=== PATIENT | male | born 1945 | race Caucasian/White ===

== ENCOUNTER 2019-10-04 08:32 | Outpatient (CLI) | payer OTHER, SELFPAY ==
--- NOTE | 2019-10-04 08:44 | CT_ITS ---
WS: [id number] High resolution chest CT. HISTORY: Bronchiectasis. TECHNIQUE: Contiguous 5 mm axial imaging performed on the thorax. Additional 1.25 mm thin slices in s upine and prone positioning. Inspiratory and expiratory maneuvers submitted also. Coronal and sagittal reformats are submitted. All CT scans at [facility] use at least one of these dose optimization techniques: automated exposure control; mA and/or kV adjustment per patient size (includes targeted exams where dose is matched to c linical indication); or iterative reconstruction. CONTRAST: None DLP: 1827.31 mGycm COMPARISON: 09/07/2019, 07/19/2019 Lungs and central airway: Mild pulmonary hyperexpansion. There is extensive groundglass attenuation n oted bilaterally. Groundglass attenuation has been noted on multiple prior CTs also. Patchy and nearl y diffuse groundglass attenuation in a mosaic pattern. Scattered opacifications are present throughou t both lungs. Opacifications in the periphery of the LEFT upper lobe resolved with prone positioning. Conglomerate nodule measuring 2.0 x 3.0 cm in the LEFT lower lobe persists on all imaging. There is extensive bronchiectatic changes in the RIGHT middle lobe and LEFT lower lobe and lingula. To a lesse r extent mild bronchiectasis in the upper lobes bilaterally. Bronchiectatic changes have progressed s lee the prior study. Pleura: Small layering RIGHT pleural effusion as noted on the prior study. Slight decrease in size of the RIGHT effusion. Very small LEFT pleural effusion. Heart and pericardium: Moderate enlargement of the heart chambers. No pericardial effusion. Mild athe rosclerosis of the coronary arteries. Mediastinum and jason: Numerous enlarged lymph nodes are again identified and stable over multiple gerry or examinations. The largest lymph node at the AP window with a maximum transverse diameter of 1.7 cm . No progression of adenopathy. Vessels: Pulmonary artery size is enlarged at 3.5 cm diameter, slightly greater then the aorta. Aorta is normal size. Chest wall and lower neck: Mild gynecomastia. Upper abdomen: The entire adrenal glands are not included. No abnormality is noted. Osseous structures: Moderate increase in thoracic kyphosis. Calcification along the anterior longitud inal ligament. Prior dorsal column stimulator over the mid thoracic region. CT/CT chest wo con [id number] IMPRESSION: 1. Severe chronic interstitial lung disease. Progression of bronchiectasis sin ce 09/07/2019. Most significant bronchiectasis in the RIGHT middle lobe, LEFT l ower lobe and lingula. 2. Near diffuse mosaic groundglass attenuation and conglomerate chronic nodule in the LEFT lower lobe. Consider nonspecific interstitial pneumonitis and othe r chronic organizing pneumonias. 3. Small bilateral pleural effusions, RIGHT greater than LEFT. 4. Moderate cardiomegaly. 5. Pulmonary hypertension. 6. Mild gynecomastia. 7. Mediastinal and hilar lymphadenopathy is stable.
== END 2019-10-04 08:33 | disposition home or self-care (01) ==
LOC: RADWPI 08:40
PROVIDERS: Family Provider Emergency Medicine Emergency Medical Services; PCP Emergency Medicine Emergency Medical Services; Referring Provider Emergency Medicine Emergency Medical Services; Visit Provider Emergency Medicine Emergency Medical Services
DX: J47.9 Bronchiectasis, uncomplicated (principal); J90 Pleural effusion, not elsewhere classified; I51.7 Cardiomegaly; I27.20 Pulmonary hypertension, unspecified; N62 Hypertrophy of breast
CPT/HCPCS: 71250

== ENCOUNTER 2019-10-23 11:05 | Outpatient (CLI) | payer OTHER, SELFPAY | END 2019-10-23 11:06 | disposition home or self-care (01) | LOC: RT 11:09 | PROVIDERS: Family Provider Emergency Medicine Emergency Medical Services; PCP Emergency Medicine Emergency Medical Services; Visit Provider Internal Medicine Critical Care Medicine | DX: J47.9 Bronchiectasis, uncomplicated (principal) | CPT/HCPCS: 94060; 94726; 94729; J7611 ==

== ENCOUNTER 2019-11-12 06:12 | Day surgery (SDC) | payer OTHER, MEDICARE, SELFPAY ==
[2019-11-09 08:45] VITALS: BMI 38.7
[2019-11-12 06:33] VITALS: BMI 38.6
[2019-11-12] MEDS: sodium chloride 0.9% 1,000 ML 30 ML (06:55)
--- NOTE | 2019-11-12 06:55 | P.ANESUD_ITS ---
Pre-Anesthetic Update Pre-Anesthetic Assessment: Date of Surgery/Procedure: 11/12/19 Preop Susan gnosis: Anemia Proposed Procedure: Operation Date: 11/12/19 07:00 Proposed Procedures p EGD/Colon 05418 10520 D64.9(Not Applicable) - Nasim Carcamo MD s Colonoscopy(Not Applicable) - Nasim Carcamo MD Last Intake: Intake Last Liquid Date 11/11/19 Last Liquid Time 20:00 Last Solid Date 11/09/19 Last Solid Time 18:00 Vitals: Pulse Strength 3+ Normal 11/12/19 06:41 Cardiac Studies: No Data to Display
[2019-11-12 06:56] LABS: Glucose Point of Care 90 mg/dL (70-110)
--- NOTE | 2019-11-12 06:57 | ANES.PREANE2 ---
Pre-Anesthetic Assessment Pre-Anesthetic Assessment: Height/Weight: Height 1.78 m Weight 122.039 kg Preop Diagnosis: Anemia Proposed Procedure: Operation Date: 11/12/19 07:00 Proposed Procedures p EGD/Colon 72036 42191 D64.9(Not Applicable) - Nasim Carcamo MD s Colonoscopy(Not Applicable) - Nasim Carcamo MD Was Beta Ame taken within 24 hours: N/A Last intake: Intake Last Liquid Date 11/11/19 Last Liquid Time 20:00 Last Solid Date 11/09/19 Last Solid Time 18:00 Exam: Pre-Anes Outpt Exam: alert, oriented x 3, clear to auscultation bilaterally and regular rate & rhythm Airway: Submandibular: WNL Cervical ROM: WNL MP: 2 Dentition: False History/ROS: No significant history except as noted Pulmonary: Pulmonary: COPD, NUNEZ and SOB Comments: 4Liters O2 24/7. LLL removed 1969 CV/HEM: CV/HEM: Afib, Anemia and HTN : : None reported Hepatic: Hepatic: None reported GI: Comments: 2 colon resections Metabolic: Metabolic: DM, Hyperlipidemia and Morbid obesity Musc/skel: Musc/skel: Lower Back Pain (spinal cord stimulator), Weakness (uses a cane) and None reported Neuropsych: Neuropsych: Depression Comments: PTSD Anesthetic Plan: ASA status: 3 Anesthesia: Anesthesia Evaluation and MAC Risk of > 500 ml blood loss (7ml/kg in children): No PFSH Anesthesia PFSH: Social History Smoking and tobacco status: former smoker Quit status (tobacco): has quit using tobacco Year quit tobacco: 1970 Alcohol intake: current Alcohol intake frequency: holidays/special occasions only Lives independently: Yes Household members: spouse Marital status: Current occupational status: retired History of recent travel: No Current gender identity: Male Data Anesthesia Other Labs: Laboratory Results - last 48 hr 11/12/19 06:53 POC Glucose 90 Cardiac Studies: No Data to Display
--- NOTE | 2019-11-12 06:59 | W.PM.OPSUD ---
Surgery/Procedure H&P Update DATE OF PROCEDURE: November 12, 2019 DATE H&P PERFORMED: 10/23/19 H&P UPDATE INFORMATION: H&P completed within last 30 days and No changes to prior documentation PREOP DIAGNOSIS: Anemia PLANNED PROCEDURE: Operation Date: 11/12/19 07:00 Proposed Procedures p EGD/Colon 29325 17427 D64.9(Not Applicable) - Nasim Carcamo MD s Colonoscopy(Not Applicable) - Nasim Carcamo MD
[2019-11-12 07:04] VITALS: BP 113/62; PULSE 62; RESP 22; TEMP 37.4
[2019-11-12 07:55] VITALS: BP 121/57; PULSE 62; RESP 16; TEMP 36.9; O2SAT 88
[2019-11-12 08:03] VITALS: BP 115/64; PULSE 60; RESP 16; O2SAT 88
[2019-11-12 08:16] VITALS: BP 123/64; PULSE 60; RESP 16; O2SAT 90
--- NOTE | 2019-11-12 10:01 | ANE.PACU2 ---
 Inpatient post-anesthesia follow up: Airway intact: Yes Vital signs: Temperature 98.4 F Pulse Rate 60 Respiratory Rate 16 Blood Pressure 123/64 Pulse Oximetry 90 Oxygen Delivery Me thod Nasal Cannula Oxygen Flow Rate 4 Fraction of Inspir ed Oxygen Hydration adequate: Yes Nausea and vomiting: No Mental status: Baseline
== END 2019-11-12 08:30 | disposition home or self-care (01) ==
PROVIDERS: Family Provider Emergency Medicine Emergency Medical Services; PCP Emergency Medicine Emergency Medical Services; Visit Provider Surgery
PROC: 0DJ08ZZ Inspection of Upper Intestinal Tract, Via Natural or Artificial Opening Endoscopic (ICD-10-PCS; CPT 43235; principal; 2019-11-12 07:00)
PROC: 0DJD8ZZ Inspection of Lower Intestinal Tract, Via Natural or Artificial Opening Endoscopic (ICD-10-PCS; CPT 45378; 2019-11-12 07:00)
DX: D64.9 Anemia, unspecified (principal); Z85.038 Personal history of other malignant neoplasm of large intestine; Z90.49 Acquired absence of other specified parts of digestive tract; D12.2 Benign neoplasm of ascending colon; D12.4 Benign neoplasm of descending colon; K64.8 Other hemorrhoids; I10 Essential (primary) hypertension; I48.91 Unspecified atrial fibrillation; G47.30 Sleep apnea, unspecified; E78.5 Hyperlipidemia, unspecified; M17.11 Unilateral primary osteoarthritis, right knee; E11.9 Type 2 diabetes mellitus without complications; Z79.4 Long term (current) use of insulin; Z82.49 Family history of ischemic heart disease and other diseases of the circulatory system; Z87.891 Personal history of nicotine dependence; D50.9 Iron deficiency anemia, unspecified; J44.9 Chronic obstructive pulmonary disease, unspecified; E66.01 Morbid (severe) obesity due to excess calories; Z68.38 Body mass index [BMI] 38.0-38.9, adult
CPT/HCPCS: 12345; 36416; 43251; 45385; 82962; 88305; J2001; J2704; J7030

== ENCOUNTER 2019-11-19 07:25 | Inpatient (IN) | payer OTHER, MEDICARE, SELFPAY ==
[2019-11-19] VITALS (19 sets, daily range): BP systolic 100–147; BP diastolic 39–80; PULSE 60–86; RESP 16–21; TEMP 36.6–37.1; O2SAT 90–100; BMI 37.0
--- NOTE | 2019-11-19 07:38 | ED_ITS ---
Entered by Isis Jacobs, acting as scribe for Beto Candelario DO HPI - Nausea/Vomiting/Diarrhea General: Chief complaint: Nausea/Vomiting/Diarrhea Stated complaint: Throwing up/passing blood Time Seen by Provider: 11/19/19 07:41 Source: patient and family Mode of arrival: ambulatory Limitations: no limitations History of Present Illness: HPI Narrative: 74 yo male presents with blood in stools. pt states this started yesterday. pt had one episode of vomiting bright red blood.pt has had 4 episodes of bloody diarrhea stools. pt states he had a colonscopy and EGD done [address] Carcamo to see where the blood loss was coming from, pt restarted eliquis after the procedure. pt denies abdomen pain. pt denies any other symptoms at this time. MD elicited complaint: nausea, vomiting (blood) and diarrhea (blood) Onset (ago): day(s) (yesterday) Description of vomiting: bloody Description of diarrhea: blood Associated nausea: Yes Associated abdominal pain: No Location of pain: None Pain consistency: constant Severity: moderate Exacerbating factors: bowel movement Relieving factors: none Context: recent surgery/procedure (colonscopy and scope) Associated symtoms: Reports nausea and other (bloody stools, one episode of blood in vomiting); Denies chest pain, dysuria, fatigue or malaise Treatment prior to arrival: none Review of Systems Const: Denies: fever, chills, body aches, change in appetite, fatigue or malaise ENMT: Denies: throat pain, ear pain, nasal discharge or nasal congestion Card: Denies: chest pain, edema, shortness of breath on exertion or shortness of breath when lying down Resp: Denies: productive cough or non-productive cough GI: Reports: nausea, vomiting blood and blood in stool : Denies: flank pain, painful urination, urinary frequency or urinary urgency Skin/Breast: Denies: rash or itching [facility] ED PFSH: Medical History Accelerated essential hypertension AF (atrial fibrillation) Apnea, sleep Bronchiectasis, uncomplicated Chronic obstructive pulmonary disease, unspecified Cyst of pancreas Hyperlipidemia, unspecified Incisional hernia Osteoarthritis of right knee Post-traumatic stress disorder, unspecified Postlaminectomy syndrome Spinal stenosis, lumbar region without neurogenic claudication Type 2 diabetes mellitus without complications Surgical History H/O colonoscopy 2016 H/O shoulder surgery History of colon resection x2 History of lumbar fusion History of surgical procedure on eye proper using laser History of tonsillectomy and adenoidectomy S/P partial lobectomy of lung Family History Brother Diabetes Hypertension Father Cancer Sister Cancer Other CAD (coronary artery disease) Stroke Denies family history of Anesthesia complication Bleeding disorder Social History Smoking and tobacco status: former smoker Quit status (tobacco): has quit using tobacco Year quit tobacco: 1970 Alcohol intake: current Alcohol intake frequency: holidays/special occasions only Lives independently: Yes Household members: spouse Marital status: Current occupational status: retired History of recent travel: No Current gender identity: Male Physical Exam Const: COMMON NORMALS: average body habitus, oriented x3 and alert GENERAL APPEARANCE: cooperative, comfortable, well kempt and well developed NUTRITIONAL APPEARANCE: obese ORIENTATION/CONSCIOUSNESS: Yes awake, Yes oriented to person and Yes oriented to place HENMT: COMMON NORMALS: normocephalic, head/scalp atraumatic, EAC's normal, TM's normal bilaterally, external nose normal, moist oral mucous membranes and oropharynx normal HEAD & SCALP: normocephalic and atraumatic NOSE: external nose normal EXTERNAL AUDITORY CANAL: EAC's normal TYMPANIC MEMBRANE: TM's normal bilaterally MOUTH: oral and palatal mucosa normal, lip normal and tongue normal THROAT: posterior oropharynx normal and tonsils normal Eye: COMMON NORMALS: PERRL, EOMs intact bilaterally, conjunctivae normal and no scleral icterus CONJUNCTIVA: Yes conjunctivae normal PUPIL: Yes PERRL Neck/C-Spine: COMMON NORMALS: full ROM, no lymphadenopathy, supple, no meningeal signs and thyroid normal THYROID: thyroid normal and asymmetrical Lymph: LYMPHATIC: no lymphadenopathy noted Resp: COMMON NORMALS: normal respiratory effort, no retractions, no use of accessory muscles and clear to auscultation bilaterally AUSCULTATION: clear to auscultation bilaterally Cardio: COMMON NORMALS: regular rate and regular rhythm RATE: regular rate RHYTHM: regular rhythm HEART SOUNDS: no murmurs GI: COMMON NORMALS: normal to inspection, nondistended, normoactive bowel sounds, soft to palpation and no hepatosplenomegaly PALPATION: Yes soft and Yes no hepatosplenomegaly : COMMON NORMALS: Yes no CVA tenderness BLADDER/KIDNEY EXAM: Yes no CVA tenderness Back/Pelvis: COMMON NORMALS: no CVA tenderness LUMBAR SPINE/LOWER BACK: Yes normal to inspection Extremity: COMMON NORMALS: no clubbing, cyanosis or edema, no calf tenderness and no pedal edema Neuro: COMMON NORMALS: oriented x3 SENSORIUM/ORIENTATION: Yes alert, Yes oriented to person and Yes oriented to place MENINGEAL SIGNS: Yes no meningeal signs Psych: APPEARANCE: Yes well kempt Skin: COMMON NORMALS: no rashes or lesions noted and skin turgor normal GENERAL SKIN EXAM: no rashes or lesions noted and turgor normal Course ED course: Grossly positive bloody diarrhea this morning. He said EGD and colonoscopy within the last week which was reviewed there were some polyps removed from the colonoscopy he is previously had colon resection there is a question of the colorectal junction of some abnormalities none were noted at the time of colonoscopy. Will discuss with Dr. Carcamo messages been let us left for him he is currently scrubbed into per surgery he will call back once he is completed. Have discussed Dr. Moran she will accept him on the medical floor we will keep him n.p.o. Vital Signs: Vital signs: Vital Signs Temperature 98.7 F 11/19/19 07:30 Pulse Rate 62 11/19/19 09:00 Respiratory Rate 18 11/19/19 09:00 Blood Pressure 131/60 11/19/19 09:00 Pulse Oximetry 99 11/19/19 09:00 MDM - Nausea/Vomiting/Diarrhea Lab Data: Labs: Lab Results 11/19/19 11/19/19 11/19/19 Range/Units 07:58 07:58 07:58 WBC 16.5 H (4.0-10.0) 10^3/ uL RBC 2.95 L (4.1-5.3) 10^6/u L Hgb 7.3 L (11.7-16.6) g/dL Hct 24.5 L (42.0-52.0) % MCV 83.1 (80-94) fL MCH 24.7 L (28.0-34.0) pg MCHC 29.8 L (30.0-36.0) g/dL RDW 16.5 H (12.1-15.1) % Plt Count 229 (130-400) 10^3/c mm MPV 10.3 (7.4-10.4) fL Neut % (Auto) 76.2 % Lymph % (Auto) 12.8 % [place] % (Auto) 10.1 % Eos % (Auto) 0.0 % Baso % (Auto) 0.2 % Neut # (Auto) 12.6 H (1.8-7.7) 10^3/u L Lymph # (Auto) 2.1 (0.8-4.8) 10^3/u L [place] # (Auto) 1.7 H (0.2-0.9) 10^3/u L Eos # (Auto) 0.0 (0.0-0.8) 10^3/u L Baso # (Auto) 0.0 (0.0-0.1) 10^3/u L Nucleated RBC % (a uto) 0 % Nucleated RBCs # 0.0 /100WBC PT 14.40 H (10.5-13.3) SECO NDS INR 1.09 (0.8-1.2) APTT 26.0 (23.9-36.7) SECO NDS Sodium 134 L (136-145) mmol/L Potassium 4.1 (3.5-5.1) mmol/L Chloride 88 L (98-107) mmol/L Carbon Dioxide 34 H (22-29) mmol/L Anion Gap 16.1 (5-19) BUN 73 H (8-23) mg/dL Creatinine 1.5 H (0.7-1.2) mg/dL Glucose 266 H (65-115) mg/dL Calcium 10.2 (8.5-10.5) mg/dL Total Bilirubin 0.2 (0.15-1.2) mg/dL AST 14 (0-40) U/L ALT 14 (0-41) U/L Alkaline Phosphata se 58 (40-130) IU/L Total Protein 7.3 (6.6-8.7) g/dL Albumin 3.9 (3.5-5.2) g/dL Globulin 3.4 (1.3-4.6) g/dL Lipase 236 H (13-60) U/L Urine Color (Yellow) Urine Appearance (CLEAR) Urine pH (5-7) Ur Specific Gravit y (1.005-1.030) Urine Protein (Negative) Urine Glucose (UA) (Normal) Urine Ketones (Negative) Urine Blood (Negative) Urine Nitrate (Negative) Urine Bilirubin (NEGATIVE) Urine Urobilinogen (Negative) mg/dL Ur Leukocyte [place] ase (Negative) Blood Type Antibody Screen 11/19/19 11/19/19 Range/Units 07:58 08:13 WBC (4.0-10.0) 10^3/ uL RBC (4.1-5.3) 10^6/u L Hgb (11.7-16.6) g/dL Hct (42.0-52.0) % MCV (80-94) fL MCH (28.0-34.0) pg MCHC (30.0-36.0) g/dL RDW (12.1-15.1) % Plt Count (130-400) 10^3/c mm MPV (7.4-10.4) fL Neut % (Auto) % Lymph % (Auto) % [place] % (Auto) % Eos % (Auto) % Baso % (Auto) % Neut # (Auto) (1.8-7.7) 10^3/u L Lymph # (Auto) (0.8-4.8) 10^3/u L [place] # (Auto) (0.2-0.9) 10^3/u L Eos # (Auto) (0.0-0.8) 10^3/u L Baso # (Auto) (0.0-0.1) 10^3/u L Nucleated RBC % (a uto) % Nucleated RBCs # /100WBC PT (10.5-13.3) SECO NDS INR (0.8-1.2) APTT (23.9-36.7) SECO NDS Sodium (136-145) mmol/L Potassium (3.5-5.1) mmol/L Chloride (98-107) mmol/L Carbon Dioxide (22-29) mmol/L Anion Gap (5-19) BUN (8-23) mg/dL Creatinine (0.7-1.2) mg/dL Glucose (65-115) mg/dL Calcium (8.5-10.5) mg/dL Total Bilirubin (0.15-1.2) mg/dL AST (0-40) U/L ALT (0-41) U/L Alkaline Phosphata se (40-130) IU/L Total Protein (6.6-8.7) g/dL Albumin (3.5-5.2) g/dL Globulin (1.3-4.6) g/dL Lipase (13-60) U/L Urine Color Yellow (Yellow) Urine Appearance Clear (CLEAR) Urine pH 5 (5-7) Ur Specific Gravit y 1.010 (1.005-1.030) Urine Protein Neg (Negative) Urine Glucose (UA) Norm (Normal) Urine Ketones Negative (Negative) Urine Blood Neg (Negative) Urine Nitrate Negative (Negative) Urine Bilirubin Neg (NEGATIVE) Urine Urobilinogen Norm (Negative) mg/dL Ur Leukocyte [place] ase Negative (Negative) Blood Type O Positive Antibody Screen Negative Discharge Plan Discharge Patient Disposition: Placed in Observation Clinical Impression: Anemia, Hematemesis Condition: Stable Referrals: Stevan Pal DO [Primary Care Provider] - Coding Level of Care Code ED Document Image Technician for Chg Fwd Exam Comprehensive The documentation recorded by the Reynaldo taveras Bridget Annette, accurately reflects the service I personally performed and the decisions made by Andree ponce Curtis L, DO Nov 19, 2019 07:25
--- NOTE | 2019-11-19 07:47 | CT_ITS ---
WS: [id number] CT ABDOMEN PELVIS TECHNIQUE: Contrast-enhanced CT of the abdomen and pelvis with coronal and sagittal reformatted image s. CLINICAL INFORMATION: GI bleed COMPARISON: None. DLP: 3842.[address] scans at [facility] use at least one of these dose optimization techniques: automat ed exposure control; mA and/or kV adjustment per patient size (includes targeted exams where dose is matched to clinical indication); or iterative reconstruction. FINDINGS: Small right pleural effusion with compressive atelectasis right lung base. Trace left pleural fluid. Fibrotic interstitial changes in the lung bases. Cardiomegaly. Nodular infiltrates within the right m iddle lobe unchanged since chest CT October 04, 2019. Normal liver. Normal gallbladder. Normal spleen. Normal GE junction. Adrenal glands are normal. Hallie l renal parenchymal enhancement. Small bilateral renal cysts. No hydronephrosis. Small low-attenuatio n lesion in the body of the pancreas measuring 11 mm. Fatty atrophy of the pancreatic parenchyma. Nor mal caliber abdominal aorta. Focal eccentric masslike soft tissue thickening distal sigmoid colon at the rectal junction suspiciou s for neoplasm. Soft tissue thickening measures 3.2 CM. Prior postoperative changes sigmoid resection with anastomosis. Ventral abdominal wall widemouth hernia with hernia mouth measuring 7.0 CM. Herniation of transverse colon without obstruction.Moderate short segment of segmental narrowing proximal to the anastomosis. No periaortic lymphadenopathy. No pelvic lymphadenopathy. No inguinal lymphadenopathy. Prior postoper ative changes L4-S1 pedicle screw fixation. Ankylosis lower thoracic spine. Dorsal spinal stimulator. Notified Beto Candelario DO at 11/19/2019 9:[address]/CT abdomen pelvis w con* [id number] IMPRESSION: 1. Focal eccentric masslike soft tissue thickening distal sigmoid colon at the rectal junction suspicious for neoplasm. Soft tissue thickening measures 3.2 C M. Patient reports recent colonoscopy and this could also be sequelae from rece nt colonoscopy or biopsy. 2. Prior postoperative changes sigmoid resection with anastomosis. Moderate sh ort segment of segmental narrowing proximal to the anastomosis. 3. Ventral abdominal wall hernia with a wide mouth opening containing nonobstr ucted transverse colon. 4. Low-attenuation lesion in the body of the pancreas measuring 11 mm. Recomme nd 3-6 month follow-up with CT or MRI. 5. Small moderate right pleural effusion.
[2019-11-19 08:06] LABS: Basophils % 0.2 %; Hematocrit 24.5 % (42.0-52.0); Hemoglobin 7.3 g/dL (11.7-16.6); Lymphocytes # 2.1 10^3/uL (0.8-4.8); Lymphocytes % 12.8 %; Mean Corpuscular HGB Conc 29.8 g/dL (30.0-36.0); Mean Corpuscular Hemoglobin 24.7 pg (28.0-34.0); Mean Corpuscular Volume 83.1 fL (80-94); Mean Platelet Volume 10.3 fL (7.4-10.4); Monocytes # 1.7 10^3/uL (0.2-0.9); Monocytes % 10.1 %; Neutrophils # 12.6 10^3/uL (1.8-7.7); Neutrophils % 76.2 %; Nucleated Red Blood Cells % 0 %; Platelet Count 229 10^3/cmm (130-400); Red Blood Count 2.95 10^6/uL (4.1-5.3); Red Cell Distribution Width 16.5 % (12.1-15.1); White Blood Count 16.5 10^3/uL (4.0-10.0)
--- NOTE | 2019-11-19 08:06 | PC.NURSE ---
Patient ambulated to the restroom with a steady gait, with portable oxygen to provide stool and urine samples.
--- NOTE | 2019-11-19 08:11 | PC.NURSE ---
Patient ambulated back to room with steady gait. Returned to bed without injury.
[2019-11-19 08:14] LABS: Add Urine Microscopic? NO
[2019-11-19 08:15] LABS: INR 1.09 (0.8-1.2)
[2019-11-19 08:20] LABS: Alanine Aminotransferase 14 U/L (0-41); Albumin Level 3.9 g/dL (3.5-5.2); Alkaline Phosphatase 58 IU/L (40-130); Anion Gap 16.1 (5-19); Aspartate Amino Transferase 14 U/L (0-40); Blood Urea Nitrogen 73 mg/dL (8-23); Calcium 10.2 mg/dL (8.5-10.5); Carbon Dioxide 34 mmol/L (22-29); Chloride 88 mmol/L (98-107); Globulin 3.4 g/dL (1.3-4.6); Glucose 266 mg/dL (65-115); Lipase 236 U/L (13-60); Potassium 4.1 mmol/L (3.5-5.1); Sodium 134 mmol/L (136-145); Total Bilirubin 0.2 mg/dL (0.15-1.2); Total Protein 7.3 g/dL (6.6-8.7)
[2019-11-19 08:27] LABS: Bilirubin Urine Neg (NEGATIVE); Blood Urine Neg (Negative); Glucose Urine UA Norm (Normal); Ketones Urine Negative (Negative); Leukocyte Esterase Urine Negative (Negative); Nitrate Urine Negative (Negative); Protein Urine Neg (Negative); Urine Appearance Clear (CLEAR); Urine Color Yellow (Yellow); Urobilinogen Urine Norm (Negative); pH Urine 5 (5-7)
[2019-11-19] MEDS: iodixanol 320 mg/mL 100mL Btl IV (08:32)
[2019-11-19] MEDS: pantoprazole 40 mg SDV IVP ×2 (08:49→20:50)
--- NOTE | 2019-11-19 10:12 | PM.HP ---
Providers/Chief Complaint Admitting Physician: Cecilia Moran DO Primary Care Provider: Stevan Pal DO Chief Complaint: Throwing up/passing blood History of Present Illness Ambrocio Tinoco is a 74 year old male with a past medical history of atrial fibrillation on chronic anticoagulation and history of chronic anemia that presented to the emergency department today for hematemesis and hematochezia. Patient had recent EGD and colonoscopy on 11/12/[address] Carcamo, did well following the procedure, reported that he went home and started taking his home Eliquis as previously prescribed. He stated that he began having upset stomach 1 to 2 days after his procedure, had decreased appetite and generalized abdominal cramping. He reported that he began having some bright red blood per rectum with increased nausea. He stated that due to the bleeding he stopped his Eliquis over the weekend, last dose was on Tuesday evening. Patient reports continued bright red blood per rectum and one episode of throwing up blood today which resulted in him coming to the ER for further evaluation and treatment.. Last bowel movement was this morning at about 550. He denies any fevers, no chills, no sick contacts. Reported that respiratory status is at its baseline with no recent changes. He reports cramping discomfort in the abdomen that comes and goes. Patient was seen and evaluated in the emergency department noted to have concern for GI bleed with recent endoscopy and therefore placed on observation. Dr. Carcamo was consulted by ER physician. Review of Systems Const: Denies: fever or chills Eyes: Reports: change in vision (acute on chronic) ENMT: Denies: nasal congestion Card: Denies: chest pain, palpitations or edema Resp: Reports: productive cough (chronic); Denies: shortness of breath or coughing up blood GI: Reports: abdominal pain, nausea, vomiting, vomiting blood, cramping and blood in stool; Denies: diarrhea, constipation or black tarry stool : Denies: painful urination or blood in urine Musc: Denies: extremity pain or muscle cramps Skin/Breast: Denies: rash or new lesion Neuro: Reports: dizziness; Denies: headache Psych: Denies: anxiety or depression Endo: Denies: excessive urination or hot flashes Estevan/Lymph: Reports: easy bleeding; Denies: easy bruising Medications/Allergies Home Medications Medication Instructions Recorded Confirmed Last Taken Type desonide 1 applic TOPICAL TID 11/19/19 11/19/19 Unknown History glucose 4 g PO Q15M PRN 11/19/19 11/19/19 Unknown History senna 17.2 mg PO BID PRN 11/19/19 11/19/19 Unknown History tiotropium bromide [Spiriva 2 puff INHALATION DAILY 11/19/19 11/19/19 11/17/19 History Respimat] Allergies Allergy/AdvReac Type Severity Reaction Status Date / Time naproxen Allergy Intermediate ALGY-Rash Verified 09/27/19 14:24 amoxicillin AdvReac Intermediate Itching Verified 09/24/19 12:53 morphine AdvReac Intermediate ADR-Vomitin Verified 10/23/19 14:05 g PFSH Acute PFSH: Medical History (Updated 11/19/19 @ 10:19 by Cecilia Moran DO) Accelerated essential hypertension AF (atrial fibrillation) Apnea, sleep Bronchiectasis, uncomplicated Chronic obstructive pulmonary disease, unspecified Cyst of pancreas Hyperlipidemia, unspecified Incisional hernia Osteoarthritis of right knee Post-traumatic stress disorder, unspecified Postlaminectomy syndrome Spinal stenosis, lumbar region without neurogenic claudication Type 2 diabetes mellitus without complications Surgical History (Updated 11/19/19 @ 10:19 by Cecilia Moran DO) H/O colonoscopy 2016 & 11/12/19 H/O shoulder surgery History of colon resection x2 History of lumbar fusion History of surgical procedure on eye proper using laser History of tonsillectomy and adenoidectomy S/P partial lobectomy of lung Family History Brother Diabetes Hypertension Father Cancer Sister Cancer Other CAD (coronary artery disease) Stroke Denies family history of Anesthesia complication Bleeding disorder Social History Smoking and tobacco status: former smoker Quit status (tobacco): has quit using tobacco Year quit tobacco: 1971 Alcohol intake: current Alcohol intake frequency: holidays/special occasions only Lives independently: Yes Household members: spouse Marital status: Current occupational status: retired History of recent travel: No Current gender identity: Male Vitals/I&O/Wt Last Vital Signs Temp 98.7 F 11/19/19 07:30 Pulse 62 11/19/19 09:00 Resp 18 02/24/20 09:00 BP 131/60 11/19/19 09:00 Pulse Ox 99 11/19/19 09:00 Weight last 48 hrs Weight 113.852 kg Physical Exam Const: COMMON NORMALS: oriented x3 and alert GENERAL APPEARANCE: cooperative ORIENTATION/CONSCIOUSNESS: Yes awake, Yes oriented to person, Yes oriented to place and Yes oriented to time HENMT: COMMON NORMALS: normocephalic and head/scalp atraumatic HEAD & SCALP: normocephalic and atraumatic Eye: COMMON NORMALS: PERRL PUPIL: Yes PERRL Neck/C-Spine: COMMON NORMALS: supple GENERAL: Yes normal visual inspection Resp: EFFORT & INSPECTION: Yes able to speak in complete sentences OTHER: Diminished breath sounds bilaterally with prolonged expiratory phase, faint expiratory wheezing bilaterally Cardio: OTHER: Irregularly irregular, no appreciable murmur GI: OTHER: Obese, soft, mild tenderness to palpation in the left lower quadrant, no guarding or rigidity, hypoactive bowel sounds Extremity: COMMON NORMALS: no clubbing, cyanosis or edema and no calf tenderness Neuro: COMMON NORMALS: oriented x3, CN's II-XII intact bilaterally, moves all extremities and no focal motor deficits SENSORIUM/ORIENTATION: Yes alert, Yes oriented to person, Yes oriented to place and Yes oriented to time SPEECH: speech normal Psych: COMMON NORMALS: mental status grossly normal and cooperative Skin: COMMON NORMALS: no rashes or lesions noted GENERAL SKIN EXAM: no rashes or lesions noted Data : 11/19/19 07:58 11/19/19 07:58 A&P Assessment and plan (1) Anemia: Acute on chronic anemia with hemoglobin of 7.3 today Reported hematemesis and hematochezia with recent EGD and colonoscopy on 11/12/2019. Patient stated that he stopped taking his home Eliquis over the weekend. We will continue to hold Eliquis at this time. We will discuss with general surgeon, Dr. Carcamo, appreciate recommendations and assistance in patient's care Continue on IV PPI, Protonix every 12 hours Status: Acute Code(s): D64.9 - Anemia, unspecified (2) Hematemesis: Plan as above, continue with IV PPI in general surgery consultation. Serial H&H with transfusion of packed red blood cells if hemoglobin drops below 7 Status: Acute Code(s): K92.0 - Hematemesis (3) Bronchiectasis: Chronic bronchiectasis and COPD. On 4 L of oxygen by nasal cannula at baseline and on home trilogy at night. Followed with surgical territory manager, Dr. White. Continue home inhalers Status: Acute Qualifiers: Bronchiectasis type: uncomplicated Qualified Code(s): J47.9 - Bronchiectasis, uncomplicated Code(s): J47.9 - Bronchiectasis, uncomplicated (4) Chronic obstructive pulmonary disease, unspecified: Continue with oxygen by nasal cannula, 4 L at baseline. Continue home trilogy Status: Acute Code(s): J44.9 - Chronic obstructive pulmonary disease, unspecified (5) Heart failure with preserved ejection fraction: Patient appears to be dehydrated at this time with elevated BUN and creatinine and soft blood pressures. Will hold home metolazone and Lasix. Continue to monitor strict intake and output as well as daily weights Status: Acute Qualifiers: Heart failure chronicity: chronic Qualified Code(s): I50.32 - Chronic diastolic (congestive) heart failure Code(s): I50.30 - Unspecified diastolic (congestive) heart failure (6) Cyst of pancreas: Will need outpatient follow-up for repeat imaging with possible MRCP Status: Acute Code(s): K86.2 - Cyst of pancreas (7) AF (atrial fibrillation): Rate controlled at this time, anticoagulation on hold. Discussed with patient that atrial fibrillation can place him at increased risk of stroke due, however with concern for bleeding at this time will continue to hold. Patient and family verbalized understanding Status: Acute Code(s): I48.91 - Unspecified atrial fibrillation Additional A&P Information Leukocytosis: Likely stress reaction, no infectious etiology identified at this time Dehydration: Continue with gentle IV fluids and continue to monitor closely, caution due to history of diastolic CHF Diabetes mellitus type 2, insulin-dependent: Placed on sliding scale insulin, will decrease the dose of patient's home Lantus to 20 units at bedtime as do not wish for him to become hypoglycemic due to his n.p.o. status Focal eccentric masslike soft tissue thickening in the distal sigmoid colon could be secondary to recent colonoscopy, will discuss further with Dr. Carcamo. History of colon cancer status post resection Small right pleural effusion: Appears to be at baseline DVT prophylaxis: SCDs, no pharmacologic prophylaxis due to GI bleed Diet: N.p.o. CODE STATUS: Full code Attestations Medical Necessity Statement*: Patient requires hospitalization due to GI bleed, expected stay less than 2 midnights, therefore will place on observation at this time Coding Level of Care Code Acute [employer] Principal for [facility] Fwd Exam Comprehensive Diagnoses Anemia D64.9 Hematemesis K92.0 Bronchiectasis J47.9 Bronchiectasis type: uncomplicated Chronic obstructive pulmonary disease, unspecified J44.9 Heart failure with preserved ejection fraction I50.32 Heart failure chronicity: chronic Cyst of pancreas K86.2 AF (atrial fibrillation) I48.91
[2019-11-19 12:12] LABS: Glucose Point of Care 270 mg/dL (70-110)
[2019-11-19] MEDS: sodium chloride 0.9% 1,000 ML 50 ML IV (12:21)
[2019-11-19 14:03] LABS: Hemoglobin 6.8 g/dL (11.7-16.6)
[2019-11-19] MEDS: gabapentin 100 mg Capsule 200 MG PO ×2 (15:22→21:07)
[2019-11-19 17:07] LABS: Glucose Point of Care 201 mg/dL (70-110)
[2019-11-19] MEDS: sodium chloride 0.9% 100 ML 50 ML (17:49)
[2019-11-19] MEDS: metoprolol tartrate 50 mg Tablet 75 MG PO (18:22)
--- NOTE | 2019-11-19 19:05 | PC.NURSE ---
Introduction of staff and report received, aidet.
[2019-11-19] MEDS: ipratropium-albuterol 3 mL Neb INHALATION (19:44)
[2019-11-19] MEDS: sodium chloride 3.5% neb 4 mL Neb INHALATION (19:44)
[2019-11-19 20:37] LABS: Glucose Point of Care 293 mg/dL (70-110)
[2019-11-19] MEDS: atorvastatin 40 mg Tablet PO (21:07)
[2019-11-19] MEDS: insulin glargine 100 units/1 mL 20 UNIT SUBCUT (21:08)
[2019-11-19 23:10] LABS: Hematocrit 24.1 % (42.0-52.0); Hemoglobin 7.3 g/dL (11.7-16.6)
[2019-11-20] VITALS (11 sets, daily range): BP systolic 86–152; BP diastolic 53–74; PULSE 60–120; RESP 18–28; TEMP 36.7–37.9; O2SAT 89–97
[2019-11-20 05:18] LABS: Basophils % 0.1 %; Eosinophils # 0.1 10^3/uL (0.0-0.8); Eosinophils % 0.4 %; Hematocrit 25.3 % (42.0-52.0); Hemoglobin 7.7 g/dL (11.7-16.6); Lymphocytes # 3.2 10^3/uL (0.8-4.8); Lymphocytes % 22.1 %; Mean Corpuscular HGB Conc 30.4 g/dL (30.0-36.0); Mean Corpuscular Hemoglobin 26.1 pg (28.0-34.0); Mean Corpuscular Volume 85.8 fL (80-94); Mean Platelet Volume 10.6 fL (7.4-10.4); Monocytes # 1.6 10^3/uL (0.2-0.9); Monocytes % 10.9 %; Neutrophils # 9.5 10^3/uL (1.8-7.7); Neutrophils % 65.9 %; Nucleated Red Blood Cells % 0 %; Platelet Count 217 10^3/cmm (130-400); Red Blood Count 2.95 10^6/uL (4.1-5.3); White Blood Count 14.4 10^3/uL (4.0-10.0)
[2019-11-20 05:50] LABS: Alanine Aminotransferase 10 U/L (0-41); Albumin Level 3.3 g/dL (3.5-5.2); Alkaline Phosphatase 51 IU/L (40-130); Aspartate Amino Transferase 15 U/L (0-40); Blood Urea Nitrogen 50 mg/dL (8-23); Calcium 9.9 mg/dL (8.5-10.5); Carbon Dioxide 33 mmol/L (22-29); Chloride 93 mmol/L (98-107); Globulin 3.8 g/dL (1.3-4.6); Glucose 160 mg/dL (65-115); Sodium 138 mmol/L (136-145); Total Bilirubin 0.5 mg/dL (0.15-1.2); Total Protein 7.1 g/dL (6.6-8.7)
[2019-11-20 06:46] LABS: Glucose Point of Care 186 mg/dL (70-110)
[2019-11-20] MEDS: sodium chloride 3.5% neb 4 mL Neb INHALATION ×2 (08:14→20:11)
[2019-11-20] MEDS: ipratropium-albuterol 3 mL Neb INHALATION ×2 (08:14→20:11)
[2019-11-20] MEDS: FUROsemide 10 mg/mL SDV 4mL 40 MG IVP (08:41)
--- NOTE | 2019-11-20 09:19 | PC.CHAP ---
Pastoral Care Encounter/Spiritual Assessment Type of Contact [] Declined pr internship visit [] Patient/Family/Request visit [] Outpatient visit [] Follow-up visit [] Physician referral [] Code/Alert [x] Routine visit [] Staff referral [] Actively dying [] Patient sleeping [] Family support [] [] Out of room [] Palliative care [] [] Receiving care in room [] Pre-surgical visit [] Trauma [] Long length of stay [] ICU visit [] Other: Relational/Emotional Strength x[] Patient feels connected with others/family/visitors/staff [] Distress [] Loneliness/isolation [] Abandonment Spirituality of Patient [x] Person of Tanesha [xx] Attends Orthodoxy of their Tanesha [x] Believes in Prayer [] Reads Bible or Roman Catholic materials [] There are Spiritual issues to be addressed Mechanics Supervisor Interventions [x] Prayer [x] Active listening [x] Non-anxious presence [] Spiritual/emotional support [] Crisis/trauma care [] Spiritual counseling [] Bereavement support [] Provided bereavement packet [] Provided Bible/devotional materials [] Provided toy/stuffed animal, coloring book to patient or family member [] Provided Communion [] Anointing/[place] [] Salvation [] Completed spiritual assessment [] Other: Impact on Illness or Injury [] Angry [] Fearful [] Anxious [] Often cries [] Exhaustion [] Unable to work [] Unable to attend nondenominational [] Unable to walk/stand [] Unable to read [] Unable to drive [] Unable to eat/drink [] Unable to sleep [] Unable to be with family [] Patient intubated [] Other: Summary patient feeling better Time spent with patient 10 min 2 visitors
[2019-11-20] MEDS: ondansetron 2 mg/ML SDV 2 mL 4 MG IVP (09:53)
[2019-11-20 09:54] LABS: Glucose Point of Care 289 mg/dL (70-110)
[2019-11-20] MEDS: metOLazone 5 MG Tablet 2.5 MG PO (10:05)
[2019-11-20] MEDS: FUROsemide 40 mg Tablet 80 MG PO ×2 (10:06→17:17)
[2019-11-20] MEDS: pantoprazole 40 mg SDV IVP ×2 (10:06→20:57)
[2019-11-20] MEDS: spironolactone 25 mg Tablet PO (10:06)
--- NOTE | 2019-11-20 11:09 | XR_ITS ---
WS: [id number] Portable AP upright chest, 11/20/2019 Clinical Data: dyspnea, elevated temp Comparison: Chest, 09/09/2019. Findings: There is a dense opacity in the left lung most consistent with pneumonia. There is a right pleural effusion along with atelectasis and possible pneumonia. Right cardiac border shows a nodular opacity which could also represent pneumonia. The upper lobes are clear. No pneumothorax is present. The pulmonary vascularity is not increased. The heart is not enlarged. There are opacities which may represent epidural stimulator leads overlying the lower thoracic vertebral bodies. XR/XR chest 1V portable [id number] Impression: 1. Probable extensive left lung pneumonia. 2. Nodular densities adjacent to the right cardiac border which could represent pneumonia. 3. Right pleural effusion with atelectasis and minimal pneumonia.
[2019-11-20] MEDS: metoprolol tartrate 50 mg Tablet 75 MG PO (11:34)
[2019-11-20] MEDS: dilTIAZem ER (24HR) 240 mg Capsule PO (11:35)
[2019-11-20] MEDS: acetaminophen 325 mg Tablet 650 MG PO (11:36)
[2019-11-20 11:46] LABS: Add Urine Microscopic? NO
[2019-11-20 12:10] LABS: Urine Appearance Clear (CLEAR); Urine Color Straw (Yellow)
[2019-11-20 12:11] LABS: Bilirubin Urine Neg (NEGATIVE); Blood Urine Neg (Negative); Glucose Urine UA Norm (Normal); Ketones Urine Negative (Negative); Leukocyte Esterase Urine Negative (Negative); Nitrate Urine Negative (Negative); Protein Urine Neg (Negative); Specific Gravity, Urine 1.005 (1.005-1.030); Urobilinogen Urine Norm (Negative); pH Urine 5 (5-7)
[2019-11-20 12:11] LABS: Glucose Point of Care 264 mg/dL (70-110)
[2019-11-20 12:27] LABS: Influenza A by IFA Negative (Negative); Influenza B by IFA Negative (Negative)
[2019-11-20] MEDS: levofloxacin-dextrose 5 % 750 MG/150 ML PREMIX 150 MG IV (13:12)
--- NOTE | 2019-11-20 14:38 | P.PN_ITS ---
Subjective Subjective: Interval history: Patient awake in bed with BiPAP mask in place at time of exam. He reported increasing shortness of breath. Patient reported some nausea as well but denied any further bright red blood per rectum and denied any further hematemesis. Vitals/I&O/Wt Last Vital Signs Temp 100.2 F H 11/20/19 10:57 Pulse 120 H 11/20/19 10:57 Resp 20 H 11/20/19 10:57 BP 122/72 11/20/19 10:57 Pulse Ox 92 11/20/19 10:57 11/19/19 11/20/19 11/20/19 22:59 06:59 14:59 Intake Total 2239.167 / 2239.167 960 / 3199.167 1421.333 / 1421.333 Output Total 1425 / 1425 400 / 400 Balance 2239.167 / 2239.167 -465 / 9540.680 5993.333 / 1021.333 Weight last 48 hrs Weight 116.437 kg Weight 113.852 kg Physical Exam Const: COMMON NORMALS: oriented x3 and alert GENERAL APPEARANCE: coope rative ORIENTATION/CONSCIOUSNESS: Yes awake, Yes oriented to person, Yes oriented to place and Yes oriented to time HENMT: COMMON NORMALS: normocephalic and head/scalp atraumatic HEAD & SCALP: normocephalic and atraumatic Eye: COMMON NORMALS: PERRL PUPIL: Yes PERRL Neck/C-Spine: COMMON NORMALS: supple GENERAL: Yes normal visual inspection Resp: EFFORT & INSPECTION: Yes able to speak in complete sentences OTHER: Trilogy mask in place, prolonged expiratory phase, coarse breath sounds bilaterally Cardio: OTHER: Irregularly irregular GI: OTHER: Obese, soft, nontender, nondistended, normal bowel sounds Extremity: COMMON NORMALS: no clubbing, cyanosis or edema and no calf tenderness Neuro: COMMON NORMALS: oriented x3, CN's II-XII intact bilaterally, moves all extremities and no focal motor deficits SENSORIUM/ORIENTATION: Yes alert, Yes oriented to person, Yes oriented to place and Yes oriented to time SPEECH: speech normal Psych: COMMON NORMALS: mental status grossly normal and cooperative Skin: COMMON NORMALS: no rashes or lesions noted GENERAL SKIN EXAM: no rashes or lesions noted Data : 11/20/19 04:47 11/20/19 04:47 Micro: Microbiology 11/20/19 13:28 Blood Culture - Preliminary Blood SPECIMEN COLLECTED 11/20/19 13:33 Blood Culture - Preliminary Blood SPECIMEN COLLECTED A&P Assessment and plan (1) Anemia: Acute on chronic anemia with concern for GI bleed Reported hematemesis and hematochezia with recent EGD and colonoscopy on 11/12/2019. Eliquis remains on hold Dr. Carcamo consulted, appreciate recommendations and assistance in patient's care Patient status post transfusion 1 unit of packed red blood cells, no further ble eding. Hemoglobin at 7.7 today Status: Acute Code(s): D64.9 - Anemia, unspecified (2) Hematemesis: Continue with IV PPI Follow-up with Dr. Carcamo's recommendations Further plan as above Status: Acute Code(s): K92.0 - Hematemesis (3) Bronchiectasis: Chronic bronchiectasis and COPD. On 4 L of oxygen by nasal cannula at baseline and on home trilogy at night. Followed with plumbing inspector, Dr. White. Continue home inhalers Status: Acute Qualifiers: Bronchiectasis type: uncomplicated Qualified Code(s): J47.9 - Bronchiectasis, uncomplicated Code(s): J47.9 - Bronchiectasis, uncomplicated (4) Chronic obstructive pulmonary disease, unspecified: Continue with oxygen by nasal cannula, 4 L at baseline. Continue home trilogy Status: Acute Code(s): J44.9 - Chronic obstructive pulmonary disease, unspecified (5) Heart failure with preserved ejection fraction: Acutely decompensated heart failure. Patient was fluid depleted yesterday, hypotensive and anemic with concern for GI bleed therefore his home metolazone and Lasix was on hold and he was given IV fluids and also required transfusion due to acute on chronic anemia. This morning he is acutely fluid overloaded will give IV Lasix x1 and then restart his home Lasix this evening with continuation of his home Aldactone and metolazone Strict intake and output as well as daily weights Status: Acute Qualifiers: Heart failure chronicity: chronic Qualified Code(s): I50.32 - Chronic diastolic (congestive) heart failure Code(s): I50.30 - Unspecified diastolic (congestive) heart failure (6) Cyst of pancreas: Will need outpatient follow-up for repeat imaging with possible MRCP Status: Acute Code(s): K86.2 - Cyst of pancreas (7) AF (atrial fibrillation): Rate controlled at this time, anticoagulation on hold. Discussed with patient that atrial fibrillation can place him at increased risk of stroke due, however with concern for bleeding at this time will continue to hold. Patient and family verbalized understanding Status: Acute Code(s): I48.91 - Unspecified atrial fibrillation Additional A&P Information Left sided pneumonia: Started on Levaquin Dehydration: Now with concern for fluid overload as above. Discontinue IV fluids Diabetes mellitus type 2, insulin-dependent: Placed on sliding scale insulin, Lantus decreased to 25 units as do not wish for patient to become hypoglycemic due to them being on clear liquid diet Focal eccentric masslike soft tissue thickening in the distal sigmoid colon could be secondary to recent colonoscopy, will discuss further with Dr. Carcamo. History of colon cancer status post resection Small right pleural effusion: Appears to be at baseline DVT prophylaxis: SCDs, no pharmacologic prophylaxis due to GI bleed Diet: Clear liquid diet CODE STATUS: Full code Attestations Medical Necessity Statement*: Change to inpatient admission due to patient having acute decompensated heart failure with acute on chronic anemia and GI bleed with atrial fibrillation well on chronic anticoagulation. Coding Level of Care Code Acute [employer] for [facility] Fwd Diagnoses Anemia D64.9 Hematemesis K92.0 Bronchiectasis J47.9 Bronchiectasis type: uncomplicated Chronic obstructive pulmonary disease, unspecified J44.9 Heart failure with preserved ejection fraction I50.32 Heart failure chronicity: chronic Cyst of pancreas K86.2 AF (atrial fibrillation) I48.91
[2019-11-20] MEDS: gabapentin 100 mg Capsule 200 MG PO ×2 (14:43→20:27)
--- NOTE | 2019-11-20 16:39 | PM.CONSULT ---
Providers/Reason For Consult Consulting Physican/Specialty*: Hospitalist service Reason for Consult*: GI bleed Attending Physician: Cecilia Moran DO Primary Care Provider: Stevan Pal DO History of Present Illness History of Present Illness Ambrocio Tinoco is a 74 year old male who EGD with polypectomy and colonoscopy with polypectomy last week. Patient subsequently started on Eliquis and he continued to have episodes of hematemesis and hematochezia. He has been off his Eliquis since 11/17/2019. Patient was noted to have a hemoglobin of 7.3 on presentation and his last known hemoglobin was 10 few months prior. Patient denies any significant abdominal pain, fevers or chills. Since admission to the hospital he has not had any further bowel movements and had only one episode of emesis which was slightly bloody. Review of Systems General: Reports: 10 or more systems reviewed and unremarkable except in HPI and below Meds/Allergies Home Medications and Allergies Home Medications Medication Instructions Recorded Confirmed Type apixaban 5 mg tablet 5 mg PO BID 09/24/19 11/19/19 History diltiazem HCl 240 mg 240 mg PO DAILY 09/24/19 11/19/19 History capsule,extended release 24 hr dulaglutide 1.5 mg/0.5 mL See Rx Instructions .ROUTE 09/24/19 11/19/19 History subcutaneous pen injector .COMPLEX ml furosemide 80 mg tablet 80 mg PO BID 09/24/19 11/19/19 History guaifenesin 400 mg tablet 800 mg PO BID PRN tab 09/24/19 11/19/19 History hydralazine 25 mg tablet 25 mg PO TID tab 09/24/19 11/19/19 History hydrocodone 5 mg-acetaminophen 325 1 tab PO Q6H PRN tab 09/24/19 11/19/19 History mg tablet insulin aspart U-100 100 unit/mL See Rx Instructions SUBCUT 09/24/19 11/19/19 History subcutaneous solution .COMPLEX PRN insulin glargine 100 unit/mL 35 unit SUBCUT DAILY ml 09/24/19 11/19/19 History subcutaneous solution ketoconazole 2 % topical cream 1 applic TOPICAL BID PRN 09/24/19 11/19/19 History potassium chloride 20 mEq 10 meq PO BID tab 09/24/19 11/19/19 History tablet,extended release rosuvastatin 10 mg tablet 10 mg PO DAILY tab 09/24/19 11/19/19 History spironolactone 25 mg tablet 25 mg PO DAILY tab 09/24/19 11/19/19 History theophylline 300 mg 300 mg PO BID cap 09/24/19 11/19/19 History capsule,extended release 24 hr budesonide 0.5 mg/2 mL suspension 0.5 mg INHALATION BID PRN 10/29/19 11/19/19 History for nebulization gabapentin 100 mg capsule 200 mg PO TID cap 10/29/19 11/19/19 History methocarbamol 750 mg tablet 750 mg PO QID PRN 10/29/19 11/19/19 History pantoprazole [Protonix] 40 mg PO DAILY 11/09/19 11/19/19 History desonide 1 applic TOPICAL TID 11/19/19 11/19/19 History glucose 4 g PO Q15M PRN 11/19/19 11/19/19 History senna 17.2 mg PO BID PRN 11/19/19 11/19/19 History tiotropium bromide [Spiriva 2 puff INHALATION DAILY 11/19/19 11/19/19 History Respimat] Allergies Allergy/AdvReac Type Severity Reaction Status Date / Time naproxen Allergy Intermediate ALGY-Rash Verified 09/27/19 14:24 amoxicillin AdvReac Intermediate Itching Verified 09/24/19 12:53 morphine AdvReac Intermediate ADR-Vomitin Verified 10/23/19 14:05 g Current Medications Current Medications Generic Name Dose Route Start Last Admin Trade Name Freq PRN Reason Stop Dose Admin Acetaminophen 650 mg 11/19/19 10:59 11/20/19 11:36 Tylenol PO 650 mg Q6H PRN Administration Mild/Mod Pain Or Temp >/= 101 Albuterol Sulfate 2.5 mg 11/19/19 14:09 11/20/19 16:31 Albuterol INHALATION 2.5 mg Q4H.RESPIRATORY PRN Administration SHORTNESS OF BREATH Albuterol/Ipratropium 3 ml 11/19/19 20:00 11/20/19 08:14 Duoneb INHALATION 3 ml BID.RESPIRATORY BEATRICE Administration Atorvastatin Calcium 40 mg 11/19/19 21:00 11/19/19 21:07 Lipitor PO 40 mg BEDTIME BEATRICE Administration Diltiazem HCl 240 mg 11/20/19 09:00 11/20/19 11:35 Cardizem Cd (24hr) PO 240 mg DAILY BEATRICE Administration Furosemide 80 mg 11/20/19 09:30 11/20/19 10:06 Lasix PO 80 mg BID BEATRICE Administration Gabapentin 200 mg 11/19/19 15:00 11/20/19 14:43 Neurontin PO 200 mg TID BEATRICE Administration Levofloxacin/Dextrose 750 mg in 150 mls @ 150 mls/hr 11/20/19 13:00 11/20/19 13:12 Levaquin-D5w IV 150 mls/hr Q24H BEATRICE Administration Protocol Insulin Aspart 0 unit 11/19/19 12:00 11/20/19 11:35 Novolog SUBCUT 10 unit TIDWM BEATRICE Administration Protocol Metolazone 2.5 mg 11/20/19 10:00 11/20/19 10:05 Zaroxolyn PO 2.5 mg DAILY BEATRICE Administration Metoprolol Tartrate 75 mg 11/19/19 18:00 11/20/19 11:34 Lopressor PO 75 mg BID BEATRICE Administration Non-Formulary 2 each 11/20/19 08:00 11/20/19 09:35 Medication Symbicort INHALATION Not Given (160/4.5) BID.RESPIRATORY BEATRICE Ondansetron HCl 4 mg 11/19/19 10:59 11/20/19 09:53 Zofran IVP 4 mg Q6H PRN Administration NAUSEA AND VOMITING Pantoprazole Sodium 40 mg 11/19/19 10:59 11/20/19 10:06 Protonix IVP 40 mg Q12H BEATRICE Administration Potassium Chloride 10 meq 11/20/19 09:30 11/20/19 10:05 Klor-Con 10 PO 10 meq BID BEATRICE Administration Sodium Chloride 4 ml 11/19/19 20:00 11/20/19 08:14 Hyper-French INHALATION 4 ml BID.RESPIRATORY BEATRICE Administration Spironolactone 25 mg 11/20/19 09:15 11/20/19 10:06 Aldactone PO 25 mg DAILY BEATRICE Administration Tiotropium [place] 18 mcg 11/20/19 08:00 11/20/19 08:14 Spiriva INHALATION 18 mcg DAILY.RESPIRATORY BEATRICE Administration PFSH Acute PFSH: Medical History Accelerated essential hypertension AF (atrial fibrillation) Apnea, sleep Bronchiectasis, uncomplicated Chronic obstructive pulmonary disease, unspecified Cyst of pancreas Hyperlipidemia, unspecified Incisional hernia Osteoarthritis of right knee Post-traumatic stress disorder, unspecified Postlaminectomy syndrome Spinal stenosis, lumbar region without neurogenic claudication Type 2 diabetes mellitus without complications Surgical History H/O colonoscopy 2016 & 11/12/19 H/O shoulder surgery History of colon resection x2 History of lumbar fusion History of surgical procedure on eye proper using laser History of tonsillectomy and adenoidectomy S/P partial lobectomy of lung Family History Brother Diabetes Hypertension Father Cancer Sister Cancer Other CAD (coronary artery disease) Stroke Denies family history of Anesthesia complication Bleeding disorder Social History Smoking and tobacco status: former smoker Quit status (tobacco): has quit using tobacco Year quit tobacco: 1971 Alcohol intake: current Alcohol intake frequency: holidays/special occasions only Lives independently: Yes Household members: spouse Marital status: Current occupational status: retired History of recent travel: No Current gender identity: Male Vitals/I&O/Wt Last Vital Signs Temp 98.6 F 11/20/19 15:16 Pulse 61 11/20/19 16:31 Resp 20 H 11/20/19 16:31 BP 86/53 11/20/19 15:16 Pulse Ox 95 11/20/19 16:31 11/20/19 11/20/19 11/20/19 06:59 14:59 22:59 Intake Total 960 / 3199.167 1421.333 / 1421.333 Output Total 1425 / 1425 400 / 400 Balance -465 / 8291.311 1662.333 / 1021.333 Weight last 48 hrs Weight 256 lb 11.2 oz Weight 251 lb Physical Exam Narrative: EXAM NARRATIVE: HEENT: Normocephalic Eye: Sclera /conjunctiva normal Abdomen: Soft to palpation, no guarding or rigidity Neurological: Oriented to place person and time Skin: Intact, no lesions appreciated on gross exam Data Micro: Micro: Microbiology 11/20/19 13:28 Blood Culture - Pr eliminary Blood SPECIMEN [facility] JAILYN 11/20/19 13:33 Blood Culture - Pr eliminary Blood SPECIMEN [facility] JAIL[facility] A&P Assessment and plan (1) Anemia: Patient status post EGD and colonoscopy with polypectomy on Eliquis, currently likely the source of his GI bleed. Currently he is stable, no evidence of active bleeding and his hemoglobin has responded adequately to the unit transfused. I discussed with the patient and his family that if his hemoglobin continues to trend down again then will plan for EGD/colonoscopy under MAC but at this point will put him on a full liquid diet. 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
[2019-11-20 16:42] LABS: Glucose Point of Care 169 mg/dL (70-110)
[2019-11-20 17:43] LABS: Hematocrit 23.7 % (42.0-52.0); Hemoglobin 7.1 g/dL (11.7-16.6)
--- NOTE | 2019-11-20 19:05 | PC.NURSE ---
INTRODUCTION OF STAFF AND REPORT RECEIVED, AIDET.
[2019-11-20 20:11] LABS: Glucose Point of Care 204 mg/dL (70-110)
[2019-11-20] MEDS: atorvastatin 40 mg Tablet PO (20:27)
[2019-11-20] MEDS: insulin glargine 100 units/1 mL 25 UNIT SUBCUT (20:29)
[2019-11-21] VITALS (18 sets, daily range): BP systolic 103–138; BP diastolic 46–70; PULSE 66–100; RESP 18–24; TEMP 36.8–37.2; O2SAT 87–99
[2019-11-21 05:32] LABS: Basophils % 0.1 %; Eosinophils % 0.1 %; Hematocrit 23.6 % (42.0-52.0); Hemoglobin 7.1 g/dL (11.7-16.6); Lymphocytes # 1.9 10^3/uL (0.8-4.8); Lymphocytes % 13.4 %; Mean Corpuscular HGB Conc 30.1 g/dL (30.0-36.0); Mean Corpuscular Hemoglobin 25.4 pg (28.0-34.0); Mean Corpuscular Volume 84.3 fL (80-94); Mean Platelet Volume 10.9 fL (7.4-10.4); Monocytes # 1.8 10^3/uL (0.2-0.9); Neutrophils # 10.1 10^3/uL (1.8-7.7); Neutrophils % 72.8 %; Nucleated Red Blood Cells % 0 %; Platelet Count 216 10^3/cmm (130-400); White Blood Count 13.9 10^3/uL (4.0-10.0)
[2019-11-21 05:46] LABS: Anion Gap 16.7 (5-19); Blood Urea Nitrogen 40 mg/dL (8-23); Calcium 9.3 mg/dL (8.5-10.5); Carbon Dioxide 32 mmol/L (22-29); Chloride 89 mmol/L (98-107); Glucose 204 mg/dL (65-115); Osmolality Calculated 282 mOsm/kg (285-295); Potassium 3.7 mmol/L (3.5-5.1); Sodium 134 mmol/L (136-145)
[2019-11-21 06:41] LABS: Glucose Point of Care 231 mg/dL (70-110)
[2019-11-21] MEDS: ipratropium-albuterol 3 mL Neb INHALATION ×2 (07:15→21:06)
[2019-11-21] MEDS: sodium chloride 3.5% neb 4 mL Neb INHALATION ×2 (07:15→21:06)
[2019-11-21] MEDS: metoprolol tartrate 50 mg Tablet 75 MG PO ×2 (08:33→18:37)
[2019-11-21] MEDS: metOLazone 5 MG Tablet 2.5 MG PO (08:33)
[2019-11-21] MEDS: FUROsemide 40 mg Tablet 80 MG PO ×2 (08:33→18:37)
[2019-11-21] MEDS: gabapentin 100 mg Capsule 200 MG PO ×3 (08:33→21:10)
[2019-11-21] MEDS: spironolactone 25 mg Tablet PO (08:34)
--- NOTE | 2019-11-21 10:22 | P.PN_ITS ---
Subjective Subjective: Interval history: Patient awake with nasal cannula in place at time of exam this morning. He reports that he is now starting to cough up more sputum, thick and light green in color. He stated that his breathing is feeling better today. He denies any nausea. Reported that he has not had any further bowel movements, no further vomiting. Vitals/I&O/Wt Last Vital Signs Temp 98.2 F 11/21/19 07:31 Pulse 80 11/21/19 07:31 Resp 18 11/21/19 07:31 BP 123/67 11/21/19 07:31 Pulse Ox 90 11/21/19 07:31 11/20/19 11/21/19 11/21/19 22:59 06:59 14:59 Intake Total 1200 / 2621.333 960 / 3581.333 960 / 960 Output Total 675 / 1075 615 / 1690 Balance 525 / 1546.333 345 / 1891.333 960 / 960 Weight last 48 hrs Weight 114.986 kg Weight 116.437 kg Physical Exam Const: COMMON NORMALS: oriented x3 and alert GENERAL APPEARANCE: cooperative ORIENTATION/CONSCIOUSNESS: Yes awake, Yes oriented to person, Yes oriented to place and Yes oriented to time HENMT: COMMON NORMALS: normocephalic and head/scalp atraumatic HEAD & SCALP: normocephalic and atraumatic Eye: COMMON NORMALS: PERRL PUPIL: Yes PERRL Neck/C-Spine: COMMON NORMALS: supple GENERAL: Yes normal visual inspection Resp: EFFORT & INSPECTION: Yes able to speak in complete sentences OTHER: Nasal cannula in place, diminished breath sounds bilaterally with expiratory wheezing Cardio: OTHER: Irregularly irregular GI: OTHER: Obese, soft, nontender, nondistended, normal bowel sounds Extremity: COMMON NORMALS: no clubbing, cyanosis or edema and no calf tenderness Neuro: COMMON NORMALS: oriented x3, CN's II-XII intact bilaterally, moves all extremities and no focal motor deficits SENSORIUM/ORIENTATION: Yes alert, Yes oriented to person, Yes oriented to place and Yes oriented to time SPEECH: speech normal Psych: COMMON NORMALS: mental status grossly normal and cooperative Skin: COMMON NORMALS: no rashes or lesions noted GENERAL SKIN EXAM: no rashes or lesions noted Data : 11/21/19 04:45 11/21/19 04:45 Micro: Microbiology 02/25/20 13:28 Blood Culture - Preliminary Blood SPECIMEN COLLECTED 11/20/19 13:33 Blood Culture - Preliminary Blood SPECIMEN COLLECTED A&P Assessment and plan (1) Anemia: Hemoglobin at 7.1 today, no further bleeding. Continue to hold home Eliquis Started on ferrous sulfate Transition from IV Protonix to oral Status: Acute Code(s): D64.9 - Anemia, unspecified (2) Hematemesis: Plan as above Resolved Status: Acute Code(s): K92.0 - Hematemesis (3) Bronchiectasis: Respiratory therapy to assess and treat, oxygen per protocol. Increased oxygen requirement from baseline with concern for left-sided pneumonia. Continue on antibiotics and continue with home vest for chronic bronchiectasis Status: Acute Qualifiers: Bronchiectasis type: uncomplicated Qualified Code(s): J47.9 - Bronchiectasis, uncomplicated Code(s): J47.9 - Bronchiectasis, uncomplicated (4) Chronic obstructive pulmonary disease, unspecified: Continue with oxygen by nasal cannula, 4 L at baseline. Continue home trilogy Status: Acute Code(s): J44.9 - Chronic obstructive pulmonary disease, unspecified (5) Heart failure with preserved ejection fraction: Acutely decompensated heart failure yesterday, appears to be improved today. We will continue on home Lasix, home metolazone and home Aldactone. Strict intake and output as well as daily weights Status: Acute Qualifiers: Heart failure chronicity: chronic Qualified Code(s): I50.32 - Chronic diastolic (congestive) heart failure Code(s): I50.30 - Unspecified diastolic (congestive) heart failure (6) Cyst of pancreas: Will need outpatient follow-up for repeat imaging with possible MRCP Status: Acute Code(s): K86.2 - Cyst of pancreas (7) AF (atrial fibrillation): Rate controlled at this time, anticoagulation on hold. Status: Acute Code(s): I48.91 - Unspecified atrial fibrillation Additional A&P Information Left sided pneumonia: Continue on Levaquin Diabetes mellitus type 2, insulin-dependent: Placed on sliding scale insulin, Lantus decreased to 25 units as do not wish for patient to become hypoglycemic Focal eccentric masslike soft tissue thickening in the distal sigmoid colon co uld be secondary to recent colonoscopy, will discuss further with Dr. Carcamo. 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
[2019-11-21 11:46] LABS: Glucose Point of Care 409 mg/dL (70-110)
--- NOTE | 2019-11-21 12:22 | PC.CHAP ---
Pastoral Care Encounter/Spiritual Assessment Type of Contact [] Declined wire threader visit [] Patient/Family/Request visit [] Outpatient visit [] Follow-up visit [] Physician referral [] Code/Alert [x] Routine visit [] Staff referral [] Actively dying [] Patient sleeping [] Family support [] [] Out of room [] Palliative care [] [] Receiving care in room [] Pre-surgical visit [] Trauma [] Long length of stay [] ICU visit [] Other: Relational/Emotional Strength [x] Patient feels connected with others/family/visitors/staff [] Distress [] Loneliness/isolation [] Abandonment Spirituality of Patient [x] Person of Tanesha [] Attends Religion of their Tanesha [] Believes in Prayer [] Reads Bible or Scientology materials [] There are Spiritual issues to be addressed Product Mgr Interventions [x] Prayer [] Active listening [] Non-anxious presence [] Spiritual/emotional support [] Crisis/trauma care [] Spiritual counseling [] Bereavement support [] Provided bereavement packet [] Provided Bible/devotional materials [] Provided toy/stuffed animal, coloring book to patient or family member [] Provided Communion [] Anointing/[place] [] Salvation [] Completed spiritual assessment [] Other: Impact on Illness or Injury [] Angry [] Fearful [] Anxious [] Often cries [] Exhaustion [] Unable to work [] Unable to attend episcopalian [] Unable to walk/stand [] Unable to read [] Unable to drive [] Unable to eat/drink [] Unable to sleep [] Unable to be with family [] Patient intubated [] Other: Summary patient feeling better today Time spent with patient 10 min i visitor
[2019-11-21] MEDS: ferrous sulfate EC 325 mg Tablet PO ×2 (12:46→18:38)
[2019-11-21] MEDS: levofloxacin-dextrose 5 % 750 MG/150 ML PREMIX 150 MG IV (12:47)
[2019-11-21 14:03] LABS: Magnesium 2.3 mg/dL (1.7-2.3)
--- NOTE | 2019-11-21 14:30 | PM.PN ---
Subjective Subjective: Interval history: Patient denies any abdominal pain, no nausea vomiting, tolerating GI soft diet and has not had any further bloody bowel movements Vitals/I&O/Wt Last Vital Signs Temp 98.9 F 11/21/19 11:03 Pulse 76 11/21/19 14:17 Resp 18 11/21/19 14:03 BP 103/56 11/21/19 11:03 Pulse Ox 98 11/21/19 14:03 11/20/19 11/21/19 11/21/19 22:59 06:59 14:59 Intake Total 1200 / 3731.333 960 / 3731.333 1440 / 1440 Output Total 675 / 1690 615 / 1690 Balance 525 / 2041.333 345 / 2041.333 1440 / 1440 Weight last 48 hrs Weight 253 lb 8 oz Weight 256 lb 11.2 oz Physical Exam Narrative: EXAM NARRATIVE: Abdomen: Soft Data : 11/21/19 04:45 11/21/19 04:45 Micro: Microbiology 11/20/19 13:28 Blood Culture - Preliminary Blood NEGATIVE TO DATE 11/20/19 13:33 Blood Culture - Preliminary Blood NEGATIVE TO DATE A&P Assessment and plan (1) Anemia: Hematochezia hematemesis status post EGD/colonoscopy with polypectomy currently stable. No evidence of active bleeding, hemodynamically stable but hemoglobin has been slowly trending down. Will discuss case with Dr. Moran about possible transfusion since hemoglobin is down to 7.1. At this point will hold off on repeating the panendoscopy. 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
--- NOTE | 2019-11-21 15:34 | PC.RESP ---
Patient refused to come to Pulmonary Rehab.
[2019-11-21 16:45] LABS: Glucose Point of Care 428 mg/dL (70-110)
[2019-11-21] MEDS: pantoprazole DR 40 mg Tablet PO (18:37)
--- NOTE | 2019-11-21 19:10 | PC.NURSE ---
Introduction of staff and report received, aidet.
--- NOTE | 2019-11-21 19:41 | PC.NURSE ---
NOTIFIED DR PLATT OF PT BLOOD GLUCOSE OF 428 AND GIVEN 16UNITS NOVOLOG. SHE ORDERED LANTUS INCREASE FROM 25 UNITS TO 35UNITS TONIGHT AT BEDTIME.
[2019-11-21 20:48] LABS: Glucose Point of Care 437 mg/dL (70-110)
[2019-11-21] MEDS: atorvastatin 40 mg Tablet PO (21:10)
[2019-11-21] MEDS: insulin glargine 100 units/1 mL 35 UNIT SUBCUT (21:10)
[2019-11-21] MEDS: sodium chloride 0.9% 100 ML 150 ML (21:12)
[2019-11-22] VITALS (7 sets, daily range): BP systolic 118–127; BP diastolic 56–66; PULSE 70–89; RESP 17–18; TEMP 36.6–36.8; O2SAT 92–95
[2019-11-22 05:48] LABS: Basophils % 0.2 %; Eosinophils % 0.2 %; Hemoglobin 8.1 g/dL (11.7-16.6); Lymphocytes # 2.4 10^3/uL (0.8-4.8); Lymphocytes % 18.3 %; Mean Corpuscular Hemoglobin 25.8 pg (28.0-34.0); Mean Platelet Volume 10.8 fL (7.4-10.4); Monocytes # 1.7 10^3/uL (0.2-0.9); Monocytes % 13.2 %; Neutrophils # 8.6 10^3/uL (1.8-7.7); Neutrophils % 67.2 %; Nucleated Red Blood Cells % 0 %; Platelet Count 222 10^3/cmm (130-400); Red Blood Count 3.14 10^6/uL (4.1-5.3); Red Cell Distribution Width 16.8 % (12.1-15.1); White Blood Count 12.8 10^3/uL (4.0-10.0)
[2019-11-22 05:58] LABS: Anion Gap 17.8 (5-19); Blood Urea Nitrogen 35 mg/dL (8-23); Calcium 9.2 mg/dL (8.5-10.5); Carbon Dioxide 31 mmol/L (22-29); Chloride 85 mmol/L (98-107); Glucose 326 mg/dL (65-115); Osmolality Calculated 280 mOsm/kg (285-295); Potassium 3.8 mmol/L (3.5-5.1); Sodium 130 mmol/L (136-145)
[2019-11-22 06:45] LABS: Glucose Point of Care 326 mg/dL (70-110)
[2019-11-22] MEDS: ipratropium-albuterol 3 mL Neb INHALATION (07:25)
[2019-11-22] MEDS: sodium chloride 3.5% neb 4 mL Neb INHALATION (07:25)
[2019-11-22] MEDS: metoprolol tartrate 50 mg Tablet 75 MG PO (08:53)
[2019-11-22] MEDS: pantoprazole DR 40 mg Tablet PO (08:53)
[2019-11-22] MEDS: metOLazone 5 MG Tablet 2.5 MG PO (08:53)
[2019-11-22] MEDS: dilTIAZem ER (24HR) 240 mg Capsule PO (08:54)
[2019-11-22] MEDS: gabapentin 100 mg Capsule 200 MG PO (08:54)
[2019-11-22] MEDS: ferrous sulfate EC 325 mg Tablet PO (08:54)
[2019-11-22] MEDS: spironolactone 25 mg Tablet PO (08:54)
[2019-11-22] MEDS: FUROsemide 40 mg Tablet 80 MG PO (08:54)
--- NOTE | 2019-11-22 08:57 | PM.DCS ---
Discharge Providers Date of Admission: 11/20/19 14:48 Date of Discharge: November 22, 2019 Attending Provider at Admission: Cecilia Moran DO Attending Provider at Discharge: Cecilia Moran DO Consults: Dr. Carcamo, general surgery Primary Care Provider: Stevan Pal DO Diagnoses at Discharge Discharge Diagnosis (1) Anemia: Status: Acute Problem details: acute on chronic anemia with GI source. Eliquis remains on hold. S/P 2units pRBCs transfused and no further bleeding Reason for Visit Reason for Visit: Reason For Visit: Throwing up/passing blood Hospital Course Hospital Course: Patient was seen and evaluated in the emergency department noted to have concern for acute on chronic anemia with concern for GI bleed. He was admitted to the hospital and started on IV Protonix. His home anticoagulation, Eliquis, was discontinued. H&H was monitored and patient did require 2 units of packed red blood cells during his admission. Patient had noted recent EGD and colonoscopy with polyp removal. He had started his Eliquis shortly after arriving home from his EGD and colonoscopy. Patient did have an acute kidney injury and dehydration on admission he was given IV fluids and renal function continued to improve. He did develop some fluid overload with transfusion and IV fluids and required diuresis. His respiratory status continued to improve. He was noted to have a left sided pneumonia and chronic right-sided pleural effusion that was unchanged, he was started on Levaquin due to concern for pneumonia. Patient's respiratory status continued to improve and he improved back to his baseline oxygen requirements and home trilogy use. On date of discharge she denied any chest pain, no shortness of breath, no abdominal pain. He reported continued cough with sputum production. Patient denied any hematochezia, no nausea, no melena on date of discharge. Discussed plan for discharge to home and verbalized understanding and agreed with plan. Discussed the risk of holding anticoagulation with known afib but discussed the risk of bleeding and anemia is higher at this time and he agreed Discharge Summary: Discharge to home with Follow up with Dr. Pal in 3-5 days Physical Exam Const: COMMON NORMALS: oriented x3 and alert GENERAL APPEARANCE: cooperative ORIENTATION/CONSCIOUSNESS: Yes awake, Yes oriented to person, Yes oriented to place and Yes oriented to time HENMT: COMMON NORMALS: normocephalic and head/scalp atraumatic HEAD & SCALP: normocephalic and atraumatic Eye: COMMON NORMALS: PERRL PUPIL: Yes PERRL Neck/C-Spine: COMMON NORMALS: supple GENERAL: Yes normal visual inspection Resp: EFFORT & INSPECTION: Yes able to speak in complete sentences OTHER: Nasal cannula in place, diminished breath sounds bilaterally with expiratory wheezing, improved Cardio: OTHER: Irregularly irregular GI: OTHER: Obese, soft, nontender, nondistended, normal bowel sounds Extremity: COMMON NORMALS: no clubbing, cyanosis or edema and no calf tenderness Neuro: COMMON NORMALS: oriented x3, CN's II-XII intact bilaterally, moves all extremities and no focal motor deficits SENSORIUM/ORIENTATION: Yes alert, Yes oriented to person, Yes oriented to place and Yes oriented to time SPEECH: speech normal Psych: COMMON NORMALS: mental status grossly normal and cooperative Skin: COMMON NORMALS: no rashes or lesions noted GENERAL SKIN EXAM: no rashes or lesions noted Discharge Data Data Completed and Pending: Completed Studies During Hospitalization Category Date Time Status CT abdomen pelvis w con* [id number] Stat Cat Scan 11/19/19 07:47 Completed XR chest 1V tiffanie ble [id number] Routine Exams 11/20/19 11:09 Completed Pending at discharge Category Date Time Status Blood Culture Sta t Lab 11/20/19 13:28 Results Labs from last 24 hours 11/22/19 11/22/19 11/22/19 06:39 05:20 05:20 WBC 12.8 H RBC 3.14 L Hgb 8.1 L Hct 27.0 L MCV 86.0 MCH 25.8 L MCHC 30.0 RDW 16.8 H Plt Count 222 MPV 10.8 H Neut % (Auto) 67.2 Lymph % (Auto) 18.3 [place] % (Auto) 13.2 Eos % (Auto) 0.2 Baso % (Auto) 0.2 Neut # (Auto) 8.6 H Lymph # (Auto) 2.4 [place] # (Auto) 1.7 H Eos # (Auto) 0.0 Baso # (Auto) 0.0 Nucleated RBC % (a uto) 0 Nucleated RBCs # 0.0 Sodium 130 L Potassium 3.8 Chloride 85 L Carbon Dioxide 31 H Anion Gap 17.8 BUN 35 H Creatinine 1.5 H Glucose 326 H POC Glucose 326 Calculated Osmolal ity 280 L Calcium 9.2 Magnesium Blood Type Antibody Screen Crossmatch 11/21/19 11/21/19 11/21/19 20:40 16:29 11:05 WBC RBC Hgb Hct MCV MCH MCHC RDW Plt Count MPV Neut % (Auto) Lymph % (Auto) [place] % (Auto) Eos % (Auto) Baso % (Auto) Neut # (Auto) Lymph # (Auto) [place] # (Auto) Eos # (Auto) Baso # (Auto) Nucleated RBC % (a uto) Nucleated RBCs # Sodium Potassium Chloride Carbon Dioxide Anion Gap BUN Creatinine Glucose POC Glucose [phone] Calculated Osmolal ity Calcium Magnesium Blood Type Antibody Screen Crossmatch 11/21/19 11/19/19 04:45 07:58 WBC RBC Hgb Hct MCV MCH MCHC RDW Plt Count MPV Neut % (Auto) Lymph % (Auto) [place] % (Auto) Eos % (Auto) Baso % (Auto) Neut # (Auto) Lymph # (Auto) [place] # (Auto) Eos # (Auto) Baso # (Auto) Nucleated RBC % (a uto) Nucleated RBCs # Sodium Potassium Chloride Carbon Dioxide Anion Gap BUN Creatinine Glucose POC Glucose Calculated Osmolal ity Calcium Magnesium 2.3 Blood Type O Positive Antibody Screen Negative Crossmatch See Detail Vitals: Last Vital Signs Temp 98.0 F 11/22/19 08:00 Pulse 89 11/22/19 08:00 Resp 18 11/22/19 08:00 BP 118/66 11/22/19 08:00 Pulse Ox 95 11/22/19 08:00 Discharge Plan Discharge Patient Disposition: Home, Self-Care Condition: Stable Prescriptions: New ferrous sulfate 325 mg (65 mg iron) Tablet,Delayed Release (Dr/Ec) 325 mg PO BIDWM 30 Days Qty: 60 RF: 0 levofloxacin [Levaquin] 750 mg tablet 750 mg PO DAILY 7 Days Qty: 7 RF: 0 Continued budesonide 0.5 mg/2 mL suspension for nebulization 0.5 mg INHALATION BID PRN (Reason: Shortness Of Breath) RF: 0 methocarbamol 750 mg tablet 750 mg PO QID PRN (Reason: Muscle Spasm) RF: 0 guaifenesin 400 mg tablet 800 mg PO BID PRN (Reason: MUCUS) RF: 0 hydralazine 25 mg tablet 25 mg PO TID RF: 0 diltiazem HCl 240 mg capsule,extended release 24hr 240 mg PO DAILY RF: 0 hydrocodone-acetaminophen 5-325 mg tablet 1 tab PO Q6H PRN (Reason: Pain) RF: 0 spironolactone 25 mg tablet 25 mg PO DAILY RF: 0 Trulicity 1.5 mg/0.5 mL pen injector See Rx Instructions .ROUTE .COMPLEX RF: 0 rosuvastatin 10 mg tablet 10 mg PO DAILY RF: 0 Novolog U-100 Insulin aspart 100 unit/mL solution See Rx Instructions SUBCUT .COMPLEX PRN (Reason: unknown) RF: 0 Lantus U-100 Insulin 100 unit/mL solution 35 unit SUBCUT DAILY RF: 0 ketoconazole 2 % cream 1 applic TOPICAL BID PRN (Reason: PRN) RF: 0 theophylline 300 mg capsule,extended release 24hr 300 mg PO BID RF: 0 potassium chloride 20 mEq tablet extended release 10 meq PO BID RF: 0 furosemide [Lasix] 80 mg tablet 80 mg PO BID RF: 0 gabapentin 100 mg capsule 200 mg PO TID RF: 0 metolazone 2.5 mg tablet 2.5 mg PO DAILY Qty: 30 RF: 3 metoprolol tartrate 50 mg tablet 75 mg PO BID Qty: 90 RF: 5 pantoprazole [Protonix] 40 mg tablet,delayed release (DR/EC) 40 mg PO DAILY RF: 0 desonide 0.05 % Ointment 1 applic TOPICAL TID RF: 0 glucose 4 gram Tablet,Chewable 4 g PO Q15M PRN (Reason: BLOOD SUGAR) RF: 0 senna 8.6 mg Capsule 17.2 mg PO BID PRN (Reason: Constipation) RF: 0 Spiriva Respimat 2.5 mcg/actuation Mist 2 puff INHALATION DAILY RF: 0 Discontinued Eliquis 5 mg tablet 5 mg PO BID RF: 0 Discharge Orders: Discharge Order (Routine); Ordered 11/22/19 Ordered By: Cecilia Moran Referrals: Stevan Pal DO [Primary Care Provider] - 1-3 days Nasim Carcamo MD [Physician] - (as directed) Discharge Diet: Advance as tolerated, Cardiac, Diabetic and GI Soft Discharge Activity: Increase activity as tolerated Activity Restrictions/Additional Instructions: Hold Eliquis at this time and do not start until further discussion with your Primary Care Provider. Started on iron twice daily, this can make stools firm, take OTC docusate as needed Follow up with Dr. Carcamo as directed Follow up with Dr. Pal in 3-5 days Follow up with Dr. White as scheduled Continue home oxygen by [place] and home Trilogy use For any continued bleeding please call your physician or present to the ED Discharge Attestations Time Spent in Discharge Care*: greater than 30 min Quality Metrics Clinical Quality Measures During this hospital stay, did patient experience: None Coding Level of Care Code Acute Product Development Director for Chg Fwd Exam Comprehensive Diagnoses Anemia D64.9
== END 2019-11-22 12:08 | disposition home or self-care (01) | DRG 377 ==
LOC: ER 09:28 → MEDSURG 10:00
PROVIDERS: Admitting Provider Family Medicine; Emergency Provider Family Medicine; Family Provider Emergency Medicine Emergency Medical Services; PCP Emergency Medicine Emergency Medical Services; Visit Provider Family Medicine
DX: K92.0 Hematemesis (principal); J18.9 Pneumonia, unspecified organism; I50.30 Unspecified diastolic (congestive) heart failure; K86.2 Cyst of pancreas; N17.9 Acute kidney failure, unspecified; D63.8 Anemia in other chronic diseases classified elsewhere; I48.91 Unspecified atrial fibrillation; J44.9 Chronic obstructive pulmonary disease, unspecified; E11.9 Type 2 diabetes mellitus without complications; E86.0 Dehydration; E87.70 Fluid overload, unspecified; Z87.891 Personal history of nicotine dependence; Z79.4 Long term (current) use of insulin
CPT/HCPCS: 12345; 36415; 36416; 71045; 74177; 80048; 80053; 81003; 82962; 83690; 83735; 85014; 85018; 85025; 85610; 85730; 86850; 86900; 87040; 87804; 94640; 94660; 94664; 94669; 96372; 96375; 99283; A9270; C9113; G0378; J1815; J1940; J1956; J2405; J7030; J7611; P9016; Q9967

== ENCOUNTER 2019-11-23 10:14 | Emergency (ER) | payer OTHER, MEDICARE, SELFPAY ==
[2019-11-23 10:16] VITALS: BP 132/59; PULSE 90; RESP 16; TEMP 36.7; O2SAT 98
--- NOTE | 2019-11-23 10:36 | ED_ITS ---
Entered by Isis Jacobs, acting as scribe for Beto Candelario DO Nov 23, 2019 10:14 HPI - Extremity Problem General: Chief complaint: Extremity Problem,Nontraumatic Stated complaint: PAIN IN BOTH FEET Time Seen by Provider: 11/23/19 10:33 Source: patient and family Mode of arrival: wheelchair Limitations: physical limitation (due to pain in bilateral feet worse on Right) History of Present Illness: HPI Narrative: 74 yo male presents with bilateral lower extremity pain.pt states this started yesterday. pt was recently admitted and discharged on 11/22/19 for the same symptoms. pt has had a fever. pt states nothing makes this better and walking makes this worse. pt denies any other symptoms at this time. Pain in the right foot is greater than in the left. MD Complaint: extremity pain and joint paint Pain Consistency: constant Location: left, right and lower extremity Quality: aching and sharp Radiation: none Relieving factors: nothing Exacerbating factors: walking Associated symptoms: Reports no associated symptoms; Deny chest pain, fever(s) or rash Review of Systems Const: Denies: fever, chills, body aches, change in appetite, fatigue or malaise ENMT: Denies: throat pain, ear pain, nasal discharge or nasal congestion Card: Denies: chest pain, edema, shortness of breath on exertion or shortness of breath when lying down Resp: Denies: shortness of breath, productive cough or non-productive cough GI: Denies: abdominal pain, nausea, vomiting, vomiting blood, coffee grounds in vomit, diarrhea, constipation, bloating, blood in stool or black tarry stool : Denies: flank pain, painful urination, urinary frequency or urinary urgency Skin/Breast: Denies: rash or itching PFSH ED PFSH: Social History Smoking and tobacco status: former smoker Quit status (tobacco): has quit using tobacco Year quit tobacco: 1971 Alcohol intake: current Alcohol intake frequency: holidays/special occasions only Lives independently: Yes Household members: spouse Marital status: Current occupational status: retired History of recent travel: No Current gender identity: Male Physical Exam Const: COMMON NORMALS: no apparent distress GENERAL APPEARANCE: cooperative and comfortable ORIENTATION/CONSCIOUSNESS: Yes awake, Yes oriented to person, Yes oriented to place and Yes oriented to time HENMT: COMMON NORMALS: normocephalic, head/scalp atraumatic, hearing grossly normal bilaterally, external ears normal, EAC's normal, TM's normal bilaterally, nasal mucous membranes and turbinates normal, moist oral mucous membranes and oropharynx normal HEAD & SCALP: normocephalic and atraumatic NOSE: nasal mucous membranes and turbinates normal EXTERNAL EAR: Yes external ears normal EXTERNAL AUDITORY CANAL: EAC's normal TYMPANIC MEMBRANE: TM's normal bilaterally Eye: COMMON NORMALS: PERRL, EOMs intact bilaterally, conjunctivae normal and no scleral icterus CONJUNCTIVA: Yes conjunctivae normal PUPIL: Yes PERRL Neck/C-Spine: COMMON NORMALS: full ROM, no lymphadenopathy, supple and no JVD Lymph: LYMPHATIC: no lymphadenopathy noted and no lymphedema noted Resp: COMMON NORMALS: normal respiratory effort, no retractions, no use of acc essory muscles and clear to auscultation bilaterally AUSCULTATION: clear to auscultation bilaterally Cardio: COMMON NORMALS: no JVD, regular rate, regular rhythm and no murmurs RATE: regular rate RHYTHM: regular rhythm GI: COMMON NORMALS: soft to palpation and no hepatosplenomegaly AUSCULTATION: Yes normoactive bowel sounds PALPATION: Yes soft, No tender, No guarding and Yes no hepatosplenomegaly Extremity: COMMON NORMALS: normal to inspection, normal capillary refill, no clubbing, cyanosis or edema, no calf tenderness and no pedal edema RIGHT LOWER EXTREMITY: Yes foot & digits (Pain swelling and mild erythema at the medial aspect of the tarsometatarsal) LEFT LOWER EXTREMITY: Yes foot & digits (Pain at the metatarsal tarsal joint medially with no swelling or erythema.) Neuro: SENSORIUM/ORIENTATION: Yes oriented to person, Yes oriented to place and Yes oriented to time Skin: COMMON NORMALS: no rashes or lesions noted GENERAL SKIN EXAM: no rashes or lesions noted Course ED course: Patient has anemia and this is chronic he does not need intervention at this time reviewed previous hospitalization notes follow-up as advised at the time of discharge return if has problems. For treatment recommended steroids. Given a shot of Solu-Medrol now start oral taper tomorrow. Discussed them with his kidney function recently NSAIDs are not a good option and neither are medicine such as colchicine or Uloric due to his renal function. Vital Signs: Vital signs: Vital Signs Temperature 98.0 F 11/23/19 10:16 Pulse Rate 70 11/23/19 12:33 Respiratory Rate 18 11/23/19 12:33 Blood Pressure 116/53 11/23/19 12:33 Pulse Oximetry 98 11/23/19 12:33 MDM - Extremity (Nontraumatic) Lab Data: Labs: Lab Results 11/23/19 11/23/19 Range/Units 11:30 11:30 WBC 14.1 H (4.0-10.0) 10^3/ uL RBC 3.33 L (4.1-5.3) 10^6/u L Hgb 8.6 L (11.7-16.6) g/dL Hct 27.7 L (42.0-52.0) % MCV 83.2 (80-94) fL MCH 25.8 L (28.0-34.0) pg MCHC 31.0 (30.0-36.0) g/dL RDW 16.9 H (12.1-15.1) % Plt Count 250 (130-400) 10^3/c mm MPV 10.1 (7.4-10.4) fL Neut % (Auto) 75.6 % Lymph % (Auto) 12.0 % [place] % (Auto) 11.2 % Eos % (Auto) 0.0 % Baso % (Auto) 0.2 % Neut # (Auto) 10.7 H (1.8-7.7) 10^3/u L Lymph # (Auto) 1.7 (0.8-4.8) 10^3/u L [place] # (Auto) 1.6 H (0.2-0.9) 10^3/u L Eos # (Auto) 0.0 (0.0-0.8) 10^3/u L Baso # (Auto) 0.0 (0.0-0.1) 10^3/u L Nucleated RBC % (a uto) 0 % Nucleated RBCs # 0.0 /100WBC Sodium 134 L (136-145) mmol/L Potassium 3.3 L (3.5-5.1) mmol/L Chloride 86 L (98-107) mmol/L Carbon Dioxide 35 H (22-29) mmol/L Anion Gap 16.3 (5-19) BUN 31 H (8-23) mg/dL Creatinine 1.4 H (0.7-1.2) mg/dL Glucose 261 H (65-115) mg/dL Uric Acid 13.7 H (3.4-7.0) mg/dL Calcium 9.9 (8.5-10.5) mg/dL Total Bilirubin 0.4 (0.15-1.2) mg/dL AST 13 (0-40) U/L ALT 10 (0-41) U/L Alkaline Phosphata se 55 (40-130) IU/L Total Protein 8.0 (6.6-8.7) g/dL Albumin 3.3 L (3.5-5.2) g/dL Globulin 4.7 H (1.3-4.6) g/dL Discharge Plan Discharge Patient Disposition: Home, Self-Care Clinical Impression: Gouty arthritis of both feet, Anemia, Chronic kidney disease Condition: Stable Prescriptions: New Medrol (Pardeep) 4 mg tablets,dose pack See Rx Instructions .ROUTE .COMPLEX Qty: 21 RF: 0 No Action budesonide 0.5 mg/2 mL suspension for nebulization 0.5 mg INHALATION BID PRN (Reason: Shortness Of Breath) RF: 0 methocarbamol 750 mg tablet 750 mg PO QID PRN (Reason: Muscle Spasm) RF: 0 guaifenesin 400 mg tablet 800 mg PO BID PRN (Reason: MUCUS) RF: 0 hydralazine 25 mg tablet 25 mg PO TID RF: 0 diltiazem HCl 240 mg capsule,extended release 24hr 240 mg PO DAILY RF: 0 hydrocodone-acetaminophen 5-325 mg tablet 1 tab PO Q6H PRN (Reason: Pain) RF: 0 spironolactone 25 mg tablet 25 mg PO DAILY RF: 0 Trulicity 1.5 mg/0.5 mL pen injector See Rx Instructions .ROUTE .COMPLEX RF: 0 rosuvastatin 10 mg tablet 10 mg PO DAILY RF: 0 Lantus U-100 Insulin 100 unit/mL solution 35 unit SUBCUT DAILY RF: 0 ketoconazole 2 % cream 1 applic TOPICAL BID PRN (Reason: PRN) RF: 0 theophylline 300 mg capsule,extended release 24hr 300 mg PO BID RF: 0 potassium chloride 20 mEq tablet extended release 10 meq PO BID RF: 0 furosemide [Lasix] 80 mg tablet 80 mg PO BID RF: 0 gabapentin 100 mg capsule 200 mg PO TID RF: 0 metolazone 2.5 mg tablet 2.5 mg PO DAILY Qty: 30 RF: 3 metoprolol tartrate 50 mg tablet 75 mg PO BID Qty: 90 RF: 5 pantoprazole [Protonix] 40 mg tablet,delayed release (DR/EC) 40 mg PO DAILY RF: 0 desonide 0.05 % Ointment 1 applic TOPICAL TID RF: 0 glucose 4 gram Tablet,Chewable 4 g PO Q15M PRN (Reason: BLOOD SUGAR) RF: 0 senna 8.6 mg Capsule 17.2 mg PO BID PRN (Reason: Constipation) RF: 0 Spiriva Respimat 2.5 mcg/actuation Mist 2 puff INHALATION DAILY RF: 0 ferrous sulfate 325 mg (65 mg iron) Tablet,Delayed Release (Dr/Ec) 325 mg PO BIDWM 30 Days Qty: 60 RF: 0 levofloxacin [Levaquin] 750 mg tablet 750 mg PO DAILY 7 Days Qty: 7 RF: 0 Discharge Orders: Discharge Order (Routine); Ordered 11/23/19 Ordered By: Beto Candelario Referrals: Stevan Pal DO [Primary Care Provider] - Discharge Diet: Usual diet Discharge Activity: Resume usual activity Patient Instructions: Corticosteroids (By mouth), Acute Gouty Arthritis (ED) Activity Restrictions/Additional Instructions: Follow-up with your primary care doctor if not improving Interventions: ED Discharge Assessment Last Done: 11/23/19 12:33 Discharge Date/Time: 11/23/19 12:49 Coding Level of Care Code ED Epic Beacon Analyst for Chg Fwd The documentation recorded by the Reynaldo taveras Bridget Annette, accurately reflects the service I personally performed and the decisions made by Andree ponce Curtis L, DO Nov 23, 2019 10:14
--- NOTE | 2019-11-23 10:51 | XRR_ITS ---
PROCEDURE INFORMATION: Exam: XR Left Foot Complete Exam date and time: 11/23/2019 11:20 AM Age: 74 years old Clinical indication: Pain; Foot; Left; Additional info: Pain extreme TECHNIQUE: Imaging protocol: XR Left foot. Views: 3 or more views. COMPARISON: No relevant prior studies available. FINDINGS: Bones/joints: No fracture. Old 5th proximal phalangeal fracture. No dislocation. There is degenerative change in the midfoot. There are calcaneal plantar and Achilles tendon insertion enthesophytes. There is an accessory ossicle, an os naviculare. Soft tissues: No acute soft tissue abnormality. Vasculature: There is medial calcinosis of a metatarsal arteries. XR/XR foot LT min 3V* [id number] IMPRESSION: No acute osseous abnormality.
--- NOTE | 2019-11-23 10:51 | XRR_ITS ---
PROCEDURE INFORMATION: Exam: XR Right Foot Complete Exam date and time: 11/23/2019 11:18 AM Age: 74 years old Clinical indication: Pain; Foot; Right TECHNIQUE: Imaging protocol: XR Right foot. Views: 3 or more views. COMPARISON: No relevant prior studies available. FINDINGS: Bones/joints: No fracture. No dislocation. There is degenerative change in the midfoot. There are calcaneal plantar and Achilles tendon insertion enthesophytes. There is an accessory ossicle, an os naviculare. Soft tissues: No acute soft tissue abnormality. Vasculature: There is medial calcinosis of a metatarsal arteries. XR/XR foot RT min 3V* [id number] IMPRESSION: No acute osseous abnormality.
[2019-11-23 11:53] LABS: Basophils % 0.2 %; Hematocrit 27.7 % (42.0-52.0); Hemoglobin 8.6 g/dL (11.7-16.6); Lymphocytes # 1.7 10^3/uL (0.8-4.8); Mean Corpuscular Hemoglobin 25.8 pg (28.0-34.0); Mean Corpuscular Volume 83.2 fL (80-94); Mean Platelet Volume 10.1 fL (7.4-10.4); Monocytes # 1.6 10^3/uL (0.2-0.9); Monocytes % 11.2 %; Neutrophils # 10.7 10^3/uL (1.8-7.7); Neutrophils % 75.6 %; Nucleated Red Blood Cells % 0 %; Platelet Count 250 10^3/cmm (130-400); Red Blood Count 3.33 10^6/uL (4.1-5.3); Red Cell Distribution Width 16.9 % (12.1-15.1); White Blood Count 14.1 10^3/uL (4.0-10.0)
[2019-11-23 11:54] VITALS: BP 114/58; PULSE 65; RESP 18; O2SAT 98
[2019-11-23 12:07] LABS: Alanine Aminotransferase 10 U/L (0-41); Albumin Level 3.3 g/dL (3.5-5.2); Alkaline Phosphatase 55 IU/L (40-130); Anion Gap 16.3 (5-19); Aspartate Amino Transferase 13 U/L (0-40); Blood Urea Nitrogen 31 mg/dL (8-23); Calcium 9.9 mg/dL (8.5-10.5); Carbon Dioxide 35 mmol/L (22-29); Chloride 86 mmol/L (98-107); Globulin 4.7 g/dL (1.3-4.6); Glucose 261 mg/dL (65-115); Potassium 3.3 mmol/L (3.5-5.1); Sodium 134 mmol/L (136-145); Total Bilirubin 0.4 mg/dL (0.15-1.2); Uric Acid 13.7 mg/dL (3.4-7.0)
[2019-11-23 12:33] VITALS: BP 116/53; PULSE 70; RESP 18; O2SAT 98
== END 2019-11-23 12:49 | disposition home or self-care (01) ==
PROVIDERS: Emergency Provider Family Medicine; Family Provider Emergency Medicine Emergency Medical Services; PCP Emergency Medicine Emergency Medical Services
DX: M10.9 Gout, unspecified (principal); N18.9 Chronic kidney disease, unspecified; D63.1 Anemia in chronic kidney disease; Z87.891 Personal history of nicotine dependence
CPT/HCPCS: 36415; 73630; 80053; 84550; 85025; 96372; 99281; 99283; J2930

== ENCOUNTER 2020-01-29 10:05 | Outpatient (CLI) | payer OTHER, SELFPAY ==
--- NOTE | 2020-01-29 10:09 | XR_ITS ---
WS: [id number] XR chest 2V* [id number] REASON FOR EXAM: Exacerbation of bronchiectasis FINDINGS: The extensive pneumonia on the left side is showing some resolution. There is infiltrates s een replacing some of the left lower lung. There is increased right pleural effusion is compared to previous exam extends to the interspace on t he right. There is stimulator is again noted intraspinal unchanged position. XR/XR chest 2V* [id number] IMPRESSION: Resolving left lower lung pneumonia Right pleural effusion
[2020-01-29 10:26] LABS: Basophils % 0.2 %; Eosinophils % 0.2 %; Hematocrit 34.3 % (42.0-52.0); Hemoglobin 10.5 g/dL (11.7-16.6); Lymphocytes # 1.6 10^3/uL (0.8-4.8); Lymphocytes % 13.3 %; Mean Corpuscular HGB Conc 30.6 g/dL (30.0-36.0); Mean Corpuscular Hemoglobin 26.6 pg (28.0-34.0); Mean Corpuscular Volume 86.8 fL (80-94); Mean Platelet Volume 10.2 fL (7.4-10.4); Monocytes # 1.4 10^3/uL (0.2-0.9); Monocytes % 11.4 %; Neutrophils # 9.2 10^3/uL (1.8-7.7); Neutrophils % 74.4 %; Nucleated Red Blood Cells % 0 %; Platelet Count 218 10^3/cmm (130-400); Red Blood Count 3.95 10^6/uL (4.1-5.3); Red Cell Distribution Width 17.2 % (12.1-15.1); White Blood Count 12.4 10^3/uL (4.0-10.0)
[2020-01-29 10:42] LABS: Alanine Aminotransferase 10 U/L (0-41); Alkaline Phosphatase 53 IU/L (40-130); Anion Gap 19.4 (5-19); Aspartate Amino Transferase 15 U/L (0-40); Blood Urea Nitrogen 31 mg/dL (8-23); Calcium 9.6 mg/dL (8.5-10.5); Carbon Dioxide 32 mmol/L (22-29); Chloride 86 mmol/L (98-107); Globulin 3.8 g/dL (1.3-4.6); Glucose 155 mg/dL (65-115); Osmolality Calculated 278 mOsm/kg (285-295); Potassium 3.4 mmol/L (3.5-5.1); Sodium 134 mmol/L (136-145); Total Bilirubin 0.5 mg/dL (0.15-1.2); Total Protein 7.8 g/dL (6.6-8.7)
== END 2020-01-29 10:06 | disposition home or self-care (01) ==
LOC: RAD 10:09
PROVIDERS: Family Provider Emergency Medicine Emergency Medical Services; PCP Emergency Medicine Emergency Medical Services; Visit Provider Internal Medicine Critical Care Medicine
DX: J47.1 Bronchiectasis with (acute) exacerbation (principal); J90 Pleural effusion, not elsewhere classified
CPT/HCPCS: 36415; 71046; 80053; 85025; 87070; 87205

== ENCOUNTER 2020-05-01 10:45 | Outpatient (CLI) | payer OTHER, SELFPAY ==
[2020-05-01 11:39] LABS: Anion Gap 9.9 (5-19); Blood Urea Nitrogen 23 mg/dL (8-23); Carbon Dioxide 33 mmol/L (22-29); Chloride 98 mmol/L (98-107); Glucose 128 mg/dL (65-115); Osmolality Calculated 282 mOsm/kg (285-295); Potassium 3.9 mmol/L (3.5-5.1); Sodium 137 mmol/L (136-145)
== END 2020-05-01 10:46 | disposition home or self-care (01) ==
LOC: LAB 11:10
PROVIDERS: PCP Emergency Medicine Emergency Medical Services; Visit Provider Internal Medicine Critical Care Medicine
DX: I50.32 Chronic diastolic (congestive) heart failure (principal)
CPT/HCPCS: 36415; 80048

== ENCOUNTER 2020-05-13 08:20 | Outpatient (CLI) | payer OTHER, SELFPAY ==
[2020-05-13 09:11] LABS: Carcinoembryonic Antigen 0.8 ng/mL (0.0-4.7)
== END 2020-05-13 08:21 | disposition home or self-care (01) ==
LOC: LAB 08:22
PROVIDERS: PCP Emergency Medicine Emergency Medical Services; Visit Provider Surgery
DX: C18.9 Malignant neoplasm of colon, unspecified (principal)
CPT/HCPCS: 82378

== ENCOUNTER 2020-06-16 12:20 | Observation (INO) | payer OTHER, MEDICARE, SELFPAY ==
[2020-06-16] VITALS (11 sets, daily range): BP systolic 106–143; BP diastolic 46–74; PULSE 39–68; RESP 18–25; TEMP 36.4–36.7; O2SAT 93–98; BMI 36.9
--- NOTE | 2020-06-16 12:40 | XRR_ITS ---
PROCEDURE INFORMATION: Exam: XR Chest, 1 View Exam date and time: 06/16/2020 12:56 PM Age: 75 years old Clinical indication: Dyspnea; Prior surgery; Surgery type: Lt lung TECHNIQUE: Imaging protocol: XR of the chest Views: 1 view. COMPARISON: CR XR chest 2V* [id number] 01/29/2020 10:29 AM FINDINGS: Tubes, catheters and devices: Neural stimulator. Lungs: Left lower lung opacity unchanged. Pleural space: Right lower lung opacity and right costophrenic angle blunting, minimally increased. Heart/Mediastinum: Heart size normal. Bones/joints: No acute findings. XR/XR chest 1V portable [id number] IMPRESSION: Moderate right pleural effusion associated with right lower lung consolidation, minimally increased. Left lower lung pneumonia and/or scarring.
--- NOTE | 2020-06-16 12:41 | ECG_ITS ---
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 Measurements Intervals [place] Rate: 58 P: [place]: -1 QRS: -77 QRSD: 157 T: 85 QT: 476 QTc: 471 Interpretive Statements ATRIAL FIBRILLATION WITH SLOW VENTRICULAR RESPONSE RIGHT BUNDLE BRANCH BLOCK [120+ ms QRS DURATION, UPRIGHT V1, 40+ ms S IN I/aVL/V4/V5/V6] LEFT ANTERIOR FASCICULAR BLOCK [QRS AXIS <= -45, QR IN I, RS IN II] Compared to ECG 09/07/2019 17:43:51 Right bundle-branch block now present Left anterior fascicular block now present Left-axis deviation no longer present Myocardial infarct finding no longer present Electronically Signed On 06-16-2020 19:03:56 CDT by Alcides Badillo M.D. [email or web address]
--- NOTE | 2020-06-16 12:46 | W.ED.SOB ---
HPI - SOB/Dyspnea General: Chief Complaint: Shortness of Breath/Dyspnea Stated Complaint: sob Time Seen by Provider: 06/16/20 12:33 History of Present Illness: HPI Narrative: This patient is a 75-year-old gentleman who presents today with trouble breathing. He said he is not even able to walk down the [place] without his oxygen level dropping down into the 60s even on his usual 4 or 5 L of oxygen. He said this is been going on for 3 or 4 days but his said it is been coming on for more like a week and a half. He denies fever but said he has been very cold for the last couple of days. He has some chest pain that he just noticed this morning but is not sure when it started. He has a history of bronchiectasis with frequent pneumonia. He also had to have a pleural effusion drained in October by Dr. White. He said he feels similar to when that was happening. He coughed up quite a bit of white phlegm this morning. He denies any exposure to COVID but he has been to the [facility] for an eye exam fairly recently. MD elicited complaint: shortness of breath, cough and chest pain Pertinent past history: COPD, congestive heart failure, pneumonia and other (Pleural effusion) Onset (ago): week(s) (1.5, worse for the past 3 days) Timing: constant and progressively worsening Severity: severe Exacerbating factors: lying flat, exertion, movement and talking Relieving factors: oxygen and rest Associated symptoms: Reports chest pain; Deny abdominal pain, fever(s), nausea or vomiting Review of Systems General: Reports: 10 or more systems reviewed and unremarkable except in HPI and below Const: Reports: fatigue and malaise; Denies: fever(s) or chills Eyes: Denies: change in vision ENMT: Denies: odynophagia Card: Reports: chest pain Resp: Reports: dyspnea and productive cough; Denies: non-productive cough GI: Denies: abdominal pain, nausea or vomiting : Denies: flank pain Musc: Reports: extremity swelling; Denies: neck pain or back pain Skin/Breast: Denies: rash Neuro: Denies: headache(s), numbness in extremities or weakness in extremities [place]/Lymph: Denies: easy bruising or easy bleeding [facility] PFSH: Medical History Accelerated essential hypertension AF (atrial fibrillation) Apnea, sleep Bronchiectasis, uncomplicated Chronic obstructive pulmonary disease, unspecified Colon cancer Cyst of pancreas Hyperlipidemia, unspecified Incisional hernia Osteoarthritis of right knee Post-traumatic stress disorder, unspecified Postlaminectomy syndrome Spinal stenosis, lumbar region without neurogenic claudication Type 2 diabetes mellitus without complications Surgical History H/O colonoscopy 2016 & 11/12/19: Multiple tubular adenoma, follow-up colonoscopy in 3 years H/O esophagogastroduodenoscopy 11/12/2019: Hyperplastic polyp, gastritis H/O shoulder surgery History of colon resection x2 History of lumbar fusion History of surgical procedure on eye proper using laser History of tonsillectomy and adenoidectomy S/P partial lobectomy of lung Family History Brother Diabetes Hypertension Father Cancer Sister Cancer Other CAD (coronary artery disease) Stroke Denies family history of Anesthesia complication Bleeding disorder Social History Smoking and tobacco status: former smoker Quit status (tobacco): has quit using tobacco Year quit tobacco: 1970 - PPD x 13 Years Alcohol intake: current Alcohol intake frequency: holidays/special occasions only Lives independently: Yes Household members: spouse Marital status: service: Yes Current occupational status: retired History of recent travel: No Current gender identity: Male Physical Exam Const: COMMON NORMALS: no acute distress, patient oriented x3, no limitations and alert GENERAL APPEARANCE: cooperative and comfortable HENMT: HEAD & SCALP: normal to inspection FACE & SINUS: normal facial exam Eye: GENERAL EYE: appearance normal, both eyes and all related structures Neck/C-Spine: COMMON NORMALS: supple, no meningeal signs and no JVD Chest: COMMONS NORMALS: normal inspection of the chest Resp: EFFORT & INSPECTION: Yes tachypneic, Yes labored, Yes retractions and Yes uses accessory muscles AUSCULTATION: rhonchi (Throughout) and diminished lung sounds (Lung sounds absent in the right base about care home up) Cardio: COMMON NORMALS: no JVD, regular rate, regular rhythm and No murmurs present (Cardio) RATE: regular rate RHYTHM: regular rhythm GI: COMMON NORMALS: Normal to inspection, nondistended, normoactive bowel sounds present, Soft to palpation and non-tender INSPECTION: Yes normal to inspection AUSCULTATION: Yes normoactive bowel sounds PALPATION: Yes Soft to palpation Back/Pelvis: COMMON NORMALS: thoracic and lumbar spine normal to inspection Extremity: COMMON NORMALS: normal to inspection Neuro: COMMON NORMALS: patient oriented x3, moves all extremities, no focal motor deficits and no sensory deficits noted SENSORIUM/ORIENTATION: Yes alert MENINGEAL SIGNS: Yes no meningeal signs Psych: COMMON NORMALS: mental status grossly normal, cooperative and normal affect Skin: COMMON NORMALS: no rashes or lesions noted and turgor normal GENERAL SKIN EXAM: no rashes or lesions noted and turgor normal Course ED course: Patient was quite short of breath but comfortable as long as he was sitting on the stretcher with his oxygen on. Chest x-ray does show the right pleural effusion again. He also has some signs of heart failure. His COVID test was negative however on admission it was decided to continue COVID precautions and get a PTC. He will be admitted to the hospitalist and I did consult Dr. White as well. Vital Signs: Vital signs: Vital Signs Temperature 97.6 F 06/16/20 18:45 Pulse Rate 65 06/16/20 20:00 Respiratory Rate 21 H 06/16/20 18:45 Blood Pressure 143/69 06/16/20 18:45 Pulse Oximetry 95 06/16/20 18:45 MDM - SOB/Dyspnea Lab Data: Labs: Lab Results 06/16/20 06/16/20 06/16/20 Range/Units 13:00 13:00 13:00 WBC 10.3 H (4.0-10.0) 10^3/ uL RBC 3.41 L (4.1-5.3) 10^6/u L Hgb 10.0 L (11.7-16.6) g/dL Hct 34.0 L (42.0-52.0) % MCV 99.7 H (80-94) fL MCH 29.3 (28.0-34.0) pg MCHC 29.4 L (30.0-36.0) g/dL RDW 16.0 H (12.1-15.1) % Plt Count 174 (130-400) 10^3/c mm MPV 11.3 H (7.4-10.4) fL Neut % (Auto) 67.0 % Lymph % (Auto) 16.1 % [place] % (Auto) 11.9 % Eos % (Auto) 3.2 % Baso % (Auto) 0.4 % Neut # (Auto) 6.90 (1.8-7.7) 10^3/u L Lymph # (Auto) 1.7 (0.8-4.8) 10^3/u L [place] # (Auto) 1.2 H (0.2-0.9) 10^3/u L Eos # (Auto) 0.3 (0.0-0.8) 10^3/u L Baso # (Auto) 0.0 (0.0-0.1) 10^3/u L Nucleated RBC % (a uto) 0 % Nucleated RBCs # 0.0 /100WBC PT 14.50 (12.1-14.9) SECO NDS INR 1.10 (0.8-1.2) Sodium 142 (136-145) mmol/L Potassium 4.6 (3.5-5.1) mmol/L Chloride 100 (98-107) mmol/L Carbon Dioxide 35 H (22-29) mmol/L Anion Gap 11.6 (5-19) BUN 21 (8-23) mg/dL Creatinine 0.9 (0.7-1.2) mg/dL GFR Calculation Not Reportable Glucose 94 (65-115) mg/dL Calculated Osmolal ity 297 H (285-295) mOsm/k g Lactic Acid (0.5-2.2) mmol/L Calcium 9.5 (8.5-10.5) mg/dL Magnesium 2.2 (1.7-2.3) mg/dL Total Bilirubin 0.3 (0.15-1.2) mg/dL AST 19 (0-40) U/L ALT 25 (0-41) U/L Alkaline Phosphata se 74 (40-130) IU/L Troponin T Baselin e (0-15) ng/L Troponin T 120 Min [place] (0-15) ng/L Delta Troponin T (0-10) ABS# NT-Pro-B Natriuret Pep 817 H (0-450) pg/mL Total Protein 7.2 (6.6-8.7) g/dL Albumin 3.7 (3.5-5.2) g/dL Globulin 3.5 (1.3-4.6) g/dL Lipase 14 (13-60) U/L SARS-CoV-2 Ag (Rap id) (Negative) 06/16/20 06/16/20 06/16/20 Range/Units 13:00 13:00 13:05 WBC (4.0-10.0) 10^3/ uL RBC (4.1-5.3) 10^6/u L Hgb (11.7-16.6) g/dL Hct (42.0-52.0) % MCV (80-94) fL MCH (28.0-34.0) pg MCHC (30.0-36.0) g/dL RDW (12.1-15.1) % Plt Count (130-400) 10^3/c mm MPV (7.4-10.4) fL Neut % (Auto) % Lymph % (Auto) % [place] % (Auto) % Eos % (Auto) % Baso % (Auto) % Neut # (Auto) (1.8-7.7) 10^3/u L Lymph # (Auto) (0.8-4.8) 10^3/u L [place] # (Auto) (0.2-0.9) 10^3/u L Eos # (Auto) (0.0-0.8) 10^3/u L Baso # (Auto) (0.0-0.1) 10^3/u L Nucleated RBC % (a uto) % Nucleated RBCs # /100WBC PT (12.1-14.9) SECO NDS INR (0.8-1.2) Sodium (136-145) mmol/L Potassium (3.5-5.1) mmol/L Chloride (98-107) mmol/L Carbon Dioxide (22-29) mmol/L Anion Gap (5-19) BUN (8-23) mg/dL Creatinine (0.7-1.2) mg/dL GFR Calculation Glucose (65-115) mg/dL Calculated Osmolal ity (285-295) mOsm/k g Lactic Acid 0.7 (0.5-2.2) mmol/L Calcium (8.5-10.5) mg/dL Magnesium (1.7-2.3) mg/dL Total Bilirubin (0.15-1.2) mg/dL AST (0-40) U/L ALT (0-41) U/L Alkaline Phosphata se (40-130) IU/L Troponin T Baselin e 25 H (0-15) ng/L Troponin T 120 Min [place] (0-15) ng/L Delta Troponin T (0-10) ABS# NT-Pro-B Natriuret Pep (0-450) pg/mL Total Protein (6.6-8.7) g/dL Albumin (3.5-5.2) g/dL Globulin (1.3-4.6) g/dL Lipase (13-60) U/L SARS-CoV-2 Ag (Rap id) Negative (Negative) 06/16/20 Range/Units 14:55 WBC (4.0-10.0) 10^3/ uL RBC (4.1-5.3) 10^6/u L Hgb (11.7-16.6) g/dL Hct (42.0-52.0) % MCV (80-94) fL MCH (28.0-34.0) pg MCHC (30.0-36.0) g/dL RDW (12.1-15.1) % Plt Count (130-400) 10^3/c mm MPV (7.4-10.4) fL Neut % (Auto) % Lymph % (Auto) % [place] % (Auto) % Eos % (Auto) % Baso % (Auto) % Neut # (Auto) (1.8-7.7) 10^3/u L Lymph # (Auto) (0.8-4.8) 10^3/u L [place] # (Auto) (0.2-0.9) 10^3/u L Eos # (Auto) (0.0-0.8) 10^3/u L Baso # (Auto) (0.0-0.1) 10^3/u L Nucleated RBC % (a uto) % Nucleated RBCs # /100WBC PT (12.1-14.9) SECO NDS INR (0.8-1.2) Sodium (136-145) mmol/L Potassium (3.5-5.1) mmol/L Chloride (98-107) mmol/L Carbon Dioxide (22-29) mmol/L Anion Gap (5-19) BUN (8-23) mg/dL Creatinine (0.7-1.2) mg/dL GFR Calculation Glucose (65-115) mg/dL Calculated Osmolal ity (285-295) mOsm/k g Lactic Acid (0.5-2.2) mmol/L Calcium (8.5-10.5) mg/dL Magnesium (1.7-2.3) mg/dL Total Bilirubin (0.15-1.2) mg/dL AST (0-40) U/L ALT (0-41) U/L Alkaline Phosphata se (40-130) IU/L Troponin T Baselin e (0-15) ng/L Troponin T 120 Min [place] 21.93 H (0-15) ng/L Delta Troponin T -3.07 L (0-10) ABS# NT-Pro-B Natriuret Pep (0-450) pg/mL Total Protein (6.6-8.7) g/dL Albumin (3.5-5.2) g/dL Globulin (1.3-4.6) g/dL Lipase (13-60) U/L SARS-CoV-2 Ag (Rap id) (Negative) Discharge Plan Discharge Admit Provider: Italo Reese Discharge Date/Time: 06/16/20 18:45 Coding Level of Care Code ED Switchboard Inspector for Chg Fwd Exam Comprehensive
[2020-06-16 13:15] LABS: Basophils % 0.4 %; Eosinophils # 0.3 10^3/uL (0.0-0.8); Eosinophils % 3.2 %; Lymphocytes # 1.7 10^3/uL (0.8-4.8); Lymphocytes % 16.1 %; Mean Corpuscular HGB Conc 29.4 g/dL (30.0-36.0); Mean Corpuscular Hemoglobin 29.3 pg (28.0-34.0); Mean Corpuscular Volume 99.7 fL (80-94); Mean Platelet Volume 11.3 fL (7.4-10.4); Monocytes # 1.2 10^3/uL (0.2-0.9); Monocytes % 11.9 %; Nucleated Red Blood Cells % 0 %; Platelet Count 174 10^3/cmm (130-400); Red Blood Count 3.41 10^6/uL (4.1-5.3); White Blood Count 10.3 10^3/uL (4.0-10.0)
[2020-06-16 13:34] LABS: SARS Covid-2 Antigen Negative (Negative)
[2020-06-16 13:36] LABS: Lactic Sepsis W/Reflex 0.7 mmol/L (0.5-2.2)
[2020-06-16 13:45] LABS: Alanine Aminotransferase 25 U/L (0-41); Albumin Level 3.7 g/dL (3.5-5.2); Alkaline Phosphatase 74 IU/L (40-130); Aspartate Amino Transferase 19 U/L (0-40); Blood Urea Nitrogen 21 mg/dL (8-23); Calcium 9.5 mg/dL (8.5-10.5); Carbon Dioxide 35 mmol/L (22-29); Chloride 100 mmol/L (98-107); Globulin 3.5 g/dL (1.3-4.6); Glucose 94 mg/dL (65-115); Lipase 14 U/L (13-60); Magnesium 2.2 mg/dL (1.7-2.3); NT Pro B Type Natriuretic Pept 817 pg/mL (0-450); Osmolality Calculated 297 mOsm/kg (285-295); Sodium 142 mmol/L (136-145); Total Bilirubin 0.3 mg/dL (0.15-1.2); Total Protein 7.2 g/dL (6.6-8.7)
[2020-06-16 13:50] LABS: Anion Gap 11.6 (5-19); Potassium 4.6 mmol/L (3.5-5.1)
[2020-06-16 14:00] LABS: Troponin(5th) Baseline 25 ng/L (0-15)
--- NOTE | 2020-06-16 14:41 | ECG_ITS ---
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 Measurements Intervals [place] Rate: 46 P: MA: -1 QRS: -75 QRSD: 145 T: -4 QT: 482 QTc: 422 Interpretive Statements ATRIAL FIBRILLATION WITH SLOW VENTRICULAR RESPONSE RIGHT BUNDLE BRANCH BLOCK [120+ ms QRS DURATION, UPRIGHT V1, 40+ ms S IN I/aVL/V4/V5/V6] LEFT ANTERIOR FASCICULAR BLOCK [QRS AXIS <= -45, QR IN I, RS IN II] Compared to ECG 06/16/2020 13:03:16 No significant changes Electronically Signed On 06-16-2020 19:34:25 CDT by Alcides Badillo M.D. [email or web address]
[2020-06-16 15:29] LABS: Troponin 5 2HR 21.93 ng/L (0-15)
[2020-06-16 15:33] LABS: Troponin 5 2HR Delta -3.07 ABS# (0-10)
--- NOTE | 2020-06-16 16:52 | P.HP_ITS ---
Providers/Chief Complaint Admitting Physician: Italo Reese Primary Care Provider: Stevan Pal DO Chief Complaint: sob History of Present Illness Ambrocio Tinoco is a 75 year old gentleman with history of COPD, chronic hypoxic and hypercapnic respiratory failure, bronchiectasis, restrictive lung disease secondary to left lower lobe resection, CHF with preserved ejection fraction, A. fib on chronic anticoagulation, history of colon cancer, presented with progressive dyspnea especially on exertion, but also shortness of breath at rest, getting worse over the past week, but very bad in the last 3 days. Reports chills yesterday, easy fatigability. They measure temperature at home and he did not have a fever. He reports occasional minimal chest discomfort on the right side, is not sure whether it has been associated with the bouts of cough that he has been having which have been productive of sputum. He is chronically on 4 L of oxygen for COPD. Today he is also been seeing some spots in front of his eyes. Does occasionally note general bit more dizzy. reports has been having to sleep in more upright position. In ER is noted to have moderate right side pleural effusion, right lower lung consolidation, as well as left lower lung pneumonia and/or scarring. He is previously had thoracentesis performed by pulmonology back in October. There had previously been concern of effusion leading up on the PET scan, however, following thoracentesis mostly lymphocytic effusion without noted malignancy pathology. He has since followed up with his oncologist who is been monitoring him with intermittent PET for any recurrence of colon cancer, so far this has not been the case per his . In ER he is also noted to be bradycardic in the 50s-60s, and while sleeping intermittently heart rates fluctuating down into high 30s. During my visit he is sitting up in bed with heart rate in the 50s of which he is not symptomatic. Review of Systems Const: Reports: chills; Denies: fever(s), body aches or malaise Eyes: Denies: change in vision or eye redness ENMT: Denies: throat pain, oral sores or ear or mastoid pain Card: Reports: chest pain, edema and dyspnea on exertion; Denies: pre-syncope Resp: Reports: dyspnea and productive cough; Denies: change in phlegm color or hemoptysis GI: Denies: abdominal pain, nausea, vomiting, diarrhea, constipation, hematochezia or melena : Denies: flank pain, difficulty urinating, urinary frequency or hematuria Musc: Denies: back pain, joint swelling or joint redness Skin/Breast: Denies: rash, sores or new lesions Neuro: Denies: headache(s), numbness in extremities, weakness in extremities, dizziness, confusion or seizure-like activity Endo: Denies: polyuria or polydipsia Estevan/Lymph: Denies: easy bleeding or purpura All/Imm: Denies: urticaria, throat swelling or tongue swelling Medications/Allergies Home Medications Medication Instructions Recorded Confirmed Last Taken Type diltiazem HCl 240 mg 240 mg PO DAILY 09/24/19 06/16/20 06/16/20 History capsule,extended release 24 hr furosemide 80 mg tablet 80 mg PO BID 09/24/19 06/16/20 06/16/20 History hydralazine 25 mg tablet 25 mg PO TID tab 09/24/19 06/16/20 06/16/20 History hydrocodone 5 mg-acetaminophen 325 1 tab PO Q6H PRN tab 09/24/19 06/16/20 11/22/19 History mg tablet insulin glargine 100 unit/mL 35 unit SUBCUT DAILY ml 09/24/19 06/16/20 06/16/20 History subcutaneous solution potassium chloride 20 mEq 10 meq PO BID tab 09/24/19 06/16/20 06/16/20 History tablet,extended release rosuvastatin 10 mg tablet 10 mg PO DAILY tab 09/24/19 06/16/20 06/15/20 History spironolactone 25 mg tablet 25 mg PO DAILY tab 09/24/19 06/16/20 06/16/20 History metolazone 2.5 mg tablet 2.5 mg PO DAILY #30 tab 10/18/19 06/16/20 06/16/20 Rx metoprolol tartrate 50 mg tablet 75 mg PO BID #90 tab 10/19/19 06/16/20 06/16/20 Rx gabapentin 100 mg capsule 200 mg PO TID cap 10/29/19 06/16/20 06/16/20 History methocarbamol 750 mg tablet 750 mg PO QID PRN 10/29/19 06/16/20 11/17/19 History pantoprazole [Protonix] 40 mg PO DAILY 11/09/19 06/16/20 06/16/20 History Spiriva Respimat 2 puff INHALATION DAILY 11/19/19 06/16/20 06/16/20 History desonide 1 applic TOPICAL TID 11/19/19 06/16/20 06/16/20 History glucose 4 g PO Q15M PRN 11/19/19 06/16/20 Unknown History senna 17.2 mg PO BID PRN 11/19/19 06/16/20 06/16/20 History apixaban 5 mg tablet 5 mg PO BID 01/29/20 06/16/20 06/16/20 History budesonide-formoterol HFA 160 2 puff INHALATION BID 01/29/20 06/16/20 06/16/20 History mcg-4.5 mcg/actuation aerosol inhaler coenzyme Q10 100 mg capsule 100 mg PO DAILY 01/29/20 06/16/20 Unknown History guaifenesin 400 mg tablet 800 mg PO BID tab 01/29/20 06/16/20 06/16/20 History lactobacillus combination no.9 4 4,000 mmu cells PO DAILY 01/29/20 06/16/20 Unknown History billion cell capsule ferrous sulfate 325 mg (65 mg 325 mg PO DAILY tab 04/10/20 06/16/20 06/16/20 History iron) tablet azithromycin 500 mg tablet 500 mg PO .COMPLEX 90 Days #45 tab 05/01/20 06/16/20 06/16/20 Rx albuterol sulfate 2 puff INHALATION QID PRN 06/16/20 06/16/20 06/16/20 History allopurinol 300 mg PO DAILY 06/16/20 06/16/20 06/16/20 History insulin aspart U-100 22 units INJECTION BID 06/16/20 06/16/20 06/16/20 History ipratropium-albuterol 3 ml INHALATION QID 06/16/20 06/16/20 06/16/20 History polyvinyl alcohol [Artificial 2 drp OPHTHALMIC (EYE) Q1H 06/16/20 06/16/20 Unknown History Tears (polyvin alc)] semaglutide [Ozempic] See Rx Instructions .ROUTE .COMPLEX 06/16/20 06/16/20 06/12/20 History Allergies Allergy/AdvReac Type Severity Reaction Status Date / Time naproxen Allergy Intermediate ALGY-Rash Verified 06/16/20 14:32 amoxicillin AdvReac Intermediate Itching Verified 06/16/20 14:32 morphine AdvReac Intermediate ADR-Vomitin Verified 06/16/20 14:32 g PFSH Acute PFSH: Medical History Accelerated essential hypertension AF (atrial fibrillation) Apnea, sleep Bronchiectasis, uncomplicated Chronic obstructive pulmonary disease, unspecified Colon cancer Cyst of pancreas Hyperlipidemia, unspecified Incisional hernia Osteoarthritis of right knee Post-traumatic stress disorder, unspecified Postlaminectomy syndrome Spinal stenosis, lumbar region without neurogenic claudication Type 2 diabetes mellitus without complications Surgical History H/O colonoscopy 2016 & 11/12/19: Multiple tubular adenoma, follow-up colonoscopy in 3 years H/O esophagogastroduodenoscopy 11/12/2019: Hyperplastic polyp, gastritis H/O shoulder surgery History of colon resection x2 History of lumbar fusion History of surgical procedure on eye proper using laser History of tonsillectomy and adenoidectomy S/P partial lobectomy of lung Family History Brother Diabetes Hypertension Father Cancer Sister Cancer Other CAD (coronary artery disease) Stroke Denies family history of Anesthesia complication Bleeding disorder Social History Smoking and tobacco status: former smoker Quit status (tobacco): has quit using tobacco Year quit tobacco: 1970 - PPD x 13 Years Alcohol intake: current Alcohol intake frequency: holidays/special occasions only Lives independently: Yes Household members: spouse Marital status: service: Yes Current occupational status: retired History of recent travel: No Current gender identity: Male Vitals/I&O/Wt Last Vital Signs Temp 97.8 F 06/16/20 12:25 Pulse 57 L 06/16/20 16:35 Resp 25 H 06/16/20 16:35 BP 120/58 06/16/20 16:35 Pulse Ox 96 06/16/20 16:35 Weight last 48 hrs Weight 113.398 kg Physical Exam Const: COMMON NORMALS: no acute distress and patient oriented x3 EXAM LIMITATIONS: altered mental status NUTRITIONAL APPEARANCE: obese ORIENTATION/CONSCIOUSNESS: Yes awake HENMT: COMMON NORMALS: oropharynx normal Neck/C-Spine: COMMON NORMALS: no JVD Resp: COMMON NORMALS: normal respiratory effort and clear to auscultation bilaterally AUSCULTATION: rhonchi, wheezes and diminished lung sounds Cardio: COMMON NORMALS: no JVD, regular rhythm, S1 normal heart sound present, S2 normal heart sound present and No murmurs present (Cardio) RATE: bradycardic HEART SOUNDS: S1 normal heart sound present and S2 normal heart sound present GI: COMMON NORMALS: Normal to inspection, nondistended, normoactive bowel s ounds present, Soft to palpation and non-tender PALPATION: Yes Soft to palpation Extremity: COMMON NORMALS: no joint enlargement GENERAL: Yes edema (3+ bilat LE edema below the knees) Neuro: COMMON NORMALS: patient oriented x3 and moves all extremities Skin: COMMON NORMALS: no rashes or lesions noted GENERAL SKIN EXAM: no rashes or lesions noted Data : 06/16/20 13:00 06/16/20 13:00 A&P Assessment and plan (1) COPD exacerbation: COPD is original with cough, productive of phlegm, although he cannot characterize the color or appearance of the secretions. Possible cactus exacerbation Possible community-acquired pneumonia, although suspect this is less likely. Otherwise no signs of sepsis. Minute leukocytosis to 10.3, afebrile. Rapid coronavirus antigen test is negative. Her, with cough, wheezing, rhonchi, easy fatigability, chills, risk factors for severe disease will test him with coronavirus PCR. Check sputum culture. Rapid flu. Levaquin, prednisone, breathing treatments, flutter valve. Status: Acute (2) CHF exacerbation: History of CHF with preserved ejection fraction. Currently present with dyspnea on exertion, orthopnea. Peripheral edema. BNP. Complete troponin EKG series. He does report some occasional chest discomfort, but not currently. Minimal troponin elevation on presentation and repeat. No rise is noted. Assess by TTE. At this time Lasix but will switch over to IV relation. Continue spironolact one, metolazone. Patient and request that his allopurinol be continued. Discussed with his metal numerical tool programmer. Follow-up TTE. Available for consult if needed Status: Acute (3) Elevated troponin: Minimal elevation of 225. This with patient and his . He has no current chest pain. Does report occasional chest discomfort on the right side. He cannot say whether this is related to movement, and sharp cough but she has been having. He denies any pressure. The eyes and his history and with exertion. There is no significant rise on repeat. Will complete troponin EKG series. Assess by TTE. He has quite a few pulmonary issues going on on the right side to explain this pain. Last stress test June 2019 with medium sized area of old MD versus scarring without ischemia and basal to distal inferior and basal to mid inferolateral wall. No acute ischemia. His chest discomfort episodes are not typical. On nonurgent basis in case there is recurrence of episodes may benefit from repeat invasive risk stratification. We will add low-dose aspirin. He is on Eliquis. Continue statin. Continue beta-wisam. Status: Acute (4) Bradycardia: At this time he is on both Cardizem and metoprolol. 180 mg ER Cardizem an d 75 g twice daily metoprolol discussed with his metal numerical tool programmer. Prefer to cut down to 1 medication at a time, will decrease Cardizem dose to 120 mg. Keep metoprolol for now. Has history of sleep apnea. Check TSH. Status: Acute (5) Acute exacerbation of bronchiectasis: Discussed with his behavioral health director regarding his symptoms. Suspicion at this time is for most likely acute infection, also considered CHF, worsening pleural effusion, ACS appears to be less likely. PE should be unlikely as he is already on anticoagulation. At this time will treat with antibiotic for suspected bacterial infection. Levaquin. Prednisone. Breathing treatments. Flutter valve. Resume chronic azithromycin discharge. Follow up with pulmonology in office. Status: Acute (6) Bronchiectasis: Chronic azithromycin. Status: Acute Qualifiers: Bronchiectasis type: uncomplicated Qualified Code(s): J47.9 - Bronchiectasis, uncomplicated (7) Pleural effusion: Moderate right-sided pleural effusion. Discussed with his behavioral health director. This appears to be a recurrent effusion without signs of malignancy on investigation back in October. At this time per discussion with patient his specialist will continue diuresis. Prescription pressure was for now continue anticoagulation, treat underlying suspected infection, CHF exacerbation. For now no additional plan for thoracentesis given chronic entrapped/on expandable lung on the right. Status: Acute (8) AF (atrial fibrillation): Monitor on telemetry. Continue metoprolol, reduced dose Cardizem. Eliquis. Status: Acute Qualifiers: Atrial fibrillation type: other persistent Qualified Code(s): I48.19 - Other persistent atrial fibrillation (9) Anemia: Appears to be chronic anemia. Hemoglobin appears to be better than in October, stable from January at 10. He is on Eliquis. Monitor hemoglobin. Status: Acute Additional A&P Information History of spinal stenosis, chronic back pain Other chronic medical problems Attestations Medical Necessity Statement*: Place in observation. Coding Level of Care Code Acute Safety Council Director for [facility] Fwd Diagnoses COPD exacerbation J44.1 CHF exacerbation I50.9 Elevated troponin R79.89 Bradycardia R00.1 Acute exacerbation of bronchiectasis J47.1 Bronchiectasis J47.9 Bronchiectasis type: uncomplicated Pleural effusion J90 AF (atrial fibrillation) I48.19 Atrial fibrillation type: other persistent Anemia D64.9
[2020-06-16 19:41] LABS: Troponin 5 6HR 20.75 ng/L (0-15)
[2020-06-16 19:45] LABS: Troponin 5 6HR Delta -4.25 ng/L (0-12)
[2020-06-16 19:50] LABS: Thyroid Stimulating Hormone 3.33 uIU/mL (0.27-4.20)
[2020-06-16] MEDS: gabapentin 100 mg Capsule 200 MG PO (20:40)
[2020-06-16] MEDS: metoprolol tartrate 50 mg Tablet 75 MG PO (20:40)
[2020-06-16] MEDS: predniSONE 20 mg Tablet 40 MG PO (20:41)
[2020-06-16] MEDS: FUROsemide 10 mg/mL SDV 10mL 80 MG IVP (20:42)
[2020-06-16] MEDS: levofloxacin-dextrose 5 % 750 MG/150 ML PREMIX 100 MG IV (20:51)
[2020-06-16 21:10] LABS: Glucose Point of Care 179 mg/dL (70-110)
[2020-06-16 23:06] LABS: Influenza A by IFA Negative (Negative); Influenza B by IFA Negative (Negative)
[2020-06-17] VITALS (14 sets, daily range): BP systolic 110–133; BP diastolic 46–58; PULSE 54–77; RESP 14–29; TEMP 36.6–36.7; O2SAT 93–98
[2020-06-17] MEDS: albuterol 8 gm MDI 2 PUFF INHALATION ×4 (03:30→21:05)
[2020-06-17 04:17] LABS: Basophils % 0.2 %; Hematocrit 32.8 % (42.0-52.0); Hemoglobin 9.9 g/dL (11.7-16.6); Lymphocytes # 1.3 10^3/uL (0.8-4.8); Lymphocytes % 13.2 %; Mean Corpuscular HGB Conc 30.2 g/dL (30.0-36.0); Mean Corpuscular Volume 99.4 fL (80-94); Mean Platelet Volume 10.8 fL (7.4-10.4); Monocytes # 0.3 10^3/uL (0.2-0.9); Monocytes % 2.6 %; Neutrophils % 83.6 %; Nucleated Red Blood Cells % 0 %; Platelet Count 158 10^3/cmm (130-400); Red Cell Distribution Width 15.9 % (12.1-15.1); White Blood Count 9.5 10^3/uL (4.0-10.0)
[2020-06-17 04:55] LABS: Anion Gap 14.9 (5-19); Blood Urea Nitrogen 29 mg/dL (8-23); Carbon Dioxide 34 mmol/L (22-29); Chloride 97 mmol/L (98-107); Glucose 286 mg/dL (65-115); Osmolality Calculated 308 mOsm/kg (285-295); Potassium 4.9 mmol/L (3.5-5.1); Sodium 141 mmol/L (136-145)
[2020-06-17] MEDS: FUROsemide 10 mg/mL SDV 10mL 80 MG IVP ×2 (06:25→20:45)
[2020-06-17 06:40] LABS: Glucose Point of Care 280 mg/dL (70-110)
[2020-06-17] MEDS: aspirin 81 mg EC Tablet PO (08:20)
[2020-06-17] MEDS: metoprolol tartrate 50 mg Tablet 75 MG PO ×2 (08:20→17:47)
[2020-06-17] MEDS: sennosides 8.6 mg Tablet 17.2 MG PO (08:21)
[2020-06-17] MEDS: gabapentin 100 mg Capsule 200 MG PO ×3 (08:21→20:44)
[2020-06-17] MEDS: metOLazone 5 MG Tablet 2.5 MG PO (08:22)
[2020-06-17] MEDS: atorvastatin 40 mg Tablet PO (08:22)
[2020-06-17] MEDS: allopurinol 300 mg Tablet PO (08:23)
[2020-06-17] MEDS: pantoprazole DR 40 mg Tablet PO (08:23)
[2020-06-17] MEDS: spironolactone 25 mg Tablet PO (08:24)
[2020-06-17] MEDS: dilTIAZem ER (24HR) 120 mg Capsule PO (08:27)
[2020-06-17] MEDS: apixaban 5 mg Tablet PO ×2 (11:19→17:47)
[2020-06-17] MEDS: insulin glargine 100 units/1 mL 20 UNIT SUBCUT (11:22)
[2020-06-17 11:26] LABS: Glucose Point of Care 333 mg/dL (70-110)
[2020-06-17 15:26] LABS: Coronavirus Lab Test PTC Negative
--- NOTE | 2020-06-17 15:39 | PC.NURSE ---
covid pcr test has come back negative.pt taken off of isolation.
[2020-06-17 16:46] LABS: Glucose Point of Care 317 mg/dL (70-110)
--- NOTE | 2020-06-17 19:11 | P.PN_ITS ---
Subjective Subjective: Interval history: Today he says he is feeling better. Denies any dizziness, any presyncopal symptoms. No chest pain. Breathing a little bit better. Vitals/I&O/Wt Last Vital Signs Temp 98.0 F 06/17/20 16:00 Pulse 58 L 06/17/20 16:00 Resp 22 H 06/17/20 16:00 BP 110/46 06/17/20 16:00 Pulse Ox 93 06/17/20 16:00 06/17/20 06/17/20 06/17/20 06:59 14:59 22:59 Intake Total 600 / 600 240 / 840 Output Total 1300 / 1720 900 / 900 400 / 1300 Balance -1300 / -1570 -300 / -300 -160 / -460 Weight last 48 hrs Weight 121.2 kg Weight 113.398 kg Physical Exam Const: COMMON NORMALS: no acute distress, patient oriented x3 and alert NUTRITIONAL APPEARANCE: obese ORIENTATION/CONSCIOUSNESS: Yes awake HENMT: COMMON NORMALS: oropharynx normal Neck/C-Spine: COMMON NORMALS: no JVD Resp: COMMON NORMALS: normal respiratory effort and clear to auscultation bilaterally AUSCULTATION: clear to auscultation bilaterally, rhonchi, wheezes and diminished lung sounds Cardio: COMMON NORMALS: no JVD, regular rhythm, S1 normal heart sound present, S2 normal heart sound present and No murmurs present (Cardio) RATE: bradycardic RHYTHM: regular rhythm HEART SOUNDS: S1 normal heart sound present and S2 normal heart sound present GI: COMMON NORMALS: Normal to inspection, nondistended, normoactive bowel sounds present, Soft to palpation and non-tender PALPATION: Yes Soft to palpation Extremity: COMMON NORMALS: no joint enlargement GENERAL: Yes edema (Much improved edema below the knees, wrinkling of skin noted. 1-2+ residual edema) Neuro: COMMON NORMALS: patient oriented x3 and moves all extremities SENSORIUM/ORIENTATION: Yes alert Skin: COMMON NORMALS: no rashes or lesions noted GENERAL SKIN EXAM: no rashes or lesions noted Data : 06/17/20 03:56 06/17/20 03:56 Micro: Microbiology 06/16/20 23:40 Gram Stain - Final Sputum - Expectorated Sputum A&P Assessment and plan (1) COPD exacerbation: This is doing better. There is minute wheeze present on the left. Otherwise he reports feeling better subjectively. COPD is original with cough, productive of phlegm, although he cannot characterize the color or appearance of the secretions. Possible bronchiectasis exacerbation Possible community-acquired pneumonia, although suspect this is less likely. Otherwise no signs of sepsis. Minute leukocytosis resolved, afebrile. COVID-19 PCR negative. Sputum culture. Rapid flu negative Levaquin, prednisone, breathing treatments, flutter valve. Follow-up with pulmonology in office. Status: Acute (2) CHF exacerbation: Swelling is much better with Lasix. For now we will keep additional day on IV dosing as he is improving well. Transition to p.o. dosing on discharge. Continue spironolactone, metolazone. CHF with preserved ejection fraction. Normal EF on echo. Follow-up with cardiology in office. Patient and request that his allopurinol be continued. Status: Acute (3) Elevated troponin: Minimal elevation up to 25, with gradual decline thereafter. Discussed with him, and again touch base with his tmd teacher assistant. Echocardiogram without much significant change from prior. Continue aspirin. We will have him follow-up with cardiology in office. He has quite a few pulmonary issues going on on the right side to explain this pain. Last stress test June 2019 with medium sized area of old [place] versus scarring without ischemia and basal to distal inferior and basal to mid inferolateral wall. No acute ischemia. His chest discomfort episodes are not typical. On nonurgent basis in case there is recurrence of episodes may benefit from repeat invasive risk stratification. Low-dose aspirin. He is on Eliquis. Continue statin. Continue beta-wisam. Status: Acute (4) Bradycardia: Heart rates are better, in the 50s today, better compared to yesterday. He reports feeling better, no dizziness, presyncope. Will check orthostatic blood pressure. Heart rate is still in the 50s today when receiving 75 mg metoprolol. Will monitor further overnight to see whether we need to cut down Cardizem some more. Otherwise follow-up with cardiology in office. Has history of sleep apnea. Normal TSH. Status: Acute (5) Acute exacerbation of bronchiectasis: He is doing a bit better. Continue antibiotic, breathing treatments, flutter valve, prednisone, follow-up with pulmonology in office. Discussed with his account installer regarding his symptoms. Suspicion at this time is for most likely acute infection, also considered CHF, worsening pleural effusion, ACS appears to be less likely. PE should be unlikely as he is already on anticoagulation. At this time will treat with antibiotic for suspected bacterial infection. Levaquin. Prednisone. Breathing treatments. Flutter valve. Resume chronic azithromycin discharge. Follow up with pulmonology in office. Status: Acute (6) Bronchiectasis: Chronic azithromycin. Status: Acute Qualifiers: Bronchiectasis type: uncomplicated Qualified Code(s): J47.9 - Bronchiectasis, uncomplicated (7) Pleural effusion: Moderate right-sided pleural effusion. Discussed with his account installer. This appears to be a recurrent effusion without signs of malignancy on investigation back in October. At this time per discussion with patient his specialist will continue diuresis. Prescription pressure was for now continue anticoagulation, treat underlying suspected infection, CHF exacerbation. For now no additional plan for thoracentesis given chronic entrapped/on expandable lung on the right. Status: Acute (8) AF (atrial fibrillation): Monitor on telemetry. Continue metoprolol, reduced dose Cardizem. Eliquis. Status: Acute Qualifiers: Atrial fibrillation type: other persistent Qualified Code(s): I48.19 - Other persistent atrial fibrillation (9) Anemia: Appears to be chronic anemia. Hemoglobin appears to be better than in October, stable from January at 10. He is on Eliquis. Monitor hemoglobin. Status: Acute Additional A&P Information History of spinal stenosis, chronic back pain Other chronic medical problems Attestations Medical Necessity Statement*: Continue hospitalization for optimization of medical therapy for atrial fibrillation, bradycardia, as well as treatment of bronchiectasis exacerbation, COPD exacerbation, possible pneumonia, with history of coronary artery disease. Coding Level of Care Code Acute Product Support Engineer for [facility] Fwd Diagnoses COPD exacerbation J44.1 CHF exacerbation I50.9 Elevated troponin R79.89 Bradycardia R00.1 Acute exacerbation of bronchiectasis J47.1 Bronchiectasis J47.9 Bronchiectasis type: uncomplicated Pleural effusion J90 AF (atrial fibrillation) I48.19 Atrial fibrillation type: other persistent Anemia D64.9
--- NOTE | 2020-06-17 19:12 | USCV_ITS ---
Ambrocio Tinoco Age: 75 Gender: M : 1945 Exam Date: 06/17/2020 06:40 Ordering Phys: Italo Reese MD Technologist: Jaja Flor Exam Location: [facility] [place] Indication: CHF BP: 113 / 51 HR: 83 Rhythm: Sinus Technical Quality: Adequate MEASUREMENTS (Male / Female) Normal Values 2D ECHO LV Diastolic Diameter PLAX 5.0 cm 4.2 - 5.9 / 3.9 - 5.3 cm LV Systolic Diameter PLAX 4.2 cm LV Chamber Size 4.0 cm IVS Diastolic Thickness 1.6 cm 0.6 - 1.0 / 0.6 - 0.9 cm IVS Systolic Thickness 1.6 cm LVPW Diastolic Thickness 1.7 cm 0.6 - 1.0 / 0.6 - 0.9 cm LVPW Systolic Thickness 1.7 cm RV Chamber Size 3.1 cm LVOT Diameter 2.0 cm LV Ejection Fraction 2D Teich 36.9 % LV Ejection Fraction MOD 2C 61.0 % LV Ejection Fraction 2C AL 61.8 % LA Diameter 6.1 cm LA Width 4.3 cm LA Height 6.0 cm RA Width 3.8 cm RA Height 6.0 cm Aorta at Sinotubular Diameter 2.9 cm M-MODE LV Diastolic Diameter MM 5.2 cm 4.2 - 5.9 / 3.9 - 5.3 cm LV Systolic Diameter MM 3.3 cm LV Ejection Fraction MM Teich 64.3 % IVS Diastolic Thickness MM 1.3 cm 0.6 - 1.0 / 0.6 - 0.9 cm IVS Systolic Thickness MM 1.7 cm LVPW Diastolic Thickness MM 1.6 cm 0.6 - 1.0 / 0.6 - 0.9 cm LVPW Systolic Thickness MM 2.0 cm RV Diastolic Diameter MM 1.6 cm Aortic Annulus Diameter 4.2 cm LA Ao Ratio MM 1.5 MV E Point Septal Separation 0.6 cm DOPPLER AV Peak Velocity 138.0 cm/s LVOT Peak Velocity 88.0 cm/s AV Area Cont Eq vti 2.0 cm squared AV Area Cont Eq pk 2.1 cm squared MV Area PHT 4.1 cm squared MV E' Velocity 9.0 cm/s Mitral E to MV E' Ratio 15.1 Mitral E to LV E' Lateral Ratio 17.4 Mitral E to LV E' Septal Ratio 13.3 TR Peak Velocity 203.4 cm/s TR Peak Gradient 16.5 mmHg TR Mean Velocity 162.8 cm/s TR Mean Gradient 11.6 mmHg TR Velocity Time Integral 66.5 cm TV Peak E Velocity 60.0 cm/s PV Peak Velocity 64.0 cm/s RV Acceleration Time 0.1 s RV Ejection Time 0.3 s RV AcT/ET 0.4 FINDINGS Left Ventricle Normal left ventricular size, systolic function and wall thickness, with no regional wall motion abnormalities. Left ventricular ejection fraction is estimated at 60 %. Abnormal septal motion consistent with conduction abnormality. Rhythm precludes evaluation of diastolic function. Right Ventricle Normal right ventricular size and systolic function. Right ventricle systolic pressure estimated at 19 mmHg. Right Atrium Mildly increased right atrial size. Left Atrium Mildly increased left atrial size. Mitral Valve Mild mitral annular calcification. No mitral valve stenosis. Trace mitral valve regurgitation. Aortic Valve Probably tricuspid aortic valve. No aortic valve stenosis. No aortic valve regurgitation. Tricuspid Valve Structurally normal tricuspid valve. Trace tricuspid valve regurgitation. Pulmonic Valve Pulmonic valve not well visualized. Pericardium No pericardial effusion. Normal-sized inferior vena cava. Aorta Normal-sized aortic root. CONCLUSIONS 1. Normal left ventricular size, systolic function and wall thickness, with no regional wall motion abnormalities. Left ventricular ejection fraction is estimated at 60%. 2. Normal right ventricular size and systolic function. 3. Mild biatrial enlargement. 4. When compared to previous echocardiogram dated 07/20/2019, there may not have been any significant change. Hallie Rojas MD (Electronically Signed) Final Date: 17 June 2020 16:37 S
[2020-06-17 20:18] LABS: Glucose Point of Care 364 mg/dL (70-110)
[2020-06-17] MEDS: levofloxacin-dextrose 5 % 750 MG/150 ML PREMIX 100 MG IV (20:44)
[2020-06-17] MEDS: predniSONE 20 mg Tablet 40 MG PO (20:44)
[2020-06-18] VITALS (7 sets, daily range): BP systolic 114–138; BP diastolic 53–75; PULSE 52–87; RESP 13–22; TEMP 36.4–36.9; O2SAT 88–98
[2020-06-18 04:29] LABS: Basophils % 0.2 %; Eosinophils % 0.1 %; Hematocrit 30.7 % (42.0-52.0); Hemoglobin 9.5 g/dL (11.7-16.6); Lymphocytes # 1.3 10^3/uL (0.8-4.8); Lymphocytes % 12.3 %; Mean Corpuscular HGB Conc 30.9 g/dL (30.0-36.0); Mean Corpuscular Hemoglobin 29.8 pg (28.0-34.0); Mean Corpuscular Volume 96.2 fL (80-94); Mean Platelet Volume 11.3 fL (7.4-10.4); Monocytes # 0.4 10^3/uL (0.2-0.9); Monocytes % 4.1 %; Neutrophils # 8.49 10^3/uL (1.8-7.7); Neutrophils % 82.7 %; Nucleated Red Blood Cells % 0 %; Platelet Count 159 10^3/cmm (130-400); Red Blood Count 3.19 10^6/uL (4.1-5.3); Red Cell Distribution Width 15.4 % (12.1-15.1); White Blood Count 10.3 10^3/uL (4.0-10.0)
[2020-06-18 04:54] LABS: Anion Gap 11.9 (5-19); Blood Urea Nitrogen 40 mg/dL (8-23); Calcium 9.1 mg/dL (8.5-10.5); Carbon Dioxide 36 mmol/L (22-29); Chloride 90 mmol/L (98-107); Creatinine Clr Calc Pharmacy 68.3854; Glucose 295 mg/dL (65-115); Osmolality Calculated 297 mOsm/kg (285-295); Potassium 4.9 mmol/L (3.5-5.1); Sodium 133 mmol/L (136-145)
[2020-06-18 06:15] LABS: Glucose Point of Care 335 mg/dL (70-110)
[2020-06-18] MEDS: FUROsemide 10 mg/mL SDV 10mL 80 MG IVP (06:21)
--- NOTE | 2020-06-18 07:10 | PC.NURSE ---
Patient sitting on side of bed at time of assessment. No needs identified at this time. Nurse to continue to monitor.
[2020-06-18] MEDS: allopurinol 300 mg Tablet PO (08:45)
[2020-06-18] MEDS: gabapentin 100 mg Capsule 200 MG PO (08:45)
[2020-06-18] MEDS: pantoprazole DR 40 mg Tablet PO (08:46)
[2020-06-18] MEDS: spironolactone 25 mg Tablet PO (08:46)
[2020-06-18] MEDS: aspirin 81 mg EC Tablet PO (08:47)
[2020-06-18] MEDS: dilTIAZem ER (24HR) 120 mg Capsule PO (08:47)
[2020-06-18] MEDS: apixaban 5 mg Tablet PO (08:47)
[2020-06-18] MEDS: insulin glargine 100 units/1 mL 30 UNIT SUBCUT (08:48)
[2020-06-18] MEDS: atorvastatin 40 mg Tablet PO (08:51)
[2020-06-18] MEDS: metOLazone 5 MG Tablet 2.5 MG PO (08:53)
[2020-06-18] MEDS: metoprolol tartrate 50 mg Tablet 75 MG PO (08:55)
[2020-06-18] MEDS: albuterol 8 gm MDI 2 PUFF INHALATION (09:37)
[2020-06-18 11:15] LABS: Glucose Point of Care 477 mg/dL (70-110)
--- NOTE | 2020-06-18 11:29 | P.DS_ITS ---
Discharge Providers Date of Admission: 06/16/20 15:54 Date of Discharge: June 18, 2020 Attending Provider at Admission: Italo Reese Attending Provider at Discharge: Italo Reese Primary Care Provider: Stevan Pal DO Diagnoses at Discharge Discharge Diagnosis (1) COPD exacerbation: Status: Acute (2) CHF exacerbation: Status: Acute (3) Elevated troponin: Status: Acute (4) Bradycardia: Status: Acute (5) Acute exacerbation of bronchiectasis: Status: Acute (6) Bronchiectasis: Status: Acute Qualifiers: Bronchiectasis type: uncomplicated Qualified Code(s): J47.9 - Bronchiectasis, uncomplicated (7) Pleural effusion: Status: Acute (8) AF (atrial fibrillation): Status: Acute Qualifiers: Atrial fibrillation type: other persistent Qualified Code(s): I48.19 - Other persistent atrial fibrillation (9) Anemia: Status: Acute Reason for Visit Reason for Visit: sob Hospital Course Hospital Course: Pleasant 75-year-old gentleman with history of COPD, bronchiectasis on chronic 5 L of oxygen at home, turning it up to 6 or more with exertion, with history of restrictive lung disease secondary to left lower lobe resection, history of preserved ejection fraction CHF, A. fib on chronic anticoagulation, history of colon cancer was observed in the hospital due to progressive dyspnea, episodes of dizziness at home, generalized weakness, received treatment for bronchiectasis and COPD exacerbation, possible pneumonia with Levaquin, prednisone and will complete course at home, was assessed for COVID-19 with negative antigen and PCR testing, negative rapid flu, remained afebrile in the hospital. With noted moderate right-sided pleural effusion on imaging on presentation. 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 Recommended not to pursue thoracentesis at this time, will be reassessed in office. While in the hospital was transitioned over to IV Lasix and has diuresed well, with resolution of symptoms of orthopnea. He was noted to be bradycardic on presentation, occasionally heart rates dipping down into the 30s. He stated he follows with Dr. Rojas in office. Discussed with her, and we had decreased his Cardizem dose initially down to 120 from 180 ER, he had improved, without further symptoms of dizziness, however, heart rate still occasionally noted dropping down into 40s, lowest 39, and so at this time will discontinue Cardizem ER, and switch to 30 mg twice a day short acting formulation. Orthostatic blood pressures were assessed and are normal. Echocardiogram not significantly changed from prior. He is instructed to continue to monitor his heart rates, blood pressures. If heart rates are well controlled, perhaps may be able to remain on metoprolol only and wean off Cardizem entirely. Discussed with him and his also on presentation his troponin was minimally elevated, without upward trend, but with gradual mild decline. He has had no chest pain. No otherwise suggestion of acute MT on EKG. After he recovers from his bronchiectasis/COPD exacerbation, consideration may be given to elective assessment by stress testing. He will discuss this again with cardiology in office. Please reassess his hemoglobin at the next office visit. He is encouraged to follow-up with pulmonology with regards to the pleural effusion, bronchiectasis, COPD. Physical Exam Const: COMMON NORMALS: no acute distress, patient oriented x3 and alert NUTRITIONAL APPEARANCE: obese ORIENTATION/CONSCIOUSNESS: Yes awake OTHER: He is sitting up in bed, awake, alert, in good spirits. Asking to go home. Says he is feeling well, has no complaints. HENMT: COMMON NORMALS: oropharynx normal Neck/C-Spine: COMMON NORMALS: no JVD Resp: COMMON NORMALS: normal respiratory effort and clear to auscultation bilaterally AUSCULTATION: clear to auscultation bilaterally, rhonchi, wheezes and diminished lung sounds Cardio: COMMON NORMALS: no JVD, regular rhythm, S1 normal heart sound present, S2 normal heart sound present and No murmurs present (Cardio) RATE: bradycardic RHYTHM: regular rhythm HEART SOUNDS: S1 normal heart sound present and S2 normal heart sound present GI: COMMON NORMALS: Normal to inspection, nondistended, normoactive bowel sounds present, Soft to palpation and non-tender PALPATION: Yes Soft to palpation Extremity: COMMON NORMALS: no joint enlargement GENERAL: Yes edema (Much improved edema below the knees, wrinkling of skin noted. 1-2+ residual edema) Neuro: COMMON NORMALS: patient oriented x3 and moves all extremities SENSORIUM/ORIENTATION: Yes alert Skin: COMMON NORMALS: no rashes or lesions noted GENERAL SKIN EXAM: no rashes or lesions noted Discharge Data Data Completed and Pending: Completed Studies During Hospitalization Category Date Time Status XR chest 1V tiffanie ble [id number] Urgent Exams 06/16/20 12:40 Completed CV echo complete* [id number] Routine Ultrasound 06/17/20 19:12 Completed Pending at discharge Category Date Time Status Sputum Culture an d Gram Stain Halie ne Lab 06/16/20 23:40 Results Labs from last 24 hours 06/18/20 06/18/20 06/18/20 10:35 06:10 03:58 WBC RBC Hgb Hct MCV MCH MCHC RDW Plt Count MPV Neut % (Auto) Lymph % (Auto) Davie % (Auto) Eos % (Auto) Baso % (Auto) Neut # (Auto) Lymph # (Auto) Davie # (Auto) Eos # (Auto) Baso # (Auto) Nucleated RBC % (a uto) Nucleated RBCs # Sodium 133 L Potassium 4.9 Chloride 90 L Carbon Dioxide 36 H Anion Gap 11.9 BUN 40 H Creatinine 1.2 GFR Calculation Not Reportable Glucose 295 H POC Glucose 477 335 Calculated Osmolal ity 297 H Calcium 9.1 Nasal/Oral COVID-1 PCR 06/18/20 06/17/20 06/17/20 03:58 20:09 16:17 WBC 10.3 H RBC 3.19 L Hgb 9.5 L Hct 30.7 L MCV 96.2 H MCH 29.8 MCHC 30.9 RDW 15.4 H Plt Count 159 MPV 11.3 H Neut % (Auto) 82.7 Lymph % (Auto) 12.3 Davie % (Auto) 4.1 Eos % (Auto) 0.1 Baso % (Auto) 0.2 Neut # (Auto) 8.49 H Lymph # (Auto) 1.3 Davie # (Auto) 0.4 Eos # (Auto) 0.0 Baso # (Auto) 0.0 Nucleated RBC % (a uto) 0 Nucleated RBCs # 0.0 Sodium Potassium Chloride Carbon Dioxide Anion Gap BUN Creatinine GFR Calculation Glucose POC Glucose 364 317 Calculated Osmolal ity Calcium Nasal/Oral COVID-1 PCR 06/16/20 18:34 WBC RBC Hgb Hct MCV MCH MCHC RDW Plt Count MPV Neut % (Auto) Lymph % (Auto) Davie % (Auto) Eos % (Auto) Baso % (Auto) Neut # (Auto) Lymph # (Auto) Davie # (Auto) Eos # (Auto) Baso # (Auto) Nucleated RBC % (a uto) Nucleated RBCs # Sodium Potassium Chloride Carbon Dioxide Anion Gap BUN Creatinine GFR Calculation Glucose POC Glucose Calculated Osmolal ity Calcium Nasal/Oral COVID-1 9 PCR Negative Vitals: Last Vital Signs Temp 97.6 F 06/18/20 11:11 Pulse 75 06/18/20 11:11 Resp 14 06/18/20 11:11 BP 138/64 06/18/20 11:11 Pulse Ox 98 06/18/20 11:11 Discharge Plan Discharge Condition: Stable Prescriptions: New levofloxacin 750 mg tablet 750 mg PO DAILY 5 Days Qty: 5 RF: 0 prednisone 20 mg Tablet 40 mg PO Q24H 3 Days Qty: 6 RF: 0 diltiazem HCl 30 mg Tablet 30 mg PO BID Qty: 60 RF: 0 aspirin 81 mg Tablet,Delayed Release (Dr/Ec) 81 mg PO DAILY Qty: 30 RF: 0 Continued methocarbamol 750 mg tablet 750 mg PO QID PRN (Reason: Muscle Spasm) RF: 0 hydralazine 25 mg tablet 25 mg PO TID RF: 0 hydrocodone-acetaminophen 5-325 mg tablet 1 tab PO Q6H PRN (Reason: Pain) RF: 0 spironolactone 25 mg tablet 25 mg PO DAILY RF: 0 rosuvastatin 10 mg tablet 10 mg PO DAILY RF: 0 Lantus U-100 Insulin 100 unit/mL solution 35 unit SUBCUT DAILY RF: 0 potassium chloride 20 mEq tablet extended release 10 meq PO BID RF: 0 furosemide [Lasix] 80 mg tablet 80 mg PO BID RF: 0 gabapentin 100 mg capsule 200 mg PO TID RF: 0 guaifenesin 400 mg tablet 800 mg PO BID RF: 0 budesonide-formoterol [Symbicort] 160-4.5 mcg/actuation HFA aerosol inhaler 2 puff INHALATION BID RF: 0 Eliquis 5 mg tablet 5 mg PO BID RF: 0 coenzyme Q10 [Co Q-10] 100 mg capsule 100 mg PO DAILY RF: 0 Adult 50 Plus Probiotic 4 billion cell capsule 4,000 mmu cells PO DAILY RF: 0 ferrous sulfate 325 mg (65 mg iron) tablet 325 mg PO DAILY RF: 0 metolazone 2.5 mg tablet 2.5 mg PO DAILY Qty: 30 RF: 3 metoprolol tartrate 50 mg tablet 75 mg PO BID Qty: 90 RF: 5 pantoprazole [Protonix] 40 mg tablet,delayed release (DR/EC) 40 mg PO DAILY RF: 0 ipratropium-albuterol 0.5 mg-3 mg(2.5 mg base)/3 mL Solution For Nebulization 3 ml INHALATION QID RF: 0 Artificial Tears (polyvin alc) 1.4 % Drops 2 drp OPHTHALMIC (EYE) Q1H RF: 0 allopurinol 300 mg Tablet 300 mg PO DAILY RF: 0 albuterol sulfate 90 mcg/actuation Hfa Aerosol Inhaler 2 puff INHALATION QID PRN (Reason: SHORSTNESS OF BREATH) RF: 0 Ozempic 1 mg/dose (2 mg/1.5 mL) Pen Injector See Rx Instructions .ROUTE .COMPLEX RF: 0 insulin aspart U-100 22 units INJECTION BID RF: 0 desonide 0.05 % Ointment 1 applic TOPICAL TID RF: 0 glucose 4 gram Tablet,Chewable 4 g PO Q15M PRN (Reason: BLOOD SUGAR) RF: 0 senna 8.6 mg Capsule 17.2 mg PO BID PRN (Reason: Constipation) RF: 0 Spiriva Respimat 2.5 mcg/actuation Mist 2 puff INHALATION DAILY RF: 0 Held azithromycin 500 mg tablet 500 mg PO .COMPLEX 90 Days Qty: 45 RF: 0 Hold Instructions: Resume on 06/24/20. Discontinued diltiazem HCl 240 mg capsule,extended release 24hr 240 mg PO DAILY RF: 0 Discharge Orders: Discharge Order (Routine); Ordered 06/18/20 Ordered By: Italo Reese Referrals: Stevan Pal DO [Primary Care Provider] - 4-7 days (Bronchiectasis exacerbation, CHF, bradycardia, right pleural effusion, possible pneumonia, anemia) Mavis White MD [Physician] - 1 week (Bronchiectasis, COPD, possible pneumonia, right pleural effusion, CHF, CHALINO) Hallie Rojas MD [Physician] - 1 week (CHF, bradycardia) Discharge Diet: Cardiac and Diabetic Discharge Activity: Increase activity as tolerated and Oxygen as instructed Activity Restrictions/Additional Instructions: Complete antibiotic course and short steroid course. After you are done with Levaquin, resume azithromycin as before. Continue diuretics. Take metolazone 30 minutes before Lasix. Continue oxygen at home at 4-5 L, increase with exertion as previously instructed. Target saturation 88-92%. Please follow-up with lung specialist Dr. White in office for reassessment of fluid under your right lung with moderate-sized effusion to see whether or not it may need to be drained in the future, as well as regarding bronchiectasis and COPD. Continue trilogy. Follow-up with cardiology Dr. Rojas in office to reassess her heart rates, and to refer for elective stress testing for reassessment of coronary artery disease given small amount of troponin elevation here in the hospital. Please monitor your heart rates and blood pressures 2-3 times daily, record values to bring to her appointment. Your Cardizem dose was changed to short acting 30 mg twice a day due to episodes of slow heart rates suspected contributing to your feeling of dizziness prior to admission. At home tonight please take 26 units of insulin Lantus (glargine), subsequently resume your usual insulin schedule. 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
--- NOTE | 2020-06-18 11:45 | PC.NURSE ---
Admissions notified patient was dc'd from system. Admissions to correct error. Dr. Reese notified of event. Physician also notified that patient blood glucose is 477. Physician gave telephone order to administer 16 unites novolog sub q one time now. RBVO. Nurse to continue to monitor.
--- NOTE | 2020-06-18 12:59 | PC.NURSE ---
Discharge instructions given per the physician's orders. Patient verbalized understanding of information and did not have any further questions. Patient dressed self. IV has been removed. Patient will take him home in private vehicle. Portable o2 tank with patient.
--- NOTE | 2020-06-18 16:44 | PC.RESP ---
Pulmonary Rehab information to patient.
== END 2020-06-18 13:08 | disposition home or self-care (01) ==
LOC: ER 16:06 → CSU 17:13
PROVIDERS: Emergency Medicine; Admitting Provider Internal Medicine; PCP Emergency Medicine Emergency Medical Services; Visit Provider Internal Medicine
DX: J47.1 Bronchiectasis with (acute) exacerbation (principal); I11.0 Hypertensive heart disease with heart failure; I50.9 Heart failure, unspecified; E78.5 Hyperlipidemia, unspecified; E11.9 Type 2 diabetes mellitus without complications; J90 Pleural effusion, not elsewhere classified; D64.9 Anemia, unspecified; R79.89 Other specified abnormal findings of blood chemistry; R00.1 Bradycardia, unspecified; I48.19 Other persistent atrial fibrillation; Z79.01 Long term (current) use of anticoagulants; Z79.4 Long term (current) use of insulin; Z20.828 Contact with and (suspected) exposure to other viral communicable diseases; Z87.891 Personal history of nicotine dependence; Z99.81 Dependence on supplemental oxygen; Z88.5 Allergy status to narcotic agent
CPT/HCPCS: 12345; 36415; 36416; 71045; 80048; 80053; 82962; 83605; 83690; 83735; 83880; 84443; 84484; 85025; 85610; 87070; 87205; 87426; 87635; 87804; 93005; 93306; 94640; 94660; 96365; 96366; 96372; 96375; 99281; 99285; G0378; J1815 ×2; J1940; J1956; J3535; J7512

== ENCOUNTER 2020-10-21 09:28 | Outpatient (CLI) | payer OTHER, MEDICARE, SELFPAY ==
--- NOTE | 2020-10-21 09:51 | XR_ITS ---
WS: [id number] Exam: XR chest 2V* [id number] Date/Time of Exam: 10/21/2020 9:51 AM Reason For Exam: Shortness of breath Comparison 06/16/2020. Right basal pleural effusion is noted. There is infiltrate and compressive atelectasis in the right lower lobe. There is also infiltrate in the left lower lobe. Remaining lung zones are clear. Mild ca rdiac enlargement. The mediastinum and bony thorax are unremarkable. Neurostimulator electrodes noted in the lower thoracic spinal canal. Bony changes in the thoracic spine that may indicate ankylosing spondylitis. XR/XR chest 2V* [id number] IMPRESSION: 1. Right basal pleural effusion with infiltrate and atelectasis in the right lo wer lobe. 2. Infiltrate in the left lower lobe that could represent active pneumonia or c hronic change. 3. Mild cardiac enlargement unchanged. 4. Bony changes of the thoracic spine that may indicate ankylosing spondylitis.
== END 2020-10-21 09:29 | disposition home or self-care (01) ==
LOC: RAD 09:46
PROVIDERS: PCP Emergency Medicine Emergency Medical Services; Visit Provider Internal Medicine Critical Care Medicine
DX: J47.9 Bronchiectasis, uncomplicated (principal); R06.02 Shortness of breath; J90 Pleural effusion, not elsewhere classified; J98.11 Atelectasis; R91.8 Other nonspecific abnormal finding of lung field; I51.7 Cardiomegaly
CPT/HCPCS: 71046; 87070; 87077; 87186; 87205

== ENCOUNTER 2020-11-03 12:46 | Outpatient (CLI) | payer OTHER, MEDICARE, SELFPAY ==
--- NOTE | 2020-11-03 08:00 | XRR_ITS ---
PROCEDURE INFORMATION: Exam: XR Abdomen, 1 View Exam date and time: 11/03/2020 1:19 PM Age: 75 years old Clinical indication: Condition or disease; Kidney or ureter condition; Calculus (stone) in kidney; Prior surgery; Surgery type: Colon, pain stimulator; Additional info: Renal stone TECHNIQUE: Imaging protocol: XR of the abdomen. Views: Frontal supine view of the abdomen. 1 View. COMPARISON: CR XR KUB [id number] 07/21/2015 10:51 AM FINDINGS: Gastrointestinal tract: There is prominence of the amount of stool in the colon consistent with constipation. Bowel is otherwise not dilated. Organs: An 8 mm calcification projects on the right kidney which is stable. Bones/joints: The patient has undergone L4-L5 laminectomy and L4 through S1 fusion. XR/XR KUB [id number] IMPRESSION: 1. Stable right nephrolithiasis. 2. Prominent amount of stool consistent with constipation. 3. Status post L4-L5 laminectomy and fusion. 4. No acute abnormalities are seen.
== END 2020-11-03 12:47 | disposition home or self-care (01) ==
LOC: RAD 12:48
PROVIDERS: PCP Emergency Medicine Emergency Medical Services; Visit Provider Urology
DX: N20.0 Calculus of kidney (principal); K59.00 Constipation, unspecified; M96.1 Postlaminectomy syndrome, not elsewhere classified; M43.26 Fusion of spine, lumbar region
CPT/HCPCS: 74018; 81003

== ENCOUNTER 2021-01-08 15:48 | Inpatient (IN) | payer OTHER, MEDICARE, SELFPAY ==
[2021-01-08] VITALS (10 sets, daily range): BP systolic 102–146; BP diastolic 59–73; PULSE 66–98; RESP 16–20; TEMP 36.5–36.8; O2SAT 95–99; BMI 37.3
--- NOTE | 2021-01-08 16:55 | ECG_ITS ---
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1945 Requested By: Beto Kiran Order Number: [id number] Reading MD: BRIANDA SHIELDS Measurements Intervals [place] Rate: 74 P: PA: QRS: -78 QRSD: 195 T: 57 QT: 452 QTc: 504 Interpretive Statements ATRIAL FIBRILLATION WITH ABERRANT CONDUCTION OR VENTRICULAR PREMATURE COMPLEXES RIGHT BUNDLE BRANCH BLOCK [120+ ms QRS DURATION, UPRIGHT V1, 40+ ms S IN I/aVL/V4/V5/V6] LEFT ANTERIOR FASCICULAR BLOCK [QRS AXIS <= -45, QR IN I, RS IN II] POSSIBLE SEPTAL MYOCARDIAL INFARCTION , OF INDETERMINATE AGE [30 ms Q WAVE IN V1/V2] Compared to ECG 06/16/2020 15:01:25 Ventricular premature complex(es) now present Aberrant conduction of supraventricular beat(s) now present Myocardial infarct finding now present Electronically Signed On 01-08-2021 20:41:24 CDT by BRIANDA SHIELDS [id number]
--- NOTE | 2021-01-08 16:55 | CTR_ITS ---
PROCEDURE INFORMATION: Exam: CT Abdomen And Pelvis With Contrast Exam date and time: 01/08/2021 5:38 PM Age: 75 years old Clinical indication: Constipation and nausea; Abdominal pain; Localized; Lower; Prior surgery; Surgery type: Pain pump, l-spine, egd, lobectomy, colon resection; Additional info: Abd pain TECHNIQUE: Imaging protocol: Computed tomography of the abdomen and pelvis with contrast. Total images: 269 Radiation optimization: All CT scans at this facility use at least one of these dose optimization techniques: automated exposure control; mA and/or kV adjustment per patient size (includes targeted exams where dose is matched to clinical indication); or iterative reconstruction. Contrast material: VISI 320; Contrast volume: 95 ml; Contrast route: INTRAVENOUS (IV); COMPARISON: CT Chest/Abdomen/Pelvis w IV* 11/27/2020 9:21 AM RADIATION DOSE METRICS: Total DLP (mGy-cm): 1822.12 FINDINGS: Pleural spaces: Chronic multiloculated moderate volume right pleural effusion. Advanced 3 vessel coronary artery disease. Cardiomegaly. No visible pericardial effusion. Bullous emphysema. Senile fibrosis. Stable 8 mm right middle lobe pulmonary nodule since last evaluation. Liver: No visible hepatic mass or cystic structure. Gallbladder and bile ducts: Normal. No calcified stones. No ductal dilation. Pancreas: Again note of a low-density structure head of the pancreas measuring 19 mm x 11 mm x [address] attenuation values suggest cyst. No visible pancreatic ductal ectasia. Spleen: Normal. No splenomegaly. Adrenal glands: Adrenal glands unremarkable. Kidneys and ureters: No hydronephrosis or perinephric fluid. No change solitary focus of nonobstructing calyceal nephrolithiasis inferior pole right kidney measuring approximately 5 mm. No visible ureterolithiasis. Stable simple cortical cysts bilaterally. No follow-up recommended. Stomach and bowel: Stable rectal anastomotic sutures. Ectatic mid and distal jejunal and proximal ileal bowel loops with concern for moderate grade small bowel obstruction. Maximum small bowel loop ectasia 4.2 cm. Fecalization of the small bowel contents. Stomach, duodenum, proximal jejunal, and distal ileal loops are non ectatic. Gas throughout the colonic tract to the rectum. Potential exists for closed loop small bowel obstruction. Appendix: The appendix is visualized and appears noninflamed. Intraperitoneal space: No visible pneumoperitoneum or intraperitoneal ascites. Vasculature: The abdominal aorta is nonaneurysmal. Mild arteriosclerosis. Lymph nodes: Unremarkable. No enlarged lymph nodes. Urinary bladder: Urinary bladder unremarkable. Reproductive: Mild prostate hypertrophy. Bones/joints: No visible active or acute osseous pathology. Interpedicle screw and sidebar fixation L4, L5, and S1 with marked metal artifact. Degenerative disease of the spine with degenerative disc disease and spondylosis deformans. Mild scoliotic curvature. Epidural TENS unit. Soft tissues: Right periumbilical ventral hernia containing incarcerated short segment of transverse colon without obstruction. Other findings: Marked obesity. CT/CT abdomen pelvis w con* [id number] IMPRESSION: 1. Ectatic mid and distal jejunal and proximal ileal small bowel loops with concern for small bowel obstruction, potential closed-loop obstruction. 2. Right periumbilical ventral hernia containing incarcerated a short segment of transverse colon without obstruction. 3. Again note of a low-density structure head of the pancreas measuring 19 mm x 11 mm x [address] attenuation values suggest cyst. Reimaging every 6 months for 2 years, then every 1 year for 2 years, then every 2 years for 6 years is recommended. Alternatively, endoscopic ultrasound with fine needle aspiration is recommended. (Reference: Atif, 2017). 4. Chronic multiloculated moderate volume right pleural effusion. 5. Stable 8 mm right middle lobe pulmonary nodule since last evaluation. For patients at low risk (minimal or absent history of smoking and of other known risk factors), recommend CT Chest at 6-12 months, then consider CT Chest at 18-24 months. For patients at high risk (history of smoking or of other known risk factors), recommend CT Chest at 6-12 months, then CT Chest at 18-24 months. (Reference: Amena). 6. Other nonurgent, nonemergent, chronic, postoperative, and age related findings as detailed in text above. REFERENCES: 1. Zairahoesau H, et al. Guidelines for Management of Incidental Pulmonary Nodules Detected on CT Images: From the Fleischner Society 2017. Radiology. 2017;284(1):228-243. 2. Atif ELLIS et al. Management of Incidental Pancreatic Cysts: A White Paper of the ACR Incidental Findings Committee. J Am Kell Radiol. 2017;14(7):911-923. Radiation Dose CTDIVOL = (mGy): DLP = 1822.12 (mGy-cm)
[2021-01-08 17:13] LABS: Basophils % 0.3 %; Eosinophils # 0.2 10^3/uL (0.0-0.8); Eosinophils % 1.1 %; Hematocrit 39.9 % (42.0-52.0); Hemoglobin 12.6 g/dL (11.7-16.6); Lymphocytes # 2.3 10^3/uL (0.8-4.8); Lymphocytes % 14.7 %; Mean Corpuscular HGB Conc 31.6 g/dL (30.0-36.0); Mean Corpuscular Hemoglobin 30.1 pg (28.0-34.0); Mean Corpuscular Volume 95.5 fL (80-94); Monocytes # 1.3 10^3/uL (0.2-0.9); Monocytes % 8.5 %; Neutrophils # 11.83 10^3/uL (1.8-7.7); Nucleated Red Blood Cells % 0 %; Platelet Count 193 10^3/cmm (130-400); Red Blood Count 4.18 10^6/uL (4.1-5.3); Red Cell Distribution Width 15.3 % (12.1-15.1); White Blood Count 15.8 10^3/uL (4.0-10.0)
[2021-01-08] MEDS: sodium chloride 0.9% 500 ML 999 ML IV (17:20)
[2021-01-08] MEDS: ondansetron 2 mg/ML SDV 2 mL 4 MG IVP (17:21)
[2021-01-08 17:32] LABS: Add Urine Microscopic? NO; Charge for UA Resulting for Rev
[2021-01-08 17:34] LABS: Bilirubin Urine Neg (Negative); Blood Urine Neg (Negative); Glucose Urine UA Norm (Normal); Ketones Urine Negative (Negative); Leukocyte Esterase Urine Negative (Negative); Nitrate Urine Negative (Negative); Protein Urine Neg (Negative); Specific Gravity, Urine 1.005 (1.005-1.030); Urine Appearance Clear (CLEAR); Urine Color Yellow (Yellow); Urobilinogen Urine Norm (Negative); pH Urine 6.5 (5-7)
--- NOTE | 2021-01-08 17:34 | PC.PHAR ---
pt and pts verified pts medications-pt brought in med list-waiting for [facility] to fax med list-notes are made in pharmacy comments section on some of the rx
[2021-01-08 17:37] LABS: Alanine Aminotransferase 21 U/L (0-41); Alkaline Phosphatase 64 IU/L (40-130); Anion Gap 11.7 (5-19); Aspartate Amino Transferase 21 U/L (0-40); Blood Urea Nitrogen 41 mg/dL (8-23); Calcium 9.6 mg/dL (8.5-10.5); Carbon Dioxide 39 mmol/L (22-29); Chloride 91 mmol/L (98-107); Globulin 3.1 g/dL (1.3-4.6); Glucose 103 mg/dL (65-115); Lipase 37 U/L (13-60); Magnesium 2.1 mg/dL (1.7-2.3); Osmolality Calculated 296 mOsm/kg (285-295); Potassium 3.7 mmol/L (3.5-5.1); Sodium 138 mmol/L (136-145); Total Bilirubin 0.3 mg/dL (0.15-1.2); Total Protein 7.1 g/dL (6.6-8.7)
--- NOTE | 2021-01-08 17:45 | W.ED.ABDPA2 ---
Documented by User: Beto Candelario DO 01/09/21 10:16 HPI - Abdominal Pain General: Chief Complaint: Abdominal Pain Stated Complaint: abd pain Time Seen by Provider: 01/08/21 16:38 History of Present Illness: HPI narrative: 75-year-old male presents emergency room with complaints of lower abdominal pain into the infraumbilical region extending into the right lower quadrant for the last couple of days he states he usually has problems with chronic constipation has not had a bowel movement for the last 4 to 36 hours he regularly takes stool softeners took some laxatives yesterday and had no results. He is chronically on 4 L by nasal cannula which is unchanged. Is a history of multiple colonic surgeries in the past for colon cancer and has an abdominal wall hernia. MD elicited complaint: abdominal pain Pertinent past history: other (History of colon CA with multiple previous abdominal surgical procedures) Onset (ago): day(s) Pain Consistency: intermittent Location: Diffuse Severity: mild Quality: cramping Radiation: none Exacerbating factors: nothing Relieving factors: nothing Associated Symptoms: Reports constipation, GI cramping, nausea and poor appetite; Denies anorexia, belching, bloating, change in bowel habits, change in stool character, chills, coffee ground emesis, diarrhea, dyspepsia, dysuria, excessive flatus, fever(s), heartburn, hematochezia, hematuria, hematemesis, fecal incontinence, loose stools, melena, syncope and vomiting Review of Systems Const: Denies: fever(s) or chills ENMT: Denies: throat pain, ear or mastoid pain, nasal discharge or nasal congestion Card: Denies: syncope Resp: Denies: dyspnea, productive cough or non-productive cough GI: Reports: nausea, constipation and GI cramping; Denies: vomiting, hematemesis, coffee ground emesis, heartburn, diarrhea, bloating, belching, excessive flatus, fecal incontinence, change in bowel habits, change in stool character, hematochezia or melena : Denies: dysuria or hematuria Skin/Breast: Denies: rash or pruritus [facility] ED PFSH: Medical History Accelerated essential hypertension AF (atrial fibrillation) Apnea, sleep Bronchiectasis, uncomplicated Chronic obstructive pulmonary disease, unspecified Colon cancer Cyst of pancreas Hyperlipidemia, unspecified Incisional hernia Osteoarthritis of right knee Post-traumatic stress disorder, unspecified Postlaminectomy syndrome Right renal stone Spinal stenosis, lumbar region without neurogenic claudication Type 2 diabetes mellitus without complications Surgical History H/O colonoscopy 2016 & 11/12/19: Multiple tubular adenoma, follow-up colonoscopy in 3 years H/O esophagogastroduodenoscopy 11/12/2019: Hyperplastic polyp, gastritis H/O shoulder surgery History of colon resection x2 History of lumbar fusion History of surgical procedure on eye proper using laser History of tonsillectomy and adenoidectomy S/P partial lobectomy of lung Family History Brother Diabetes Hypertension Father Cancer Sister Cancer Other CAD (coronary artery disease) Stroke Denies family history of Anesthesia complication Bleeding disorder Social History Smoking and tobacco status: former smoker Quit status (tobacco): has quit using tobacco Year quit tobacco: 1970 PPD x 13 Years Alcohol intake: current Alcohol intake frequency: holidays/special occasions only Lives independently: Yes Household members: spouse Marital status: service: Yes Current occupational status: retired History of recent travel: No Current gender identity: Male Physical Exam Const: COMMON NORMALS: no acute distress GENERAL APPEARANCE: cooperative and comfortable ORIENTATION/CONSCIOUSNESS: Yes awake, Yes oriented to person, Yes oriented to place and Yes oriented to time HENMT: COMMON NORMALS: normocephalic, atraumatic, hearing grossly normal bilaterally, external ears normal, EAC's normal, TM's normal bilaterally, Normal nasal mucous membranes and turbinates present, moist oral mucous membranes and oropharynx normal HEAD & SCALP: normocephalic and atraumatic NOSE: Normal nasal mucous membranes and turbinates present EXTERNAL EAR: Yes external ears normal EXTERNAL AUDITORY CANAL: EAC's normal TYMPANIC MEMBRANE: TM's normal bilaterally Eye: COMMON NORMALS: Equal, round and reactive pupils present, EOMs intact bilaterally, conjunctivae normal and no scleral icterus CONJUNCTIVA: Yes conjunctivae normal PUPIL: Yes Equal, round and reactive pupils present Neck/C-Spine: COMMON NORMALS: no JVD Resp: COMMON NORMALS: normal respiratory effort, No retractions, No use of accessory muscles and clear to auscultation bilaterally AUSCULTATION: clear to auscultation bilaterally Cardio: COMMON NORMALS: no JVD, regular rate, regular rhythm and No murmurs present (Cardio) RATE: regular rate RHYTHM: regular rhythm GI: AUSCULTATION: Yes Hypoactive bowel sounds present PALPATION: Yes Tenderness to palpation present (GI) (.Mild diffuse) and No Guarding due to palpation present (GI) Extremity: COMMON NORMALS: normal to inspection, capillary refill normal, no clubbing, cyanosis or edema, no calf tenderness and no pedal edema Neuro: SENSORIUM/ORIENTATION: Yes oriented to person, Yes oriented to place and Yes oriented to time Skin: COMMON NORMALS: no rashes or lesions noted GENERAL SKIN EXAM: no rashes or lesions noted Course Vital Signs: Vital signs: Vital Signs Temperature 97.6 F 01/09/21 07:38 Pulse Rate 96 01/09/21 07:38 Respiratory Rate 16 01/09/21 07:38 Blood Pressure 121/70 01/09/21 07:38 Pulse Oximetry 97 01/09/21 07:38 MDM - Abdominal Pain Lab Data: Labs: Lab Results 01/08/21 01/08/21 01/08/21 Range/Units 17:05 17:05 17:05 WBC 15.8 H (4.0-10.0) 10^3/ uL RBC 4.18 (4.1-5.3) 10^6/u L Hgb 12.6 (11.7-16.6) g/dL Hct 39.9 L (42.0-52.0) % MCV 95.5 H (80-94) fL MCH 30.1 (28.0-34.0) pg MCHC 31.6 (30.0-36.0) g/dL RDW 15.3 H (12.1-15.1) % Plt Count 193 (130-400) 10^3/c mm MPV 11.0 H (7.4-10.4) fL Neut % (Auto) 75.0 % Lymph % (Auto) 14.7 % [place] % (Auto) 8.5 % Eos % (Auto) 1.1 % Baso % (Auto) 0.3 % Neut # (Auto) 11.83 H (1.8-7.7) 10^3/u L Lymph # (Auto) 2.3 (0.8-4.8) 10^3/u L [place] # (Auto) 1.3 H (0.2-0.9) 10^3/u L Eos # (Auto) 0.2 (0.0-0.8) 10^3/u L Baso # (Auto) 0.0 (0.0-0.1) 10^3/u L Nucleated RBC % (a uto) 0 % Nucleated RBCs # 0.0 /100WBC Sodium 138 (136-145) mmol/L Potassium 3.7 (3.5-5.1) mmol/L Chloride 91 L (98-107) mmol/L Carbon Dioxide 39 H (22-29) mmol/L Anion Gap 11.7 (5-19) BUN 41 H (8-23) mg/dL Creatinine 1.2 (0.7-1.2) mg/dL GFR Calculation Not Reportable Glucose 103 (65-115) mg/dL Calculated Osmolal ity 296 H (285-295) mOsm/k g Lactate 1.0 (0.5-2.2) mmol/L Calcium 9.6 (8.5-10.5) mg/dL Magnesium 2.1 (1.7-2.3) mg/dL Total Bilirubin 0.3 (0.15-1.2) mg/dL AST 21 (0-40) U/L ALT 21 (0-41) U/L Alkaline Phosphata se 64 (40-130) IU/L Total Protein 7.1 (6.6-8.7) g/dL Albumin 4.0 (3.5-5.2) g/dL Globulin 3.1 (1.3-4.6) g/dL Lipase 37 (13-60) U/L Urine Color (Yellow) Urine Appearance (CLEAR) Urine pH (5-7) Ur Specific Gravit y (1.005-1.030) Urine Protein (Negative) Urine Glucose (UA) (Normal) Urine Ketones (Negative) Urine Blood (Negative) Urine Nitrate (Negative) Urine Bilirubin (Negative) Urine Urobilinogen (Negative) mg/dL Ur Leukocyte [place] ase (Negative) 01/08/21 Range/Units 17:22 WBC (4.0-10.0) 10^3/ uL RBC (4.1-5.3) 10^6/u L Hgb (11.7-16.6) g/dL Hct (42.0-52.0) % MCV (80-94) fL MCH (28.0-34.0) pg MCHC (30.0-36.0) g/dL RDW (12.1-15.1) % Plt Count (130-400) 10^3/c mm MPV (7.4-10.4) fL Neut % (Auto) % Lymph % (Auto) % [place] % (Auto) % Eos % (Auto) % Baso % (Auto) % Neut # (Auto) (1.8-7.7) 10^3/u L Lymph # (Auto) (0.8-4.8) 10^3/u L [place] # (Auto) (0.2-0.9) 10^3/u L Eos # (Auto) (0.0-0.8) 10^3/u L Baso # (Auto) (0.0-0.1) 10^3/u L Nucleated RBC % (a uto) % Nucleated RBCs # /100WBC Sodium (136-145) mmol/L Potassium (3.5-5.1) mmol/L Chloride (98-107) mmol/L Carbon Dioxide (22-29) mmol/L Anion Gap (5-19) BUN (8-23) mg/dL Creatinine (0.7-1.2) mg/dL GFR Calculation Glucose (65-115) mg/dL Calculated Osmolal ity (285-295) mOsm/k g Lactate (0.5-2.2) mmol/L Calcium (8.5-10.5) mg/dL Magnesium (1.7-2.3) mg/dL Total Bilirubin (0.15-1.2) mg/dL AST (0-40) U/L ALT (0-41) U/L Alkaline Phosphata se (40-130) IU/L Total Protein (6.6-8.7) g/dL Albumin (3.5-5.2) g/dL Globulin (1.3-4.6) g/dL Lipase (13-60) U/L Urine Color Yellow (Yellow) Urine Appearance Clear (CLEAR) Urine pH 6.5 (5-7) Ur Specific Gravit y 1.005 (1.005-1.030) Urine Protein Neg (Negative) Urine Glucose (UA) Norm (Normal) Urine Ketones Negative (Negative) Urine Blood Neg (Negative) Urine Nitrate Negative (Negative) Urine Bilirubin Neg (Negative) Urine Urobilinogen Norm (Negative) mg/dL Ur Leukocyte [place] ase Negative (Negative) Discharge Plan Discharge Patient Disposition: Admitted As Inpatient Admit Provider: Quan Johnson Clinical Impression: Small bowel obstruction, Abdominal pain, Hernia Condition: Stable Coding Level of Care Code ED 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 Documented by User: Latesha Wellington MD 01/08/21 19:44 HPI - Abdominal Pain General: Chief Complaint: Abdominal Pain Stated Complaint: abd pain Time Seen by Provider: 01/08/21 16:38 PFSH ED PFSH: Medical History Accelerated essential hypertension AF (atrial fibrillation) Apnea, sleep Bronchiectasis, uncomplicated Chronic obstructive pulmonary disease, unspecified Colon cancer Cyst of pancreas Hyperlipidemia, unspecified Incisional hernia Osteoarthritis of right knee Post-traumatic stress disorder, unspecified Postlaminectomy syndrome Right renal stone Spinal stenosis, lumbar region without neurogenic claudication Type 2 diabetes mellitus without complications Surgical History H/O colonoscopy 2017 & 11/12/19: Multiple tubular adenoma, follow-up colonoscopy in 3 years H/O esophagogastroduodenoscopy 11/12/2019: Hyperplastic polyp, gastritis H/O shoulder surgery History of colon resection x2 History of lumbar fusion History of surgical procedure on eye proper using laser History of tonsillectomy and adenoidectomy S/P partial lobectomy of lung Family History Brother Diabetes Hypertension Father Cancer Sister Cancer Other CAD (coronary artery disease) Stroke Denies family history of Anesthesia complication Bleeding disorder Social History Smoking and tobacco status: former smoker Quit status (tobacco): has quit using tobacco Year quit tobacco: 1970 - PPD x 13 Years Alcohol intake: current Alcohol intake frequency: holidays/special occasions only Lives independently: Yes Household members: spouse Marital status: service: Yes Current occupational status: retired History of recent travel: No Current gender identity: Male Course Vital Signs: Vital signs: Vital Signs Temperature 97.6 F 01/09/21 07:38 Pulse Rate 96 01/09/21 07:38 Respiratory Rate 16 01/09/21 07:38 Blood Pressure 121/70 01/09/21 07:38 Pulse Oximetry 97 01/09/21 07:38 MDM - Abdominal Pain MDM Narrative: Medical decision making narrative: Took patient over from Dr. Cervantes. I spoke to surgeon Dr. Shah over CT findings with him including a possible closed-loop small bowel obstruction. I did check a lactate which was normal. I did a repeat abdominal exam at 630 and patient has no tenderness at this time abdomen is not rigid. He does have a chronic hernia. Will admit patient make him n.p.o. He has been stable here. Lab Data: Labs: Lab Results 01/08/21 01/08/21 01/08/21 Range/Units 17:05 17:05 17:05 WBC 15.8 H (4.0-10.0) 10^3/ uL RBC 4.18 (4.1-5.3) 10^6/u L Hgb 12.6 (11.7-16.6) g/dL Hct 39.9 L (42.0-52.0) % MCV 95.5 H (80-94) fL MCH 30.1 (28.0-34.0) pg MCHC 31.6 (30.0-36.0) g/dL RDW 15.3 H (12.1-15.1) % Plt Count 193 (130-400) 10^3/c mm MPV 11.0 H (7.4-10.4) fL Neut % (Auto) 75.0 % Lymph % (Auto) 14.7 % [place] % (Auto) 8.5 % Eos % (Auto) 1.1 % Baso % (Auto) 0.3 % Neut # (Auto) 11.83 H (1.8-7.7) 10^3/u L Lymph # (Auto) 2.3 (0.8-4.8) 10^3/u L [place] # (Auto) 1.3 H (0.2-0.9) 10^3/u L Eos # (Auto) 0.2 (0.0-0.8) 10^3/u L Baso # (Auto) 0.0 (0.0-0.1) 10^3/u L Nucleated RBC % (a uto) 0 % Nucleated RBCs # 0.0 /100WBC Sodium 138 (136-145) mmol/L Potassium 3.7 (3.5-5.1) mmol/L Chloride 91 L (98-107) mmol/L Carbon Dioxide 39 H (22-29) mmol/L Anion Gap 11.7 (5-19) BUN 41 H (8-23) mg/dL Creatinine 1.2 (0.7-1.2) mg/dL GFR Calculation Not Reportable Glucose 103 (65-115) mg/dL Calculated Osmolal ity 296 H (285-295) mOsm/k g Lactate 1.0 (0.5-2.2) mmol/L Calcium 9.6 (8.5-10.5) mg/dL Magnesium 2.1 (1.7-2.3) mg/dL Total Bilirubin 0.3 (0.15-1.2) mg/dL AST 21 (0-40) U/L ALT 21 (0-41) U/L Alkaline Phosphata se 64 (40-130) IU/L Total Protein 7.1 (6.6-8.7) g/dL Albumin 4.0 (3.5-5.2) g/dL Globulin 3.1 (1.3-4.6) g/dL Lipase 37 (13-60) U/L Urine Color (Yellow) Urine Appearance (CLEAR) Urine pH (5-7) Ur Specific Gravit y (1.005-1.030) Urine Protein (Negative) Urine Glucose (UA) (Normal) Urine Ketones (Negative) Urine Blood (Negative) Urine Nitrate (Negative) Urine Bilirubin (Negative) Urine Urobilinogen (Negative) mg/dL Ur Leukocyte [place] ase (Negative) 01/08/21 Range/Units 17:22 WBC (4.0-10.0) 10^3/ uL RBC (4.1-5.3) 10^6/u L Hgb (11.7-16.6) g/dL Hct (42.0-52.0) % MCV (80-94) fL MCH (28.0-34.0) pg MCHC (30.0-36.0) g/dL RDW (12.1-15.1) % Plt Count (130-400) 10^3/c mm MPV (7.4-10.4) fL Neut % (Auto) % Lymph % (Auto) % [place] % (Auto) % Eos % (Auto) % Baso % (Auto) % Neut # (Auto) (1.8-7.7) 10^3/u L Lymph # (Auto) (0.8-4.8) 10^3/u L [place] # (Auto) (0.2-0.9) 10^3/u L Eos # (Auto) (0.0-0.8) 10^3/u L Baso # (Auto) (0.0-0.1) 10^3/u L Nucleated RBC % (a uto) % Nucleated RBCs # /100WBC Sodium (136-145) mmol/L Potassium (3.5-5.1) mmol/L Chloride (98-107) mmol/L Carbon Dioxide (22-29) mmol/L Anion Gap (5-19) BUN (8-23) mg/dL Creatinine (0.7-1.2) mg/dL GFR Calculation Glucose (65-115) mg/dL Calculated Osmolal ity (285-295) mOsm/k g Lactate (0.5-2.2) mmol/L Calcium (8.5-10.5) mg/dL Magnesium (1.7-2.3) mg/dL Total Bilirubin (0.15-1.2) mg/dL AST (0-40) U/L ALT (0-41) U/L Alkaline Phosphata se (40-130) IU/L Total Protein (6.6-8.7) g/dL Albumin (3.5-5.2) g/dL Globulin (1.3-4.6) g/dL Lipase (13-60) U/L Urine Color Yellow (Yellow) Urine Appearance Clear (CLEAR) Urine pH 6.5 (5-7) Ur Specific Gravit y 1.005 (1.005-1.030) Urine Protein Neg (Negative) Urine Glucose (UA) Norm (Normal) Urine Ketones Negative (Negative) Urine Blood Neg (Negative) Urine Nitrate Negative (Negative) Urine Bilirubin Neg (Negative) Urine Urobilinogen Norm (Negative) mg/dL Ur Leukocyte [place] ase Negative (Negative) Imaging Data ^: CT Abd/Pel: Attestation: I personally reviewed and interpreted this imaging study as follows: Radiologist's impression: [employer] [address] [address] Scan Report Signed with Addenda Patient: Ambrocio Tinoco Unit #: [id number] : 1945 Age/Sex: 75 / M ADM Date: 01/08/21 Loc: ER Room/Bed: Attending Dr: Ordering Provider/Ordering MD: Beto Candelario DO Date of Service: 01/08/21 Procedure(s): CT abdomen pelvis w con* [id number] Accession Number(s): [id number] Report Number: [id number]/CT abdomen pelvis w con* [id number] THIS REPORT CONTAINS FINDINGS THAT MAY BE CRITICAL TO PATIENT CARE. The findings were verbally communicated via telephone conference with Dr Avila at 6:18 PM CDT on 01/08/2021. The findings were acknowledged and understood. Radiation Dose CTDIVOL = (mGy): DLP = 1822.12 (mGy-cm) Addendum Dictated By: Faraz Garces Addendum Signed By: Faraz Garces Signed Date/Time: 01/08/21 182 4 Addendum Cosigned By: PROCEDURE INFORMATION: Exam: CT Abdomen And Pelvis With Contrast Exam date and time: 01/08/2021 5:38 PM Age: 75 years old Clinical indication: Constipation and nausea; Abdominal pain; Localized; Lower; Prior surgery; Surgery type: Pain pump, l-spine, egd, lobectomy, colon resection; Additional info: Abd pain TECHNIQUE: Imaging protocol: Computed tomography of the abdomen and pelvis with contrast. Total images: 269 Radiation optimization: All CT scans at this facility use at least one of these dose optimization techniques: automated exposure control; mA and/or kV adjustment per patient size (includes targeted exams where dose is matched to clinical indication); or iterative reconstruction. Contrast material: VISI 320; Contrast volume: 95 ml; Contrast route: INTRAVENOUS (IV); COMPARISON: CT Chest/Abdomen/Pelvis w IV* 11/27/2020 9:21 AM RADIATION DOSE METRICS: Total DLP (mGy-cm): 1822.12 FINDINGS: Pleural spaces: Chronic multiloculated moderate volume right pleural effusion. Advanced 3 vessel coronary artery disease. Cardiomegaly. No visible pericardial effusion. Bullous emphysema. Senile fibrosis. Stable 8 mm right middle lobe pulmonary nodule since last evaluation. Liver: No visible hepatic mass or cystic structure. Gallbladder and bile ducts: Normal. No calcified stones. No ductal dilation. Pancreas: Again note of a low-density structure head of the pancreas measuring 19 mm x 11 mm x [address] attenuation values suggest cyst. No visible pancreatic ductal ectasia. Spleen: Normal. No splenomegaly. Adrenal glands: Adrenal glands unremarkable. Kidneys and ureters: No hydronephrosis or perinephric fluid. No change solitary focus of nonobstructing calyceal nephrolithiasis inferior pole right kidney measuring approximately 5 mm. No visible ureterolithiasis. Stable simple cortical cysts bilaterally. No follow-up recommended. Stomach and bowel: Stable rectal anastomotic sutures. Ectatic mid and distal jejunal and proximal ileal bowel loops with concern for moderate grade small bowel obstruction. Maximum small bowel loop ectasia 4.2 cm. Fecalization of the small bowel contents. Stomach, duodenum, proximal jejunal, and distal ileal loops are non ectatic. Gas throughout the colonic tract to the rectum. Potential exists for closed loop small bowel obstruction. Appendix: The appendix is visualized and appears noninflamed. Intraperitoneal space: No visible pneumoperitoneum or intraperitoneal ascites. Vasculature: The abdominal aorta is nonaneurysmal. Mild arteriosclerosis. Lymph nodes: Unremarkable. No enlarged lymph nodes. Urinary bladder: Urinary bladder unremarkable. Reproductive: Mild prostate hypertrophy. Bones/joints: No visible active or acute osseous pathology. Interpedicle screw and sidebar fixation L4, L5, and S1 with marked metal artifact. Degenerative disease of the spine with degenerative disc disease and spondylosis deformans. Mild scoliotic curvature. Epidural TENS unit. Soft tissues: Right periumbilical ventral hernia containing incarcerated short segment of transverse colon without obstruction. Other findings: Marked obesity. CT/CT abdomen pelvis w con* [id number] IMPRESSION: 1. Ectatic mid and distal jejunal and proximal ileal small bowel loops with concern for small bowel obstruction, potential closed-loop obstruction. 2. Right periumbilical ventral hernia containing incarcerated a short segment of transverse colon without obstruction. 3. Again note of a low-density structure head of the pancreas measuring 19 mm x 11 mm x [address] attenuation values suggest cyst. Reimaging every 6 months for 2 years, then every 1 year for 2 years, then every 2 years for 6 years is recommended. Alternatively, endoscopic ultrasound with fine needle aspiration is recommended. (Reference: Atif, 2017). 4. Chronic multiloculated moderate volume right pleural effusion. 5. Stable 8 mm right middle lobe pulmonary nodule since last evaluation. For patients at low risk (minimal or absent history of smoking and of other known risk factors), recommend CT Chest at 6-12 months, then consider CT Chest at 18-24 months. For patients at high risk (history of smoking or of other known risk factors), recommend CT Chest at 6-12 months, then CT Chest at 18-24 months. (Reference: Amena). 6. Other nonurgent, nonemergent, chronic, postoperative, and age related findings as detailed in text above. 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
[2021-01-08] MEDS: iodixanol 320 mg/mL 100mL Btl IV (17:50)
--- NOTE | 2021-01-08 19:21 | P.HP_ITS ---
Providers/Chief Complaint Primary Care Provider: Stevan Pal DO Chief Complaint: abd pain History of Present Illness Ambrocio Tinoco is a 75 year old male with multiple comorbidities , atrial fibrillation, chronic anticoagulation, GI bleed, chronic anemia, bronchiectasis restrictive lung disease, chronic hypoxic hypercapnic respiratory failure, colon cancer, right-sided pleural effusion consistent with lymphocyte predominant e xudative 91% lymphocyte count consistent with atelectasis status post colonoscopy which did not reveal any endobronchial lesions presented today with chief complaint abdominal discomfort. Patient was in usual state of health until yesterday, after his meal he started experiencing abdominal discomfort which she describing as colicky pain, below his umbilicus in a belt-like pattern, it was mild intensity, he did not pay much attention and went to bed, however overnight his pain got worse he woke up twice because of worsening of pain, next day his pain was not getting better and any kind of movement was aggravating his pain he did not denies any vomiting however endorsing nausea, no recent fever use of antibiotics, last bowel movement was yesterday no recent diarrhea, blood in stool. Previous colonoscopy revealed tubular adenoma. As per the patient his cancer is in remission however incr eased activity via PET scan of right pleural effusion however no malignancy found after bronchoscopy. Diagnostics in the ER revealed stable pulmonary nodule, small bowel obstruction, incarcerated hernia without strangulation, closed loop of bowel however he is not acidotic, lactic acid normal with normal hemodynamics This case has been discussed with Dr. Hill by Dr. Wellington considering stable h emodynamics, normal lactic acid plan is to observe overnight and reevaluate in the morning if he would require intervention Patient has history of fluid overload, pleural effusion, he uses 4 L of oxygen [id number] and trilogy at night, his last Eliquis dose was 9 AM yesterday 01/07 Review of Systems Const: Reports: change in appetite; Denies: fever(s) or chills Eyes: Denies: change in vision ENMT: Denies: throat pain Card: Reports: irregular heart rhythm, dyspnea on exertion and orthopnea; Denies: chest pain Resp: Reports: dyspnea GI: Reports: abdominal pain, nausea, early satiety and GI cramping; Denies: vomiting, diarrhea, constipation or bloating : Denies: flank pain Musc: Denies: neck pain Skin/Breast: Denies: rash Neuro: Denies: headache(s) Psych: Denies: anxiety Endo: Denies: polyuria Estevan/Lymph: Denies: easy bruising All/Imm: Denies: urticaria Medications/Allergies Home Medications Medication Instructions Recorded Confirmed Last Taken Type furosemide 80 mg tablet 80 mg PO BID 09/24/19 01/08/21 01/08/21 09:00 History hydralazine 25 mg tablet 25 mg PO BID tab 09/24/19 01/08/21 01/08/21 09:00 History hydrocodone 5 mg-acetaminophen 325 1 tab PO PRN tab 09/24/19 01/08/21 11/22/19 History mg tablet insulin glargine 100 unit/mL 46 unit SUBCUT BEDTIME ml 09/24/19 01/08/21 06/16/20 History subcutaneous solution potassium chloride 20 mEq 10 meq PO BID tab 09/24/19 01/08/21 01/08/21 09:00 History tablet,extended release rosuvastatin 10 mg tablet 10 mg PO QPM tab 09/24/19 01/08/21 01/07/21 History spironolactone 25 mg tablet 25 mg PO DAILY tab 09/24/19 01/08/21 06/16/20 Hi story metolazone 2.5 mg tablet 2.5 mg PO DAILY #30 tab 10/18/19 01/08/21 01/08/21 09:00 Rx metoprolol tartrate 50 mg tablet 75 mg PO BID #90 tab 10/19/19 01/08/21 01/08/21 09:00 Rx methocarbamol 750 mg tablet 750 mg PO QID PRN 10/29/19 01/08/21 11/17/19 History pantoprazole [Protonix] 40 mg PO QAM 11/09/19 01/08/21 01/08/21 09:00 History Spiriva Respimat 2 puff INHALATION BID 11/19/19 01/08/21 06/16/20 History glucose 4 g PO Q15M PRN 11/19/19 01/08/21 Unknown History apixaban 5 mg tablet 5 mg PO BID 01/29/20 01/08/21 01/08/21 09:00 History budesonide-formoterol HFA 160 1 puff INHALATION BID 01/29/20 01/08/21 06/16/20 History mcg-4.5 mcg/actuation aerosol inhaler guaifenesin 400 mg tablet 800 mg PO BID tab 01/29/20 01/08/21 01/08/21 09:00 History ferrous sulfate 325 mg (65 mg 325 mg PO QPM tab 04/10/20 01/08/21 01/07/21 History iron) tablet Ozempic 1 mg SUBCUT Q7D 06/16/20 01/08/21 01/01/21 History albuterol sulfate 2 puff INHALATION QID PRN 06/16/20 01/08/21 06/16/20 History allopurinol 300 mg PO QAM 06/16/20 01/08/21 01/08/21 History ipratropium-albuterol 3 ml INHALATION QID PRN 06/16/20 01/08/21 06/16/20 History diltiazem HCl 30 mg PO BID #60 tab 06/18/20 01/08/21 01/08/21 09:00 Rx triamcinolone acetonide 0.025 % 1 applic TOPICAL DAILY 11/03/20 01/08/21 Unknown History topical cream tobramycin 300 mg/4 mL solution 300 mg INHALATION BID 28 Days #224 12/01/20 01/08/21 01/03/21 Rx for nebulization ml apremilast [Otezla] 30 mg PO BID 01/08/21 01/08/21 01/08/21 09:00 History cholecalciferol (vitamin D3) 50 mcg PO DAILY 01/08/21 01/08/21 Unknown History [Vitamin D3] clobetasol 1 applic TOPICAL DAILY 01/08/21 01/08/21 Unknown History insulin aspart U-100 [Novolog See Rx Instructions .ROUTE .COMPLEX 01/08/21 01/08/21 01/08/21 09:00 History U-100 Insulin aspart] 26 units ketoconazole 1 applic TOPICAL . DIRECTED 01/08/21 01/08/21 Unknown History sennosides [Chocolate Laxative] 15 - 30 mg PO PRN 01/08/21 01/08/21 01/08/21 History sennosides-docusate sodium 2 tab PO BID PRN 01/08/21 01/08/21 01/08/21 History [Senna-S] Allergies Allergy/AdvReac Type Severity Reaction Status Date / Time naproxen Allergy Intermediate ALGY-Rash Verified 01/08/21 17:33 amoxicillin AdvReac Intermediate Itching Verified 01/08/21 17:33 morphine AdvReac Intermediate ADR-Vomitin Verified 01/08/21 17:33 g PFSH Acute PFSH: Medical History Accelerated essential hypertension AF (atrial fibrillation) Apnea, sleep Bronchiectasis, uncomplicated Chronic obstructive pulmonary disease, unspecified Colon cancer Cyst of pancreas Hyperlipidemia, unspecified Incisional hernia Osteoarthritis of right knee Post-traumatic stress disorder, unspecified Postlaminectomy syndrome Right renal stone Spinal stenosis, lumbar region without neurogenic claudication Type 2 diabetes mellitus without complications Surgical History H/O colonoscopy 2016 & 11/12/19: Multiple tubular adenoma, follow-up colonoscopy in 3 years H/O esophagogastroduodenoscopy 11/12/2019: Hyperplastic polyp, gastritis H/O shoulder surgery History of colon resection x2 History of lumbar fusion History of surgical procedure on eye proper using laser History of tonsillectomy and adenoidectomy S/P partial lobectomy of lung Family History Brother Diabetes Hypertension Father Cancer Sister Cancer Other CAD (coronary artery disease) Stroke Denies family history of Anesthesia complication Bleeding disorder Social History Smoking and tobacco status: former smoker Quit status (tobacco): has quit using tobacco Year quit tobacco: 1970 - PPD x 13 Years Alcohol intake: current Alcohol intake frequency: holidays/special occasions only Lives independently: Yes Household members: spouse Marital status: service: Yes Current occupational status: retired History of recent travel: No Current gender identity: Male Vitals/I&O/Wt Last Vital Signs Temp 97.7 F 01/08/21 16:04 Pulse 82 01/08/21 18:00 Resp 18 01/08/21 18:00 BP 102/70 01/08/21 18:00 Pulse Ox 98 01/08/21 18:00 01/08/21 01/08/21 01/08/21 06:59 14:59 22:59 Intake Total 500 / 500 Balance 500 / 500 Weight last 48 hrs Weight 117.934 kg Physical Exam Narrative: EXAM NARRATIVE: Pleasant and cooperative male, morbid o besity Currently saturating well on 4 L nasal cannula no active chest pain or abdominal pain patient is feeling better after getting opioids He was laying supine when I entered the room, at the bedside Variable S1-S2 with mild signs of fluid overload Chest congestion, bilateral breath sounds with rhonchi and crackles mid zone to bases No acute respiratory distress Central obesity, spinal stimulator on right lower quadrant area, nontender, left lower quadrant continuous glucose monitor, ventral hernia, nontender, irreversible, soft no signs of peritonitis guarding or rigidity bowel sounds hyperactive in all quadrants Lower extremity mild trace edema EOMI, PERRLA no neurological deficits Awake alert oriented x3 GCS 15 No skin findings of cellulitis ischemia or gangrene Data : 01/08/21 17:05 01/08/21 17:05 A&P Assessment and plan (1) Small bowel obstruction: Status: Acute (2) Abdominal pain: Status: Acute (3) Hernia: Status: Acute (4) Bronchiectasis, uncomplicated: Status: Acute (5) AF (atrial fibrillation): Status: Acute Qualifiers: Atrial fibrillation type: other persistent Qualified Code(s): I48.19 - Other persistent atrial fibrillation (6) Cyst of pancreas: Status: Acute (7) Respiratory failure with hypoxia and hypercapnia: Status: Acute Qualifiers: Chronicity: chronic Qualified Code(s): J96.11 - Chronic respiratory failure with hypoxia; J96.12 - Chronic respiratory failure with hypercapnia Additional A&P Information Small bowel obstruction Incarcerated hernia without strangulation, closed-loop bowel imaging finding on CT abdomen pelvis however he is not acidotic hemodynamically stable no severe leukocytosis, case discussed with general surgery, I will start him on Zosyn We will keep him n.p.o. Currently abdominal pain has subsided after getting opioids no active signs of peritonitis No active emesis No severe dilation of stomach, if he starts vomiting will place NG tube overnight Considering history of preserved ejection fraction heart failure I will start his fluids in the morning, he does take hefty doses of diuretics at home and does sound congested on lung auscultation as well RCRI: Class IV risk, 15% 30-day risk of [place] cardiac arrest, continue metoprolol to avoid tachyarrhythmia, most of his medications are on hold including anticoagulating agent Pancreatic cyst 19 x 11 x 18 mm, no active signs of pancreatitis Will need outpatient GI referral for follow-up Chronic right-sided pleural effusion Exudative, status post bronchoscopy no malignancy found Stable volume He also has stable 8 mm right middle lobe pulmonary nodule, follows with Dr. White Chronic hypoxic hypercarbic respiratory failure uses 4 L of oxygen in the morning and trilogy at night No acute exacerbation Preserved ejection fraction heart failure Mild signs of fluid overload Currently diuretics on hold will start fluids in the morning if he is going for intervention Atrial fibrillation without RVR Last Eliquis dose 9 AM 01/07 I will use IV metoprolol if his heart rate goes above 110 at rest Goals of care discussed with the patient he has advanced directives, DNR/DNI but okay with undergoing general anesthesia and intubation perioperatively N.p.o. DVT prophylaxis SCDs in anticipation of intervention, kindly reevaluate after general surgery evaluation Attestations Medical Necessity Statement*: Anticipating stay in the hospital cross more than 2 midnights for SBO high risk of mortality and morbidity considering multiple comorbidities Time Spent in Patient Care: (>than 50% of time spent in counselling and/or direct pt care on unit) . 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
[2021-01-08 21:11] LABS: Glucose Point of Care 130 mg/dL (70-110)
[2021-01-08] MEDS: piperacillin-tazobactam 3.375 GM in sodium chloride 0.9% (plus) 50 ML IV (22:06)
[2021-01-09] VITALS (9 sets, daily range): BP systolic 111–133; BP diastolic 65–78; PULSE 67–96; RESP 16–23; TEMP 36.4–37.1; O2SAT 96–98
[2021-01-09 03:36] LABS: Glucose Point of Care 148 mg/dL (70-110)
[2021-01-09] MEDS: piperacillin-tazobactam 3.375 GM in sodium chloride 0.9% (plus) 50 ML IV ×3 (05:34→21:39)
[2021-01-09 06:18] LABS: Basophils % 0.3 %; Eosinophils # 0.1 10^3/uL (0.0-0.8); Hematocrit 38.3 % (42.0-52.0); Lymphocytes # 2.5 10^3/uL (0.8-4.8); Lymphocytes % 18.4 %; Mean Corpuscular HGB Conc 31.3 g/dL (30.0-36.0); Mean Corpuscular Volume 95.8 fL (80-94); Mean Platelet Volume 11.4 fL (7.4-10.4); Monocytes # 1.3 10^3/uL (0.2-0.9); Monocytes % 9.5 %; Neutrophils # 9.41 10^3/uL (1.8-7.7); Neutrophils % 70.4 %; Nucleated Red Blood Cells % 0 %; Platelet Count 170 10^3/cmm (130-400); Red Cell Distribution Width 15.2 % (12.1-15.1); White Blood Count 13.4 10^3/uL (4.0-10.0)
--- NOTE | 2021-01-09 06:28 | PM.CONSULT ---
Providers/Reason For Consult Consulting Physican/Specialty*: Antonio Hill MD Reason for Consult*: Bowel obstruction Requesting Physcian: Dr. Wellington Attending Physician: Quan Johnson MD Primary Care Provider: Stevan Pal DO History of Present Illness History of Present Illness Chief Complaint: I feel better now History of present illness: Ambrocio Tinoco is a 75 year old male with multiple medical comorbidities: atrial fibrillation, chronic anticoagulation, GI bleed, chronic anemia, bronchiectasis restrictive lung disease, chronic hypoxic hypercapnic respiratory failure, chronic home O2 requirement, colon cancer, right-sided pleural effusion presents to the emergency department with lower abdominal pain mostly colicky in nature, not being referred. Patient reports that he passed gas yesterday and last bowel movement was the day before yesterday, no other institutional symptom. She had previous colonic surgery for colon cancer. Further work-up in the emergency department found on the CT scan chronic incarcerated ventral incisional hernia with concern of potential closed-loop of small bowel patient continued to have appropriate hemodynamics and stable vital signs with normal lactic acid. General surgery was consulted for further evaluation Review of Systems General: Reports: 10 or more systems reviewed and unremarkable except in HPI and below Meds/Allergies Home Medications and Allergies Home Medications Medication Instructions Recorded Confirmed Last Taken Type furosemide 80 mg tablet 80 mg PO BID 09/24/19 01/08/21 01/08/21 09:00 History hydralazine 25 mg tablet 25 mg PO BID tab 09/24/19 01/08/21 01/08/21 09:00 History hydrocodone 5 mg-acetaminophen 325 1 tab PO PRN tab 09/24/19 01/08/21 11/22/19 History mg tablet insulin glargine 100 unit/mL 46 unit SUBCUT BEDTIME ml 09/24/19 01/08/21 06/16/20 History subcutaneous solution potassium chloride 20 mEq 10 meq PO BID tab 09/24/19 01/08/21 01/08/21 09:00 History tablet,extended release rosuvastatin 10 mg tablet 10 mg PO QPM tab 09/24/19 01/08/21 01/07/21 History spironolactone 25 mg tablet 25 mg PO DAILY tab 09/24/19 01/08/21 06/16/20 History metolazone 2.5 mg tablet 2.5 mg PO DAILY #30 tab 10/18/19 01/08/21 01/08/21 09:00 Rx metoprolol tartrate 50 mg tablet 75 mg PO BID #90 tab 10/19/19 01/08/21 01/08/21 09:00 Rx methocarbamol 750 mg tablet 750 mg PO QID PRN 10/29/19 01/08/21 11/17/19 History pantoprazole [Protonix] 40 mg PO QAM 11/09/19 01/08/21 01/08/21 09:00 History Spiriva Respimat 2 puff INHALATION BID 11/19/19 01/08/21 06/16/20 History glucose 4 g PO Q15M PRN 11/19/19 01/08/21 Unknown History apixaban 5 mg tablet 5 mg PO BID 01/29/20 01/08/21 01/08/21 09:00 History budesonide-formoterol HFA 160 1 puff INHALATION BID 01/29/20 01/08/21 06/16/20 History mcg-4.5 mcg/actuation aerosol inhaler guaifenesin 400 mg tablet 800 mg PO BID tab 01/29/20 01/08/21 01/08/21 09:00 History ferrous sulfate 325 mg (65 mg 325 mg PO QPM tab 04/10/20 01/08/21 01/07/21 History iron) tablet Ozempic 1 mg SUBCUT Q7D 06/16/20 01/08/21 01/01/21 History albuterol sulfate 2 puff INHALATION QID PRN 06/16/20 01/08/21 06/16/20 History allopurinol 300 mg PO QAM 06/16/20 01/08/21 01/08/21 History ipratropium-albuterol 3 ml INHALATION QID PRN 06/16/20 01/08/21 06/16/20 History diltiazem HCl 30 mg PO BID #60 tab 06/18/20 01/08/21 01/08/21 09:00 Rx triamcinolone acetonide 0.025 % 1 applic TOPICAL DAILY 11/03/20 01/08/21 Unknown History topical cream tobramycin 300 mg/4 mL solution 300 mg INHALATION BID 28 Days #224 12/01/20 01/08/21 01/03/21 Rx for nebulization ml apremilast [Otezla] 30 mg PO BID 01/08/21 01/08/21 01/08/21 09:00 History cholecalciferol (vitamin D3) 50 mcg PO DAILY 01/08/21 01/08/21 Unknown History [Vitamin D3] clobetasol 1 applic TOPICAL DAILY 01/08/21 01/08/21 Unknown History insulin aspart U-100 [Novolog See Rx Instructions .ROUTE .COMPLEX 01/08/21 01/08/21 01/08/21 09:00 History U-100 Insulin aspart] 26 units ketoconazole 1 applic TOPICAL . DIRECTED 01/08/21 01/08/21 Unknown History sennosides [Chocolate Laxative] 15 - 30 mg PO PRN 01/08/21 01/08/21 01/08/21 History sennosides-docusate sodium 2 tab PO BID PRN 01/08/21 01/08/21 01/08/21 History [Senna-S] Allergies Allergy/AdvReac Type Severity Reaction Status Date / Time naproxen Allergy Intermediate ALGY-Rash Verified 01/09/21 06:44 amoxicillin AdvReac Intermediate Itching Verified 01/09/21 06:44 morphine AdvReac Intermediate ADR-Vomitin Verified 01/09/21 06:44 g Current Medications Current Medications Generic Name Dose Route Start Last Admin Trade Name Freq PRN Reason Stop Dose Admin Piperacillin Sod/Tazobactam 50 mls @ 12.5 mls/hr 01/08/21 20:43 01/09/21 05:34 Sod 3.375 gm/ Sodium Chloride IV 12.5 mls/hr Q8H BEATRICE Administration Protocol Insulin Aspart 0 unit 01/08/21 21:00 01/08/21 21:04 Insulin Aspart 100 Unit/1 Ml SUBCUT Not Given WM&BEDTIME BEATRICE Protocol PFSH Acute PFSH: Medical History Accelerated essential hypertension AF (atrial fibrillation) Apnea, sleep Bronchiectasis, uncomplicated Chronic obstructive pulmonary disease, unspecified Colon cancer Cyst of pancreas Hyperlipidemia, unspecified Incisional hernia Osteoarthritis of right knee Post-traumatic stress disorder, unspecified Postlaminectomy syndrome Right renal stone Spinal stenosis, lumbar region without neurogenic claudication Type 2 diabetes mellitus without complications Surgical History H/O colonoscopy 2017 & 11/12/19: Multiple tubular adenoma, follow-up colonoscopy in 3 years H/O esophagogastroduodenoscopy 11/12/2019: Hyperplastic polyp, gastritis H/O shoulder surgery History of colon resection x2 History of lumbar fusion History of surgical procedure on eye proper using laser History of tonsillectomy and adenoidectomy S/P partial lobectomy of lung Family History Brother Diabetes Hypertension Father Cancer Sister Cancer Other CAD (coronary artery disease) Stroke Denies family history of Anesthesia complication Bleeding disorder Social History Smoking and tobacco status: former smoker Quit status (tobacco): has quit using tobacco Year quit tobacco: 1970 - PPD x 13 Years Alcohol intake: current Alcohol intake frequency: holidays/special occasions only Lives independently: Yes Household members: spouse Marital status: service: Yes Current occupational status: retired History of recent travel: No Current gender identity: Male Vitals/I&O/Wt Last Vital Signs Temp 98.1 F 01/09/21 03:26 Pulse 83 01/09/21 03:54 Resp 23 H 01/09/21 03:26 BP 133/78 01/09/21 03:26 Pulse Ox 96 01/09/21 03:54 01/08/21 01/08/21 01/09/21 14:59 22:59 06:59 Intake Total 500 / 500 50 / 550 Output Total 650 / 650 350 / 1000 Balance -150 / -150 -300 / -450 Weight last 48 hrs Weight 260 lb Physical Exam Narrative: EXAM NARRATIVE: Patient is conscious alert oriented X3 BMI 37.3 Head and neck examination PERRLA no masses no cervical lymphadenopathy no jaundice Cardiac examination audible S1-S2 no murmurs no gallops no arrhythmias Chest is clear bilateral,abscence of Rhonchi or wheezes,no surgical emphysema Abdomen nontender nondistended soft no organomegaly guarding or rigidity/no signs of peritonitis Reducible ventral incisional hernia Obese A&P Assessment and plan (1) Small bowel obstruction: After thorough history physical examination reviewing the chart and images of the CT scan of the abdomen and pelvis.I do not see a distinct closed-loop obstruction yet the patient does have chronic incarcerated ventral incisional hernia without evidence of ischemia or pneumatosis or free air. Certainly fecalization of the small bowel is appreciated on the CT scan which reflects chronic constipation. On morning rounds patient feels a whole lot better denies any nausea or vomiting. From surgical standpoint of view we will start the patient on clear liquid diet and add mag citrate to help him have a bowel movement Once patient responds to that and tolerates p.o. intake can be discharged today As a side note I did discuss with the patient about potential surgical intervention for elective hernia repair yet it would be an open approach and will require medical optimization if he were to consider and definitely weight management and clearance per cardiopulmonary service before any potential surgery.Patient does not seem to be interested in elective hernia repair at the moment but he may consider it in the future. Thank you for consulting general surgery to participate taking care Status: Acute Consult Attestations Medical Necessity Statement: Requiring hospitalization or observation and awaiting more bowel functions Time Spent in Patient Care: (>than 50% of time spent in counselling and/or direct pt care on unit). 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
[2021-01-09 06:34] LABS: Anion Gap 11.4 (5-19); Blood Urea Nitrogen 40 mg/dL (8-23); Calcium 9.3 mg/dL (8.5-10.5); Carbon Dioxide 38 mmol/L (22-29); Chloride 94 mmol/L (98-107); Glucose 151 mg/dL (65-115); Osmolality Calculated 303 mOsm/kg (285-295); Potassium 3.4 mmol/L (3.5-5.1); Sodium 140 mmol/L (136-145)
[2021-01-09 06:39] LABS: Lactate (Lactic Acid level) 1.4 mmol/L (0.5-2.2)
[2021-01-09] MEDS: magnesium citrate Btl 296 mL 150 ML PO (08:49)
[2021-01-09] MEDS: dextrose 5%-sod chloride 0.9% 1,000 ML 30 ML IV (08:50)
[2021-01-09] MEDS: psyllium powder Pkt 1 PACKET PO ×2 (08:50→17:27)
[2021-01-09 09:04] LABS: Glucose Point of Care 275 mg/dL (70-110)
--- NOTE | 2021-01-09 11:09 | PC.RESP ---
Pulmonary Rehab information sent to patient
[2021-01-09 12:08] LABS: Glucose Point of Care 196 mg/dL (70-110)
--- NOTE | 2021-01-09 12:31 | PC.CHAP ---
Pastoral Care Encounter/Spiritual Assessment Type of Contact [] Declined senior control systems engineer visit [] Patient/Family/Request visit [] Outpatient visit [] Follow-up visit [] Physician referral [] Code/Alert [xx] Routine visit [] Staff referral [] Actively dying [] Patient sleeping [] Family support [] [] Out of room [] Palliative care [] [] Receiving care in room [] Pre-surgical visit [] Trauma [] Long length of stay [] ICU visit [xx] Other: [place] Relational/Emotional Strength [xx] Patient feels connected with others/family/visitors/staff [] Distress [] Loneliness/isolation [] Abandonment Spirituality of Patient [xx] Person of Tanesha [xx] Attends Anabaptism of their Tanesha [xx] Believes in Prayer [xx] Reads Bible or Judaism materials [] There are Spiritual issues to be addressed 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 Interventions [xx] Prayer [xx] Active listening [xx] Non-anxious presence [] Spiritual/emotional support [] Crisis/trauma care [] Spiritual counseling [] Bereavement support [] Provided bereavement packet [xx] Provided Bible/devotional materials [] Provided toy/stuffed animal, coloring book to patient or family member [] Provided Communion [] Anointing/[place] [] Salvation [xx] Completed spiritual assessment [] Other: Impact on Illness or Injury [] Angry [] Fearful [] Anxious [] Often cries [] Exhaustion [] Unable to work [] Unable to attend restorationist [] Unable to walk/stand [] Unable to read [] Unable to drive [] Unable to eat/drink [] Unable to sleep [] Unable to be with family [] Patient intubated [] Other: Summary Patient wanted prayer but also wanted to talk about his family and llife experiences. He and Tiffany just celebratetd 51 years marriage in November. He is proud of his children and grandchildren. [employer] give Time spent with patient 17 minutes.
[2021-01-09 15:11] LABS: Glucose Point of Care 205 mg/dL (70-110)
[2021-01-09] MEDS: magnesium citrate Btl 296 mL PO (15:18)
--- NOTE | 2021-01-09 15:36 | P.PN_ITS ---
Subjective Subjective: Interval history: Overall he is doing better. No abdominal pain currently. No vomiting. Denies eructation. No bowel movement. Vitals/I&O/Wt Last Vital Signs Temp 97.6 F 01/09/21 14:52 Pulse 88 01/09/21 14:52 Resp 16 01/09/21 14:52 BP 111/65 01/09/21 14:52 Pulse Ox 96 01/09/21 14:52 01/09/21 01/09/21 01/09/21 06:59 14:59 22:59 Intake Total 50 / 550 1050 / 1050 Output Total 350 / 1000 Balance -300 / -450 1050 / 1050 Weight last 48 hrs Weight 117.934 kg Physical Exam Const: COMMON NORMALS: no acute distress, patient oriented x3 and alert GENERAL APPEARANCE: cooperative NUTRITIONAL APPEARANCE: overweight ORIENTATION/CONSCIOUSNESS: Yes awake HENMT: COMMON NORMALS: oropharynx normal Neck/C-Spine: COMMON NORMALS: no JVD Resp: COMMON NORMALS: normal respiratory effort AUSCULTATION: rhonchi Cardio: COMMON NORMALS: no JVD, regular rhythm, S1 normal heart sound present, S2 normal heart sound present and No murmurs present (Cardio) RHYTHM: regular rhythm HEART SOUNDS: S1 normal heart sound present and S2 normal heart sound present GI: COMMON NORMALS: Soft to palpation and non-tender AUSCULTATION: Yes normoactive bowel sounds PALPATION: Yes Soft to palpation OTHER: Midline abdominal hernia. Right side flank spinal stimulator generator. Left lower quadrant continuous glucose monitor. Extremity: COMMON NORMALS: no joint enlargement and no pedal edema Neuro: COMMON NORMALS: patient oriented x3 and moves all extremities SENSORIUM/ORIENTATION: Yes alert Skin: COMMON NORMALS: no rashes or lesions noted GENERAL SKIN EXAM: no rashes or lesions noted Data : 01/09/21 05:36 01/09/21 05:36 A&P Assessment and plan (1) Small bowel obstruction: Appears somewhat better. Symptomatically he is doing better. No pain currently. No vomiting. Still no bowel movement. Discussed with surgery and with him. Give additional magnesium citrate. He is asking to trial advancement of diet, so we will advance to full liquid which is okay with surgery. Continue to monitor. We will try to restart his oral medications. Status: Acute (2) Abdominal pain: Status: Acute (3) Hernia: Follow-up with surgery electively. Status: Acute (4) Bronchiectasis, uncomplicated: Continue follow-up with pulmonology. Status: Acute (5) AF (atrial fibrillation): Status: Acute Qualifiers: Atrial fibrillation type: other persistent Qualified Code(s): I48.19 - Other persistent atrial fibrillation (6) Cyst of pancreas: He reports that his oncologist at [facility] is aware of his pancreatic cyst and has been wanting him to have a CAT scan done. He states he will contact their office so they may obtain records from us regarding the most recent imaging of the pancreas. 19 x 11 x 18 mm, no active signs of pancreatitis Status: Acute (7) Respiratory failure with hypoxia and hypercapnia: Chronic hypoxic hypercarbic respiratory failure uses 4 L of oxygen in the morning and trilogy at night Status: Acute Qualifiers: Chronicity: chronic Qualified Code(s): J96.11 - Chronic respiratory failure with hypoxia; J96.12 - Chronic respiratory failure with hypercapnia Additional A&P Information Chronic right-sided pleural effusion: Continue follow-up with pulmonology. He also has stable 8 mm right middle lobe pulmonary nodule, follows with Dr. White Preserved ejection fraction heart failure: Currently not fluid overloaded. For now diuretics on hold as has been n.p.o., limited oral intake. Atrial fibrillation without RVR: Resume Eliquis. Metoprolol. Attestations Medical Necessity Statement*: Continue admission for assessment management of small bowel obstruction. Coding Level of Care Code Acute Bacteriology Professor for [facility] Diagnoses Small bowel obstruction K56.609 Abdominal pain R10.9 Hernia K46.9 Bronchiectasis, uncomplicated J47.9 AF (atrial fibrillation) I48.19 Atrial fibrillation type: other persistent Cyst of pancreas K86.2 Respiratory failure with hypoxia and hypercapnia J96.11; J96.12 Chronicity: chronic
[2021-01-09 16:47] LABS: Glucose Point of Care 169 mg/dL (70-110)
[2021-01-09] MEDS: ferrous sulfate EC 325 mg Tablet PO (17:16)
[2021-01-09] MEDS: metoprolol tartrate 50 mg Tablet 75 MG PO (17:16)
[2021-01-09] MEDS: dilTIAZem 30 mg Tablet PO (17:17)
[2021-01-09] MEDS: atorvastatin 40 mg Tablet PO (17:17)
[2021-01-09] MEDS: apixaban 5 mg Tablet PO (17:17)
[2021-01-09] MEDS: potassium chloride ER 10 mEq Tablet PO (17:27)
[2021-01-09 21:02] LABS: Glucose Point of Care 299 mg/dL (70-110)
[2021-01-09] MEDS: insulin glargine 100 units/1 mL 10 UNIT SUBCUT (21:40)
[2021-01-10] VITALS (8 sets, daily range): BP systolic 110–132; BP diastolic 68–80; PULSE 58–105; RESP 17–22; TEMP 36.6–36.8; O2SAT 93–97
[2021-01-10] MEDS: magnesium citrate Btl 296 mL PO (06:26)
[2021-01-10] MEDS: pantoprazole DR 40 mg Tablet PO (06:26)
[2021-01-10] MEDS: allopurinol 300 mg Tablet PO (06:26)
[2021-01-10] MEDS: piperacillin-tazobactam 3.375 GM in sodium chloride 0.9% (plus) 50 ML IV (06:26)
[2021-01-10 06:37] LABS: Glucose Point of Care 193 mg/dL (70-110)
[2021-01-10 06:56] LABS: Basophils % 0.3 %; Eosinophils # 0.1 10^3/uL (0.0-0.8); Eosinophils % 1.1 %; Hematocrit 36.7 % (42.0-52.0); Hemoglobin 11.4 g/dL (11.7-16.6); Lymphocytes # 1.9 10^3/uL (0.8-4.8); Lymphocytes % 19.4 %; Mean Corpuscular HGB Conc 31.1 g/dL (30.0-36.0); Mean Corpuscular Hemoglobin 30.3 pg (28.0-34.0); Mean Corpuscular Volume 97.6 fL (80-94); Mean Platelet Volume 11.3 fL (7.4-10.4); Monocytes # 1.1 10^3/uL (0.2-0.9); Monocytes % 11.5 %; Neutrophils % 67.2 %; Nucleated Red Blood Cells % 0 %; Platelet Count 150 10^3/cmm (130-400); Red Blood Count 3.76 10^6/uL (4.1-5.3); Red Cell Distribution Width 15.2 % (12.1-15.1); White Blood Count 9.8 10^3/uL (4.0-10.0)
[2021-01-10 07:35] LABS: Anion Gap 9.7 (5-19); Blood Urea Nitrogen 33 mg/dL (8-23); Calcium 8.7 mg/dL (8.5-10.5); Carbon Dioxide 40 mmol/L (22-29); Chloride 95 mmol/L (98-107); Glucose 175 mg/dL (65-115); Osmolality Calculated 304 mOsm/kg (285-295); Potassium 3.7 mmol/L (3.5-5.1); Sodium 141 mmol/L (136-145)
--- NOTE | 2021-01-10 07:59 | PM.PN ---
Subjective Subjective: Interval history: Patient overall feels better passing gas and had a bowel movement today. Otherwise no acute events overnight. Medications: Reviewed: Yes Vitals/I&O/Wt Last Vital Signs Temp 97.8 F 01/10/21 07:21 Pulse 77 01/10/21 07:21 Resp 18 01/10/21 07:21 BP 132/80 01/10/21 07:21 Pulse Ox 93 01/10/21 07:21 01/09/21 01/10/21 01/10/21 22:59 06:59 14:59 Intake Total 600 / 1650 250 / 1900 Output Total 425 / 425 350 / 775 Balance 175 / 1225 -100 / 1125 Weight last 48 hrs Weight 260 lb Physical Exam Narrative: EXAM NARRATIVE: Patient is conscious alert oriented X3 BMI 37.3 Head and neck examination PERRLA no masses no cervical lymphadenopathy no jaundice Abdomen nontender nondistended soft no organomegaly guarding or rigidity/no signs of peritonitis Reducible ventral incisional hernia, stable examination Obese Data : 01/10/21 06:29 01/10/21 06:29 A&P Assessment and plan (1) Small bowel obstruction: Condition resolved and from surgical standpoint reviewed advance to soft GI diet and patient once tolerates diet can be discharged home. Further recommendations Return to primary care provider Avoid constipation High Fiber diet; As Fiber softens the stool and helps prevent constipation. High-fiber foods include: ? Beans and legumes ? Bran, whole wheat bread and whole grain cereals such as oatmeal ? Brown and wild rice ? Fruits such as apples, bananas and pears ? Vegetables such as broccoli, carrots, corn and squash ? Whole wheat pasta The target is to eat 25 to 30 grams of fiber daily. Drink at least 8 cups of fluid daily. Fluid will help soften your stool.Exercise also promotes bowel movement and helps prevent constipation. Weight management Assurance and education All questions have been answered Status: Resolved Attestations Medical Necessity Statement*: Patient requiring hospitalization for monitoring of bowel functions and resuscitation Time Spent in Patient Care: (>than 50% of time spent in counselling and/or direct pt care on unit). Coding Level of Care Code Acute Web User Experience Strategist for [facility] Diagnoses Small bowel obstruction K56.609
[2021-01-10] MEDS: potassium chloride ER 10 mEq Tablet PO (09:33)
[2021-01-10] MEDS: apixaban 5 mg Tablet PO (09:33)
[2021-01-10] MEDS: dilTIAZem 30 mg Tablet PO (09:33)
[2021-01-10] MEDS: metoprolol tartrate 50 mg Tablet 75 MG PO (09:34)
[2021-01-10] MEDS: psyllium powder Pkt 1 PACKET PO (09:35)
[2021-01-10] MEDS: dextrose 5%-sod chloride 0.9% 1,000 ML 30 ML IV (09:45)
[2021-01-10 10:58] LABS: Glucose Point of Care 321 mg/dL (70-110)
--- NOTE | 2021-01-10 16:27 | P.DS_ITS ---
Discharge Providers Date of Admission: 01/08/21 19:01 Date of Discharge: January 10, 2021 Attending Provider at Admission: Quan Johnson MD Attending Provider at Discharge: Italo Reese Primary Care Provider: Stevan Pal DO Diagnoses at Discharge Discharge Diagnosis (1) Small bowel obstruction: Status: Resolved (2) Cyst of pancreas: Status: Acute Reason for Visit Reason for Visit: abd pain Hospital Course Hospital Course Pleasant 75-year-old woman with history of colon cancer status post resection, following with oncology in [facility], follows with GI, bronchiectasis, persistent right lower lobe effusion, for which had undergone work-up for possibility of malignancy due to increased activity on PET scan, but so far with no malignancy found on bronchoscopy, follows with pulmonology regarding this as well as right middle lobe pulmonary nodule, on chronic anticoagulation due to atrial fibrillation, and multiple other coronaries was admitted on 01/08 after presenting with abdominal pain, below his umbilicus in a belt-like pattern, with nausea, no vomiting. CT abdomen pelvis showed multiple findings including ectatic mid and distal jejunal and proximal ileal small bowel loops with concern for small bowel obstruction, potential closed-loop obstruction. Also noted 19 x 11 x 18 mm low-density structure in the head of the pancreas. Chronic multiloculated moderate volume right pleural effusion. Stable 8 mm right middle lobe pulmonary nodule. Surgery was consulted. He was empirically started on antibiotic. However, closed-loop obstruction was not suspected. He was treated conservatively. No acute surgical intervention found to be needed. With noted fecalization of small bowel he is treated with aggressive bowel regimen. Bowel rest initially. His symptoms started to improve, he started passing gas. Had no vomiting. Was started on trial of clear liquids. Continue with bowel regimen. Today had a bowel movement, diet was advanced to GI soft, and he tolerated this well. He is feeling much better, and request to return home. Discharge bowel regimen is intensified with addition of psyllium, he is continued on senna-S and he will be obtaining magnesium citrate as needed in case of progression towards constipation. States he is intending to stay ahead of it. On discussion of the incidental low-density structure in the head of the pancreas reports that his oncologist is aware of this and has actually wanted him to obtain a CT for follow-up. He will be reaching out to them so they may request the records for comparison. He will be following up with them add itionally. Pancreatic stricture will need additional assessment either by endoscopic ultrasound and biopsy as opposed to follow-up CT scans at 6-month intervals. He will resume follow-up with pulmonology regarding pleural effusion and pulmonary nodule as well as bronchiectasis, and continue other chronic follow-up with his primary provider. He is doing well at his baseline 4 L of supplemental oxygen by nasal cannula. Physical Exam Const: COMMON NORMALS: no acute distress and patient oriented x3 GENERAL APPEARANCE: cooperative and comfortable NUTRITIONAL APPEARANCE: overweight OTHER: Awake, alert, sitting at edge of the bed. His is accompanying him. In good spirits. Feeling well. Denies pain or discomfort. HENMT: COMMON NORMALS: oropharynx normal Neck/C-Spine: COMMON NORMALS: no JVD Resp: COMMON NORMALS: normal respiratory effort AUSCULTATION: rhonchi Cardio: COMMON NORMALS: no JVD, regular rhythm, S1 normal heart sound present, S2 normal heart sound present and No murmurs present (Cardio) RHYTHM: regular rhythm HEART SOUNDS: S1 normal heart sound present and S2 normal heart sound present GI: COMMON NORMALS: Soft to palpation and non-tender AUSCULTATION: Yes no rmoactive bowel sounds PALPATION: Yes Soft to palpation OTHER: Midline abdominal hernia. Right side flank spinal stimulator generator. Left lower quadrant continuous glucose monitor. Extremity: COMMON NORMALS: no joint enlargement and no pedal edema Neuro: COMMON NORMALS: patient oriented x3 and moves all extremities Skin: COMMON NORMALS: no rashes or lesions noted GENERAL SKIN EXAM: no rashes or lesions noted Discharge Data Data Completed and Pending: Completed Studies During Hospitalization Category Date Time Status CT abdomen pelvis w con* [id number] Stat Cat Scan 01/08/21 16:55 Completed Labs from last 24 hours 01/10/21 01/10/21 01/10/21 10:52 06:29 06:29 WBC 9.8 RBC 3.76 L Hgb 11.4 L Hct 36.7 L MCV 97.6 H MCH 30.3 MCHC 31.1 RDW 15.2 H Plt Count 150 MPV 11.3 H Neut % (Auto) 67.2 Lymph % (Auto) 19.4 [place] % (Auto) 11.5 Eos % (Auto) 1.1 Baso % (Auto) 0.3 Neut # (Auto) 6.60 Lymph # (Auto) 1.9 [place] # (Auto) 1.1 H Eos # (Auto) 0.1 Baso # (Auto) 0.0 Nucleated RBC % (a uto) 0 Nucleated RBCs # 0.0 Sodium 141 Potassium 3.7 Chloride 95 L Carbon Dioxide 40 H Anion Gap 9.7 BUN 33 H Creatinine 1.2 GFR Calculation Not Reportable Glucose 175 H POC Glucose 321 H Calculated Osmolal ity 304 H Calcium 8.7 01/10/21 01/09/21 01/09/21 06:27 20:45 16:13 WBC RBC Hgb Hct MCV MCH MCHC RDW Plt Count MPV Neut % (Auto) Lymph % (Auto) [place] % (Auto) Eos % (Auto) Baso % (Auto) Neut # (Auto) Lymph # (Auto) [place] # (Auto) Eos # (Auto) Baso # (Auto) Nucleated RBC % (a uto) Nucleated RBCs # Sodium Potassium Chloride Carbon Dioxide Anion Gap BUN Creatinine GFR Calculation Glucose POC Glucose 193 H 299 H 169 H Calculated Osmolal ity Calcium Vitals: Last Vital Signs Temp 97.9 F 01/10/21 14:24 Pulse 68 01/10/21 14:24 Resp 17 01/10/21 14:24 BP 110/68 01/10/21 14:24 Pulse Ox 97 01/10/21 14:24 Discharge Plan Discharge Patient Disposition: Home Condition: Stable Prescriptions: New Metamucil (with sugar) 3.4 gram Powder In Packet 1 packet PO BID Qty: 60 RF: 0 Continued methocarbamol 750 mg tablet 750 mg PO QID PRN (Reason: Muscle Spasm) RF: 0 tobramycin 300 mg/4 mL solution for nebulization 300 mg inhalation BID 28 Days Qty: 224 RF: 4 hydralazine 25 mg tablet 25 mg PO BID RF: 0 hydrocodone-acetaminophen 5-325 mg tablet 1 tab PO PRN RF: 0 spironolactone 25 mg tablet 25 mg PO DAILY RF: 0 rosuvastatin 10 mg tablet 10 mg PO QPM RF: 0 Lantus U-100 Insulin 100 unit/mL solution 46 unit SUBCUT BEDTIME RF: 0 potassium chloride 20 mEq tablet extended release 10 meq PO BID RF: 0 furosemide [Lasix] 80 mg tablet 80 mg PO BID RF: 0 guaifenesin 400 mg tablet 800 mg PO BID RF: 0 budesonide-formoterol [Symbicort] 160-4.5 mcg/actuation HFA aerosol inhaler 1 puff INHALATION BID RF: 0 Eliquis 5 mg tablet 5 mg PO BID RF: 0 ferrous sulfate 325 mg (65 mg iron) tablet 325 mg PO QPM RF: 0 triamcinolone acetonide 0.025 % cream 1 applic topical DAILY RF: 0 metolazone 2.5 mg tablet 2.5 mg PO DAILY Qty: 30 RF: 3 metoprolol tartrate 50 mg tablet 75 mg PO BID Qty: 90 RF: 5 pantoprazole [Protonix] 40 mg tablet,delayed release (DR/EC) 40 mg PO QAM RF: 0 ipratropium-albuterol 0.5 mg-3 mg(2.5 mg base)/3 mL Solution For Nebulization 3 ml INHALATION QID PRN (Reason: Shortness Of Breath) RF: 0 allopurinol 300 mg Tablet 300 mg PO QAM RF: 0 albuterol sulfate 90 mcg/actuation Hfa Aerosol Inhaler 2 puff INHALATION QID PRN (Reason: SHORSTNESS OF BREATH) RF: 0 Ozempic 1 mg/dose (2 mg/1.5 mL) Pen Injector 1 mg SUBCUT Q7D RF: 0 diltiazem HCl 30 mg Tablet 30 mg PO BID Qty: 60 RF: 0 ketoconazole 2 % Shampoo 1 applic TOPICAL . DIRECTED RF: 0 Chocolate Laxative 15 mg Tablet,Chewable 15 - 30 mg PO PRN RF: 0 Senna-S 8.6-50 mg Tablet 2 tab PO BID PRN (Reason: Constipation) RF: 0 clobetasol 0.05 % Cream 1 applic TOPICAL DAILY RF: 0 Novolog U-100 Insulin aspart 100 unit/mL Solution See Rx Instructions .ROUTE .COMPLEX RF: 0 Vitamin D3 50 mcg (2,000 unit) Capsule 50 mcg PO DAILY RF: 0 Otezla 30 mg Tablet 30 mg PO BID RF: 0 glucose 4 gram Tablet,Chewable 4 g PO Q15M PRN (Reason: BLOOD SUGAR) RF: 0 Spiriva Respimat 2.5 mcg/actuation Mist 2 puff INHALATION BID RF: 0 Discharge Orders: Discharge Order (Routine); Ordered 01/10/21 Ordered By: Italo Reese Referrals: Stevan Pal, DO [Primary Care Provider] - 4-7 days (Please contact Dr. Pal's office Tuesday morning to make an appointment within 1 week. ) Discharge Diet: As Directed, Cardiac and Diabetic Discharge Activity: Increase activity as tolerated and Oxygen as instructed Patient Instructions: Laxative, Stool Softeners (By mouth), Bowel Obstruction (GEN), Opioid Safety Activity Restrictions/Additional Instructions: Please discuss with your primary doctor regarding bowel obstruction. Avoid constipation. Continue bowel regimen. Discussed with your primary doctor as well as oncologist regarding the incidentally seen 19 mm x 11 mm x 18 mm low-density structure in the head of the pancreas. This will need additional follow-up either with gastroenterology and ultrasound and possible biopsy, or with follow-up CT scans every 6 months. Again please discuss with your primary doctor and oncologist regarding further evaluation. Continue follow-up with your oncologist regarding colon cancer, continue follow- up with your lung doctor regarding chronic right lung effusion. Resume other chronic follow-up with your primary care provider. Discussed with your primary provider consideration for referral for repair of abdominal hernia. Continue High Fiber diet; As Fiber softens the stool and helps prevent constipation. High-fiber foods include: ? Beans and legumes ? Bran, whole wheat bread and whole grain cereals such as oatmeal ? Brown and wild rice ? Fruits such as apples, bananas and pears ? Vegetables such as broccoli, carrots, corn and squash ? Whole wheat pasta The target is to eat 25 to 30 grams of fiber daily. Drink at least 8 cups of fluid daily. Fluid will help soften your stool.Exercise also promotes bowel movement and helps prevent constipation. Discharge Attestations Time Spent in Discharge Care*: greater than 30 min Quality Metrics Clinical Quality Measures During this hospital stay, did patient experience: None Coding Level of Care Code Acute [facility] note Diagnoses Small bowel obstruction K56.609 Cyst of pancreas K86.2
== END 2021-01-10 14:25 | disposition home or self-care (01) | DRG 389 ==
LOC: ER 19:44 → MEDSURG 20:05
PROVIDERS: Family Medicine; Admitting Provider Internal Medicine; Emergency Provider Emergency Medicine; PCP Emergency Medicine Emergency Medical Services; Visit Provider Internal Medicine
DX: K56.609 Unspecified intestinal obstruction, unspecified as to partial versus complete obstruction (principal); I48.19 Other persistent atrial fibrillation; J96.12 Chronic respiratory failure with hypercapnia; J96.11 Chronic respiratory failure with hypoxia; K43.6 Other and unspecified ventral hernia with obstruction, without gangrene; K86.2 Cyst of pancreas; J90 Pleural effusion, not elsewhere classified; D64.9 Anemia, unspecified; Z85.038 Personal history of other malignant neoplasm of large intestine; R91.8 Other nonspecific abnormal finding of lung field; Z99.81 Dependence on supplemental oxygen; G47.30 Sleep apnea, unspecified; J44.9 Chronic obstructive pulmonary disease, unspecified; E78.5 Hyperlipidemia, unspecified; M17.11 Unilateral primary osteoarthritis, right knee; F43.10 Post-traumatic stress disorder, unspecified; M96.1 Postlaminectomy syndrome, not elsewhere classified; Z87.442 Personal history of urinary calculi; E11.9 Type 2 diabetes mellitus without complications; Z98.1 Arthrodesis status; Z79.4 Long term (current) use of insulin; Z79.51 Long term (current) use of inhaled steroids; Z79.891 Long term (current) use of opiate analgesic; Z79.01 Long term (current) use of anticoagulants; Z90.49 Acquired absence of other specified parts of digestive tract; K59.09 Other constipation; Z87.891 Personal history of nicotine dependence; Z90.2 Acquired absence of lung [part of]
CPT/HCPCS: 36415; 36416; 74177; 80048; 80053; 81003; 82962; 83605; 83690; 83735; 85025; 93005; 94640; 94660; 96372; 96374; 99285; J1815 ×2; J2405; J2543; J7040; Q9967

== ENCOUNTER 2021-01-25 09:58 | Observation (INO) | payer OTHER, MEDICARE, SELFPAY ==
[2021-01-25] VITALS (7 sets, daily range): BP systolic 113–136; BP diastolic 54–89; PULSE 66–97; RESP 16–20; TEMP 36.6–37; O2SAT 16–98; BMI 37.3
--- NOTE | 2021-01-25 10:55 | ED_ITS ---
Documented by User: PANKAJ Guillen 01/25/21 13:20 HPI - Abdominal Pain General: Chief Complaint: Abdominal Pain Stated Complaint: ABD PAIN Time Seen by Provider: 01/25/21 10:55 Source: patient Mode of arrival: ambulatory Limitations: no limitations History of Present Illness: HPI narrative: 76-year-old male patient comes in with right lower quadrant abdominal pain today. Patient was seen on 10 January for similar complaints and was diagnosed with a partial bowel obstruction at that time. Patient was treated with fluids and monitoring until obstruction resolved with bowel movement. Patient has continued with fluids and laxatives at home up until the last 2 days which he has felt like he is backed up again. Patient comes in for worsening right lower quadrant abdominal pain. MD elicited complaint: abdominal pain Pertinent past history: constipation Onset (ago): day(s) Pain Consistency: constant Location: RLQ Severity: severe Quality: aching and fullness Radiation: RLQ Migration to: no migration Exacerbating factors: nothing Relieving factors: nothing Associated Symptoms: Reports bloating and change in bowel habits Review of Systems General: Reports: 10 or more systems reviewed and unremarkable except in HPI and below GI: Reports: bloating and change in bowel habits PFSH ED PFSH: Medical History Accelerated essential hypertension AF (atrial fibrillation) Apnea, sleep Bronchiectasis, uncomplicated Chronic obstructive pulmonary disease, unspecified Colon cancer Cyst of pancreas Hyperlipidemia, unspecified Incisional hernia Osteoarthritis of right knee Post-traumatic stress disorder, unspecified Postlaminectomy syndrome Right renal stone Spinal stenosis, lumbar region without neurogenic claudication Type 2 diabetes mellitus without complications Surgical History H/O colonoscopy 2017 & 11/12/19: Multiple tubular adenoma, follow-up colonoscopy in 3 years H/O esophagogastroduodenoscopy 11/12/2019: Hyperplastic polyp, gastritis H/O shoulder surgery History of colon resection x2 History of lumbar fusion History of surgical procedure on eye proper using laser History of tonsillectomy and adenoidectomy S/P partial lobectomy of lung Family History Brother Diabetes Hypertension Father Cancer Sister Cancer Other CAD (coronary artery disease) Stroke Denies family history of Anesthesia complication Bleeding disorder Social History Smoking and tobacco status: former smoker Quit status (tobacco): has quit using tobacco Year quit tobacco: 1970 - PPD x 13 Years Alcohol intake: current Alcohol intake frequency: holidays/special occasions only Lives independently: Yes Household members: spouse Marital status: service: Yes Current occupational status: retired History of recent travel: No Current gender identity: Male Physical Exam Const: COMMON NORMALS: no acute distress and patient oriented x3 GENERAL APPEARANCE: cooperative HENMT: COMMON NORMALS: normocephalic and Normal external nose present HEAD & SCALP: normal to inspection and normocephalic NOSE: Normal external nose present MOUTH: Normal oral and palatal mucosa present Eye: GENERAL EYE: appearance normal, both eyes and all related structures Neck/C-Spine: COMMON NORMALS: full ROM Lymph: LYMPHATIC: no lymphadenopathy noted Chest: COMMONS NORMALS: normal inspection of the chest Resp: COMMON NORMALS: normal respiratory effort EFFORT & INSPECTION: Yes able to speak in complete sentences Cardio: COMMON NORMALS: regular rate and regular rhythm RATE: regular rate RHYTHM: regular rhythm GI: COMMON NORMALS: Soft to palpation INSPECTION: Yes other (Multiple scars from surgeries, implanted device to the right mid abdomen) PALPATION: Yes Soft to palpation and Yes Tenderness to palpation present (GI) : COMMON NORMALS: Yes no CVA tenderness BLADDER/KIDNEY EXAM: Yes no CVA tenderness Back/Pelvis: COMMON NORMALS: no CVA tenderness and thoracic and lumbar spine normal to inspection Extremity: COMMON NORMALS: normal to inspection Neuro: COMMON NORMALS: patient oriented x3 and moves all extremities Psych: COMMON NORMALS: mental status grossly normal and cooperative Skin: COMMON NORMALS: no rashes or lesions noted GENERAL SKIN EXAM: no rashes or lesions noted Course ED course: [address] Hathaway who agreed to assume care of patient for admission to hospital due to small bowel obstruction with mesenteric inflammation. Vital Signs: Vital signs: Vital Signs Temperature 97.9 F 01/25/21 10:06 Pulse Rate 91 01/25/21 10:06 Respiratory Rate 18 01/25/21 11:18 Blood Pressure 136/89 01/25/21 10:06 Pulse Oximetry 96 01/25/21 10:06 MDM - Abdominal Pain MDM Narrative: Medical decision making narrative: Patient comes in today for complaints of abdominal pain and difficulty having bowel movement. Patient has a soft abdomen with generalized tenderness. Bowel sounds are decreased. Vital signs are normal. Patient appears in mild to moderate pain. Differential diagnosis includes not limited to bowel obstruction, gastroenteritis, constipation. CT scan noted a small bowel obstruction with mesenteric inflammation. Patient has some mild leukocytosis at 13,000, blood glucose was 237, creatinine was 1.2, sodium was 139. Reviewed the exam with Dr. Hathaway who felt the patient probably need to be admitted for further evaluation and treatment of surgery. Lab Data: Labs: Lab Results 01/25/21 01/25/21 01/25/21 Range/Units 10:40 10:40 10:40 WBC 13.9 H (4.0-10.0) 10^3/ uL RBC 4.34 (4.1-5.3) 10^6/u L Hgb 13.1 (11.7-16.6) g/dL Hct 42.3 (42.0-52.0) % MCV 97.5 H (80-94) fL MCH 30.2 (28.0-34.0) pg MCHC 31.0 (30.0-36.0) g/dL RDW 15.7 H (12.1-15.1) % Plt Count 215 (130-400) 10^3/c mm MPV 12.0 H (7.4-10.4) fL Neut % (Auto) 74.6 % Lymph % (Auto) 14.9 % [place] % (Auto) 8.8 % Eos % (Auto) 0.7 % Baso % (Auto) 0.4 % Neut # (Auto) 10.39 H (1.8-7.7) 10^3/u L Lymph # (Auto) 2.1 (0.8-4.8) 10^3/u L [place] # (Auto) 1.2 H (0.2-0.9) 10^3/u L Eos # (Auto) 0.1 (0.0-0.8) 10^3/u L Baso # (Auto) 0.1 (0.0-0.1) 10^3/u L Nucleated RBC % (a uto) 0 % Nucleated RBCs # 0.0 /100WBC Sodium 139 (136-145) mmol/L Potassium 3.9 (3.5-5.1) mmol/L Chloride 93 L (98-107) mmol/L Carbon Dioxide 36 H (22-29) mmol/L Anion Gap 13.9 (5-19) BUN 33 H (8-23) mg/dL Creatinine 1.2 (0.7-1.2) mg/dL GFR Calculation Not Reportable Glucose 237 H (65-115) mg/dL Calculated Osmolal ity 303 H (285-295) mOsm/k g Lactic Acid 1.6 (0.5-2.2) mmol/L Calcium 9.3 (8.5-10.5) mg/dL Total Bilirubin 0.4 (0.15-1.2) mg/dL AST 21 (0-40) U/L ALT 18 (0-41) U/L Alkaline Phosphata se 71 (40-130) IU/L Total Protein 7.4 (6.6-8.7) g/dL Albumin 4.4 (3.5-5.2) g/dL Globulin 3.0 (1.3-4.6) g/dL Lipase 26 (13-60) U/L Discharge Plan Discharge Patient Disposition: Placed in Observation Clinical Impression: Partial small bowel obstruction Sign Out Sign Out Data: Sign Out Comment: Patient needs admission for further evaluation regarding abnormal CT scan with a small bowel obstruction with signs of inflammation in the mesenterary Last updated by Hardeep Velarde FNP at 01/25/21 13:17 Coding Level of Care Code ED Robotics Software Engineer for Chg Fwd Exam Comprehensive Documented by User: Sylvester Waller MD 01/25/21 14:13 HPI - Abdominal Pain General: Chief Complaint: Abdominal Pain Stated Complaint: ABD PAIN Time Seen by Provider: 01/25/21 10:55 PFSH ED PFSH: Medical History Accelerated essential hypertension AF (atrial fibrillation) Apnea, sleep Bronchiectasis, uncomplicated Chronic obstructive pulmonary disease, unspecified Colon cancer Cyst of pancreas Hyperlipidemia, unspecified Incisional hernia Osteoarthritis of right knee Post-traumatic stress disorder, unspecified Postlaminectomy syndrome Right renal stone Spinal stenosis, lumbar region without neurogenic claudication Type 2 diabetes mellitus without complications Surgical History H/O colonoscopy 2016 & 11/12/19: Multiple tubular adenoma, follow-up colonoscopy in 3 years H/O esophagogastroduodenoscopy 11/12/2019: Hyperplastic polyp, gastritis H/O shoulder surgery History of colon resection x2 History of lumbar fusion History of surgical procedure on eye proper using laser History of tonsillectomy and adenoidectomy S/P partial lobectomy of lung Family History Brother Diabetes Hypertension Father Cancer Sister Cancer Other CAD (coronary artery disease) Stroke Denies family history of Anesthesia complication Bleeding disorder Social History Smoking and tobacco status: former smoker Quit status (tobacco): has quit using tobacco Year quit tobacco: 1970 - PPD x 13 Years Alcohol intake: current Alcohol intake frequency: holidays/special occasions only Lives independently: Yes Household members: spouse Marital status: service: Yes Current occupational status: retired History of recent travel: No Current gender identity: Male Course Vital Signs: Vital signs: Vital Signs Temperature 97.9 F 01/25/21 10:06 Pulse Rate 91 01/25/21 10:06 Respiratory Rate 18 01/25/21 11:18 Blood Pressure 136/89 01/25/21 10:06 Pulse Oximetry 96 01/25/21 10:06 MDM - Abdominal Pain MDM Narrative: Medical decision making narrative: Christin: I saw this patient and evaluated him. He has an abdominal hernia with partial small bowel obstruction. He was seen in the ED by Dr. Diaz who recommended keeping him observation. Discussed with Dr. Bowling who accepts Lab Data: Labs: Lab Results 01/25/21 01/25/21 01/25/21 Range/Units 10:40 10:40 10:40 WBC 13.9 H (4.0-10.0) 10^3/ uL RBC 4.34 (4.1-5.3) 10^6/u L Hgb 13.1 (11.7-16.6) g/dL Hct 42.3 (42.0-52.0) % MCV 97.5 H (80-94) fL MCH 30.2 (28.0-34.0) pg MCHC 31.0 (30.0-36.0) g/dL RDW 15.7 H (12.1-15.1) % Plt Count 215 (130-400) 10^3/c mm MPV 12.0 H (7.4-10.4) fL Neut % (Auto) 74.6 % Lymph % (Auto) 14.9 % [place] % (Auto) 8.8 % Eos % (Auto) 0.7 % Baso % (Auto) 0.4 % Neut # (Auto) 10.39 H (1.8-7.7) 10^3/u L Lymph # (Auto) 2.1 (0.8-4.8) 10^3/u L [place] # (Auto) 1.2 H (0.2-0.9) 10^3/u L Eos # (Auto) 0.1 (0.0-0.8) 10^3/u L Baso # (Auto) 0.1 (0.0-0.1) 10^3/u L Nucleated RBC % (a uto) 0 % Nucleated RBCs # 0.0 /100WBC Sodium 139 (136-145) mmol/L Potassium 3.9 (3.5-5.1) mmol/L Chloride 93 L (98-107) mmol/L Carbon Dioxide 36 H (22-29) mmol/L Anion Gap 13.9 (5-19) BUN 33 H (8-23) mg/dL Creatinine 1.2 (0.7-1.2) mg/dL GFR Calculation Not Reportable Glucose 237 H (65-115) mg/dL Calculated Osmolal ity 303 H (285-295) mOsm/k g Lactic Acid 1.6 (0.5-2.2) mmol/L Calcium 9.3 (8.5-10.5) mg/dL Total Bilirubin 0.4 (0.15-1.2) mg/dL AST 21 (0-40) U/L ALT 18 (0-41) U/L Alkaline Phosphata se 71 (40-130) IU/L Total Protein 7.4 (6.6-8.7) g/dL Albumin 4.4 (3.5-5.2) g/dL Globulin 3.0 (1.3-4.6) g/dL Lipase 26 (13-60) U/L Discharge Plan Discharge Patient Disposition: Placed in Observation Clinical Impression: Partial small bowel obstruction Sign Out Sign Out Data: Sign Out Comment: Patient needs admission for further evaluation regarding abnormal CT scan with a small bowel obstruction with signs of inflammation in th e mesenterary Last updated by Hardeep Velarde FNP at 01/25/21 13:17 Coding Level of Care Code ED Robotics Software Engineer for Juvenal Fwd Exam Comprehensive
--- NOTE | 2021-01-25 10:56 | CTR_ITS ---
PROCEDURE INFORMATION: Exam: CT Abdomen And Pelvis With Contrast Exam date and time: 01/25/2021 11:48 AM Age: 76 years old Clinical indication: Abdominal pain; Localized; Lower; Prior surgery; Surgery type: Back, colon resection; Additional info: Rlq pain, bowel resection, TECHNIQUE: Imaging protocol: Computed tomography of the abdomen and pelvis with contrast. Radiation optimization: All CT scans at this facility use at least one of these dose optimization techniques: automated exposure control; mA and/or kV adjustment per patient size (includes targeted exams where dose is matched to clinical indication); or iterative reconstruction. Contrast material: VISI 320; Contrast volume: 95 ml; Contrast route: INTRAVENOUS (IV); COMPARISON: CT abdomen pelvis w con* [id number] 01/08/2021 6:02 PM RADIATION DOSE METRICS: Total DLP (mGy-cm): 1892.9 FINDINGS: Lungs: Unchanged bibasilar consolidation is present, consistent with atelectasis, edema, or pneumonia. Underlying severe emphysematous changes, fibrosis and bronchiectasis are noted. Unchanged pulmonary nodules including the 8 mm nodule right lung image 8. Pleural spaces: There is a small to moderate sized right pleural effusion larger than the prior exam. Heart: The heart is enlarged. There is a small pericardial fluid collection present. Liver: Unremarkable.No mass. Gallbladder and bile ducts: Normal. No calcified stones. No ductal dilation. Pancreas: Unchanged 1.9 x 1.1 cm hypodense nodule in the pancreas image 27. The remaining pancreas is unremarkable. Spleen: Normal. No splenomegaly. Adrenal glands: Normal. No mass. Kidneys and ureters: There is no evidence of hydronephrosis. There are multiple renal hypodensities that cannot be further characterized on the current examination. There is a 3.0 cm lower pole simple cyst in the right kidney. No follow-up is necessary. There is unchanged nonobstructive right nephrolithiasis with a 5 mm lower pole calculus. Stomach and bowel: Postoperative changes of partial colectomy and bowel anastomosis are noted. Fluid-filled dilated loops of small bowel compatible with partial small bowel obstruction with small bowel feces sign continues with unchanged transverse maximal measurement of 4.2 cm. The haziness of the fat adjacent to the loops of small bowel and transition zone has progressed slightly. The loops of small bowel distal to the transition zone are collapsed. Appendix: A normal appendix is identified. Intraperitoneal space: There is a ventral hernia containing nonobstructed segment of colon and adjacent more indurated mesenteric fat. There is no pneumatosis or free air. Vasculature: The aorta is normal. Lymph nodes: Unremarkable.No enlarged lymph nodes. Urinary bladder: There is nonspecific bladder wall thickening. This may be related to incomplete distention. Reproductive: The prostate demonstrates moderate nonspecific enlargement. The seminal vesicles are normal. Bones/joints: There is a satisfactory appearance of the postoperative changes in the lower lumbar spine. No acute bony abnormality. Soft tissues: The transition zone is just deep to the ventral hernia series [address]/CT abdomen pelvis w con* [id number] IMPRESSION: 1. Continued partial small bowel obstruction with abrupt transition zone just deep to the ventral hernia. The segment of colon within the hernia is not thickened or obstructed but the loop of small bowel just deep to this is thick wall, enhancing with small bowel feces sign in induration of the mesenteric fat just right of the colon at the site of obstruction. 2. Unchanged bibasilar consolidation is present, consistent with atelectasis, edema, or pneumonia. Larger right pleural effusion. Unchanged 8 mm nodule right lung.For patients at low risk (minimal or absent history of smoking and of other known risk factors), recommend CT Chest at 6-12 months, then consider CT Chest at 18-24 months. For patients at high risk (history of smoking or of other known risk factors), recommend CT Chest at 6-12 months, then CT Chest at 18-24 months. (Reference: Amena) 3. Unchanged low density structure in the head of the pancreas.Reimaging every 1 year for 5 years, then every 2 years for 4 years is recommended. Alternatively, EUS/FNA is recommended. (Reference: Atif, 2017) COMMENTS: Consistent with the [employer]'s Incidental Findings Committee white paper (J Am Kell Radiol 2018): Any incidental renal lesion less than 1 cm or classified as too small to characterize, or any incidental cystic renal lesion characterized as simple-appearing, is likely benign. No follow-up imaging is recommended for these lesions per consensus recommendations based on imaging criteria. REFERENCES: 1. Amena Blackmon, et al. Guidelines for Management of Incidental Pulmonary Nodules Detected on CT Images: From the Fleischner Society 2017. Radiology. 2017;284(1):228-243. 2. Atif ELLIS, et al. Management of Incidental Pancreatic Cysts: A White Paper of the ACR Incidental Findings Committee. J Am Kell Radiol. 2017;14(7):911-923. Radiation Dose CTDIVOL = (mGy): DLP = 1892.9 (mGy-cm)
[2021-01-25] MEDS: HYDROmorphone 1 mg/mL INJ 1 mL 0.5 MG IVP (11:18)
[2021-01-25] MEDS: sodium chloride 0.9% 500 ML IV (11:18)
[2021-01-25] MEDS: ondansetron 2 mg/ML SDV 2 mL 4 MG IVP (11:18)
[2021-01-25 11:30] LABS: Basophils # 0.1 10^3/uL (0.0-0.1); Basophils % 0.4 %; Eosinophils # 0.1 10^3/uL (0.0-0.8); Eosinophils % 0.7 %; Hematocrit 42.3 % (42.0-52.0); Hemoglobin 13.1 g/dL (11.7-16.6); Lymphocytes # 2.1 10^3/uL (0.8-4.8); Lymphocytes % 14.9 %; Mean Corpuscular Hemoglobin 30.2 pg (28.0-34.0); Mean Corpuscular Volume 97.5 fL (80-94); Monocytes # 1.2 10^3/uL (0.2-0.9); Monocytes % 8.8 %; Neutrophils # 10.39 10^3/uL (1.8-7.7); Neutrophils % 74.6 %; Nucleated Red Blood Cells % 0 %; Platelet Count 215 10^3/cmm (130-400); Red Blood Count 4.34 10^6/uL (4.1-5.3); Red Cell Distribution Width 15.7 % (12.1-15.1); White Blood Count 13.9 10^3/uL (4.0-10.0)
[2021-01-25 11:43] LABS: Alanine Aminotransferase 18 U/L (0-41); Albumin Level 4.4 g/dL (3.5-5.2); Alkaline Phosphatase 71 IU/L (40-130); Anion Gap 13.9 (5-19); Aspartate Amino Transferase 21 U/L (0-40); Blood Urea Nitrogen 33 mg/dL (8-23); Calcium 9.3 mg/dL (8.5-10.5); Carbon Dioxide 36 mmol/L (22-29); Chloride 93 mmol/L (98-107); Glucose 237 mg/dL (65-115); Lipase 26 U/L (13-60); Osmolality Calculated 303 mOsm/kg (285-295); Potassium 3.9 mmol/L (3.5-5.1); Sodium 139 mmol/L (136-145); Total Bilirubin 0.4 mg/dL (0.15-1.2); Total Protein 7.4 g/dL (6.6-8.7)
[2021-01-25] MEDS: iodixanol 320 mg/mL 100mL Btl IV (12:08)
[2021-01-25 13:53] LABS: Lactic Sepsis W/Reflex 1.6 mmol/L (0.5-2.2)
--- NOTE | 2021-01-25 14:18 | PM.CONSULT ---
Providers/Reason For Consult Consulting Physican/Specialty*: General Surgery Galdino Diaz MD Reason for Consult*: Incarcerated incisional hernia with bowel obstruction. Primary Care Provider: Stevan Pal DO History of Present Illness History of Present Illness Ambrocio Tinoco is a 76 year old male who says that he awoke around 3 AM today with pain around his umbilical region and across the lower abdomen. He felt like he may be getting constipated and so he drank some magnesium citrate around 6 AM. This is not normal for him, but he usually does take stool softeners. He says around 8 AM he vomited some bilious material and feels like he vomited all of the magnesium citrate back up. He came to the emergency room and a CAT scan showed a an incarcerated incisional hernia containing transverse colon without obstruction, but with a probable resulting partial small bowel obstruction from the same. The patient has had some pain medication and antiemetics, and currently says he is feeling much better. He had a normal bowel movement yesterday A.M. He says he is not aware of any flatus that he has passed today. The patient was just admitted 2 weeks ago for a similar occurrence. He was treated conservatively at that time. He has a subjectively known history of an incisional hernia for perhaps 4 years. It sounds like he has been aware that it has been poking out almost that entire time and he never really tries to reduce it. Review of Systems General: Reports: 10 or more systems reviewed and unremarkable except in HPI and below Const: Reports: change in weight (Has intentionally lost over 50 pounds over the past year); Denies: fever(s) GI: Reports: abdominal pain (Now resolved, but the patient has had pain medication), nausea and vomiting (Now resolved, but the patient has had antiemetics) Meds/Allergies Home Medications and Allergies Home Medications Medication Instructions Recorded Confirmed Last Taken Type furosemide 80 mg tablet 80 mg PO BID 09/24/19 01/08/21 01/08/21 09:00 History hydralazine 25 mg tablet 25 mg PO BID tab 09/24/19 01/08/21 01/08/21 09:00 History hydrocodone 5 mg-acetaminophen 325 1 tab PO PRN tab 09/24/19 01/08/21 11/22/19 History mg tablet insulin glargine 100 unit/mL 46 unit SUBCUT BEDTIME ml 09/24/19 01/08/21 06/16/20 History subcutaneous solution potassium chloride 20 mEq 10 meq PO BID tab 09/24/19 01/08/21 01/08/21 09:00 History tablet,extended release rosuvastatin 10 mg tablet 10 mg PO QPM tab 09/24/19 01/08/21 01/07/21 History spironolactone 25 mg tablet 25 mg PO DAILY tab 09/24/19 01/08/21 06/16/20 History metolazone 2.5 mg tablet 2.5 mg PO DAILY #30 tab 10/18/19 01/08/21 01/08/21 09:00 Rx metoprolol tartrate 50 mg tablet 75 mg PO BID #90 tab 10/19/19 01/08/21 01/08/21 09:00 Rx methocarbamol 750 mg tablet 750 mg PO QID PRN 10/29/19 01/08/21 11/17/19 History pantoprazole [Protonix] 40 mg PO QAM 11/09/19 01/08/21 01/08/21 09:00 History Spiriva Respimat 2 puff INHALATION BID 11/19/19 01/08/21 06/16/20 History glucose 4 g PO Q15M PRN 11/19/19 01/08/21 Unknown History apixaban 5 mg tablet 5 mg PO BID 01/29/20 01/08/21 01/08/21 09:00 History budesonide-formoterol HFA 160 1 puff INHALATION BID 01/29/20 01/08/21 06/16/20 History mcg-4.5 mcg/actuation aerosol inhaler guaifenesin 400 mg tablet 800 mg PO BID tab 01/29/20 01/08/21 01/08/21 09:00 History ferrous sulfate 325 mg (65 mg 325 mg PO QPM tab 04/10/20 01/08/21 01/07/21 History iron) tablet Ozempic 1 mg SUBCUT Q7D 06/16/20 01/08/21 01/01/21 History albuterol sulfate 2 puff INHALATION QID PRN 06/16/20 01/08/21 06/16/20 History allopurinol 300 mg PO QAM 06/16/20 01/08/2121 History ipratropium-albuterol 3 ml INHALATION QID PRN 06/16/20 01/08/21 06/16/20 History diltiazem HCl 30 mg PO BID #60 tab 06/18/20 01/08/21 01/08/21 09:00 Rx triamcinolone acetonide 0.025 % 1 applic TOPICAL DAILY 11/03/20 01/08/21 Unknown History topical cream tobramycin 300 mg/4 mL solution 300 mg INHALATION BID 28 Days #224 12/01/20 01/08/21 01/03/21 Rx for nebulization ml Chocolate Laxative 15 - 30 mg PO PRN 01/08/21 01/08/21 01/08/21 History Novolog U-100 Insulin aspart See Rx Instructions .ROUTE .COMPLEX 01/08/21 01/08/21 01/08/21 09:00 History 26 units Otezla 30 mg PO BID 01/08/21 01/08/21 01/08/21 09:00 History Senna-S 2 tab PO BID PRN 01/08/21 01/08/21 01/08/21 History Vitamin D3 50 mcg PO DAILY 01/08/21 01/08/21 Unknown History clobetasol 1 applic TOPICAL DAILY 01/08/21 01/08/21 Unknown History ketoconazole 1 applic TOPICAL . DIRECTED 01/08/21 01/08/21 Unknown History psyllium husk (with sugar) 1 packet PO BID #60 ea 01/10/21 Unknown Rx [Metamucil (with sugar)] Allergies Allergy/AdvReac Type Severity Reaction Status Date / Time naproxen Allergy Intermediate ALGY-Rash Verified 01/25/21 10:11 amoxicillin AdvReac Intermediate Itching Verified 01/25/21 10:11 morphine AdvReac Intermediate ADR-Vomitin Verified 01/25/21 10:11 g PFSH Acute PFSH: Medical History (Updated 01/25/21 @ 14:22 by Galdino Diaz MD) Accelerated essential hypertension AF (atrial fibrillation) Apnea, sleep Bronchiectasis, uncomplicated Chronic obstructive pulmonary disease, unspecified Colon cancer Cyst of pancreas Hernia Hyperlipidemia, unspecified Incisional hernia Osteoarthritis of right knee Post-traumatic stress disorder, unspecified Postlaminectomy syndrome Respiratory failure with hypoxia and hypercapnia Right renal stone Small bowel obstruction Spinal stenosis, lumbar region without neurogenic claudication Type 2 diabetes mellitus without complications Surgical History (Updated 01/25/21 @ 14:22 by Galdino Diaz MD) H/O colonoscopy 2016 & 11/12/19: Multiple tubular adenoma, follow-up colonoscopy in 3 years H/O esophagogastroduodenoscopy 11/12/2019: Hyperplastic polyp, gastritis H/O shoulder surgery Bilateral History of back surgery Dorsal column stimulator placement /multiple IPG exchanges History of colon resection for sigmoid colon cancer x2 --2012 in [place], 2014 in [place] ( they did not get it all the first time ) History of lumbar fusion X6 procedures altogether History of surgical procedure on eye proper using laser Bilateral /bilateral cataract extraction History of tonsillectomy and adenoidectomy S/P partial lobectomy of lung Left lower lobe for bronchiectasis Family History (Updated 01/25/21 @ 14:36 by Galdino Diaz MD) Brother Diabetes Hypertension Father Cancer Leukemia Sister Lung cancer Cancer Breast cancer in 2 sisters Other CAD (coronary artery disease) Stroke Denies family history of Anesthesia complication Bleeding disorder Social History Smoking and tobacco status: former smoker Quit status (tobacco): has quit using tobacco Year quit tobacco: 1970 - PPD x 13 Years Alcohol intake: current Alcohol intake frequency: holidays/special occasions only Lives independently: Yes Household members: spouse Marital status: service: Yes Current occupational status: retired History of recent travel: No Current gender identity: Male Vitals/I&O/Wt Last Vital Signs Temp 97.9 F 01/25/21 10:06 Pulse 91 01/25/21 10:06 Resp 18 01/25/21 11:18 BP 136/89 01/25/21 10:06 Pulse Ox 96 01/25/21 10:06 Weight last 48 hrs Weight 260 lb Physical Exam Narrative: EXAM NARRATIVE: The patient was examined in his room in the emergency department. He does not appear to be in any acute distress. His is present. The pupils are equal. No carotid bruits are heard. The patient has a few scattered rhonchi on auscultation anteriorly. Posteriorly he may have some diminished air movement in the right base. The heart is regular. The abdomen is obese but is soft. He has a healed midline incision but an obvious hernia to the right side of midline above the level of the umbilicus. This is very soft and I feel like I can reduce the contents but it appears that some of these are at least partially scarred into the defect as they immediately fill back up with their. The entire area of the hernia is nontender. He has an IPG for his DCS on the right side of the abdomen anterolaterally. The extremities reveal no significant edema. Neurologically the patient appears to be grossly intact. Data Imaging^: CT Abd/Pel: Radiologist's impression: CT abdomen/pelvis 01/25/2021 IMPRESSION: 1. Continued partial small bowel obstruction with abrupt transition zone just deep to the ventral hernia. The segment of colon within the hernia is not thickened or obstructed but the loop of small bowel just deep to this is thick wall, enhancing with small bowel feces sign in induration of the mesenteric fat just right of the colon at the site of obstruction. 2. Unchanged bibasilar consolidation is present, consistent with atelectasis, edema, or pneumonia. Larger right pleural effusion. Unchanged 8 mm nodule right lung.For patients at low risk (minimal or absent history of smoking and of other known risk factors), recommend CT Chest at 6-12 months, then consider CT Chest at 18-24 months. For patients at high risk (history of smoking or of other known risk factors), recommend CT Chest at 6-12 months, then CT Chest at 18-24 months. (Reference: Amena) 3. Unchanged low density structure in the head of the pancreas.Reimaging every 1 year for 5 years, then every 2 years for [address] abdomen/pelvis 01/08/2021 IMPRESSION: 1. Ectatic mid and distal jejunal and proximal ileal small bowel loops with concern for small bowel obstruction, potential closed-loop obstruction. 2. Right periumbilical ventral hernia containing incarcerated a short segment of transverse colon without obstruction. 3. Again note of a low-density structure head of the pancreas measuring 19 mm x 11 mm x [address] attenuation values suggest cyst. Reimaging every 6 months for 2 years, then every 1 year for 2 years, then every 2 years for 6 years is recommended. Alternatively, endoscopic ultrasound with fine needle aspiration is recommended. (Reference: Atif, 2017). 4. Chronic multiloculated moderate volume right pleural effusion. 5. Stable 8 mm right middle lobe pulmonary nodule since last evaluation. For patients at low risk (minimal or absent history of smoking and of other known risk factors), recommend CT Chest at 6-12 months, then consider CT Chest at 18-24 months. For patients at high risk (history of smoking or of other known risk factors), recommend CT Chest at 6-12 months, then CT Chest at 18-24 months. A&P Assessment and plan (1) Partial small bowel obstruction: CT reviewed. I agree with the assessment of at least a partial small bowel obstruction. It looks like he has a loop of transverse colon in his hernia, but there may be a small knuckle of small bowel that is involved at the inferomedial aspect. On exam, these contents seem to be reducible and soft, but at least part of the wall of the colon is probably adhesed in the defect as I cannot get the contents to stay reduced. Status: Acute (2) Incarcerated incisional hernia: This has been present for approximately 4 years. We talked about what it would take to have it repaired. The patient is going to be following up with his physicians in [place] at the [place] within the next month. He would like to discuss this further with them. Status: Acute Consult Attestations Medical Necessity Statement: See admitting service's notation. Coding Level of Care Code Acute Philanthropy Officer for [facility] Fwd Diagnoses Partial small bowel obstruction K56.600 Incarcerated incisional hernia K43.0
[2021-01-25 15:53] LABS: Add Urine Microscopic? NO; Charge for UA Resulting for Rev
[2021-01-25 16:05] LABS: Bilirubin Urine Neg (Negative); Blood Urine Neg (Negative); Glucose Urine UA Norm (Normal); Ketones Urine Negative (Negative); Leukocyte Esterase Urine Negative (Negative); Nitrate Urine Negative (Negative); Protein Urine Neg (Negative); Urine Appearance Clear (CLEAR); Urine Color Yellow (Yellow); Urobilinogen Urine Norm (Negative); pH Urine 7 (5-7)
--- NOTE | 2021-01-25 16:08 | PC.NURSE ---
Report called to Nina LEIVA on Med Surg.
--- NOTE | 2021-01-25 17:21 | P.HP_ITS ---
Providers/Chief Complaint Admitting Physician: Dionisio Bowling MD Primary Care Provider: Stevan Pal DO Chief Complaint: ABD PAIN History of Present Illness Ambrocio Tinoco is a 76 year old male with multiple comorbid conditions, including , COPD on 4 L home oxygen, A. fib, on chronic anticoagulation, sleep apnea, history of colon cancer, diabetes, hypertension, incisional hernia, spinal stenosis, spinal stimulator, Osteoarthritis of right knee, came in with chief complaint of , worsening abdominal pain, started early this morning around 3 AM around his umbilical region, and lower abdomen, he took magnesium citrate for that as he thought that it is due to constipation around 6 am, he also started throwing bilious material . When the pain progressively worsened he decided to come to the hospital. Upon arrival in the ER he was worked up for the above-mentioned complaint. Imaging studies: CT abdomen pelvis w con: Continued partial small bowel obstruction with abrupt transition zone just deep to the ventral hernia. The segment of colon within the hernia is not thickened or obstructed but the loop of small bowel just deep to this is thick wall, enhancing with small bowel feces sign in induration of the mesenteric fat just right of the colon at the site of obstruction. patient was just admitted 2 weeks ago for a similar occurrence. He was treated conservatively at that time. He has a subjectively known history of an incisional hernia for perhaps 4 years. Review of Systems Const: Denies: fever(s), chills, body aches, change in appetite or diaphoresis Card: Denies: palpitations, edema, swelling of feet/ankles, dyspnea on exertion, orthopnea or leg pain with exertion Resp: Denies: pain on inspiration : Denies: flank pain or difficulty urinating Musc: Denies: back pain, extremity pain or extremity swelling Neuro: Denies: headache(s), difficulty walking or confusion Medications/Allergies Home Medications Medication Instructions Recorded Confirmed Last Taken Type furosemide 80 mg tablet 80 mg PO BID@0700,1700 09/24/19 01/25/21 01/24/21 History hydralazine 25 mg tablet 25 mg PO BID@0700,1700 tab 09/24/19 01/25/21 01/24/21 History hydrocodone 5 mg-acetaminophen 325 1 tab PO PRN tab 09/24/19 01/25/21 11/22/19 History mg tablet insulin glargine 100 unit/mL 46 unit SUBCUT BEDTIME ml 09/24/19 01/25/21 01/24/21 History subcutaneous solution potassium chloride 20 mEq 10 meq PO BID@0700,1700 tab 09/24/19 01/25/21 01/24/21 History tablet,extended release rosuvastatin 10 mg tablet 10 mg PO BEDTIME@1700 tab 09/24/19 01/25/21 01/24/21 History spironolactone 25 mg tablet 25 mg PO DAILY@0700 tab 09/24/19 01/25/21 01/24/21 History methocarbamol 750 mg tablet 750 mg PO QID PRN 10/29/19 01/25/21 11/17/19 History pantoprazole [Protonix] 40 mg PO DAILY@0700 11/09/19 01/25/21 01/24/21 History Spiriva Respimat 2 puff INHALATION BID 11/19/19 01/25/21 01/24/21 History glucose 4 g PO Q15M PRN 11/19/19 01/25/21 Unknown History apixaban 5 mg tablet 5 mg PO BID@0700,1700 01/29/20 01/25/21 01/24/21 History budesonide-formoterol HFA 160 1 puff INHALATION BID@0700,1700 01/29/20 01/25/21 01/25/21 History mcg-4.5 mcg/actuation aerosol inhaler guaifenesin 400 mg tablet 800 mg PO BID@0700,1700 tab 01/29/20 01/25/21 01/24/21 History ferrous sulfate 325 mg (65 mg 325 mg PO DAILY@1700 tab 04/10/20 01/25/21 01/24/21 History iron) tablet Ozempic 1 mg SUBCUT Q7D 06/16/20 01/25/21 01/22/21 History albuterol sulfate 2 puff INHALATION QID PRN 06/16/20 01/25/21 01/25/21 History allopurinol 300 mg PO DAILY@0700 06/16/20 01/25/21 01/24/21 History ipratropium-albuterol 3 ml INHALATION QID PRN 06/16/20 01/25/21 01/24/21 History triamcinolone acetonide 0.025 % 1 applic TOPICAL DAILY@0700 11/03/20 01/25/21 01/24/21 History topical cream tobramycin 300 mg/4 mL solution 300 mg INHALATION BID 28 Days #224 12/01/20 01/25/21 01/03/21 Rx for nebulization ml Chocolate Laxative 15 - 30 mg PO PRN 01/08/21 01/25/21 01/08/21 History Otezla 30 mg PO BID@0700,1700 01/08/21 01/25/21 01/24/21 History cholecalciferol (vitamin D3) 50 mcg PO DAILY@0700 01/08/21 01/25/21 01/24/21 History [Vitamin D3] clobetasol 1 applic TOPICAL DAILY 01/08/21 01/25/21 01/24/21 History insulin aspart U-100 [Novolog See Rx Instructions .ROUTE .COMPLEX 01/08/21 01/25/21 01/08/21 09:00 History U-100 Insulin aspart] 26 units ketoconazole See Rx Instructions .ROUTE .COMPLEX 01/08/21 01/25/21 01/24/21 History sennosides-docusate sodium 2 tab PO BID@0700,1700 PRN 01/08/21 01/25/21 01/24/21 History [Senna-S] diltiazem HCl 30 mg PO BID@0700,1700 01/25/21 01/25/21 01/24/21 History metolazone 2.5 mg PO DAILY@0700 01/25/21 01/25/21 01/24/21 History metoprolol tartrate 75 mg PO BID@0700,1700 01/25/21 01/25/21 01/24/21 History psyllium husk (with sugar) 1 packet PO BID@0700,1700 01/25/21 01/25/21 01/24/21 History [Metamucil (with sugar)] Allergies Allergy/AdvReac Type Severity Reaction Status Date / Time naproxen Allergy Intermediate ALGY-Rash Verified 01/25/21 10:11 amoxicillin AdvReac Intermediate Itching Verified 01/25/21 10:11 morphine AdvReac Intermediate ADR-Vomitin Verified 01/25/21 10:11 g PFSH Acute PFSH: Medical History (Updated 01/25/21 @ 17:47 by Dionisio Bowling MD) Accelerated essential hypertension AF (atrial fibrillation) Apnea, sleep Bronchiectasis, uncomplicated Chronic obstructive pulmonary disease, unspecified Colon cancer Cyst of pancreas Hernia Hx of adenomatous polyp of colon Hyperlipidemia, unspecified Incisional hernia Osteoarthritis of right knee Post-traumatic stress disorder, unspecified Postlaminectomy syndrome Respiratory failure with hypoxia and hypercapnia Right renal stone Small bowel obstruction Spinal stenosis, lumbar region without neurogenic claudication Type 2 diabetes mellitus without complications Surgical History (Updated 01/25/21 @ 14:22 by Galdino Diaz MD) H/O colonoscopy 2016 & 11/12/19: Multiple tubular adenoma, follow-up colonoscopy in 3 years H/O esophagogastroduodenoscopy 11/12/2019: Hyperplastic polyp, gastritis H/O shoulder surgery Bilateral History of back surgery Dorsal column stimulator placement /multiple IPG exchanges History of colon resection for sigmoid colon cancer x2 --2012 in [place], 2014 in [place] ( they did not get it all the first time ) History of lumbar fusion X6 procedures altogether History of surgical procedure on eye proper using laser Bilateral /bilateral cataract extraction History of tonsillectomy and adenoidectomy S/P partial lobectomy of lung Left lower lobe for bronchiectasis Family History (Updated 01/25/21 @ 14:36 by Galdino Diaz MD) Brother Diabetes Hypertension Father Cancer Leukemia Sister Lung cancer Cancer Breast cancer in 2 sisters Other CAD (coronary artery disease) Stroke Denies family history of Anesthesia complication Bleeding disorder Social History Smoking and tobacco status: former smoker Quit status (tobacco): has quit using tobacco Year quit tobacco: 1970 - PPD x 13 Years Alcohol intake: current Alcohol intake frequency: holidays/special occasions only Lives independently: Yes Household members: spouse Marital status: service: Yes Current occupational status: retired History of recent travel: No Current gender identity: Male Vitals/I&O/Wt Last Vital Signs Temp 98.3 F 01/25/21 16:39 Pulse 66 01/25/21 16:39 Resp 16 01/25/21 16:39 BP 113/60 01/25/21 16:39 Pulse Ox 97 01/25/21 16:39 05/11/1601/25/21 01/25/21 06:59 14:59 22:59 Intake Total 500 / 500 Balance 500 / 500 Weight last 48 hrs Weight 117.934 kg Physical Exam Const: COMMON NORMALS: patient oriented x3 HENMT: COMMON NORMALS: normocephalic and atraumatic HEAD & SCALP: normocephalic and atraumatic Chest: CHEST: Yes Symmetrical chest wall rise Resp: COMMON NORMALS: normal respiratory effort and clear to auscultation bilaterally EFFORT & INSPECTION: Yes symmetric chest movement AUSCULTATION: clear to auscultation bilaterally Cardio: COMMON NORMALS: regular rate, regular rhythm, S1 normal heart sound present, S2 normal heart sound present, No gallops present (Cardio), No murmurs present (Cardio), No rub (Cardio) and Peripheral pulses 2+ throughout RATE: regular rate RHYTHM: regular rhythm HEART SOUNDS: S1 normal heart sound present and S2 normal heart sound present PERIPHERAL PULSES: Peripheral pulses 2+ throughout GI: COMMON NORMALS: Normal to inspection, nondistended, normoactive bowel sounds present, Soft to palpation, non-tender, No hepatosplenomegaly present and no masses AUSCULTATION: Yes normoactive bowel sounds PALPATION: Yes Soft to palpation and Yes No hepatosplenomegaly present RECTAL EXAM: Yes deferred Extremity: COMMON NORMALS: no clubbing, cyanosis or edema and no pedal edema Neuro: COMMON NORMALS: patient oriented x3 Data : 01/25/21 10:40 01/25/21 10:40 A&P Assessment and plan (1) Partial small bowel obstruction: Patient is currently passing gas, denies any abdominal pain nausea vomiting, abdominal examination is benign. Clear liquid diet IV hydration normal saline at 50 cc/hr Pain control Appreciate surgery recommendations Status: Acute (2) Incarcerated incisional hernia: Chronic incarcerated incisional hernia patient will follow-up with his physician in [place] Status: Acute (3) Chronic obstructive pulmonary disease, unspecified: Currently not in exacerbation DuoNebs as needed Supplemental oxygen Status: Acute Qualifiers: COPD type: unspecified COPD Qualified Code(s): J44.9 - Chronic obstructive pulmonary disease, unspecified (4) Atrial fibrillation: Currently rate controlled Cardizem 30 mg p.o. twice daily Metoprolol tartrate 75 mg p.o. twice daily Eliquis on hold Status: Acute (5) Heart failure with preserved ejection fraction: Currently compensated. Continue Lasix 80 mg p.o. twice daily Metolazone 2.5 mg p.o. daily Status: Acute Qualifiers: Heart failure chronicity: chronic Qualified Code(s): I50.32 - Chronic diastolic (congestive) heart failure (6) HTN (hypertension): Status: Acute Qualifiers: Hypertension type: essential hypertension Qualified Code(s): I10 - Essential (primary) hypertension Additional A&P Information CODE STATUS: Full code Attestations Medical Necessity Statement*: Patient needs to be in hospital for management of partial SBO.Anticipated length of stay less than 2 midnights. Coding Level of Care Code Acute [employer] [facility] Fwd Exam Detailed Diagnoses Partial small bowel obstruction K56.600 Incarcerated incisional hernia K43.0 Chronic obstructive pulmonary disease, unspecified J44.9 COPD type: unspecified COPD Atrial fibrillation I48.91 Heart failure with preserved ejection fraction I50.32 Heart failure chronicity: chronic HTN (hypertension) I10 Hypertension type: essential hypertension
[2021-01-25 17:43] LABS: Glucose Point of Care 160 mg/dL (70-110)
[2021-01-25] MEDS: sodium chloride 0.9% 1,000 ML 50 ML IV (17:53)
--- NOTE | 2021-01-25 19:46 | PC.NURSE ---
Report to Audrey RN at this time.
[2021-01-25 20:50] LABS: Glucose Point of Care 144 mg/dL (70-110)
--- NOTE | 2021-01-25 21:50 | PC.NURSE ---
Refused Insulin Kenny BS was 144, pt was to receive 2 units of insulin per sliding scale policy. Pt refused insulin stated due to being on a clear liquid diet he knew it would drop and he has a dexcom that will alert him when it gets too low. This nurse educated patient on the importance of his insulin and he stated my machine will let me know what I need to do.
[2021-01-26] VITALS: BP 118/66; PULSE 68; RESP 16; TEMP 36.2; O2SAT 98
[2021-01-26 04:00] VITALS: BP 122/71; PULSE 67; RESP 17; TEMP 36.5; O2SAT 99
[2021-01-26 04:52] LABS: Basophils % 0.4 %; Eosinophils # 0.2 10^3/uL (0.0-0.8); Eosinophils % 1.7 %; Hematocrit 36.2 % (42.0-52.0); Hemoglobin 11.1 g/dL (11.7-16.6); Mean Corpuscular HGB Conc 30.7 g/dL (30.0-36.0); Mean Corpuscular Hemoglobin 30.8 pg (28.0-34.0); Mean Corpuscular Volume 100.6 fL (80-94); Mean Platelet Volume 11.1 fL (7.4-10.4); Monocytes # 1.1 10^3/uL (0.2-0.9); Monocytes % 11.1 %; Neutrophils # 6.68 10^3/uL (1.8-7.7); Neutrophils % 66.3 %; Nucleated Red Blood Cells % 0 %; Platelet Count 178 10^3/cmm (130-400); Red Cell Distribution Width 15.6 % (12.1-15.1); White Blood Count 10.1 10^3/uL (4.0-10.0)
[2021-01-26 05:14] LABS: Anion Gap 9.9 (5-19); Blood Urea Nitrogen 26 mg/dL (8-23); Calcium 8.4 mg/dL (8.5-10.5); Carbon Dioxide 35 mmol/L (22-29); Chloride 100 mmol/L (98-107); Glucose 152 mg/dL (65-115); Osmolality Calculated 300 mOsm/kg (285-295); Potassium 3.9 mmol/L (3.5-5.1); Sodium 141 mmol/L (136-145)
--- NOTE | 2021-01-26 05:24 | PC.NURSE ---
shift summary Pt did well tonight. Slept all night with no complaints of pain. Pt. did refuse insulin at bedtime stated it was due to being on a clear liquid diet.
[2021-01-26] MEDS: metOLazone 5 MG Tablet 2.5 MG PO (06:15)
[2021-01-26] MEDS: psyllium powder Pkt 1 PACKET PO (06:15)
[2021-01-26] MEDS: dilTIAZem 30 mg Tablet PO (06:15)
[2021-01-26] MEDS: hyDRALAzine 25 mg Tablet PO (06:16)
[2021-01-26] MEDS: FUROsemide 40 mg Tablet 80 MG PO (06:16)
[2021-01-26] MEDS: allopurinol 300 mg Tablet PO (06:16)
[2021-01-26] MEDS: metoprolol tartrate 50 mg Tablet 75 MG PO (06:16)
[2021-01-26 06:31] LABS: Glucose Point of Care 167 mg/dL (70-110)
--- NOTE | 2021-01-26 06:43 | P.PN_ITS ---
Subjective Subjective: Interval history: The patient says he is feeling great. He is passing flatus. He has no abdominal pain this morning. He would like to eat. Vitals/I&O/Wt Last Vital Signs Temp 97.7 F 01/26/21 04:00 Pulse 67 01/26/21 04:00 Resp 17 01/26/21 04:00 BP 122/71 01/26/21 04:00 Pulse Ox 99 01/26/21 04:00 01/25/21 01/25/21 01/26/21 14:59 22:59 06:59 Intake Total 620 / 620 Output Total 1150 / 1150 Balance 620 / -530 -1150 / -530 Weight last 48 hrs Weight 260 lb Physical Exam Narrative: EXAM NARRATIVE: Abdomen remains nontender. Hernia remains essentially unchanged. Data : 01/26/21 04:09 01/26/21 04:09 A&P Assessment and plan (1) Partial small bowel obstruction: Seems to have resolved. Status: Acute (2) Incarcerated incisional hernia: The patient is going to discuss repair of this with his physicians in [place]. I am okay with the patient being discharged. He can return as needed but otherwise it sounds like he intends to get his medical care in [place]. Status: Acute Attestations Medical Necessity Statement*: See admitting service's notation. Coding Level of Care Code Acute Instructional Leader for Juvenal Orlando Diagnoses Partial small bowel obstruction K56.600 Incarcerated incisional hernia K43.0
[2021-01-26 08:00] VITALS: BP 126/61; PULSE 65; RESP 16; TEMP 36.3; O2SAT 97
[2021-01-26 10:18] VITALS: PULSE 70; RESP 18; O2SAT 95
[2021-01-26 11:44] VITALS: BP 137/62; PULSE 66; RESP 16; TEMP 36.5; O2SAT 99
[2021-01-26 11:56] LABS: Glucose Point of Care 276 mg/dL (70-110)
--- NOTE | 2021-01-26 12:31 | P.DS_ITS ---
Discharge Providers Date of Admission: 01/25/21 17:06 Date of Discharge: January 26, 2021 Attending Provider at Admission: Dionisio Bowling MD Attending Provider at Discharge: Everardo Cuellar MD Primary Care Provider: Stevan Pal DO Diagnoses at Discharge Discharge Diagnosis (1) Partial small bowel obstruction: Status: Acute (2) Incarcerated incisional hernia: Status: Acute Reason for Visit Reason for Visit: ABD PAIN Hospital Course Hospital Course This is a 76-year-old male with a past medical history of COPD on 4 L, atrial fibrillation on chronic anticoagulation with Eliquis, sleep apnea, history of colon cancer, history of insulin-dependent type 2 diabetes mellitus, history of spinal stenosis, history of spinal stimulator, hypertension, who presents to [facility] due to complaints of abdominal pain Patient was admitted to [facility] for partial small bowel obstruction with a history of incarcerated incisional hernia present for over 4 years. General surgery was consulted, patient was kept n.p.o., received IV hydration, patient clinically improved, had a bowel movement, tolerating diet advancements without nausea or vomiting or recurrent abdominal pain. Patient will be discharged on instructions to continue p.o. hydration, slowly advance diet, and follow-up with his physician in [place] at the [facility]. Physical Exam Const: COMMON NORMALS: no acute distress and patient oriented x3 GENERAL APPEARANCE: cooperative and comfortable HENMT: COMMON NORMALS: normocephalic HEAD & SCALP: normocephalic Neck/C-Spine: COMMON NORMALS: no lymphadenopathy, no JVD and Thyroid normal THYROID: Thyroid normal Resp: COMMON NORMALS: normal respiratory effort, No retractions, No use of accessory muscles and clear to auscultation bilaterally AUSCULTATION: clear to auscultation bilaterally Cardio: COMMON NORMALS: no JVD, regular rate, regular rhythm, S1 normal heart sound present, S2 normal heart sound present, No gallops present (Cardio), No clicks present (Cardio) and No murmurs present (Cardio) RATE: regular rate RHYTHM: regular rhythm HEART SOUNDS: S1 normal heart sound present and S2 normal heart sound present GI: COMMON NORMALS: Normal to inspection, nondistended, normoactive bowel sounds present, Soft to palpation, non-tender and No hepatosplenomegaly present PALPATION: Yes Soft to palpation and Yes No hepatosplenomegaly present Extremity: COMMON NORMALS: normal to inspection, full ROM and no pedal edema Neuro: COMMON NORMALS: patient oriented x3, CN's II-XII intact bilaterally and moves all extremities Psych: COMMON NORMALS: mental status grossly normal Discharge Data Data Completed and Pending: Completed Studies During Hospitalization Category Date Time Status CT abdomen pelvis w con* [id number] Urge nt Cat Scan 01/25/21 10:56 Completed Pending at discharge Category Date Time Status Basic Metabolic P hayley AM LABS Lab 01/27/21 04:00 Ordered Basic Metabolic P hayley AM LABS Lab 01/28/21 04:00 Ordered Complete Blood Co unt w/Auto AM LABS Lab 01/27/21 04:00 Ordered Complete Blood Co unt w/Auto AM LABS Lab 01/28/21 04:00 Ordered Labs from last 24 hours 01/26/21 01/26/21 01/26/21 11:49 06:26 04:09 WBC RBC Hgb Hct MCV MCH MCHC RDW Plt Count MPV Neut % (Auto) Lymph % (Auto) [place] % (Auto) Eos % (Auto) Baso % (Auto) Neut # (Auto) Lymph # (Auto) [place] # (Auto) Eos # (Auto) Baso # (Auto) Nucleated RBC % (a uto) Nucleated RBCs # Sodium 141 Potassium 3.9 Chloride 100 Carbon Dioxide 35 H Anion Gap 9.9 BUN 26 H Creatinine 0.9 GFR Calculation Not Reportable Glucose 152 H POC Glucose 276 H 167 H Calculated Osmolal ity 300 H Lactic Acid Calcium 8.4 L Urine Color Urine Appearance Urine pH Ur Specific Gravit y Urine Protein Urine Glucose (UA) Urine Ketones Urine Blood Urine Nitrate Urine Bilirubin Urine Urobilinogen Ur Leukocyte [place] ase 01/26/21 01/25/21 01/25/21 04:09 20:35 17:39 WBC 10.1 H RBC 3.60 L Hgb 11.1 L Hct 36.2 L MCV 100.6 H MCH 30.8 MCHC 30.7 RDW 15.6 H Plt Count 178 MPV 11.1 H Neut % (Auto) 66.3 Lymph % (Auto) 20.0 [place] % (Auto) 11.1 Eos % (Auto) 1.7 Baso % (Auto) 0.4 Neut # (Auto) 6.68 Lymph # (Auto) 2.0 Schuyler # (Auto) 1.1 H Eos # (Auto) 0.2 Baso # (Auto) 0.0 Nucleated RBC % (a uto) 0 Nucleated RBCs # 0.0 Sodium Potassium Chloride Carbon Dioxide Anion Gap BUN Creatinine GFR Calculation Glucose POC Glucose 144 H 160 H Calculated Osmolal ity Lactic Acid Calcium Urine Color Urine Appearance Urine pH Ur Specific Gravit y Urine Protein Urine Glucose (UA) Urine Ketones Urine Blood Urine Nitrate Urine Bilirubin Urine Urobilinogen Ur Leukocyte [place] ase 01/25/21 01/25/21 15:25 10:40 WBC RBC Hgb Hct MCV MCH MCHC RDW Plt Count MPV Neut % (Auto) Lymph % (Auto) [place] % (Auto) Eos % (Auto) Baso % (Auto) Neut # (Auto) Lymph # (Auto) [place] # (Auto) Eos # (Auto) Baso # (Auto) Nucleated RBC % (a uto) Nucleated RBCs # Sodium Potassium Chloride Carbon Dioxide Anion Gap BUN Creatinine GFR Calculation Glucose POC Glucose Calculated Osmolal ity Lactic Acid 1.6 Calcium Urine Color Yellow Urine Appearance Clear Urine pH 7 Ur Specific Gravit y 1.010 Urine Protein Neg Urine Glucose (UA) Norm Urine Ketones Negative Urine Blood Neg Urine Nitrate Negative Urine Bilirubin Neg Urine Urobilinogen Norm Ur Leukocyte [place] ase Negative Vitals: Last Vital Signs Temp 97.7 F 01/26/21 11:44 Pulse 66 01/26/21 11:44 Resp 16 01/26/21 11:44 BP 137/62 01/26/21 11:44 Pulse Ox 99 01/26/21 11:44 Discharge Plan Discharge Patient Disposition: Home Condition: Stable Prescriptions: Continued methocarbamol 750 mg tablet 750 mg PO QID PRN (Reason: Muscle Spasm) RF: 0 hydralazine 25 mg tablet 25 mg PO BID@0700,1700 RF: 0 hydrocodone-acetaminophen 5-325 mg tablet 1 tab PO PRN RF: 0 spironolactone 25 mg tablet 25 mg PO DAILY@0700 RF: 0 rosuvastatin 10 mg tablet 10 mg PO BEDTIME@1700 RF: 0 potassium chloride 20 mEq tablet extended release 10 meq PO BID@0700,1700 RF: 0 furosemide [Lasix] 80 mg tablet 80 mg PO BID@0700,1700 RF: 0 guaifenesin 400 mg tablet 800 mg PO BID@0700,1700 RF: 0 budesonide-formoterol [Symbicort] 160-4.5 mcg/actuation HFA aerosol inhaler 1 puff INHALATION BID@0700,1700 RF: 0 Eliquis 5 mg tablet 5 mg PO BID@0700,1700 RF: 0 ferrous sulfate 325 mg (65 mg iron) tablet 325 mg PO DAILY@1700 RF: 0 triamcinolone acetonide 0.025 % cream 1 applic topical DAILY@0700 RF: 0 pantoprazole [Protonix] 40 mg tablet,delayed release (DR/EC) 40 mg PO DAILY@0700 RF: 0 ipratropium-albuterol 0.5 mg-3 mg(2.5 mg base)/3 mL Solution For Nebulization 3 ml INHALATION QID PRN (Reason: Shortness Of Breath) RF: 0 allopurinol 300 mg Tablet 300 mg PO DAILY@0700 RF: 0 albuterol sulfate 90 mcg/actuation Hfa Aerosol Inhaler 2 puff INHALATION QID PRN (Reason: SHORSTNESS OF BREATH) RF: 0 Ozempic 1 mg/dose (2 mg/1.5 mL) Pen Injector 1 mg SUBCUT Q7D RF: 0 ketoconazole 2 % Shampoo See Rx Instructions .ROUTE .COMPLEX RF: 0 Chocolate Laxative 15 mg Tablet,Chewable 15 - 30 mg PO PRN RF: 0 sennosides-docusate sodium [Senna-S] 8.6-50 mg Tablet 2 tab PO BID@0700,1700 PRN (Reason: Constipation) RF: 0 clobetasol 0.05 % Cream 1 applic TOPICAL DAILY RF: 0 insulin aspart U-100 [Novolog U-100 Insulin aspart] 100 unit/mL Solution See Rx Instructions .ROUTE .COMPLEX RF: 0 cholecalciferol (vitamin D3) [Vitamin D3] 50 mcg (2,000 unit) Capsule 50 mcg PO DAILY@0700 RF: 0 Otezla 30 mg Tablet 30 mg PO BID@0700,1700 RF: 0 metolazone 2.5 mg tablet 2.5 mg PO DAILY@0700 RF: 0 metoprolol tartrate 50 mg tablet 75 mg PO BID@0700,1700 RF: 0 diltiazem HCl 30 mg tablet 30 mg PO BID@0700,1700 RF: 0 Metamucil (with sugar) 3.4 gram powder in packet 1 packet PO BID@0700,1700 RF: 0 glucose 4 gram Tablet,Chewable 4 g PO Q15M PRN (Reason: BLOOD SUGAR) RF: 0 Spiriva Respimat 2.5 mcg/actuation Mist 2 puff INHALATION BID RF: 0 Changed Lantus U-100 Insulin 100 unit/mL solution 25 unit SUBCUT BEDTIME Qty: 0 RF: 0 Discontinued tobramycin 300 mg/4 mL solution for nebulization 300 mg inhalation BID 28 Days Qty: 224 RF: 4 Discharge Orders: Discharge Order (Routine); Ordered 01/26/21 Ordered By: Everardo Cuellar Referrals: Stevan Pal, [Primary Care Provider] - Discharge Diet: Advance as tolerated Discharge Activity: Resume usual activity Patient Instructions: Opioid Safety Activity Restrictions/Additional Instructions: -FOR LANTUS Start at 25 units at bedtime, if blood sugars are greater than 300 toi 24 hours, then increase to 35 units, if blood sugars still remain elevated>300 for 24 hours, then go back to home dose of 46 units at bedtime -Continue NovoLog sliding scale -If you have recurrent abdominal pain please go to the emergency room -Follow-up with general surgery as outpatient Discharge Attestations Time Spent in Discharge Care*: less than 30 min Quality Metrics Clinical Quality Measures During this hospital stay, did patient experience: None Coding Level of Care Code Acute Chg GRANT STAKR note Diagnoses Partial small bowel obstruction K56.600 Incarcerated incisional hernia K43.0
[2021-01-26 16:13] VITALS: BP 137/62; PULSE 66; RESP 16; TEMP 36.5; O2SAT 99
--- NOTE | 2021-01-26 18:32 | PC.RESP ---
PULMONARY REHAB INFORMATION SENT TO PATIENT.
== END 2021-01-26 15:45 | disposition home or self-care (01) ==
LOC: ER 14:16 → MEDSURG 15:24
PROVIDERS: Nurse Practitioner Family; Admitting Provider Internal Medicine; Emergency Provider Family Medicine; PCP Emergency Medicine Emergency Medical Services; Visit Provider Family Medicine
DX: K56.600 Partial intestinal obstruction, unspecified as to cause (principal); K43.0 Incisional hernia with obstruction, without gangrene; J44.9 Chronic obstructive pulmonary disease, unspecified; I48.91 Unspecified atrial fibrillation; I11.0 Hypertensive heart disease with heart failure; I50.32 Chronic diastolic (congestive) heart failure; Z99.81 Dependence on supplemental oxygen; Z79.01 Long term (current) use of anticoagulants; G47.30 Sleep apnea, unspecified; Z85.038 Personal history of other malignant neoplasm of large intestine; E11.9 Type 2 diabetes mellitus without complications; Z79.4 Long term (current) use of insulin
CPT/HCPCS: 12345; 36415; 36416; 74177; 80048; 80053; 81003; 82962; 83605; 83690; 85025; 96361; 96372; 96374; 96375; 99285; G0378; J1170; J1815; J2405; J7030; J7040; Q9967

== ENCOUNTER → 2021-05-18 09:58 | Outpatient (BNVA) | payer OTHER, MEDICARE, SELFPAY | PROVIDERS: PCP Emergency Medicine Emergency Medical Services; Visit Provider Nurse Practitioner Family | DX: Z20.822 Contact with and (suspected) exposure to COVID-19 (principal) | CPT/HCPCS: 87426 ==

== ENCOUNTER 2021-05-25 13:23 | Outpatient (CLI) | payer OTHER, MEDICARE, SELFPAY ==
--- NOTE | 2021-05-25 13:34 | XRR_ITS ---
PROCEDURE INFORMATION: Exam: XR Chest Exam date and time: 05/25/2021 1:34 PM Age: 76 years old Clinical indication: Shortness of breath TECHNIQUE: Imaging protocol: XR of the chest. Views: 2 views. COMPARISON: CT Chest/Abdomen/Pelvis w IV* 11/27/2020 9:21 AM FINDINGS: Tubes, catheters and devices: Stimulator wire is present in the lower dorsal spine Lungs: There is bilateral hilar vascular congestion No consolidation. Pleural spaces: Right lower lobe pleural effusion. No pneumothorax. Heart/Mediastinum: Unremarkable. No cardiomegaly. Bones/joints: Unremarkable. XR/XR chest 2V* [id number] IMPRESSION: 1. Right lower lobe pleural effusion. 2. Bilateral hilar vascular congestion. 3. Otherwise negative examination
== END 2021-05-25 13:24 | disposition home or self-care (01) ==
LOC: RAD 13:31
PROVIDERS: PCP Emergency Medicine Emergency Medical Services; Visit Provider Internal Medicine Critical Care Medicine
DX: J47.9 Bronchiectasis, uncomplicated (principal); J90 Pleural effusion, not elsewhere classified; I87.8 Other specified disorders of veins
CPT/HCPCS: 71046; 87070; 87077; 87186; 87205

== ENCOUNTER → 2021-09-22 14:15 | Outpatient (BNVA) | payer OTHER, SELFPAY | PROVIDERS: PCP Emergency Medicine Emergency Medical Services; Visit Provider Internal Medicine Critical Care Medicine | DX: J47.1 Bronchiectasis with (acute) exacerbation (principal); J96.11 Chronic respiratory failure with hypoxia; J96.12 Chronic respiratory failure with hypercapnia; I50.32 Chronic diastolic (congestive) heart failure; I48.19 Other persistent atrial fibrillation; J90 Pleural effusion, not elsewhere classified | CPT/HCPCS: 87070; 87205 ==

== ENCOUNTER 2021-09-24 15:21 | Inpatient (IN) | payer OTHER, MEDICARE, SELFPAY ==
[2021-09-24] VITALS (13 sets, daily range): BP systolic 128–166; BP diastolic 63–93; PULSE 73–102; RESP 18–32; TEMP 36.9; O2SAT 93–100
--- NOTE | 2021-09-24 15:30 | ECG_ITS ---
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 Measurements Intervals [place] Rate: 86 P: 52 RI: 362 QRS: -81 QRSD: 154 T: 70 QT: 399 QTc: 478 Interpretive Statements ATRIAL FIBRILLATION WITH BASELINE ARTIFACT RIGHT BUNDLE BRANCH BLOCK [120+ ms QRS DURATION, UPRIGHT V1, 40+ ms S IN I/aVL/V4/V5/V6] LEFT ANTERIOR FASCICULAR BLOCK [QRS AXIS <= -45, QR IN I, RS IN II] Compared to ECG 01/08/2021 17:27:09 Ventricular premature complex(es) no longer present Aberrant conduction of supraventricular beat(s) no longer present Myocardial infarct finding no longer present Electronically Signed On 09-24-2021 21:59:16 YARD HOSTLER by Alcides Badillo M.D. [id number]
--- NOTE | 2021-09-24 15:30 | XRR_ITS ---
PROCEDURE INFORMATION: Exam: XR Chest Exam date and time: 09/24/2021 3:30 PM Age: 76 years old Clinical indication: Pain; Angina pectoris; Additional info: Chest pain TECHNIQUE: Imaging protocol: XR of the chest. Views: 1 view. COMPARISON: CR XR chest 2V* [id number] 05/25/2021 1:42 PM FINDINGS: Lungs: There is interstitial lung disease. There is right lung base consolidation. Pleural spaces: There is a right pleural effusion. No pneumothorax. Heart/Mediastinum: Unremarkable. No cardiomegaly. Bones/joints: Unremarkable. XR/XR chest 1V portable [id number] IMPRESSION: There is right lung base consolidation consistent with atelectasis and/or pneumonia. There is bilateral interstitial lung disease consistent with pulmonary edema.
--- NOTE | 2021-09-24 15:50 | W.ED.GENADLT ---
HPI - General Adult General: Chief complaint: Chest Pain Stated complaint: SOB/CHEST PAIN Time Seen by Provider: 09/24/21 15:31 History of Present Illness: HPI narrative: Patient is a 76-year-old male with a history of atrial fibrillation on Eliquis, CHF on 4 L oxygen, COPD c/b bronchietasis followed by Dr. White currently on routine Bactrim and azithromycin for PNA prophlyaxis presenting to the emergency room for evaluation acute dyspnea x2 weeks. Patient tells me over the last 2 weeks, he has had increased oxygen requirement from 4 L to 8 L. In addition on Tuesday, patient went to see Dr. White and has been switched from inhaled tobramycin to Bactrim. Since then, patient's dyspnea has not improved static of the emergency room for evaluation. Patient is currently on a liter satting at 95%. Patient has no signs of increased work breathing. Reports cough, denies any fever/chills, abdominal pain, nausea/vomiting, diarrhea melena or hematochezia. No other focal complaints at this time. Onset: 2 weeks ago Duration:2 weeks Location:home Severity:moderate Review of Systems Narrative: Constitutional: No fever, no chills. HEENT: No vision changes CV: No chest pain, no palpitations PULM: +cough, +dyspnea. GI: No abdominal pain, no N/V/D. : No dysuria MSKEL: No muscle pain SKIN: No new rashes, no lesions. NEURO: No headache, no focal weakness. HEME: No visible bruises PSYCH: Normal mood PFSH ED PFSH: Medical History Accelerated essential hypertension AF (atrial fibrillation) Apnea, sleep Bronchiectasis, uncomplicated Chronic obstructive pulmonary disease, unspecified Colon cancer Cyst of pancreas Hernia Hx of adenomatous polyp of colon Hyperlipidemia, unspecified Incisional hernia Osteoarthritis of right knee Post-traumatic stress disorder, unspecified Postlaminectomy syndrome Respiratory failure with hypoxia and hypercapnia Right renal stone Small bowel obstruction Spinal stenosis, lumbar region without neurogenic claudication Type 2 diabetes mellitus without complications Surgical History H/O colonoscopy 2016 & 11/12/19: Multiple tubular adenoma, follow-up colonoscopy in 3 years H/O esophagogastroduodenoscopy 11/12/2019: Hyperplastic polyp, gastritis H/O shoulder surgery Bilateral History of back surgery Dorsal column stimulator placement /multiple IPG exchanges History of colon resection for sigmoid colon cancer x2 --2012 in [place], 2014 in [place] ( they did not get it all the first time ) History of lumbar fusion X6 procedures altogether History of surgical procedure on eye proper using laser Bilateral /bilateral cataract extraction History of tonsillectomy and adenoidectomy S/P partial lobectomy of lung Left lower lobe for bronchiectasis Family History Brother Diabetes Hypertension Father Cancer Leukemia Sister Lung cancer Cancer Breast cancer in 2 sisters Other CAD (coronary artery disease) Stroke Denies family history of Anesthesia complication Bleeding disorder Social History (Updated 09/21/21 @ 09:51 by Mary Lou Sweeney LPN) Smoking and tobacco status: former smoker Quit status (tobacco): has quit using tobacco Year quit tobacco: 1970 - PPD x 13 Years Alcohol intake: current Alcohol intake frequency: holidays/special occasions only Lives independently: Yes Household members: spouse Marital status: service: Yes Current occupational status: retired History of recent travel: No Current gender identity: Male Physical Exam Narrative: EXAM NARRATIVE: Head: Atraumatic Eyes: PERRL, conjunctiva without injection ENT: Mucous membrane dry NECK: Supple, ROM intact LUNGS: +Coarse breath sounds and diffuse crackles CV: RRR ABDOMEN: Soft, no focal TTP. NO guarding rebound, guarding, rigidity. No CVA tenderness to percussion. Neg Vallejo/Neg McBurney's point tenderness, no suprabupic tenderness to palpation EXTREMITY: Normal ROM, 1+edema in the lower extremities SKIN: No rash or erythema NEURO: Awake and alert, no focal motor deficits PSYCH: Normal mood and affect Course Vital Signs: Vital signs: Vital Signs Temperature 98.3 F 09/27/21 11:01 Pulse Rate 92 09/27/21 11:01 Respiratory Rate 24 H 09/27/21 11:01 Blood Pressure 129/71 09/27/21 11:01 Pulse Oximetry 95 09/27/21 11:01 MDM - General Adult MDM Narrative: Medical decision making narrative: 76-year-old male with history of atrial fibrillation on Eliquis, CHF, COPD complicated bronchiolectasis presents emergency room with increased oxygen requirements and worsening cough x2 weeks. Patient is noted to have a white count of 14.8 up from baseline 10. proBNP of 13K up from 900-1000. Patient is s/p vancomycin and Zosyn. Patient is S/p 100 mg of IV Lasix. Disposition: Admission Lab Data: Labs: Lab Results 09/24/21 09/24/21 09/24/21 15:57 15:57 15:57 WBC 14.8 10^3/uL H 10 ^3/uL (4.0-10.0) RBC 3.22 10^6/uL L 10 ^6/uL (4.1-5.3) Hgb 9.5 g/dL L g/dL (11.7-16.6) Hct 31.2 % L % (42.0-52.0) MCV 96.9 fl H fl (80-94) MCH 29.5 pg pg (28.0-34.0) MCHC 30.4 g/dL g/dL (30.0-36.0) RDW 15.0 % % (12.1-15.1) Plt Count 222 10^3/cmm 10^3 /cmm (130-400) MPV 10.9 fL H fL (7.4-10.4) Neut % (Auto) 75.1 % % Lymph % (Auto) 13.5 % % Scott % (Auto) 9.9 % % Eos % (Auto) 0.4 % % Baso % (Auto) 0.4 % % Neut # (Auto) 11.15 10^3/uL H 1 0^3/uL (1.8-7.7) Lymph # (Auto) 2.0 10^3/uL 10^3/ uL (0.8-4.8) Scott # (Auto) 1.5 10^3/uL H 10^ 3/uL (0.2-0.9) Eos # (Auto) 0.1 10^3/uL 10^3/ uL (0.0-0.8) Baso # (Auto) 0.1 10^3/uL 10^3/ uL (0.0-0.1) Nucleated RBC % (a uto) 0 % % Nucleated RBCs # 0.0 /100WBC /100W BC Specimen Type Sample Site ABG pH ABG pCO2 ABG pO2 ABG HCO3 ABG Base Excess Surjit Test Hematocrit O2 Delivery Device O2 Liters/Min Bulk Loader ID Sodium 137 mmol/L mmol/L (136-145) Potassium 4.6 mmol/L mmol/L (3.5-5.1) Chloride 90 mmol/L L mmol/ L (98-107) Carbon Dioxide 34 mmol/L H mmol/ L (22-29) Anion Gap 17.6 (5-19) BUN 33 mg/dL H mg/dL (8-23) Creatinine 1.4 mg/dL H mg/dL (0.7-1.2) GFR Calculation Not Reportable Glucose 176 mg/dL H mg/dL (65-115) Calculated Osmolal ity 296 mOsm/kg H mOs m/kg (285-295) Calcium 8.8 mg/dL mg/dL (8.5-10.5) Troponin T Baselin e 29 ng/L H ng/L (0-15) Troponin T 120 Min [place] Troponin T C-Reactive Protein 76.0 mg/L H mg/L (0.0-4.9) NT-Pro-B Natriuret Pep 1304 pg/mL H pg/m L (0-450) Procalcitonin 0.06 ng/mL ng/mL (0-0.5) TSH 09/24/21 09/24/21 09/24/21 17:04 17:45 17:47 WBC RBC Hgb Hct MCV MCH MCHC RDW Plt Count MPV Neut % (Auto) Lymph % (Auto) Scott % (Auto) Eos % (Auto) Baso % (Auto) Neut # (Auto) Lymph # (Auto) Scott # (Auto) Eos # (Auto) Baso # (Auto) Nucleated RBC % (a uto) Nucleated RBCs # Specimen Type Arterial Sample Site Radial, left ABG pH 7.32 L (7.35-7.45) ABG pCO2 84.9 mmHg H* mmHg (35-45) ABG pO2 97.7 mmHg mmHg (80.0-100.0) ABG HCO3 44.1 mmol/L H mmo l/L (22-26) ABG Base Excess 15.5 mmol/L H mmo l/L (-2.0-2.0) Surjit Test Pos Hematocrit 28.3 % L % (42-52) O2 Delivery Device Simple mask O2 Liters/Min 8.0 % % Bulk Loader ID Amh Sodium Potassium Chloride Carbon Dioxide Anion Gap BUN Creatinine GFR Calculation Glucose Calculated Osmolal ity Calcium Troponin T Baselin e Troponin T 120 Min [place] 27.92 ng/L H ng/L (0-15) Delta Troponin T -1.08 ABS# L ABS# (0-10) C-Reactive Protein NT-Pro-B Natriuret Pep Procalcitonin TSH 2.40 uIU/mL uIU/m L (0.27-4.20) Imaging Data^: Other Imaging: Radiologist's impression: [email or web address] [id number] ReportSigned Patient: Ambrocio Tinoco #: [id number]: 5Acct#:[id number]/Sex: 76 / MADM Date: 09/24/21Loc: ERRoom/Bed:Attending Dr: Ordering Provider/Ordering MD: El Ortiz MD Date of Service: 09/24/21 Procedure(s): XR chest 1V portable [id number] Accession Number(s): [id number] Report Number: [id number] PROCEDURE INFORMATION: Exam: XR Chest Exam date and time: 09/24/2021 3:30 PM Age: 76 years old Clinical indication: Pain; Angina pectoris; Additional info: Chest pain TECHNIQUE: Imaging protocol: XR of the chest. Views: 1 view. COMPARISON: CR XR chest 2V* [id number] 05/25/2021 1:42 PM FINDINGS: Lungs: There is interstitial lung disease. There is right lung base consolidation. Pleural spaces: There is a right pleural effusion. No pneumothorax. Heart/Mediastinum: Unremarkable. No cardiomegaly. Bones/joints: Unremarkable. XR/XR chest 1V portable [id number] IMPRESSION: There is right lung base consolidation consistent with atelectasis and/or pneumonia. There is bilateral interstitial lung disease consistent with pulmonary edema. Dictated By:Igor Naqviigned By:Igor Naqvi MDSigned Date/Time:09/24/21 1651DD/ 1530 Discharge Plan Discharge Patient Disposition: Admitted As Inpatient Admit Provider: Everardo Cuellar Clinical Impression: Cough, Dyspnea, Acute respiratory distress Condition: Stable Discharge Diet: Cardiac Discharge Activity: Resume usual activity Coding Level of Care Code ED Technology Education Teacher for Juvenal Orlando
[2021-09-24 16:03] LABS: Basophils # 0.1 10^3/uL (0.0-0.1); Basophils % 0.4 %; Eosinophils # 0.1 10^3/uL (0.0-0.8); Eosinophils % 0.4 %; Hematocrit 31.2 % (42.0-52.0); Hemoglobin 9.5 g/dL (11.7-16.6); Lymphocytes % 13.5 %; Mean Corpuscular HGB Conc 30.4 g/dL (30.0-36.0); Mean Corpuscular Hemoglobin 29.5 pg (28.0-34.0); Mean Corpuscular Volume 96.9 fl (80-94); Mean Platelet Volume 10.9 fL (7.4-10.4); Monocytes # 1.5 10^3/uL (0.2-0.9); Monocytes % 9.9 %; Neutrophils # 11.15 10^3/uL (1.8-7.7); Neutrophils % 75.1 %; Nucleated Red Blood Cells % 0 %; Platelet Count 222 10^3/cmm (130-400); Red Blood Count 3.22 10^6/uL (4.1-5.3); White Blood Count 14.8 10^3/uL (4.0-10.0)
[2021-09-24] MEDS: piperacillin-tazobactam 4.5 GM in sodium chloride 0.9% (plus) 50 ML IV (16:13)
[2021-09-24 16:29] LABS: Troponin(5th) Baseline 29 ng/L (0-15)
[2021-09-24 16:35] LABS: NT Pro B Type Natriuretic Pept 1304 pg/mL (0-450); Procalcitonin 0.06 ng/mL (0-0.5)
[2021-09-24 16:47] LABS: Anion Gap 17.6 (5-19); Blood Urea Nitrogen 33 mg/dL (8-23); Calcium 8.8 mg/dL (8.5-10.5); Carbon Dioxide 34 mmol/L (22-29); Chloride 90 mmol/L (98-107); Glucose 176 mg/dL (65-115); Osmolality Calculated 296 mOsm/kg (285-295); Potassium 4.6 mmol/L (3.5-5.1); Sodium 137 mmol/L (136-145)
[2021-09-24] MEDS: ipratropium-albuterol 3 mL Neb INHALATION ×4 (16:56→20:00)
[2021-09-24 17:16] LABS: ABG PH Result 7.32 (7.35-7.45); Arterial Blood Gas Hematocrit 28.3 % (42-52); Base Excess ABG 15.5 mmol/L (-2.0-2.0); Blood Gas Allen Test Pos; Blood Gas Operator Identificat AMH; Blood Gas Sample Site Radial, left; Blood Gas Sample Type Arterial; HCO3 ABG 44.1 mmol/L (22-26); Oxygen Device SIMPLE MASK; PO2 ABG 97.7 mmHg (80.0-100.0)
[2021-09-24 17:17] LABS: ABG PCO2 84.9 mmHg (35-45)
--- NOTE | 2021-09-24 17:30 | ECG_ITS ---
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 Measurements Intervals [place] Rate: 93 P: 77 NV: 361 QRS: -85 QRSD: 144 T: 71 QT: 390 QTc: 487 Interpretive Statements ATRIAL FIBRILLATION WITH BASELINE ARTIFACT Compared to ECG 09/24/2021 15:46:50 Right bundle-branch block no longer present Left anterior fascicular block no longer present Electronically Signed On 09-24-2021 22:05:27 DRILL BIT SHARPENER by Alcides Badillo M.D. [id number]
[2021-09-24] MEDS: vancomycin 1,000 MG in sodium chloride 0.9% 250 ML 250 MG IV (17:32)
[2021-09-24] MEDS: FUROsemide 10 mg/mL SDV 10mL 100 MG IVP (17:32)
--- NOTE | 2021-09-24 17:41 | CTR_ITS ---
PROCEDURE INFORMATION: Exam: CT Chest Without Contrast; Diagnostic Exam date and time: 09/24/2021 5:41 PM Age: 76 years old Clinical indication: Shortness of breath; Prior surgery; Surgery type: Left lung removed; Patient HX: HX of colon cancer; Additional info: SOB TECHNIQUE: Imaging protocol: Diagnostic computed tomography of the chest without contrast. Radiation optimization: All CT scans at this facility use at least one of these dose optimization techniques: automated exposure control; mA and/or kV adjustment per patient size (includes targeted exams where dose is matched to clinical indication); or iterative reconstruction. COMPARISON: CT Chest/Abdomen/Pelvis w IV* 11/27/2020 9:21 AM RADIATION DOSE METRICS: Total DLP (mGy-cm): 942.23 FINDINGS: Lungs: There is increasing multifocal bilateral ground-glass opacification involving all lobes of the bilateral lungs. There is worsening consolidation in the right middle and lower lobes of the lung. No dominant lung mass. Pleural spaces: There is a moderate right pleural effusion which is partially loculated. This has mildly increased in the interval. There is a new small left pleural effusion. No pneumothorax. Heart: Cardiomegaly is identified. Aorta: Unremarkable. No aortic aneurysm. Lymph nodes: There is increasing mediastinal adenopathy. For example AP window adenopathy with a short-axis diameter of 1.9 cm. Bones/joints: Degenerative change is identified in the spine. No acute fracture. Soft tissues: Unremarkable. CT/CT chest con [id number] IMPRESSION: When compared with 11/27/2020, there is worsening bilateral ground-glass lung disease consistent with worsening pneumonia and/or edema. There is also worsening consolidation in the right middle and lower lobes of the lung. Bilateral pleural effusions have also increased in size. There is increasing mediastinal adenopathy which may be reactive or perhaps represent metastatic disease.
--- NOTE | 2021-09-24 18:04 | PM.HP ---
Providers/Chief Complaint Primary Care Provider: Stevan Pal DO Chief Complaint: SOB/CHEST PAIN History of Present Illness Ambrocio Tinoco is a 76 year old male COPD, on 3 to 4 L at home, home trilogy machine, chronic hypoxic hypercapnic respiratory failure, bronchiectasis, on inhaled tobramycin, history of sputum cultures positive for Pseudomonas, struct of lung disease, left lower lobe resection, heart failure with preserved ejection fraction, atrial fibrillation on Eliquis, hypertension, hyperlipidemia, colon cancer, recent history he was told that he had a myocardial infarct at [facility], 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 Patient follows with Dr. White, he has been in experiencing increased shortness of breath, increased sputum production, shortness of breath with minimal exertion. He was seen by Dr. White on the , was put on antibiotic therapy, however continues to have shortness of breath, this morning, his oxygen requirements increased to 8 L, no fevers, no chills, has been vaccinated for Covid. Patient also complains of increased pleuritic-like chest pain, substernal, nonradiating, no lightheaded, dizziness, no nausea, no vomiting, no diaphoresis, no history of cardiac stenting, was told at [place] as above that he had a heart attack sometime ago but he is not sure about the details he tells me that they did a lot of tests for him up there including a angiogram. This was back in March 2021. Review of Systems Const: Reports: fatigue; Denies: fever(s), chills or malaise Eyes: Denies: change in vision or blurry vision ENMT: Denies: throat pain or nasal congestion Card: Reports: chest pain, edema and dyspnea on exertion Resp: Reports: dyspnea and productive cough; Denies: non-productive cough or wheezing GI: Denies: abdominal pain, nausea, vomiting, hematemesis, diarrhea, constipation, hematochezia or melena : Denies: flank pain, difficulty urinating, dysuria or urinary frequency Musc: Denies: neck pain or back pain Skin/Breast: Denies: rash Neuro: Denies: headache(s), dizziness or vertigo Medications/Allergies Home Medications Medication Instructions Recorded Confirmed Last Taken Type furosemide 80 mg tablet 80 mg PO BID@0700,1700 09/24/19 09/21/21 01/24/21 History potassium chloride 20 mEq 10 meq PO BID@0700,1700 tab 09/24/19 09/21/21 01/24/21 History tablet,extended release rosuvastatin 10 mg tablet 10 mg PO BEDTIME@1700 tab 09/24/19 09/21/21 01/24/21 History spironolactone 25 mg tablet 25 mg PO DAILY@0700 tab 09/24/19 09/21/21 01/24/21 History methocarbamol 750 mg tablet 750 mg PO QID PRN 10/29/19 09/21/21 11/17/19 History pantoprazole [Protonix] 40 mg PO DAILY@0700 11/09/19 09/21/21 01/24/21 History Spiriva Respimat 2 puff INHALATION BID 11/19/19 09/21/21 01/24/21 History glucose 4 g PO Q15M PRN 11/19/19 09/21/21 Unknown History apixaban 5 mg tablet 5 mg PO BID@0700,1700 01/29/20 09/21/21 01/24/21 History budesonide-formoterol HFA 160 1 puff INHALATION BID@0700,1700 01/29/20 09/21/21 01/25/21 History mcg-4.5 mcg/actuation aerosol inhaler guaifenesin 400 mg tablet 800 mg PO BID@0700,1700 tab 01/29/20 09/21/21 01/24/21 History ferrous sulfate 325 mg (65 mg 325 mg PO DAILY@1700 tab 04/10/20 09/21/21 01/24/21 History iron) tablet Ozempic 1 mg SUBCUT Q7D 06/16/20 09/21/21 01/22/21 History albuterol sulfate 2 puff INHALATION QID PRN 06/16/20 09/21/21 01/25/21 History allopurinol 300 mg PO DAILY@0700 06/16/20 09/21/21 01/24/21 History ipratropium-albuterol 3 ml INHALATION QID PRN 06/16/20 09/21/21 01/24/21 History triamcinolone acetonide 0.025 % 1 applic TOPICAL DAILY@0700 11/03/20 09/21/21 01/24/21 History topical cream Otezla 30 mg PO BID@0700,1700 01/08/21 09/21/21 01/24/21 History clobetasol 1 applic TOPICAL DAILY 01/08/21 09/21/21 01/24/21 History insulin aspart U-100 [Novolog See Rx Instructions .ROUTE .COMPLEX 01/08/21 09/21/21 01/08/21 09:00 History U-100 Insulin aspart] 26 units ketoconazole See Rx Instructions .ROUTE .COMPLEX 01/08/21 09/21/21 01/24/21 History diltiazem HCl 30 mg PO BID@0700,1700 01/25/21 09/21/21 01/24/21 History metolazone 2.5 mg PO DAILY@0700 01/25/21 09/21/21 01/24/21 History metoprolol tartrate 75 mg PO BID@0700,1700 01/25/21 09/21/21 01/24/21 History sulfamethoxazole 800 1 tab PO BID 14 Days #28 tab 09/21/21 09/21/21 Unknown Rx mg-trimethoprim 160 mg tablet acetaminophen [Tylenol] 650 mg PO Q4H PRN 09/24/21 09/24/21 Unknown History azithromycin 500 mg PO .ON MON,WED,FRI 09/24/21 09/24/21 Unknown History cholecalciferol (vitamin D3) 125 mcg PO QAM 09/24/21 09/24/21 09/24/21 History [Vitamin D3] docusate sodium [Colace] 100 mg PO TID PRN 09/24/21 09/24/21 Unknown History hydralazine 50 mg PO TID 09/24/21 09/24/21 09/24/21 08:30 History insulin glargine [Lantus Solostar 46 unit SUBCUT BEDTIME 09/24/21 09/24/21 09/23/21 History U-100 Insulin] psyllium 1 tsp PO DAILY PRN 09/24/21 09/24/21 Unknown History tobramycin with nebulizer 5 ml INHALATION BID 09/24/21 09/24/21 09/24/21 History Allergies Allergy/AdvReac Type Severity Reaction Status Date / Time naproxen Allergy Intermediate ALGY-Rash Verified 09/21/21 09:50 amoxicillin AdvReac Intermediate Itching Verified 09/21/21 09:50 morphine AdvReac Intermediate ADR-Vomitin Verified 09/21/21 09:50 g PFSH Acute PFSH: Medical History Accelerated essential hypertension AF (atrial fibrillation) Apnea, sleep Bronchiectasis, uncomplicated Chronic obstructive pulmonary disease, unspecified Colon cancer Cyst of pancreas Hernia Hx of adenomatous polyp of colon Hyperlipidemia, unspecified Incisional hernia Osteoarthritis of right knee Post-traumatic stress disorder, unspecified Postlaminectomy syndrome Respiratory failure with hypoxia and hypercapnia Right renal stone Small bowel obstruction Spinal stenosis, lumbar region without neurogenic claudication Type 2 diabetes mellitus without complications Surgical History H/O colonoscopy 2016 & 11/12/19: Multiple tubular adenoma, follow-up colonoscopy in 3 years H/O esophagogastroduodenoscopy 11/12/2019: Hyperplastic polyp, gastritis H/O shoulder surgery Bilateral History of back surgery Dorsal column stimulator placement /multiple IPG exchanges History of colon resection for sigmoid colon cancer x2 --2012 in [place], 2014 in [place] ( they did not get it all the first time ) History of lumbar fusion X6 procedures altogether History of surgical procedure on eye proper using laser Bilateral /bilateral cataract extraction History of tonsillectomy and adenoidectomy S/P partial lobectomy of lung Left lower lobe for bronchiectasis Family History Brother Diabetes Hypertension Father Cancer Leukemia Sister Lung cancer Cancer Breast cancer in 2 sisters Other CAD (coronary artery disease) Stroke Denies family history of Anesthesia complication Bleeding disorder Social History (Updated 09/21/21 @ 09:51 by Mary Lou Sweeney LPN) Smoking and tobacco status: former smoker Quit status (tobacco): has quit using tobacco Year quit tobacco: 1970 - PPD x 13 Years Alcohol intake: current Alcohol intake frequency: holidays/special occasions only Lives independently: Yes Household members: spouse Marital status: service: Yes Current occupational status: retired History of recent travel: No Current gender identity: Male Vitals/I&O/Wt Last Vital Signs Temp 98.4 F 09/24/21 15:31 Pulse 91 09/24/21 17:40 Resp 20 H 09/24/21 17:40 BP 128/69 09/24/21 16:53 Pulse Ox 93 09/24/21 17:40 Weight last 48 hrs Weight 122.47 kg Physical Exam Const: COMMON NORMALS: no acute distress and patient oriented x3 GENERAL APPEARANCE: cooperative and comfortable HENMT: COMMON NORMALS: normocephalic HEAD & SCALP: normocephalic Eye: COMMON NORMALS: Equal, round and reactive pupils present and EOMs intact bilaterally GENERAL EYE: appearance normal, both eyes and all related structures PUPIL: Yes Equal, round and reactive pupils present Neck/C-Spine: COMMON NORMALS: full ROM and no lymphadenopathy THYROID: Thyroid normal Lymph: LYMPHATIC: no lymphadenopathy noted Resp: COMMON NORMALS: normal respiratory effort, No retractions and No use of accessory muscles AUSCULTATION: crackles Laterality: bilateral Cardio: COMMON NORMALS: regular rate, S1 normal heart sound present, S2 normal heart sound present, No gallops present (Cardio), No clicks present (Cardio) and No murmurs present (Cardio) RATE: regular rate RHYTHM: abnormal rhythm irregularly irregular HEART SOUNDS: S1 normal heart sound present and S2 normal heart sound present GI: COMMON NORMALS: Normal to inspection, nondistended, normoactive bowel sounds present, Soft to palpation and non-tender PALPATION: Yes Soft to palpation Extremity: COMMON NORMALS: normal to inspection, full ROM and no pedal edema Neuro: COMMON NORMALS: patient oriented x3, CN's II-XII intact bilaterally, moves all extremities and no focal motor deficits Psych: COMMON NORMALS: mental status grossly normal, Normal thought process present and cooperative THOUGHT PROCESS: Normal thought process present Data : 09/24/21 15:57 09/24/21 15:57 A&P Assessment and plan (1) Acute and chronic respiratory failure with hypercapnia: Acute on chronic hypercapnic respiratory failure -Multifactorial from underlying exacerbation acute diastolic CHF, exacerbation of acute bronchiectasis, pneumonia Plan: -Moved to cardiac stepdown unit -Covid PCR, rapid Covid, influenza, CT of the chest, cardiac echo -Sputum cultures, blood cultures, recommendations -Sputum cultures in the past grew Pseudo fluorescens/putida, Stenotrophomonas maltophilia -With failure of outpatient therapy with Bactrim -Start broad-spectrum antibiotic therapy vancomycin, Zosyn, Levaquin -DuoNeb treatment, hold off on steroids -Bumex 2 mg every 12 hours -Monitor urine output, monitor creatinine -Fluid restrictions 1200 cc -Monitor respiratory status closely -BiPAP therapy, patient's will bring in his home trilogy -Full code -Eliquis for DVT prophylaxis Chest pain: -Atypical in nature -But does have a recent history of cardiovascular event according to patient, diagnosed at [place], had an angiogram, no stenting, but was told he had a heart attack sometime ago, his recent follow-up they said that everything was normal -Baseline troponin 29, EKG no acute ST-T wave changes, left anterior fascicular block -No acute chest pain -Aspirin, statin, Eliquis, beta-wisam -Serial troponins, serial EKGs -Telemetry monitoring, turn for chest pain -Cardiac echocardiogram as above NERY, on CKD, creatinine 1.4, continue to monitor with diuretic therapy as above Type 2 diabetes mellitus, -Patient takes Lantus 46 units at bedtime, decrease to 25 units at bedtime -Moderate dose sliding scale Hypertension, continue spironolactone, metoprolol History of trapped lung physiology continue to monitor, CT of the chest as above Status: Acute (2) Pneumonia: Status: Acute (3) Acute exacerbation of bronchiectasis: Status: Acute (4) Acute diastolic congestive heart failure: Status: Acute (5) Chest pain: Status: Acute Attestations Medical Necessity Statement*: Patient requires hospitalization, inpatient, greater than 2 midnights, for acute respiratory failure with hypoxia hypercapnia, chest pain, pneumonia, bronchiectasis, acute diastolic CHF Coding Level of Care Code Acute Ems Director for [facility] Diagnoses Acute and chronic respiratory failure with hypercapnia J96.22 Pneumonia J18.9 Acute exacerbation of bronchiectasis J47.1 Acute diastolic congestive heart failure I50.31 Chest pain R07.9
--- NOTE | 2021-09-24 18:17 | PC.PHAR ---
pts verified pts medications
[2021-09-24 18:26] LABS: Troponin 5 2HR 27.92 ng/L (0-15)
[2021-09-24 18:29] LABS: Troponin 5 2HR Delta -1.08 ABS# (0-10)
[2021-09-24 19:31] LABS: Glucose Point of Care 267 mg/dL (70-110)
[2021-09-24] MEDS: levofloxacin-dextrose 5 % 750 MG/150 ML PREMIX 100 MG IV (19:42)
[2021-09-24] MEDS: insulin lispro 100 unit/1 mL SUBCUT (20:09)
[2021-09-24 20:34] LABS: Adenovirus Not Detected (NOT DETECT); Chlamydia Pneumoniae Not Detected (NOT DETECT); Coronavirus 229E,HKU1,NL63,OC4 Not Detected (NOT DETECT); Human Metapneumovirus Not Detected (NOT DETECT); Human Rhinovirus/Enterovirus Not Detected (NOT DETECT); Influenza A Not Detected (NOT DETECT); Influenza A H1 Not Detected (NOT DETECT); Influenza A H1-2009 Not Detected (NOT DETECT); Influenza A H3 Not Detected (NOT DETECT); Influenza B Not Detected (NOT DETECT); Mycoplasma Pneumoniae Not Detected (NOT DETECT); Parainfluenza Virus Type 1 Not Detected (NOT DETECT); Parainfluenza Virus Type 2 Not Detected (NOT DETECT); Parainfluenza Virus Type 3 Not Detected (NOT DETECT); Parainfluenza Virus Type 4 Not Detected (NOT DETECT); Respiratory Syncytial Virus A Not Detected (NOT DETECT); Respiratory Syncytial Virus B Not Detected (NOT DETECT); SARS-COV-2 Not Detected (NOT DETECT)
[2021-09-24 20:57] LABS: Results from Genmark
--- NOTE | 2021-09-24 21:30 | ECG_ITS ---
[facility] Test Date: 2021-09-25 Pat Name: Ambrocio Tinoco Department: Room: 103 Gender: Male Field Sales Specialist: : 1945 Requested By: El Ortiz Order Number: [id number] Ashwini MD: Alcides Badillo M.D. Measurements Intervals [place] Rate: 104 P: -47 CO: 112 QRS: -85 QRSD: 157 T: 76 QT: 393 QTc: 517 Interpretive Statements ATRIAL FIBRILLATION WITH BASELINE ARTIFACT Compared to ECG 09/24/2021 18:22:37 NO CHANGES Electronically Signed On 09-25-2021 10:54:32 SATELLITE TELEVISION INSTALLER by Alcides Badillo M.D. [id number]
[2021-09-24] MEDS: piperacillin-tazobactam 3.375 GM in sodium chloride 0.9% (plus) 50 ML IV (22:34)
[2021-09-24 22:37] LABS: Troponin 5 6HR 30.45 ng/L (0-15); Troponin 5 6HR Delta 1.45 ng/L (0-12)
[2021-09-24] MEDS: insulin glargine 100 units/1 mL 25 UNIT SUBCUT (22:38)
[2021-09-25] VITALS (16 sets, daily range): BP systolic 122–159; BP diastolic 62–85; PULSE 82–108; RESP 15–25; TEMP 36.7–36.9; O2SAT 92–99
--- NOTE | 2021-09-25 01:21 | PC.NURSE ---
Admit Note Patient admitted to [facility] from ED via hospital bed. Covering service notified. Patient presents with c/o SOB. Orders reviewed & will continue to monitor. Patient and/or rental representative oriented to environment, equipment, and informed of the following as found in the admission booklet: patient rights & responsibilities, visitor policy, hand and respiratory hygiene practice. Other education includes: medications and orders for patient care. Patient and/or rental representative verbalized understanding of all teaching.
[2021-09-25] MEDS: ipratropium-albuterol 3 mL Neb INHALATION ×4 (02:29→19:56)
[2021-09-25] MEDS: bumetanide 0.25 mg/mL SDV 10 mL 2 MG IVP (04:53)
[2021-09-25] MEDS: piperacillin-tazobactam 3.375 GM in sodium chloride 0.9% (plus) 50 ML IV ×3 (05:07→22:11)
[2021-09-25 05:27] LABS: Basophils % 0.4 %; Eosinophils # 0.2 10^3/uL (0.0-0.8); Eosinophils % 1.3 %; Hematocrit 27.8 % (42.0-52.0); Hemoglobin 8.4 g/dL (11.7-16.6); Lymphocytes # 1.8 10^3/uL (0.8-4.8); Mean Corpuscular HGB Conc 30.2 g/dL (30.0-36.0); Mean Corpuscular Hemoglobin 29.1 pg (28.0-34.0); Mean Corpuscular Volume 96.2 fl (80-94); Mean Platelet Volume 11.1 fL (7.4-10.4); Monocytes # 1.2 10^3/uL (0.2-0.9); Neutrophils # 7.86 10^3/uL (1.8-7.7); Neutrophils % 70.6 %; Nucleated Red Blood Cells % 0 %; Platelet Count 181 10^3/cmm (130-400); Red Blood Count 2.89 10^6/uL (4.1-5.3); Red Cell Distribution Width 14.8 % (12.1-15.1); White Blood Count 11.1 10^3/uL (4.0-10.0)
[2021-09-25 05:34] LABS: Alanine Aminotransferase 14 U/L (0-41); Albumin Level 3.3 g/dL (3.5-5.2); Alkaline Phosphatase 59 IU/L (40-130); Anion Gap 12.8 (5-19); Aspartate Amino Transferase 14 U/L (0-40); Blood Urea Nitrogen 35 mg/dL (8-23); C Reactive Protein 86.1 mg/L (0.0-4.9); Calcium 8.5 mg/dL (8.5-10.5); Chloride 91 mmol/L (98-107); Globulin 3.6 g/dL (1.3-4.6); Glucose 206 mg/dL (65-115); Magnesium 1.9 mg/dL (1.7-2.3); Osmolality Calculated 306 mOsm/kg (285-295); Phosphorus 3.2 mg/dL (2.5-4.5); Potassium 3.8 mmol/L (3.5-5.1); Sodium 141 mmol/L (136-145); Total Bilirubin 0.2 mg/dL (0.15-1.2); Total Protein 6.9 g/dL (6.6-8.7)
[2021-09-25 05:35] LABS: Carbon Dioxide 41 mmol/L (22-29)
[2021-09-25 05:41] LABS: ABG PH Result 7.42 (7.35-7.45); Arterial Blood Gas Hematocrit 26.9 % (42-52); Base Excess ABG 18.1 mmol/L (-2.0-2.0); Blood Gas Allen Test Pos; Blood Gas Sample Site Radial, left; Blood Gas Sample Type Arterial; HCO3 ABG 45.1 mmol/L (22-26); Oxygen Device BIPAP; PO2 ABG 73.4 mmHg (80.0-100.0)
[2021-09-25 06:07] LABS: NT Pro B Type Natriuretic Pept 1272 pg/mL (0-450); Procalcitonin 0.07 ng/mL (0-0.5)
[2021-09-25] MEDS: apixaban 5 mg Tablet PO ×2 (06:11→17:11)
[2021-09-25] MEDS: allopurinol 300 mg Tablet PO (06:11)
[2021-09-25] MEDS: potassium chloride ER 10 mEq Tablet PO ×2 (06:11→17:12)
[2021-09-25] MEDS: hyDRALAzine 25 mg Tablet PO ×2 (06:11→17:12)
[2021-09-25] MEDS: dilTIAZem 30 mg Tablet PO ×2 (06:11→17:12)
[2021-09-25] MEDS: metoprolol tartrate 50 mg Tablet 75 MG PO ×2 (06:12→17:11)
[2021-09-25] MEDS: pantoprazole DR 40 mg Tablet PO (06:12)
[2021-09-25] MEDS: spironolactone 25 mg Tablet PO (06:13)
[2021-09-25 06:35] LABS: ABG PCO2 70.2 mmHg (35-45)
[2021-09-25 07:49] LABS: Glucose Point of Care 230 mg/dL (70-110)
[2021-09-25] MEDS: insulin lispro 100 unit/1 mL SUBCUT ×3 (09:04→17:11)
[2021-09-25 10:32] LABS: Glucose Point of Care 383 mg/dL (70-110)
[2021-09-25] MEDS: vancomycin 1,250 MG/250 ML PIGGYBACK 250 MG IV (11:22)
[2021-09-25 11:23] LABS: Glucose Point of Care 332 mg/dL (70-110)
--- NOTE | 2021-09-25 12:51 | PC.CHAP ---
Pastoral Care Encounter/Spiritual Assessment Type of Contact [] Declined media analytics manager visit [] Patient/Family/Request visit [] Outpatient visit [] Follow-up visit [] Physician referral [] Code/Alert [] Routine visit [] Staff referral [] Actively dying [] Patient sleeping [] Family support [] [] Out of room [] Palliative care [] [xx] Receiving care in room [] Pre-surgical visit [] Trauma [] Long length of stay [] ICU visit [] Other: Relational/Emotional Strength [] Patient feels connected with others/family/visitors/staff [] Distress [] Loneliness/isolation [] Abandonment Spirituality of Patient [] Person of Tanesha [] Attends Moravian of their Tanesha [] Believes in Prayer [] Reads Bible or Hinduism materials [] There are Spiritual issues to be addressed Clinical Application Manager Interventions [] Prayer [] Active listening [] Non-anxious presence [] Spiritual/emotional support [] Crisis/trauma care [] Spiritual counseling [] Bereavement support [] Provided bereavement packet [] Provided Bible/devotional materials [] Provided toy/stuffed animal, coloring book to patient or family member [] Provided Communion [] Anointing/[place] [] Salvation [] Completed spiritual assessment [] Other: Impact on Illness or Injury [] Angry [] Fearful [] Anxious [] Often cries [] Exhaustion [] Unable to work [] Unable to attend religion [] Unable to walk/stand [] Unable to read [] Unable to drive [] Unable to eat/drink [] Unable to sleep [] Unable to be with family [] Patient intubated [] Other: Summary Follow up later Time spent with patient
--- NOTE | 2021-09-25 13:02 | P.PN_ITS ---
Subjective Subjective: Interval history: Patient was seen this morning, he sitting up to the side of the bed, currently on 6 L, tells me that he slept well last night, he feels like he is doing a lot better, Vitals/I&O/Wt Last Vital Signs Temp 98.4 F 09/25/21 12:00 Pulse 98 09/25/21 12:00 Resp 20 H 09/25/21 12:00 BP 124/62 09/25/21 12:00 Pulse Ox 95 09/25/21 12:00 09/24/21 09/25/21 09/25/21 22:59 06:59 14:59 Intake Total 450 / 450 270 / 720 600 / 600 Output Total 1300 / 1300 Balance 450 / 450 -1030 / -580 600 / 600 Weight last 48 hrs Weight 122.47 kg Weight 122.47 kg Physical Exam Const: COMMON NORMALS: no acute distress and patient oriented x3 Resp: COMMON NORMALS: normal respiratory effort, No retractions and No use of accessory muscles AUSCULTATION: crackles Cardio: COMMON NORMALS: regular rate, regular rhythm, S1 normal heart sound present and S2 normal heart sound present RATE: regular rate RHYTHM: regular rhythm HEART SOUNDS: S1 normal heart sound present and S2 normal heart sound present GI: COMMON NORMALS: Normal to inspection, nondistended, normoactive bowel sounds present, Soft to palpation and non-tender PALPATION: Yes Soft to palpation Extremity: COMMON NORMALS: no pedal edema OTHER: 1+ pitting edema bilaterally Neuro: COMMON NORMALS: patient oriented x3 Psych: COMMON NORMALS: mental status grossly normal Data : 09/25/21 04:19 09/25/21 04:19 Micro: Microbiology 09/24/21 18:39 MRSA Culture - Final Nose 09/24/21 18:39 Bacterial Antigens - Final Urine,Voided 09/24/21 18:39 Legionella Urinary Antigen - Final Urine,Clean Catch 09/24/21 18:59 Blood Culture - Preliminary Blood SPECIMEN COLLECTED 09/24/21 19:01 Blood Culture - Preliminary Blood SPECIMEN COLLECTED A&P Assessment and plan (1) Acute and chronic respiratory failure with hypercapnia: Acute on chronic hypercapnic respiratory failure -Multifactorial from underlying exacerbation acute diastolic CHF, exacerbation of acute bronchiectasis, pneumonia Plan: -Moved to cardiac stepdown unit -Covid PCR negative, rapid Covid negative, influenza negative -CT of the chest When compared with 11/27/2020, there is worsening bilateral ground-glass lung disease consistent with worsening pneumonia and/or edema. There is also worsening consolidation in the right middle and lower lobes of the lung. Bilateral pleural effusions have also increased in size. There is increasing mediastinal adenopathy which may be reactive or perhaps represent metastatic disease -cardiac echo pending -Sputum cultures, blood cultures, -Sputum cultures in the past grew Pseudo fluorescens/putida, Stenotrophomonas maltophilia -With failure of outpatient therapy with Bactrim -Start broad-spectrum antibiotic therapy vancomycin, Zosyn, Levaquin -DuoNeb treatment, hold off on steroids -Bumex 2 mg every 12 hours -Monitor urine output, monitor creatinine -Fluid restrictions 1200 cc -Monitor respiratory status closely -BiPAP therapy, patient's will bring in his home trilogy -Full code -Eliquis for DVT prophylaxis Chest pain: -Atypical in nature -But does have a recent history of cardiovascular event according to patient, diagnosed at [place], had an angiogram, no stenting, but was told he had a heart attack sometime ago, his recent follow-up they said that everything was normal -Baseline troponin 29, EKG no acute ST-T wave changes, left anterior fascicular block -No acute chest pain -Aspirin, statin, Eliquis, beta-wisam -Serial troponins 6-hour 30, serial EKGs no acute ST-T wave changes -Telemetry monitoring, turn for chest pain -Cardiac echocardiogram as above NERY, on CKD, creatinine 1.5, continue to monitor with diuretic therapy as above Type 2 diabetes mellitus, -Patient takes Lantus 46 units at bedtime, decrease to 25 units at bedtime -Moderate dose sliding scale Hypertension, continue spironolactone, metoprolol History of trapped lung physiology continue to monitor, Status: Acute (2) Pneumonia: Status: Acute (3) Acute exacerbation of bronchiectasis: Status: Acute (4) Acute diastolic congestive heart failure: Status: Acute (5) Chest pain: Status: Acute Attestations Medical Necessity Statement*: Patient requires hospitalization for acute respiratory failure Coding Level of Care Code Acute Machine Molder for [facility] Diagnoses Acute and chronic respiratory failure with hypercapnia J96.22 Pneumonia J18.9 Acute exacerbation of bronchiectasis J47.1 Acute diastolic congestive heart failure I50.31 Chest pain R07.9
[2021-09-25] MEDS: bumetanide 0.25 mg/mL SDV 10 mL 1 MG IVP (13:22)
[2021-09-25 13:40] LABS: Ferritin 195 ng/mL (30-400); Iron 37 ug/dL (59-158); Percent Saturation 16.2 % (20-50); Total Iron Binding Capacity 227 mcg/dl; Unsaturated Iron Binding 190 ug/dL (112-347)
[2021-09-25 13:53] LABS: Hematocrit 29.3 % (42.0-52.0); Hemoglobin 8.8 g/dL (11.7-16.6)
[2021-09-25 16:46] LABS: Glucose Point of Care 210 mg/dL (70-110)
[2021-09-25] MEDS: atorvastatin 40 mg Tablet PO (17:12)
[2021-09-25] MEDS: ferrous sulfate EC 325 mg Tablet PO (17:12)
[2021-09-25] MEDS: sennosides-docusate Tablet 2 TAB PO (17:12)
--- NOTE | 2021-09-25 17:55 | USCV_ITS ---
Ambrocio Tinoco Age: 76 Gender: M : 1945 Exam Date: 09/25/2021 07:01 Ordering Phys: Everardo Cuellar MD Technologist: COCO Exam Location: [facility] [place] Indication: chronic shortness of breath since 1969 s/p LEFT lower lobectomy c/o bronchiostasis. O2 dependent x 15 years. No hx cardiac intervention per patient. BP: 156 / 65 HR: 106 Rhythm: Atrial fibrillation Technical Quality: Adequate MEASUREMENTS (Male / Female) Normal Values 2D ECHO LV Diastolic Diameter PLAX 5.1 cm 4.2 - 5.9 / 3.9 - 5.3 cm LV Systolic Diameter PLAX 3.0 cm IVS Diastolic Thickness 1.5 cm 0.6 - 1.0 / 0.6 - 0.9 cm IVS Systolic Thickness 1.8 cm LVPW Diastolic Thickness 1.7 cm 0.6 - 1.0 / 0.6 - 0.9 cm LVPW Systolic Thickness 1.6 cm LVOT Diameter 2.2 cm LV Ejection Fraction 2D Teich 71.5 % LV Ejection Fraction MOD 2C 54.8 % LV Ejection Fraction 2C AL 58.7 % LA Diameter 5.4 cm LA Width 6.3 cm LA Height 6.3 cm RA Width 5.7 cm RA Height 6.3 cm Aorta at Sinotubular Diameter 3.6 cm M-MODE Aortic Annulus Diameter 3.9 cm LA Ao Ratio MM 1.5 MV E Point Septal Separation 0.5 cm DOPPLER AV Peak Velocity 103.0 cm/s LVOT Peak Velocity 98.0 cm/s AV Area Cont Eq vti 3.3 cm squared AV Area Cont Eq pk 3.6 cm squared MV Peak Velocity 146.0 cm/s MV Area PHT 4.2 cm squared Mitral E to A Ratio 179.6 MV E' Velocity 69.5 cm/s Mitral E to MV E' Ratio 10.9 Mitral E to LV E' Lateral Ratio 9.5 Mitral E to LV E' Septal Ratio 13.0 TR Peak Velocity 288.5 cm/s TR Peak Gradient 33.3 mmHg TV Peak E Velocity 64.0 cm/s Right Atrial Pressure 15.0 mmHg Pulmonary Artery Systolic Pressu 48.3 mmHg PV Peak Velocity 93.0 cm/s RV Acceleration Time 0.1 s RV Ejection Time 0.3 s RV AcT/ET 0.4 FINDINGS Left Ventricle Normal left ventricular size and systolic function, EF 62 %. No regional wall motion abnormalities. Right Ventricle The right ventricle is normal in size and function. Right Atrium Mildly increased right atrial size. Linear density in the right atrium, may suggest chiari net work Left Atrium Mildly increased left atrial size. Mitral Valve No gross abnormalities noted Aortic Valve No gross abnormalities noted Tricuspid Valve Trace tricuspid valve regurgitation. Pulmonic Valve No gross abnormalities noted Pericardium Normal pericardium without effusion. Aorta Normal ascending aorta dimension. CONCLUSIONS Normal left ventricular size and systolic function, EF 62 %. No regional wall motion abnormalities. Mild biatrial enlargement Trace tricuspid valve regurgitation. Linear density in the right atrium, may suggest chiari net work Estimated pulmonary artery peak systolic pressure of 48 mmHg- mild pulmonary hypertension There is no pericardial effusion. Compared to the study from 06/17/2020, there may not be a significant change. Dr Collins Salas MD FAC (Electronically Signed) Final Date: 25 September 2021 16:45 S
--- NOTE | 2021-09-25 17:55 | USCV_ITS ---
Ambrocio Tinoco Age: 76 Gender: M : 1945 Exam Date: 09/25/2021 06:21 Ordering Phys: Everardo Cuellar MD Technologist: COCO [place] [facility] [place]: chronic BILATERAL calf and ankle edema with gaiter zone pigmentation. No hx DVT per patient. HISTORY: chronic BILATERAL calf and ankle edema with gaiter zone pigmentation. No hx DVT per patient. PROCEDURES: The venous duplex Doppler examination of both lower extremities was performed in the standard fashion. The following venous structures were evaluated: common femoral vein, profunda vein, proximal portion of the greater saphenous vein, superficial femoral vein, and the popliteal vein. In addition, the posterior tibial and peroneal trunk were evaluated. Bilaterally, the common femoral, superficial femoral, profunda femoral, popliteal, posterior tibial, greater saphenous veins, and the peroneal trunk were identified and interrogated in the standard fashion. These veins were found to be easily compressible with spontaneous blood flow. No evidence of thrombus noted. Serial compression, augmentation maneuvers, and spectral Doppler flow evaluation were performed and were normal. FINDINGS: The veins were found to be easily compressible with spontaneous blood flow. Non pulsatile flow pattern. CONCLUSIONS No evidence of DVT in the above-mentioned identifiable veins. Dr Collins Salas MD [facility] (Electronically Signed) Final Date: 25 September 2021 16:04 S
[2021-09-25 20:11] LABS: Glucose Point of Care 345 mg/dL (70-110)
[2021-09-25] MEDS: levofloxacin-dextrose 5 % 750 MG/150 ML PREMIX 100 MG IV (20:45)
[2021-09-25] MEDS: insulin glargine 100 units/1 mL 25 UNIT SUBCUT (20:45)
[2021-09-26] VITALS (18 sets, daily range): BP systolic 109–151; BP diastolic 57–70; PULSE 62–105; RESP 12–25; TEMP 36.1–37; O2SAT 92–97
[2021-09-26] MEDS: bumetanide 0.25 mg/mL SDV 10 mL 1 MG IVP ×3 (01:46→23:53)
[2021-09-26] MEDS: ipratropium-albuterol 3 mL Neb INHALATION ×4 (02:32→20:25)
[2021-09-26] MEDS: vancomycin 1,250 MG/250 ML PIGGYBACK 250 MG IV ×2 (04:57→22:44)
[2021-09-26 05:01] LABS: Basophils % 0.3 %; Eosinophils # 0.1 10^3/uL (0.0-0.8); Hematocrit 27.5 % (42.0-52.0); Hemoglobin 8.4 g/dL (11.7-16.6); Lymphocytes # 1.8 10^3/uL (0.8-4.8); Lymphocytes % 15.8 %; Mean Corpuscular HGB Conc 30.5 g/dL (30.0-36.0); Mean Corpuscular Hemoglobin 29.3 pg (28.0-34.0); Mean Corpuscular Volume 95.8 fl (80-94); Mean Platelet Volume 11.3 fL (7.4-10.4); Monocytes # 1.2 10^3/uL (0.2-0.9); Monocytes % 10.5 %; Neutrophils # 8.03 10^3/uL (1.8-7.7); Neutrophils % 71.8 %; Nucleated Red Blood Cells % 0 %; Platelet Count 186 10^3/cmm (130-400); Red Blood Count 2.87 10^6/uL (4.1-5.3); White Blood Count 11.2 10^3/uL (4.0-10.0)
[2021-09-26 05:43] LABS: Alanine Aminotransferase 13 U/L (0-41); Albumin Level 3.2 g/dL (3.5-5.2); Alkaline Phosphatase 51 IU/L (40-130); Anion Gap 12.9 (5-19); Aspartate Amino Transferase 14 U/L (0-40); Blood Urea Nitrogen 36 mg/dL (8-23); C Reactive Protein 65.4 mg/L (0.0-4.9); Calcium 8.6 mg/dL (8.5-10.5); Carbon Dioxide 38 mmol/L (22-29); Chloride 89 mmol/L (98-107); Globulin 3.6 g/dL (1.3-4.6); Glucose 218 mg/dL (65-115); Magnesium 1.9 mg/dL (1.7-2.3); NT Pro B Type Natriuretic Pept 1009 pg/mL (0-450); Osmolality Calculated 297 mOsm/kg (285-295); Phosphorus 2.9 mg/dL (2.5-4.5); Potassium 3.9 mmol/L (3.5-5.1); Sodium 136 mmol/L (136-145); Total Bilirubin 0.3 mg/dL (0.15-1.2); Total Protein 6.8 g/dL (6.6-8.7)
[2021-09-26] MEDS: allopurinol 300 mg Tablet PO (06:17)
[2021-09-26] MEDS: metoprolol tartrate 50 mg Tablet 75 MG PO ×2 (06:17→17:14)
[2021-09-26] MEDS: dilTIAZem 30 mg Tablet PO ×2 (06:18→17:13)
[2021-09-26] MEDS: pantoprazole DR 40 mg Tablet PO (06:18)
[2021-09-26] MEDS: spironolactone 25 mg Tablet PO (06:18)
[2021-09-26] MEDS: piperacillin-tazobactam 3.375 GM in sodium chloride 0.9% (plus) 50 ML IV ×3 (06:18→23:53)
[2021-09-26] MEDS: hyDRALAzine 25 mg Tablet PO ×2 (06:18→17:14)
[2021-09-26] MEDS: apixaban 5 mg Tablet PO ×2 (06:18→17:14)
[2021-09-26 06:28] LABS: Glucose Point of Care 267 mg/dL (70-110)
[2021-09-26] MEDS: insulin lispro 100 unit/1 mL SUBCUT ×3 (07:55→17:13)
[2021-09-26] MEDS: potassium chloride ER 10 mEq Tablet PO ×2 (07:55→17:14)
[2021-09-26 11:28] LABS: Glucose Point of Care 255 mg/dL (70-110)
[2021-09-26 16:43] LABS: Glucose Point of Care 303 mg/dL (70-110)
--- NOTE | 2021-09-26 17:05 | P.PN_ITS ---
Subjective Subjective: Interval history: Patient was seen this morning, is at bedside, he tells me that his breathing has significantly improved, currently on 5 L, no chest pain, no palpitations Vitals/I&O/Wt Last Vital Signs Temp 98.6 F 09/26/21 08:48 Pulse 105 H 09/26/21 16:44 Resp 12 09/26/21 16:44 BP 151/66 09/26/21 16:44 Pulse Ox 93 09/26/21 16:44 09/26/21 09/26/21 09/26/21 06:59 14:59 22:59 Intake Total 450 / 1790 522 / 522 Output Total 1075 / 2475 450 / 450 Balance -625 / -685 72 / 72 Weight last 48 hrs Weight 122.47 kg Physical Exam Const: COMMON NORMALS: no acute distress and patient oriented x3 Resp: COMMON NORMALS: normal respiratory effort, No retractions and No use of accessory muscles AUSCULTATION: wheezes Cardio: COMMON NORMALS: regular rate, regular rhythm, S1 normal heart sound present and S2 normal heart sound present RATE: regular rate RHYTHM: regular rhythm HEART SOUNDS: S1 normal heart sound present and S2 normal heart sound present GI: COMMON NORMALS: Normal to inspection, nondistended, normoactive bowel sounds present, Soft to palpation and non-tender PALPATION: Yes Soft to palpation Extremity: COMMON NORMALS: no pedal edema Neuro: COMMON NORMALS: patient oriented x3 Psych: COMMON NORMALS: mental status grossly normal Data : 09/26/21 04:25 09/26/21 04:25 Micro: Microbiology 09/25/21 13:00 Gram Stain - Final Sputum - Expectorated Sputum Sputum Culture - Preliminary 09/24/21 19:01 Blood Culture - Preliminary Blood NEGATIVE TO DATE 09/24/21 18:59 Blood Culture - Preliminary Blood NEGATIVE TO DATE A&P Assessment and plan (1) Acute and chronic respiratory failure with hypercapnia: Acute on chronic hypercapnic respiratory failure -Multifactorial from underlying exacerbation acute diastolic CHF, exacerbation of acute bronchiectasis, pneumonia Plan: -Moved to cardiac stepdown unit -Covid PCR negative, rapid Covid negative, influenza negative -CT of the chest When compared with 11/27/2020, there is worsening bilateral ground-glass lung disease consistent with worsening pneumonia and/or edema. There is also worsening consolidation in the right middle and lower lobes of the lung. Bilateral pleural effusions have also increased in size. There is increasing mediastinal adenopathy which may be reactive or perhaps represent metastatic disease -cardiac echo pending -Sputum cultures, blood cultures, -Sputum cultures in the past grew Pseudo fluorescens/putida, Stenotrophomonas maltophilia -With failure of outpatient therapy with Bactrim -Continue antibiotic therapy vancomycin, Zosyn, Levaquin -DuoNeb treatment, hold off on steroids -Bumex 1 mg every 12 hours -Monitor urine output, monitor creatinine -Fluid restrictions 1200 cc -Monitor respiratory status closely -BiPAP therapy, patient's will bring in his home trilogy -Full code -Eliquis for DVT prophylaxis Chest pain: -Atypical in nature -But does have a recent history of cardiovascular event according to patient, diagnosed at [place], had an angiogram, no stenting, but was told he had a heart attack sometime ago, his recent follow-up they said that everything was normal -Baseline troponin 29, EKG no acute ST-T wave changes, left anterior fascicular block -No acute chest pain -Aspirin, statin, Eliquis, beta-wisam -Serial troponins 6-hour 30, serial EKGs no acute ST-T wave changes -Telemetry monitoring, turn for chest pain -Cardiac echocardiogram as above NERY, on CKD, creatinine 1.5, continue to monitor with diuretic therapy as above Type 2 diabetes mellitus, -Patient takes Lantus 46 units at bedtime, decrease to 25 units at bedtime -Moderate dose sliding scale Hypertension, continue spironolactone, metoprolol History of trapped lung physiology continue to monitor, Status: Acute (2) Pneumonia: Status: Acute (3) Acute exacerbation of bronchiectasis: Status: Acute (4) Acute diastolic congestive heart failure: Status: Acute (5) Chest pain: Status: Acute Attestations Medical Necessity Statement*: Patient requires hospitalization for acute respiratory failure Coding Level of Care Code Acute Payroll Administrator for [facility] Diagnoses Acute and chronic respiratory failure with hypercapnia J96.22 Pneumonia J18.9 Acute exacerbation of bronchiectasis J47.1 Acute diastolic congestive heart failure I50.31 Chest pain R07.9
[2021-09-26] MEDS: ferrous sulfate EC 325 mg Tablet PO (17:13)
[2021-09-26] MEDS: atorvastatin 40 mg Tablet PO (17:14)
[2021-09-26 20:11] LABS: Glucose Point of Care 306 mg/dL (70-110)
[2021-09-26] MEDS: insulin glargine 100 units/1 mL 25 UNIT SUBCUT (20:28)
[2021-09-26] MEDS: levofloxacin-dextrose 5 % 750 MG/150 ML PREMIX 100 MG IV (21:38)
[2021-09-26 22:22] LABS: Vancomycin Trough 11.6 ug/mL (10-15)
[2021-09-27] VITALS (9 sets, daily range): BP systolic 120–129; BP diastolic 57–76; PULSE 64–92; RESP 16–24; TEMP 36.7–36.8; O2SAT 93–96
[2021-09-27] MEDS: ipratropium-albuterol 3 mL Neb INHALATION ×2 (02:42→10:36)
[2021-09-27 04:52] LABS: Basophils % 0.4 %; Eosinophils # 0.2 10^3/uL (0.0-0.8); Eosinophils % 1.5 %; Hemoglobin 8.4 g/dL (11.7-16.6); Lymphocytes # 1.8 10^3/uL (0.8-4.8); Lymphocytes % 16.4 %; Mean Corpuscular Volume 96.6 fl (80-94); Mean Platelet Volume 10.8 fL (7.4-10.4); Monocytes # 1.2 10^3/uL (0.2-0.9); Monocytes % 10.6 %; Neutrophils % 70.6 %; Nucleated Red Blood Cells % 0 %; Platelet Count 168 10^3/cmm (130-400); White Blood Count 11.2 10^3/uL (4.0-10.0)
[2021-09-27] MEDS: dilTIAZem 30 mg Tablet PO (05:13)
[2021-09-27] MEDS: allopurinol 300 mg Tablet PO (05:14)
[2021-09-27] MEDS: pantoprazole DR 40 mg Tablet PO (05:14)
[2021-09-27] MEDS: hyDRALAzine 25 mg Tablet PO (05:14)
[2021-09-27] MEDS: apixaban 5 mg Tablet PO (05:14)
[2021-09-27] MEDS: potassium chloride ER 10 mEq Tablet PO (05:14)
[2021-09-27] MEDS: metoprolol tartrate 50 mg Tablet 75 MG PO (05:14)
[2021-09-27] MEDS: spironolactone 25 mg Tablet PO (05:15)
[2021-09-27] MEDS: piperacillin-tazobactam 3.375 GM in sodium chloride 0.9% (plus) 50 ML IV (05:15)
[2021-09-27 05:19] LABS: NT Pro B Type Natriuretic Pept 987 pg/mL (0-450); Procalcitonin 0.09 ng/mL (0-0.5)
[2021-09-27 05:31] LABS: Alanine Aminotransferase 14 U/L (0-41); Albumin Level 3.3 g/dL (3.5-5.2); Alkaline Phosphatase 49 IU/L (40-130); Anion Gap 11.8 (5-19); Aspartate Amino Transferase 15 U/L (0-40); Blood Urea Nitrogen 33 mg/dL (8-23); C Reactive Protein 45.5 mg/L (0.0-4.9); Calcium 8.5 mg/dL (8.5-10.5); Carbon Dioxide 37 mmol/L (22-29); Chloride 91 mmol/L (98-107); Globulin 3.5 g/dL (1.3-4.6); Glucose 194 mg/dL (65-115); Magnesium 1.9 mg/dL (1.7-2.3); Osmolality Calculated 295 mOsm/kg (285-295); Phosphorus 3.3 mg/dL (2.5-4.5); Potassium 3.8 mmol/L (3.5-5.1); Sodium 136 mmol/L (136-145); Total Bilirubin 0.3 mg/dL (0.15-1.2); Total Protein 6.8 g/dL (6.6-8.7)
[2021-09-27 06:31] LABS: Glucose Point of Care 213 mg/dL (70-110)
[2021-09-27] MEDS: insulin lispro 100 unit/1 mL SUBCUT ×2 (07:43→11:34)
[2021-09-27] MEDS: metOLazone 5 MG Tablet 10 MG PO (09:32)
--- NOTE | 2021-09-27 10:41 | P.DS_ITS ---
Discharge Providers Date of Admission: 09/24/21 17:55 Date of Discharge: September 27, 2021 Attending Provider at Admission: Everardo Cuellar MD Attending Provider at Discharge: Everardo Cuellar MD Primary Care Provider: Stevan Pal DO Diagnoses at Discharge Discharge Diagnosis (1) Acute and chronic respiratory failure with hypercapnia: Status: Acute (2) Pneumonia: Status: Acute (3) Acute exacerbation of bronchiectasis: Status: Acute (4) Acute diastolic congestive heart failure: Status: Acute (5) Chest pain: Status: Acute Reason for Visit Reason for Visit: SOB/CHEST PAIN Hospital Course Hospital Course Ambrocio Tinoco is a 76 year old male COPD, on 3 to 4 L at home, home [facility], chronic hypoxic hypercapnic respiratory failure, bronchiectasis, on inhaled tobramycin, history of sputum cultures positive for Pseudomonas, struct of lung disease, left lower lobe resection, heart failure with preserved ejection fraction, atrial fibrillation on Eliquis, hypertension, hyperlipidemia, colon cancer, recent history he was told that he had a myocardial infarct at [facility], 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 Patient was admitted to [facility] for acute on chronic respiratory failure with hypercapnia secondary to acute diastolic CHF exacerbation, acute acute exacerbation of bronchiectasis, pneumonia. Patient received inpatient diuresis, broad-spectrum antibiotic therapy, and clinically monitored, patient clinically improved, remained afebrile, oxygen requirements reduced to is 4 L, cultures have been unremarkable. Patient will be discharged on 5 remaining days of levofloxacin, with a follow-up with Dr. White as outpatient. Physical Exam Const: COMMON NORMALS: no acute distress and patient oriented x3 Resp: COMMON NORMALS: normal respiratory effort, No retractions, No use of accessory muscles and clear to auscultation bilaterally AUSCULTATION: clear to auscultation bilaterally Cardio: COMMON NORMALS: regular rate, regular rhythm, S1 normal heart sound present and S2 normal heart sound present RATE: regular rate RHYTHM: regular rhythm HEART SOUNDS: S1 normal heart sound present and S2 normal heart sound present GI: COMMON NORMALS: Normal to inspection, nondistended, normoactive bowel sounds present, Soft to palpation and non-tender PALPATION: Yes Soft to palpation Extremity: COMMON NORMALS: no pedal edema Neuro: COMMON NORMALS: patient oriented x3 Psych: COMMON NORMALS: mental status grossly normal Discharge Data Data Completed and Pending: Completed Studies During Hospitalization Category Date Time Status CT chest wo con 7 1250 Urgent Cat Scan 09/24/21 17:41 Completed XR chest 1V tiffanie ble [id number] Urgent Exams 09/24/21 15:30 [place] [id number] Routin e Ultrasound 09/25/21 17:55 Completed CV. echo complete * [id number] Routine Ultrasound 09/25/21 17:55 Completed Pending at discharge Category Date Time Status Blood Culture Sta t Lab 09/24/21 18:59 Results Clostridioides Di fficile PCR Routin e Lab 09/25/21 13:06 Ordered Enteric Bacterial Panel by PCR Rout ine Lab 09/25/21 13:06 Ordered Enteric Parasite Panel by PCR Routi ne Lab 09/25/21 13:06 Ordered Immunochemical Fe zachary OCB Routine Lab 09/25/21 13:06 Ordered Lactoferrin Routi ne Lab 09/25/21 13:06 Ordered NT Pro B Type Varsha riuretic Pept QAM Lab 09/28/21 06:00 Ordered Labs from last 24 hours 09/27/21 09/27/21 09/27/21 06:25 04:33 04:33 WBC 11.2 H RBC 2.90 L Hgb 8.4 L Hct 28.0 L MCV 96.6 H MCH 29.0 MCHC 30.0 RDW 15.0 Plt Count 168 MPV 10.8 H Neut % (Auto) 70.6 Lymph % (Auto) 16.4 [place] % (Auto) 10.6 Eos % (Auto) 1.5 Baso % (Auto) 0.4 Neut # (Auto) 7.90 H Lymph # (Auto) 1.8 [place] # (Auto) 1.2 H Eos # (Auto) 0.2 Baso # (Auto) 0.0 Nucleated RBC % (a uto) 0 Nucleated RBCs # 0.0 Sodium 136 Potassium 3.8 Chloride 91 L Carbon Dioxide 37 H Anion Gap 11.8 BUN 33 H Creatinine 1.4 H GFR Calculation Not Reportable Glucose 194 H POC Glucose 213 H Calculated Osmolal ity 295 Calcium 8.5 Phosphorus 3.3 Magnesium 1.9 Total Bilirubin 0.3 AST 15 ALT 14 Alkaline Phosphata se 49 C-Reactive Protein 45.5 H NT-Pro-B Natriuret Pep 987 H Total Protein 6.8 Albumin 3.3 L Globulin 3.5 Procalcitonin 0.09 Vancomycin Trough 09/26/21 09/26/21 09/26/21 21:48 20:01 16:38 WBC RBC Hgb Hct MCV MCH MCHC RDW Plt Count MPV Neut % (Auto) Lymph % (Auto) [place] % (Auto) Eos % (Auto) Baso % (Auto) Neut # (Auto) Lymph # (Auto) [place] # (Auto) Eos # (Auto) Baso # (Auto) Nucleated RBC % (a uto) Nucleated RBCs # Sodium Potassium Chloride Carbon Dioxide Anion Gap BUN Creatinine GFR Calculation Glucose POC Glucose 306 H 303 H Calculated Osmolal ity Calcium Phosphorus Magnesium Total Bilirubin AST ALT Alkaline Phosphata se C-Reactive Protein NT-Pro-B Natriuret Pep Total Protein Albumin Globulin Procalcitonin Vancomycin Trough 11.6 09/26/21 11:25 WBC RBC Hgb Hct MCV MCH MCHC RDW Plt Count MPV Neut % (Auto) Lymph % (Auto) [place] % (Auto) Eos % (Auto) Baso % (Auto) Neut # (Auto) Lymph # (Auto) [place] # (Auto) Eos # (Auto) Baso # (Auto) Nucleated RBC % (a uto) Nucleated RBCs # Sodium Potassium Chloride Carbon Dioxide Anion Gap BUN Creatinine GFR Calculation Glucose POC Glucose 255 H Calculated Osmolal ity Calcium Phosphorus Magnesium Total Bilirubin AST ALT Alkaline Phosphata se C-Reactive Protein NT-Pro-B Natriuret Pep Total Protein Albumin Globulin Procalcitonin Vancomycin Trough Vitals: Last Vital Signs Temp 98.0 F 09/27/21 10:39 Pulse 64 09/27/21 10:39 Resp 22 H 09/27/21 10:39 BP 120/57 09/27/21 10:39 Pulse Ox 96 09/27/21 10:39 Discharge Plan Discharge Patient Disposition: Home Condition: Stable Prescriptions: New levofloxacin 750 mg tablet 750 mg PO DAILY 5 Days Qty: 5 RF: 0 Continued methocarbamol 750 mg tablet 750 mg PO QID PRN (Reason: Muscle Spasm) RF: 0 spironolactone 25 mg tablet 25 mg PO DAILY@0700 RF: 0 rosuvastatin 10 mg tablet 10 mg PO BEDTIME@1700 RF: 0 potassium chloride 20 mEq tablet extended release 10 meq PO BID@0700,1700 RF: 0 furosemide [Lasix] 80 mg tablet 80 mg PO BID@0700,1700 RF: 0 guaifenesin 400 mg tablet 800 mg PO BID@0700,1700 RF: 0 budesonide-formoterol [Symbicort] 160-4.5 mcg/actuation HFA aerosol inhaler 1 puff INHALATION BID@07,1700 RF: 0 Eliquis 5 mg tablet 5 mg PO BID@0700,1700 RF: 0 ferrous sulfate 325 mg (65 mg iron) tablet 325 mg PO DAILY@1700 RF: 0 triamcinolone acetonide 0.025 % cream 1 applic topical PRN PRN (Reason: rash on face) RF: 0 pantoprazole [Protonix] 40 mg tablet,delayed release (DR/EC) 40 mg PO DAILY@0700 RF: 0 ipratropium-albuterol 0.5 mg-3 mg(2.5 mg base)/3 mL Solution For Nebulization 3 ml INHALATION QID PRN (Reason: Shortness Of Breath) RF: 0 allopurinol 300 mg Tablet 300 mg PO DAILY@0700 RF: 0 albuterol sulfate 90 mcg/actuation Hfa Aerosol Inhaler 2 puff INHALATION QID PRN (Reason: SHORSTNESS OF BREATH) RF: 0 Ozempic 1 mg/dose (2 mg/1.5 mL) Pen Injector 1 mg SUBCUT Q7D RF: 0 ketoconazole 2 % Shampoo See Rx Instructions .ROUTE .COMPLEX RF: 0 clobetasol 0.05 % Cream 1 applic TOPICAL DAILY PRN (Reason: Rash) RF: 0 insulin aspart U-100 [Novolog U-100 Insulin aspart] 100 unit/mL Solution See Rx Instructions .ROUTE .COMPLEX RF: 0 Otezla 30 mg Tablet 30 mg PO BID@0700,1700 RF: 0 metolazone 2.5 mg tablet 2.5 mg PO DAILY@0700 RF: 0 metoprolol tartrate 50 mg tablet 75 mg PO BID@0700,1700 RF: 0 diltiazem HCl 30 mg tablet 30 mg PO BID@0700,1700 RF: 0 glucose 4 gram Tablet,Chewable 4 g PO Q15M PRN (Reason: BLOOD SUGAR) RF: 0 Spiriva Respimat 2.5 mcg/actuation Mist 2 puff INHALATION BID RF: 0 Tylenol 325 mg Tablet 650 mg PO Q4H PRN (Reason: Pain) RF: 0 Colace 100 mg Capsule 100 mg PO TID PRN (Reason: Constipation) RF: 0 psyllium Powder 1 tsp PO DAILY PRN (Reason: unknown) RF: 0 hydralazine 50 mg Tablet 50 mg PO TID RF: 0 Lantus Solostar U-100 Insulin 100 unit/mL (3 mL) Insulin Pen 46 unit SUBCUT BEDTIME RF: 0 Vitamin D3 125 mcg (5,000 unit) Tablet 125 mcg PO QAM RF: 0 tobramycin with nebulizer 300 mg/5 mL Solution For Nebulization 5 ml INHALATION BID RF: 0 Held azithromycin 500 mg Tablet 500 mg PO .ON MON,WED,FRI RF: 0 Hold Instructions: Resume on 10/03/21. resume once levofloxacin has completed Discontinued sulfamethoxazole-trimethoprim [Bactrim DS] 800-160 mg tablet 1 tab PO BID 14 Days Qty: 28 RF: 0 Discharge Orders: Discharge Order (Routine); Ordered 09/27/21 Ordered By: Everardo Cuellar Referrals: Stevan Pal DO [Primary Care Provider] - (You will have a follow up appointment with Dr. Pal within one week. His office should be calling you on Tuesday to arrange an appointment date and time. If you don't hear from them soon please call the office. ) Mavis White MD [Physician] - 4-7 days Discharge Diet: Cardiac Discharge Activity: Resume usual activity Patient Instructions: Levofloxacin (By mouth), Chest Pain (DC), Viral Pneumonia (DC), Opioid Safety Activity Restrictions/Additional Instructions: -Please take antibiotics as prescribed -Hold azithromycin until Levaquin has completed -Follow-up with primary care provider for recheck creatinine and kidney function in 1 week -Monitor blood sugars closely Discharge Attestations Time Spent in Discharge Care*: less than 30 min Quality Metrics Clinical Quality Measures During this hospital stay, did patient experience: None Coding Level of Care Code Acute Chg FW DC note Diagnoses Acute and chronic respiratory failure with hypercapnia J96.22 Pneumonia J18.9 Acute exacerbation of bronchiectasis J47.1 Acute diastolic congestive heart failure I50.31 Chest pain R07.9
[2021-09-27 10:44] LABS: Glucose Point of Care 348 mg/dL (70-110)
--- NOTE | 2021-09-27 10:44 | PM.PN ---
Subjective Subjective: Interval history: This is progress note from 09/26/2021, patient was seen in the morning, is at bedside, he tells me is feeling a lot better, still having a productive cough, no fevers overnight Vitals/I&O/Wt Last Vital Signs Temp 98.0 F 09/27/21 10:39 Pulse 84 09/27/21 10:43 Resp 22 H 09/27/21 10:39 BP 120/57 09/27/21 10:39 Pulse Ox 96 09/27/21 10:39 09/26/21 09/27/21 09/27/21 22:59 06:59 14:59 Intake Total 436 / 958 600 / 1558 240 / 240 Output Total 975 / 1425 1100 / 2525 Balance -539 / -467 -500 / -967 240 / 240 Physical Exam Const: COMMON NORMALS: no acute distress and patient oriented x3 Resp: COMMON NORMALS: normal respiratory effort, No retractions, No use of accessory muscles and clear to auscultation bilaterally AUSCULTATION: clear to auscultation bilaterally Cardio: COMMON NORMALS: regular rate, regular rhythm, S1 normal heart sound present and S2 normal heart sound present RATE: regular rate RHYTHM: regular rhythm HEART SOUNDS: S1 normal heart sound present and S2 normal heart sound present GI: COMMON NORMALS: Normal to inspection, nondistended, normoactive bowel sounds present, Soft to palpation, non-tender and No hepatosplenomegaly present PALPATION: Yes Soft to palpation and Yes No hepatosplenomegaly present Extremity: COMMON NORMALS: no pedal edema Neuro: COMMON NORMALS: patient oriented x3 Psych: COMMON NORMALS: mental status grossly normal Data : 09/27/21 04:33 09/27/21 04:33 Micro: Microbiology 09/25/21 13:00 Gram Stain - Final Sputum - Expectorated Sputum Sputum Culture - Final A&P Assessment and plan (1) Acute and chronic respiratory failure with hypercapnia: Acute on chronic hypercapnic respiratory failure -Multifactorial from underlying exacerbation acute diastolic CHF, exacerbation of acute bronchiectasis, pneumonia Plan: -Moved to cardiac stepdown unit -Covid PCR negative, rapid Covid negative, influenza negative -CT of the chest When compared with 11/27/2020, there is worsening bilateral ground-glass lung disease consistent with worsening pneumonia and/or edema. There is also worsening consolidation in the right middle and lower lobes of the lung. Bilateral pleural effusions have also increased in size. There is increasing mediastinal adenopathy which may be reactive or perhaps represent metastatic disease -cardiac echo pending -Sputum cultures, blood cultures, -Sputum cultures in the past grew Pseudo fluorescens/putida, Stenotrophomonas maltophilia -With failure of outpatient therapy with Bactrim -Continue antibiotic therapy vancomycin, Zosyn, Levaquin -DuoNeb treatment, hold off on steroids -Bumex 1 mg every 12 hours -Monitor urine output, monitor creatinine -Fluid restrictions 1200 cc -Monitor respiratory status closely -BiPAP therapy, patient's will bring in his home trilogy -Full code -Eliquis for DVT prophylaxis -We will likely discharge in the next 24 hours Chest pain: -Atypical in nature -But does have a recent history of cardiovascular event according to patient, diagnosed at [place], had an angiogram, no stenting, but was told he had a heart attack sometime ago, his recent follow-up they said that everything was normal -Baseline troponin 29, EKG no acute ST-T wave changes, left anterior fascicular block -No acute chest pain -Aspirin, statin, Eliquis, beta-wisam -Serial troponins 6-hour 30, serial EKGs no acute ST-T wave changes -Telemetry monitoring, turn for chest pain -Cardiac echocardiogram as above NERY, on CKD, creatinine 1.5, continue to monitor with diuretic therapy as above Type 2 diabetes mellitus, -Patient takes Lantus 46 units at bedtime, decrease to 25 units at bedtime -Moderate dose sliding scale Hypertension, continue spironolactone, metoprolol History of trapped lung physiology continue to monitor, Status: Acute (2) Pneumonia: Status: Acute (3) Acute exacerbation of bronchiectasis: Status: Acute (4) Acute diastolic congestive heart failure: Status: Acute (5) Chest pain: Status: Acute Attestations Medical Necessity Statement*: Patient requires hospitalization for acute respiratory failure with hypercapnia Coding Level of Care Code Acute Processing Assistant for [facility] Diagnoses Acute and chronic respiratory failure with hypercapnia J96.22 Pneumonia J18.9 Acute exacerbation of bronchiectasis J47.1 Acute diastolic congestive heart failure I50.31 Chest pain R07.9
--- NOTE | 2021-09-27 12:23 | PC.NURSE ---
Pt education provided, no questions or concerns between or patient. VS stable upon departure. Pt wheeled out via wheelchair. Patient had his own home oxygen upon discharge.
--- NOTE | 2021-09-27 12:34 | PC.SOCIAL ---
IMM Update Pg. 2 of IMM updated and reviewed with patient who verbalized understanding. Copy provided.
== END 2021-09-27 12:25 | disposition home or self-care (01) | DRG 189 ==
LOC: ER 15:50 → CSU 20:41
PROVIDERS: Admitting Provider Family Medicine; Emergency Provider Emergency Medicine; PCP Emergency Medicine Emergency Medical Services; Visit Provider Family Medicine
DX: J96.22 Acute and chronic respiratory failure with hypercapnia (principal); I50.31 Acute diastolic (congestive) heart failure; J18.9 Pneumonia, unspecified organism; J47.1 Bronchiectasis with (acute) exacerbation; N17.9 Acute kidney failure, unspecified; I13.0 Hypertensive heart and chronic kidney disease with heart failure and stage 1 through stage 4 chronic kidney disease, or unspecified chronic kidney disease; I48.91 Unspecified atrial fibrillation; Z79.01 Long term (current) use of anticoagulants; E78.5 Hyperlipidemia, unspecified; Z85.038 Personal history of other malignant neoplasm of large intestine; Z79.4 Long term (current) use of insulin; Z90.2 Acquired absence of lung [part of]; Z87.891 Personal history of nicotine dependence; E11.22 Type 2 diabetes mellitus with diabetic chronic kidney disease; N18.9 Chronic kidney disease, unspecified; Z99.81 Dependence on supplemental oxygen; R07.89 Other chest pain; G47.30 Sleep apnea, unspecified; Z90.49 Acquired absence of other specified parts of digestive tract
CPT/HCPCS: 36415; 36416; 36600; 71045; 71250; 80048; 80053; 80202; 82728; 82803; 82962; 83540; 83550; 83735; 83880; 84100; 84145; 84443; 84484; 85014; 85018; 85025; 86140; 86403; 87040; 87070; 87205; 87449; 87631; 87635; 87641; 93005; 93306; 93970; 94640; 94660; 94664; 96365; 96367; 96372; 97161; 97165; 97530; 99291; J1815 ×2; J1940; J1956; J2543; J3370; J3490; J7050

== ENCOUNTER 2021-11-04 10:57 | Emergency (ER) | payer OTHER, MEDICARE, SELFPAY ==
[2021-11-04 11:14] VITALS: BP 115/67; PULSE 85; RESP 17; TEMP 37.1; O2SAT 99; BMI 39.9
--- NOTE | 2021-11-04 11:40 | XR_ITS ---
WS: [id number] XR shoulder RT min 2V* [id number] REASON FOR EXAM: fall with shoulder pain FINDINGS: There are moderately severe changes of osteoarthritis in the acromioclavicular joint and the glenohum eral joint with narrowing of the joint spaces, subchondral sclerosis, and marginal osteophytes. Normal alignment of the acromioclavicular joint and the glenohumeral joint. No fracture identified. XR/XR shoulder RT min 2V* [id number] IMPRESSION: No acute abnormality.
--- NOTE | 2021-11-04 11:40 | XR_ITS ---
WS: [id number] XR knee LT 3V* [id number] REASON FOR EXAM: fall injury-knee pain FINDINGS: There is a deformity of the medial margin of the medial tibial plateau consistent with an old healed fracture. No definite acute fracture On the AP view the articular surface of the lateral femoral condyle is somewhat indistinct. On the la teral view no abnormality of the articular surface is identified. Of the medial tibial plateau. No de finite acute fracture of the lateral tibial plateau. Fibula and patella are intact. Changes of osteoarthritis in all 3 knee joint compartments. Probable loose bodies within the left knee joint. XR/XR knee LT 3V* [id number] IMPRESSION: No acute abnormality identified.
--- NOTE | 2021-11-04 12:14 | ED_ITS ---
HPI - Fall General: Chief Complaint: Fall Stated Complaint: Fell Hurt Lt knee Rt shoulder Time Seen by Provider: 11/04/21 11:43 History of Present Illness: Patient is a 76-year-old male comes to the ED with left knee and right shoulder pain after fall. Patient had a fall approximately 6 days ago. Past medical history of CHF, COPD. Patient is currently on 4 L of oxygen at home. Patient said he was walking down the [place] of his house when he tripped over some of his oxygen tubing. Denies any loss of consciousness, headache or neck pain since fall. He rates his pain a 7 out of 10 on his left knee and right shoulder. Denies any other symptoms. Patient was on a blood thinner in the past but was taken off of it back on September 26. He has been taking blood thinner for a little over a month now. Associated symptoms-after fall: Denies abdominal pain, chest pain, headache(s), hematuria or neck pain Review of Systems Const: Denies: fever(s), chills or fatigue Eyes: Denies: change in vision or eye discomfort ENMT: Denies: throat pain, odynophagia, nasal discharge or nasal congestion Card: Denies: chest pain, palpitations, edema, swelling of feet/ankles, dyspnea on exertion or orthopnea Resp: Denies: dyspnea, productive cough or non-productive cough GI: Denies: abdominal pain, nausea, vomiting, diarrhea, constipation or hematochezia : Denies: flank pain, difficulty urinating, dysuria or hematuria Musc: Reports: extremity pain (left knee and right shoulder) and joint pain (left knee and right shoulder); Denies: neck pain, back pain or extremity swelling Skin/Breast: Denies: rash or new lesions Neuro: Denies: headache(s), numbness in extremities or weakness in extremities PFSH ED PFSH: Medical History Accelerated essential hypertension AF (atrial fibrillation) Apnea, sleep Bronchiectasis, uncomplicated Chronic obstructive pulmonary disease, unspecified Colon cancer Cyst of pancreas Hernia Hx of adenomatous polyp of colon Hyperlipidemia, unspecified Incisional hernia Osteoarthritis of right knee Post-traumatic stress disorder, unspecified Postlaminectomy syndrome Respiratory failure with hypoxia and hypercapnia Right renal stone Small bowel obstruction Spinal stenosis, lumbar region without neurogenic claudication Type 2 diabetes mellitus without complications Surgical History H/O colonoscopy 2017 & 11/12/19: Multiple tubular adenoma, follow-up colonoscopy in 3 years H/O esophagogastroduodenoscopy 11/12/2019: Hyperplastic polyp, gastritis H/O shoulder surgery Bilateral History of back surgery Dorsal column stimulator placement /multiple IPG exchanges History of colon resection for sigmoid colon cancer x2 --2012 in [place], 2014 in [place] ( they did not get it all the first time ) History of incisional hernia repair History of lumbar fusion X6 procedures altogether History of surgical procedure on eye proper using laser Bilateral /bilateral cataract extraction History of tonsillectomy and adenoidectomy S/P partial lobectomy of lung Left lower lobe for bronchiectasis Family History Brother Diabetes Hypertension Father Cancer Leukemia Sister Lung cancer Cancer Breast cancer in 2 sisters Other CAD (coronary artery disease) Stroke Denies family history of Anesthesia complication Bleeding disorder Social History Smoking and tobacco status: former smoker Quit status (tobacco): has quit using tobacco Year quit tobacco: 1970 - PPD x 13 Years Alcohol intake: current Alcohol intake frequency: holidays/special occasions only Lives independently: Yes Household members: spouse Marital status: service: Yes Current occupational status: retired History of recent travel: No Current gender identity: Male Physical Exam Const: COMMON NORMALS: patient oriented x3 HENMT: COMMON NORMALS: normocephalic HEAD & SCALP: normocephalic MOUTH: Normal oral and palatal mucosa present THROAT: posterior oropharynx normal and uvula midline Neck/C-Spine: COMMON NORMALS: full ROM and supple GENERAL: Yes normal visual inspection CERVICAL SPINE: Yes cervical ROM normal, No pain with cervical ROM, No Cervical spine tenderness and No Paracervical muscle tenderness Resp: COMMON NORMALS: normal respiratory effort, No retractions, No use of accessory muscles and clear to auscultation bilaterally AUSCULTATION: clear to auscultation bilaterally Cardio: COMMON NORMALS: regular rate, regular rhythm, S1 normal heart sound present, S2 normal heart sound present, No gallops present (Cardio), No clicks present (Cardio), No murmurs present (Cardio) and Peripheral pulses 2+ throughout RATE: regular rate RHYTHM: regular rhythm HEART SOUNDS: S1 normal heart sound present and S2 normal heart sound present PERIPHERAL PULSES: Peripheral pulses 2+ throughout GI: COMMON NORMALS: Normal to inspection, nondistended, normoactive bowel sounds present, Soft to palpation, non-tender and no masses PALPATION: Yes Soft to palpation : COMMON NORMALS: Yes no CVA tenderness BLADDER/KIDNEY EXAM: Yes no CVA tenderness Back/Pelvis: COMMON NORMALS: no CVA tenderness Extremity: RIGHT UPPER EXTREMITY: Yes shoulder joint Right shoulder: Yes Right shoulder joint inspection exam (No visible deformity noted. Tenderness over AC joint), Yes palpation, Yes Right shoulder joint ROM exam (Limited abduction due to pain) and Yes Right shoulder joint neurovascular exam (Intact) LEFT LOWER EXTREMITY: Yes knee joint Left knee: Yes inspection (No visible deformity or swelling seen.), Yes palpation (Tenderness over medial aspect of left knee), Yes ROM (Limited due to pain) and Yes neurovascular exam (Intact) Neuro: COMMON NORMALS: patient oriented x3 and moves all extremities Skin: GENERAL SKIN EXAM: dry skin Course Vital Signs: Vital signs: Vital Signs Temperature 98.7 F 11/04/21 11:14 Pulse Rate 55 L 11/04/21 12:20 Respiratory Rate 16 11/04/21 12:20 Blood Pressure 121/60 11/04/21 12:20 Pulse Oximetry 97 11/04/21 12:20 MDM - Fall Medical Decision Making Patient is a 76-year-old male comes to the ED with right shoulder and left knee pain after having a fall. Denies any head trauma or loss of consciousness. Vitals are stable. Patient is sitting comfortably on exam chair and in no acute distress. He has some right shoulder AC joint tenderness but is neurovascular intact distally. Left knee has some medial aspect of knee tenderness. Left leg neurovascular tact. X-rays of left knee and right shoulder show no acute fractures or findings. Patient diagnosed with osteoarthritis left knee and fall at home causing pain in right shoulder. I placed an order with case management for patient to be referred to Ortho for further evaluation of osteoarthritis in left knee. Patient discharged home. Return to ED precautions given. Follow-up with PCP as well next 5 to 7 days for reevaluation. Patient understood and agreed with plan. Lab Data Radiology Impressions Knee X-Ray 11/04/21 11:40 IMPRESSION: No acute abnormality identified. Shoulder X-Ray 11/04/21 11:40 IMPRESSION: No acute abnormality. Discharge Plan Discharge Patient Disposition: Home Clinical Impression: Fall as cause of accidental injury at home as place of occurrence Qualifiers: Encounter type: initial encounter Qualified Code(s): W19.XXXA - Unspecified fall, initial encounter Osteoarthritis of left knee Qualifiers: Osteoarthritis type: primary Qualified Code(s): M17.12 - Unilateral primary os teoarthritis, left knee Pain in right shoulder Qualifiers: Chronicity: acute Qualified Code(s): M25.511 - Pain in right shoulder Condition: Stable Prescriptions: No Action methocarbamol 750 mg tablet 750 mg PO QID PRN (Reason: Muscle Spasm) 0RF lactulose 10 gram/15 mL solution 10 g PO BID 7 Days Qty: 210 0RF spironolactone 25 mg tablet 25 mg PO DAILY@0700 0RF rosuvastatin 10 mg tablet 10 mg PO BEDTIME@1700 0RF potassium chloride 20 mEq tablet extended release 10 meq PO BID@0700,1700 0RF furosemide [Lasix] 80 mg tablet 80 mg PO BID@0700,1700 0RF guaifenesin 400 mg tablet 800 mg PO BID@0700,1700 0RF budesonide-formoterol [Symbicort] 160-4.5 mcg/actuation HFA aerosol inhaler 1 puff INHALATION BID@0700,1700 0RF Eliquis 5 mg tablet 5 mg PO BID@0700,1700 0RF ferrous sulfate 325 mg (65 mg iron) tablet 325 mg PO DAILY@1700 0RF triamcinolone acetonide 0.025 % cream 1 applic topical PRN PRN (Reason: rash on face) 0RF levofloxacin 750 mg tablet 750 mg PO DAILY 10 Days Qty: 10 0RF prednisone 10 mg tablet 10 mg PO .COMPLEX 14 Days Qty: 21 0RF Rx Instructions: 10 mg PO 20 mg for 7 days followed by 10 mg for 7 days; sodium chloride 3 % solution for nebulization 4 ml inhalation BID PRN (Reason: secretions) Qty: 240 3RF sodium chloride 7 % solution for nebulization 4 ml inhalation BID PRN (Reason: secretions) Qty: 240 5RF pantoprazole [Protonix] 40 mg tablet,delayed release (DR/EC) 40 mg PO DAILY@0700 0RF ipratropium-albuterol 0.5 mg-3 mg(2.5 mg base)/3 mL Solution For Nebulization 3 ml INHALATION QID PRN (Reason: Shortness Of Breath) 0RF allopurinol 300 mg Tablet 300 mg PO DAILY@0700 0RF albuterol sulfate 90 mcg/actuation Hfa Aerosol Inhaler 2 puff INHALATION QID PRN (Reason: SHORSTNESS OF BREATH) 0RF Ozempic 1 mg/dose (2 mg/1.5 mL) Pen Injector 1 mg SUBCUT Q7D 0RF Rx Instructions: on TUESDAY. ketoconazole 2 % Shampoo See Rx Instructions .ROUTE .COMPLEX 0RF Rx Instructions: 1 applic topically DIRECTED clobetasol 0.05 % Cream 1 applic TOPICAL DAILY PRN (Reason: Rash) 0RF insulin aspart U-100 [Novolog U-100 Insulin aspart] 100 unit/mL Solution See Rx Instructions .ROUTE .COMPLEX 0RF Rx Instructions: 26 units qam,28 units at lunch and 26 units at dinner and sliding scale 1 unit per 15 carbs adjustment Otezla 30 mg Tablet 30 mg PO BID@0700,1700 0RF metolazone 2.5 mg tablet 2.5 mg PO DAILY@0700 0RF metoprolol tartrate 50 mg tablet 75 mg PO BID@0700,1700 0RF diltiazem HCl 30 mg tablet 30 mg PO BID@0700,1700 0RF glucose 4 gram Tablet,Chewable 4 g PO Q15M PRN (Reason: BLOOD SUGAR) 0RF Spiriva Respimat 2.5 mcg/actuation Mist 2 puff INHALATION BID 0RF Tylenol 325 mg Tablet 650 mg PO Q4H PRN (Reason: Pain) 0RF Colace 100 mg Capsule 100 mg PO TID PRN (Reason: Constipation) 0RF azithromycin 500 mg Tablet 500 mg PO .ON MON,WED,TUE 0RF Hold Instructions: Resume on 10/03/21. resume once levofloxacin has completed psyllium Powder 1 tsp PO DAILY PRN (Reason: unknown) 0RF hydralazine 50 mg Tablet 50 mg PO TID 0RF Lantus Solostar U-100 Insulin 100 unit/mL (3 mL) Insulin Pen 46 unit SUBCUT BEDTIME 0RF Vitamin D3 125 mcg (5,000 unit) Tablet 125 mcg PO QAM 0RF tobramycin with nebulizer 300 mg/5 mL Solution For Nebulization 5 ml INHALATION BID 0RF Discharge Orders: Discharge ED (Routine); Ordered 11/04/21 Ordered By: Sonu Wise Referrals: Stevan Pal, DO [Primary Care Provider] - Discharge Diet: Regular Discharge Activity: Increase activity as tolerated Patient Instructions: Osteoarthritis (ED), Fall Prevention for Older Adults (ED) Activity Restrictions/Additional Instructions: Follow-up with medical provider as directed. Case management should be contacting you in the next several days to set up an appointment for further evaluation of knee pain with orthopedic doctor. Take medications as prescribed. Return to the ER or your medical provider if condition worsens. Please read and understand discharge instructions. Thank you for choosing [facility] for your healthcare needs today. Please realize this is an emergency room and that we are providing you with a medical screening exam and this may not be complete and all inclusive of all the testing and or work up that you may need to determine your ailment or severity of your illness. It is very important that you follow up as instructed or that you return to the Emergency Department should you have concerns or if your condition changes or worsens in any way. Coding Level of Care Code ED Ophthalmologist Retina Specialist for [facility] Exam Comprehensive
[2021-11-04 12:20] VITALS: BP 121/60; PULSE 55; RESP 16; O2SAT 97
--- NOTE | 2021-11-05 11:03 | DCPLANNER ---
Addendum entered by Amy Anand 12/24/21 08:22: Patient had a follow up appointment scheduled for 12.01.[address] Pena at ortho - patient did attend appointment. Addendum entered by Amy Anand 11/20/21 22:09: Patient has a follow up appointment scheduled for Wednesday, November 24, 2021 at 9:[address] Pena. Clinic will call patient with appointment information. Original Note: manager food had message to schedule a follow up appointment for patient with ortho. manager food called the ortho clinic, spoke with Jyoti, gave clinic patients information. manager food was told that patients information would be printed and reviewed. Clinic will call patient with appointment information. Patient has [facility] insurance, counseling case manager emailed patients information to [employer] with [facility] for the authorization process to be started.
== END 2021-11-04 13:18 | disposition home or self-care (01) ==
PROVIDERS: Emergency Provider Physician Assistant; PCP Emergency Medicine Emergency Medical Services
DX: M25.511 Pain in right shoulder (principal); M17.12 Unilateral primary osteoarthritis, left knee; Z79.01 Long term (current) use of anticoagulants; Z79.4 Long term (current) use of insulin; J44.9 Chronic obstructive pulmonary disease, unspecified; I10 Essential (primary) hypertension; Z85.038 Personal history of other malignant neoplasm of large intestine; E78.5 Hyperlipidemia, unspecified; E11.9 Type 2 diabetes mellitus without complications
CPT/HCPCS: 73030; 73562; 99282

== ENCOUNTER → 2021-12-01 15:47 | Outpatient (BNVA) | payer OTHER, MEDICARE, SELFPAY | PROVIDERS: PCP Emergency Medicine Emergency Medical Services; Visit Provider Orthopaedic Surgery | DX: M25.562 Pain in left knee (principal) | CPT/HCPCS: 73562 ==

== ENCOUNTER → 2021-12-09 12:34 | Outpatient (BNVA) | payer OTHER, SELFPAY | PROVIDERS: PCP Emergency Medicine Emergency Medical Services; Visit Provider Internal Medicine Critical Care Medicine | DX: J47.1 Bronchiectasis with (acute) exacerbation (principal); J47.9 Bronchiectasis, uncomplicated; J96.11 Chronic respiratory failure with hypoxia; J96.12 Chronic respiratory failure with hypercapnia; I50.32 Chronic diastolic (congestive) heart failure; I48.19 Other persistent atrial fibrillation; J90 Pleural effusion, not elsewhere classified; E78.5 Hyperlipidemia, unspecified; E11.8 Type 2 diabetes mellitus with unspecified complications | CPT/HCPCS: 99214 ==

== ENCOUNTER → 2021-12-11 08:02 | Outpatient (BNVA) | payer OTHER, SELFPAY | PROVIDERS: PCP Emergency Medicine Emergency Medical Services; Visit Provider Surgery | DX: Z12.11 Encounter for screening for malignant neoplasm of colon (principal) | CPT/HCPCS: 87635 ==

== ENCOUNTER 2021-12-16 05:44 | Day surgery (SDC) | payer OTHER, SELFPAY ==
[2021-12-14 11:53] VITALS: BMI 39.1
[2021-12-16] MEDS: sodium chloride 0.9% 1,000 ML 30 ML IV (06:28)
[2021-12-16 06:30] VITALS: BP 136/75; PULSE 85; RESP 20; TEMP 36.9; O2SAT 99
--- NOTE | 2021-12-16 06:54 | ANES.PREANE2 ---
Pre-Anesthetic Assessment Height/Weight: Height 1.75 m Weight 120.202 kg Temp Pulse Resp BP Pulse Ox 98.4 F 85 20 H 136/75 99 12/16/21 06:30 12/16/21 06:30 12/16/21 06:30 12/16/21 06:30 12/16/21 06:30 Preop Diagnosis: upper gi symptoms Operation Date: 12/16/21 07:00 Proposed Procedures p EGD [id number](Not Applicable) - Nasim Carcamo MD s Colonoscopy(Not Applicable) - Nasim Carcamo MD Familial anesthetic complications: none Was Beta Ame taken within 24 hours: N/A Was Clonidine taken within 24 hours: N/A Last intake: Intake Last Liquid Date 12/15/21 Last Liquid Time 21:30 Last Solid Date 12/12/21 Last Solid Time 22:00 Last Intake: 22:00 Social No alcohol and No tobacco Exam alert, oriented x 3, clear to auscultation bilaterally and regular rate & rhythm Airway Submandibular: within normal limits Cervical ROM: within normal limits Mallampati: Class II Dentition: false Pulmonary Chronic Obstructive Pulmonary Disease, Cough, Sleep Apnea and Shortness of Breath home o2 4-6 CV/HEM Atrial Fibrillation, Anemia, Coronary Artery Disease, Congestive Heart Failure, Hypertension and Myocardial Infarction (no PTCA) Chronic Renal Insufficiency Hepatic None reported GI None reported Metabolic Diabetes Mellitus (avg 100-250) and Morbid Obesity Musc/skel Lower Back Pain (DCS) Neuropsych None reported Anesthetic Plan ASA status: 4 Anesthesia: MAC Medications/Allergies Home Medications Medication Instructions Recorded Confirmed Last Taken Type furosemide 80 mg tablet (Lasix) 80 mg PO BID@0700,1700 09/24/19 12/14/21 12/15/21 History potassium chloride 20 mEq 10 meq PO BID@0700,1700 tab 09/24/19 12/14/21 12/15/21 History tablet,extended release rosuvastatin 10 mg tablet 10 mg PO BEDTIME@1700 tab 09/24/19 12/14/21 12/15/21 History spironolactone 25 mg tablet 25 mg PO DAILY@0700 tab 09/24/19 12/14/21 12/15/21 History methocarbamol 750 mg tablet 750 mg PO QID PRN 10/29/19 12/14/21 11/17/19 History pantoprazole 40 mg tablet,delayed 40 mg PO DAILY@0700 11/09/19 12/14/21 12/15/21 History release (Protonix) glucose 4 gram chewable tablet 4 g PO Q15M PRN 11/19/19 12/14/21 Unknown History tiotropium bromide 2.5 2 puff INHALATION BID 11/19/19 12/14/21 12/15/21 History mcg/actuation mist for inhalation (Spiriva Respimat) apixaban 5 mg tablet (Eliquis) 5 mg PO BID@0700,1700 01/29/20 12/14/21 10/15/21 History budesonide-formoterol HFA 160 1 puff INHALATION BID@0700,1700 01/29/20 12/14/21 12/15/21 History mcg-4.5 mcg/actuation aerosol inhaler (Symbicort) guaifenesin 400 mg tablet 800 mg PO BID@0700,1700 tab 01/29/20 12/14/21 12/15/21 History ferrous sulfate 325 mg (65 mg 325 mg PO DAILY@1700 tab 04/10/20 12/14/21 12/15/21 History iron) tablet albuterol sulfate 90 mcg/actuation 2 puff INHALATION QID PRN 06/16/20 12/14/21 12/15/21 History aerosol inhaler allopurinol 300 mg tablet 300 mg PO DAILY@0700 06/16/20 12/14/21 12/15/21 History ipratropium 0.5 mg-albuterol 3 mg 3 ml INHALATION QID PRN 06/16/20 12/14/21 12/15/21 History (2.5 mg base)/3 mL nebulization soln semaglutide 1 mg/dose (2 mg/1.5 1 mg SUBCUT Q7D 06/16/20 12/14/21 12/10/21 History mL) subcutaneous pen injector (Ozempic) triamcinolone acetonide 0.025 % 1 applic TOPICAL PRN PRN 11/03/20 12/14/21 01/24/21 History topical cream clobetasol 0.05 % topical cream 1 applic TOPICAL DAILY PRN 01/08/21 12/14/21 12/14/21 History insulin aspart U-100 100 unit/mL See Rx Instructions .ROUTE .COMPLEX 01/08/21 12/14/21 12/15/21 History subcutaneous solution (Novolog U-100 Insulin aspart) ketoconazole 2 % shampoo See Rx Instructions .ROUTE .COMPLEX 01/08/21 12/14/21 12/15/21 History diltiazem HCl 30 mg tablet 30 mg PO BID@0700,1700 01/25/21 12/14/21 12/15/21 History metolazone 2.5 mg tablet 2.5 mg PO DAILY@0700 01/25/21 12/14/21 12/15/21 History metoprolol tartrate 50 mg tablet 75 mg PO BID@0700,1700 01/25/21 12/14/21 12/15/21 18:00 History acetaminophen 325 mg tablet 650 mg PO Q4H PRN 09/24/21 12/14/21 12/15/21 History (Tylenol) azithromycin 500 mg tablet 500 mg PO .ON MON,WED,Tue09/24/21 12/14/21 12/14/21 History cholecalciferol (vitamin D3) 125 125 mcg PO QAM 09/24/21 12/14/21 12/15/21 History mcg (5,000 unit) tablet (Vitamin D3) docusate sodium 100 mg capsule 100 mg PO TID PRN 09/24/21 12/14/21 12/15/21 History (Colace) hydralazine 50 mg tablet 50 mg PO TID 09/24/21 12/14/21 12/15/21 History insulin glargine 100 unit/mL (3 46 unit SUBCUT BEDTIME 09/24/21 12/16/21 12/15/21 History mL) subcutaneous pen (Lantus Solostar U-100 Insulin) tobramycin with nebulizer 300 mg/5 5 ml INHALATION BID 09/24/21 12/14/21 12/15/21 History mL solution for nebulization levofloxacin 750 mg tablet 750 mg PO DAILY 10 Days #10 tab 10/12/21 12/14/21 12/15/21 Rx sodium chloride 7 % for 4 ml INHALATION BID PRN #240 ml 10/26/21 12/14/21 12/15/21 Rx nebulization lactulose 10 gram/15 mL oral 10 g (15 mL) PO BID 7 Days #210 ml 11/02/21 12/14/21 12/15/21 Rx solution fluticasone propionate 50 1 spray INTRANASAL BID 12/09/21 12/14/21 12/15/21 History mcg/actuation nasal spray,suspension prednisone 5 mg tablet 5 mg PO DAILY 60 Days #60 tab 12/09/21 12/14/21 Unknown Rx Allergies Allergy/AdvReac Type Severity Reaction Status Date / Time naproxen Allergy Intermediate ALGY-Rash Verified 12/09/21 12:54 amoxicillin AdvReac Intermediate Itching Verified 12/09/21 12:54 morphine AdvReac Intermediate ADR-Vomitin Verified 12/09/21 12:54 g Current Medications Generic Name Dose Route Start Last Admin Trade Name Freq PRN Reason Stop Dose Admin Sodium Chloride 1,000 mls @ 30 mls/hr 12/16/21 06:15 12/16/21 06:28 Sodium Chloride 0.9% IV 12/17/21 06:14 30 mls/hr .Q24H BEATRICE Administration PFSH Anesthesia Medical History Accelerated essential hypertension AF (atrial fibrillation) Apnea, sleep Bronchiectasis, uncomplicated Chronic obstructive pulmonary disease, unspecified Colon cancer Cyst of pancreas Hernia Hx of adenomatous polyp of colon Hyperlipidemia, unspecified Incisional hernia Osteoarthritis of right knee Post-traumatic stress disorder, unspecified Postlaminectomy syndrome Respiratory failure with hypoxia and hypercapnia Right renal stone Small bowel obstruction Spinal stenosis, lumbar region without neurogenic claudication Type 2 diabetes mellitus without complications Surgical History H/O colonoscopy 2016 & 11/12/19: Multiple tubular adenoma, follow-up colonoscopy in 3 years H/O esophagogastroduodenoscopy 11/12/2019: Hyperplastic polyp, gastritis H/O shoulder surgery Bilateral History of back surgery Dorsal column stimulator placement /multiple IPG exchanges History of colon resection for sigmoid colon cancer x2 --2012 in [place], 2014 in [place] ( they did not get it all the first time ) History of incisional hernia repair History of lumbar fusion X6 procedures altogether History of surgical procedure on eye proper using laser Bilateral /bilateral cataract extraction History of tonsillectomy and adenoidectomy S/P partial lobectomy of lung Left lower lobe for bronchiectasis Family History Brother Diabetes Hypertension Father Cancer Leukemia Sister Lung cancer Cancer Breast cancer in 2 sisters Other CAD (coronary artery disease) Stroke Denies family history of Anesthesia complication Bleeding disorder Social History Smoking and tobacco status: former smoker Quit status (tobacco): has quit using tobacco Year quit tobacco: 1970 - PPD x 13 Years Alcohol intake: current Alcohol intake frequency: holidays/special occasions only Lives independently: Yes Household members: spouse Marital status: service: Yes Current occupational status: retired History of recent travel: No Current gender identity: Male Data Anesthesia Cardiac Studies: Echocardiogram 09/25/21 Echocardiogram Ultrasound 06/17/20
[2021-12-16 07:54] VITALS: BP 143/72; PULSE 81; RESP 16; TEMP 36.1; O2SAT 93
[2021-12-16 08:11] VITALS: BP 153/73; PULSE 78; RESP 20; O2SAT 98
--- NOTE | 2021-12-16 08:28 | ANE.PACU2 ---
Inpatient post-anesthesia follow up: Vital signs: Temperature 97 F Pulse Rate 78 Respiratory Rate 20 Blood Pressure 153/73 Pulse Oximetry 98 Oxygen Delivery Me thod Nasal Cannula Oxygen Flow Rate 6 Fraction of Inspir ed Oxygen Hydration adequate: Yes Nausea and vomiting: No Pain level: 1 Mental status: Baseline
--- NOTE | 2021-12-16 08:48 | P.HP_ITS ---
Same Day Surgery H&P Indication for Procedure/HPI DATE OF PROCEDURE: December 16, 2021 CHIEF COMPLAINT/INDICATIONFOR SURGICAL PROCEDURE: anemia PREOP DIAGNOSIS: diagnostic PLANNED PROCEDURE: Operation Date: 12/16/21 07:00 Proposed Procedures p EGD [id number](Not Applicable) - Nasim Carcamo MD s Colonoscopy(Not Applicable) - Nasim Carcamo MD Medications/Allergies* Home Medications Medication Instructions Recorded Confirmed Type furosemide 80 mg tablet (Lasix) 80 mg PO BID@0700,1700 09/24/19 12/14/21 History potassium chloride 20 mEq 10 meq PO BID@0700,1700 tab 09/24/19 12/14/21 History tablet,extended release rosuvastatin 10 mg tablet 10 mg PO BEDTIME@1700 tab 09/24/19 12/14/21 History spironolactone 25 mg tablet 25 mg PO DAILY@0700 tab 09/24/19 12/14/21 History methocarbamol 750 mg tablet 750 mg PO QID PRN 10/29/19 12/14/21 History pantoprazole 40 mg tablet,delayed 40 mg PO DAILY@0700 11/09/19 12/14/21 History release (Protonix) glucose 4 gram chewable tablet 4 g PO Q15M PRN 11/19/19 12/14/21 History tiotropium bromide 2.5 2 puff INHALATION BID 11/19/19 12/14/21 History mcg/actuation mist for inhalation (Spiriva Respimat) apixaban 5 mg tablet (Eliquis) 5 mg PO BID@0700,1700 01/29/20 12/14/21 History budesonide-formoterol HFA 160 1 puff INHALATION BID@0700,1700 01/29/20 12/14/21 History mcg-4.5 mcg/actuation aerosol inhaler (Symbicort) guaifenesin 400 mg tablet 800 mg PO BID@0700,1700 tab 01/29/20 12/14/21 History ferrous sulfate 325 mg (65 mg 325 mg PO DAILY@1700 tab 04/10/20 12/14/21 History iron) tablet albuterol sulfate 90 mcg/actuation 2 puff INHALATION QID PRN 06/16/20 12/14/21 History aerosol inhaler allopurinol 300 mg tablet 300 mg PO DAILY@0700 06/16/20 12/14/21 History ipratropium 0.5 mg-albuterol 3 mg 3 ml INHALATION QID PRN 06/16/20 12/14/21 History (2.5 mg base)/3 mL nebulization soln semaglutide 1 mg/dose (2 mg/1.5 1 mg SUBCUT Q7D 06/16/20 12/14/21 History mL) subcutaneous pen injector (Ozempic) triamcinolone acetonide 0.025 % 1 applic TOPICAL PRN PRN 11/03/20 12/14/21 History topical cream clobetasol 0.05 % topical cream 1 applic TOPICAL DAILY PRN 01/08/21 12/14/21 History insulin aspart U-100 100 unit/mL See Rx Instructions .ROUTE .COMPLEX 01/08/21 12/14/21 History subcutaneous solution (Novolog U-100 Insulin aspart) ketoconazole 2 % shampoo See Rx Instructions .ROUTE .COMPLEX 01/08/21 12/14/21 History diltiazem HCl 30 mg tablet 30 mg PO BID@0700,1700 01/25/21 12/14/21 History metolazone 2.5 mg tablet 2.5 mg PO DAILY@0700 01/25/21 12/14/21 History metoprolol tartrate 50 mg tablet 75 mg PO BID@0700,1700 01/25/21 12/14/21 History acetaminophen 325 mg tablet 650 mg PO Q4H PRN 09/24/21 12/14/21 History (Tylenol) azithromycin 500 mg tablet 500 mg PO .ON MON,WED,FRI 09/24/21 12/14/21 History cholecalciferol (vitamin D3) 125 125 mcg PO QAM 09/24/21 12/14/21 History mcg (5,000 unit) tablet (Vitamin D3) docusate sodium 100 mg capsule 100 mg PO TID PRN 09/24/21 12/14/21 History (Colace) hydralazine 50 mg tablet 50 mg PO TID 09/24/21 12/14/21 History insulin glargine 100 unit/mL (3 46 unit SUBCUT BEDTIME 09/24/21 12/16/21 History mL) subcutaneous pen (Lantus Solostar U-100 Insulin) tobramycin with nebulizer 300 mg/5 5 ml INHALATION BID 09/24/21 12/14/21 History mL solution for nebulization fluticasone propionate 50 1 spray INTRANASAL BID 12/09/21 12/14/21 History mcg/actuation nasal spray,suspension Allergies/Adverse Reactions Allergy/AdvReac Type Severity Reaction Status Date / Time naproxen Allergy Intermediate ALGY-Rash Verified 12/09/21 12:54 amoxicillin AdvReac Intermediate Itching Verified 12/09/21 12:54 morphine AdvReac Intermediate ADR-Vomitin Verified 12/09/21 12:54 g Pertinent History/Comorbid Conditions* Medical History (Updated 12/01/21 @ 16:14 by Tay Pena MD) Accelerated essential hypertension AF (atrial fibrillation) Apnea, sleep Bronchiectasis, uncomplicated Chronic obstructive pulmonary disease, unspecified Colon cancer Cyst of pancreas Hernia Hx of adenomatous polyp of colon Hyperlipidemia, unspecified Incisional hernia Osteoarthritis of right knee Post-traumatic stress disorder, unspecified Postlaminectomy syndrome Respiratory failure with hypoxia and hypercapnia Right renal stone Small bowel obstruction Spinal stenosis, lumbar region without neurogenic claudication Type 2 diabetes mellitus without complications Surgical History (Updated 12/16/21 @ 07:52 by Nasim Carcamo MD) H/O colonoscopy 2016 & 11/12/19: Multiple tubular adenoma, follow-up colonoscopy in 3 years 2021 - descending colon polypx 2 H/O esophagogastroduodenoscopy 11/12/2019: Hyperplastic polyp, gastritis H/O esophagogastroduodenoscopy (12/16/21) pyloric polyp H/O shoulder surgery Bilateral History of back surgery Dorsal column stimulator placement /multiple IPG exchanges History of colon resection for sigmoid colon cancer x2 --2012 in [place], 2014 in [place] ( they did not get it all the first time ) History of incisional hernia repair History of lumbar fusion X6 procedures altogether History of surgical procedure on eye proper using laser Bilateral /bilateral cataract extraction History of tonsillectomy and adenoidectomy S/P partial lobectomy of lung Left lower lobe for bronchiectasis Family History (Updated 01/25/21 @ 14:36 by Galdino Diaz MD) Diabetes Brother CAD (coronary artery disease) Lung cancer Sister Cancer Father Leukemia Sister Breast cancer in 2 sisters Hypertension Brother Stroke Denies family history of Anesthesia complication Bleeding disorder Social History Smoking and tobacco status: former smoker Quit status (tobacco): has quit using tobacco Year quit tobacco: 1970 - PPD x 13 Years Alcohol intake: current Alcohol intake frequency: holidays/special occasions only Lives independently: Yes Household members: spouse Marital status: service: Yes Current occupational status: retired History of recent travel: No Current gender identity: Male Pertinent Exam Findings alert, oriented x 3 and regular rate & rhythm Recommendations Surgery/Procedure today Coding Level of Care Code 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
== END 2021-12-16 08:33 | disposition home or self-care (01) ==
PROVIDERS: PCP Emergency Medicine Emergency Medical Services; Visit Provider Surgery
PROC: 0DJ08ZZ Inspection of Upper Intestinal Tract, Via Natural or Artificial Opening Endoscopic (ICD-10-PCS; CPT 43235; principal; 2021-12-16 07:00)
PROC: 0DJD8ZZ Inspection of Lower Intestinal Tract, Via Natural or Artificial Opening Endoscopic (ICD-10-PCS; CPT 45378; 2021-12-16 07:00)
DX: Z85.038 Personal history of other malignant neoplasm of large intestine (principal); K21.9 Gastro-esophageal reflux disease without esophagitis; K31.7 Polyp of stomach and duodenum; D12.2 Benign neoplasm of ascending colon; K63.89 Other specified diseases of intestine; J44.9 Chronic obstructive pulmonary disease, unspecified; G47.30 Sleep apnea, unspecified; I48.91 Unspecified atrial fibrillation; I25.10 Atherosclerotic heart disease of native coronary artery without angina pectoris; I11.0 Hypertensive heart disease with heart failure; I50.9 Heart failure, unspecified; I25.2 Old myocardial infarction; E11.9 Type 2 diabetes mellitus without complications; Z79.4 Long term (current) use of insulin; Z87.891 Personal history of nicotine dependence; Z82.49 Family history of ischemic heart disease and other diseases of the circulatory system; Z83.3 Family history of diabetes mellitus
CPT/HCPCS: 43251; 45380; 88305; 88342; J2704; J7030

== ENCOUNTER → 2021-12-28 09:05 | Outpatient (BNVA) | payer OTHER, SELFPAY | PROVIDERS: PCP Emergency Medicine Emergency Medical Services; Visit Provider Surgery | DX: C18.9 Malignant neoplasm of colon, unspecified (principal); K31.7 Polyp of stomach and duodenum | CPT/HCPCS: 99212 ==

== ENCOUNTER → 2022-02-11 09:15 | Outpatient (BNVA) | payer OTHER, SELFPAY | PROVIDERS: PCP Emergency Medicine Emergency Medical Services; Visit Provider Internal Medicine Critical Care Medicine | DX: J47.1 Bronchiectasis with (acute) exacerbation (principal); I48.19 Other persistent atrial fibrillation; J47.9 Bronchiectasis, uncomplicated; J90 Pleural effusion, not elsewhere classified; J96.12 Chronic respiratory failure with hypercapnia; I50.32 Chronic diastolic (congestive) heart failure; Z87.891 Personal history of nicotine dependence | CPT/HCPCS: 99214 ==

== ENCOUNTER 2022-02-19 09:31 | Inpatient (IN) | payer OTHER, MEDICARE, SELFPAY ==
[2022-02-19] VITALS (12 sets, daily range): BP systolic 132–181; BP diastolic 64–89; PULSE 68–723; RESP 17–26; TEMP 36.6–36.8; O2SAT 97–98; BMI 39.9
--- NOTE | 2022-02-19 10:11 | XR_ITS ---
WS: [id number] Exam: XR chest 1V portable [id number] Date/Time of Exam: 02/19/2022 10:15 AM Reason For Exam: cough Comparison 09/24/2021. There is infiltrate in the mid and lower right lung with right basal pleural effusion. Also infiltrat e in the left lung base. The heart is enlarged. No pneumothorax. The mediastinum is not widened. Jelena onal bony structures are intact. XR/XR chest 1V portable [id number] IMPRESSION: 1. Infiltrates in the mid and lower right lung and left basal area. 2. Moderate-sized right basal pleural effusion. 3. Cardiac enlargement unchanged.
--- NOTE | 2022-02-19 10:11 | ECG_ITS ---
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 Measurements Intervals [place] Rate: 67 P: [place]: QRS: -81 QRSD: 155 T: 71 QT: 428 QTc: 454 Interpretive Statements ATRIAL FIBRILLATION RIGHT BUNDLE BRANCH BLOCK [120+ ms QRS DURATION, UPRIGHT V1, 40+ ms S IN I/aVL/V4/V5/V6] LEFT ANTERIOR FASCICULAR BLOCK [QRS AXIS <= -45, QR IN I, RS IN II] Compared to ECG 09/25/2021 05:32:00 Right bundle-branch block now present Left anterior fascicular block now present Electronically Signed On 02-19-2022 22:03:17 CDT by Collins Salas M.D. [id number] f
--- NOTE | 2022-02-19 10:13 | ED_ITS ---
HPI - SOB/Dyspnea General: Chief Complaint: Shortness of Breath/Dyspnea Stated Complaint: SOB Time Seen by Provider: 02/19/22 09:48 Source: patient and family Mode of arrival: ambulatory Limitations: no limitations History of Present Illness: HPI Narrative: Patient comes to emergency department because of increasing shortness of breath and productive cough. Symptoms have been present and increasing over the past several days. He states that he can normally sifuentes these current episodes off with a dose of Levaquin however it was delayed in arriving to him. He has a history of COPD that is oxygen dependent that he usually uses 6 L or so by nasal cannula. He also has a history of bronchiectasis. He has had a prior lobectomy. Has had multiple hospitalizations for recurrent pneumonias etc. He has also been having some leg swelling and some chest pain over the last couple days. He has had subjective fevers and productive sputum. He has been fully immunized against COVID-19. He denies any nausea vomiting or diarrhea but has had decreased appetite. Also has a history of chronic atrial fibrillation but has been taken off his DOAC because of bleeding issues but he is aware of when he is in atrial fibrillation and has not been in that rhythm that he is aware. MD elicited complaint: shortness of breath and cough Pertinent past history: COPD and congestive heart failure Timing: progressively worsening Severity: similar to previous episodes Relieving factors: oxygen and bronchodilators Known history of: COPD and congestive heart failure Associated symptoms: Reports chest pain; Deny abdominal pain, extremity pain, fever(s), nausea, palpitations, polydipsia, polyuria or vomiting Treatment prior to arrival: oxygen Related Data: Home oxygen amount: 4 liters Review of Systems Const: Reports: change in appetite; Denies: fever(s), chills or body aches Eyes: Denies: change in vision or blurry vision ENMT: Denies: throat pain or odynophagia Card: Reports: chest pain, edema and dyspnea on exertion; Denies: palpitations or irregular heart rhythm Resp: Reports: dyspnea, productive cough and wheezing GI: Denies: abdominal pain, nausea or vomiting : Denies: flank pain, difficulty urinating or dysuria Musc: Reports: extremity swelling; Denies: neck pain, back pain or extremity pain Skin/Breast: Denies: rash or pruritus Neuro: Denies: headache(s) or numbness in extremities Psych: Denies: anxiety or depression Endo: Denies: polyuria or polydipsia [place]/Lymph: Reports: easy bruising PFSH ED PFSH: Medical History Accelerated essential hypertension AF (atrial fibrillation) Apnea, sleep Bronchiectasis, uncomplicated Chronic obstructive pulmonary disease, unspecified Colon cancer Cyst of pancreas Hernia Hx of adenomatous polyp of colon Hyperlipidemia, unspecified Incisional hernia Osteoarthritis of right knee Post-traumatic stress disorder, unspecified Postlaminectomy syndrome Respiratory failure with hypoxia and hypercapnia Right renal stone Small bowel obstruction Spinal stenosis, lumbar region without neurogenic claudication Type 2 diabetes mellitus without complications Surgical History H/O colonoscopy 2016 & 11/12/19: Multiple tubular adenoma, follow-up colonoscopy in 3 years 2021 - descending colon polypx 2 H/O esophagogastroduodenoscopy 11/12/2019: Hyperplastic polyp, gastritis H/O esophagogastroduodenoscopy (12/16/21) pyloric polyp H/O shoulder surgery Bilateral History of back surgery Dorsal column stimulator placement /multiple IPG exchanges History of colon resection for sigmoid colon cancer x2 --2012 in [place], 2014 in [place] ( they did not get it all the first time ) History of incisional hernia repair History of lumbar fusion X6 procedures altogether History of surgical procedure on eye proper using laser Bilateral /bilateral cataract extraction History of tonsillectomy and adenoidectomy S/P partial lobectomy of lung Left lower lobe for bronchiectasis Family History Brother Diabetes Hypertension Father Cancer Leukemia Sister Lung cancer Cancer Breast cancer in 2 sisters Other CAD (coronary artery disease) Stroke Denies family history of Anesthesia complication Bleeding disorder Social History Smoking and tobacco status: former smoker Quit status (tobacco): has quit using tobacco Year quit tobacco: 1970 - PPD x 13 Years Alcohol intake: current Alcohol intake frequency: holidays/special occasions only Lives independently: Yes Household members: spouse Marital status: service: Yes Current occupational status: retired History of recent travel: No Current gender identity: Male Physical Exam Narrative: EXAM NARRATIVE: Patient is able to speak in complete sentences. He makes good eye contact. Const: COMMON NORMALS: no acute distress, patient oriented x3, no limitations and alert GENERAL APPEARANCE: cooperative and comfortable ORIENTATION/CONSCIOUSNESS: Yes awake HENMT: COMMON NORMALS: normocephalic, atraumatic, Normal nasal mucous membranes and turbinates present, moist oral mucous membranes and oropharynx normal HEAD & SCALP: normocephalic and atraumatic FACE & SINUS: sinuses nontender NOSE: Normal nasal mucous membranes and turbinates present Eye: COMMON NORMALS: Equal, round and reactive pupils present, EOMs intact bilaterally and conjunctivae normal CONJUNCTIVA: Yes conjunctivae normal PUPIL: Yes Equal, round and reactive pupils present Neck/C-Spine: COMMON NORMALS: full ROM and No carotid bruits Chest: COMMONS NORMALS: normal inspection of the chest and normal palpation of entire chest wall Resp: EFFORT & INSPECTION: Yes Actively coughing and Yes uses accessory muscles AUSCULTATION: rhonchi Cardio: COMMON NORMALS: regular rate, regular rhythm, No murmurs present (Cardio) and Peripheral pulses 2+ throughout RATE: regular rate RHYTHM: regular rhythm PERIPHERAL PULSES: Peripheral pulses 2+ throughout GI: COMMON NORMALS: Normal to inspection, nondistended, normoactive bowel sounds present, Soft to palpation, non-tender and no masses PALPATION: Yes Soft to palpation : COMMON NORMALS: Yes no CVA tenderness BLADDER/KIDNEY EXAM: Yes no CVA tenderness Back/Pelvis: COMMON NORMALS: no CVA tenderness, thoracic and lumbar spine normal to inspection, no thoracic nor lumbar tenderness and thoraco-lumbar ROM normal Extremity: COMMON NORMALS: normal to inspection, full ROM, capillary refill normal and no calf tenderness NARRATIVE EXTREMITY EXAM: Bilateral pretibial edema at the ankles and feet. Neuro: COMMON NORMALS: patient oriented x3, moves all extremities, no focal motor deficits and no sensory deficits noted SENSORIUM/ORIENTATION: Yes alert CRANIAL NERVES: Yes CN normal except as noted SPEECH: speech normal Course Reevaluation(s): Reevaluation #1: Patient has a significant right middle and right lower lobe infiltrate. Given his longstanding history of severe COPD oxygen dependent I think it is reasonable we place him in the hospital for continued antibiotic treatment, hydration, monitoring cardiac biomarkers. Does not appear to have ACS at this time. Does show atrial fibrillation at this time on his twelve-lead EKG however. Time: 11:40 Consultations: Consultation #1: Discussed with attending hospitalist Dr. Rodriguez who agreed to admit patient. Time: 13:08 Vital Signs: Vital signs: Vital Signs Temperature 98.3 F 02/19/22 09:41 Pulse Rate 68 02/19/22 10:36 Respiratory Rate 17 02/19/22 10:30 Blood Pressure 140/64 02/19/22 10:02 Pulse Oximetry 97 02/19/22 10:30 MDM - SOB/Dyspnea Medical Decision Making Patient with a longstanding oxygen dependent COPD as well as bronchiectasis and history of atrial fibrillation presents with increasing cough, shortness of breath and increased oxygen requirements. His work-up today reveals evidence of mild troponin elevation likely due to his current acute illness and not ACS, that being his right lower lobe infiltrate. Given his history its prudent to continue IV antibiotics respiratory therapy treatments as an inpatient. I think his risk of thromboembolic event is reasonably low at this time. Medical Records I reviewed the patient's medical records. Lab Data I reviewed the patient's lab results. : 02/19/22 10:00 02/19/22 10:00 Labs/Radiology: Radiology Impressions Chest X-Ray 02/19/22 10:11 IMPRESSION: 1. Infiltrates in the mid and lower right lung and left basal area. 2. Moderate-sized right basal pleural effusion. 3. Cardiac enlargement unchanged. Laboratory Results WBC 12.4 10^3/uL (4.0-10.0) H 02/19/22 10:00 RBC 3.57 10^6/uL (4.1-5.3) L 02/19/22 10:00 Hgb 10.4 g/dL (11.7-16.6) L 02/19/22 10:00 Hct 35.3 % (42.0-52.0) L 02/19/22 10:00 MCV 98.9 fl (80-94) H 02/19/22 10:00 MCH 29.1 pg (28.0-34.0) 02/19/22 10:00 MCHC 29.5 g/dL (30.0-36.0) L 02/19/22 10:00 RDW 16.2 % (12.1-15.1) H 02/19/22 10:00 Plt Count 148 10^3/cmm (130-400) 02/19/22 10:00 MPV 11.5 fL (7.4-10.4) H 02/19/22 10:00 Neut % (Auto) 77.4 % 02/19/22 10:00 Lymph % (Auto) 10.8 % 02/19/22 10:00 [place] % (Auto) 10.1 % 02/19/22 10:00 Eos % (Auto) 0.8 % 02/19/22 10:00 Baso % (Auto) 0.3 % 02/19/22 10:00 Neut # (Auto) 9.58 10^3/uL (1.8-7.7) H 02/19/22 10:00 Lymph # (Auto) 1.3 10^3/uL (0.8-4.8) 02/19/22 10:00 [place] # (Auto) 1.3 10^3/uL (0.2-0.9) H 02/19/22 10:00 Eos # (Auto) 0.1 10^3/uL (0.0-0.8) 02/19/22 10:00 Baso # (Auto) 0.0 10^3/uL (0.0-0.1) 02/19/22 10:00 Nucleated RBC % (auto) 0 % 02/19/22 10:00 Nucleated RBCs # 0.0 /100WBC 02/19/22 10:00 Sodium 143 mmol/L (136-145) 02/19/22 10:00 Potassium 4.1 mmol/L (3.5-5.1) 02/19/22 10:00 Chloride 101 mmol/L (98-107) 02/19/22 10:00 Carbon Dioxide 34 mmol/L (22-29) H 02/19/22 10:00 Anion Gap 12.1 (5-19) 02/19/22 10:00 BUN 27 mg/dL (8-23) H 02/19/22 10:00 Creatinine 1.0 mg/dL (0.7-1.2) 02/19/22 10:00 GFR Calculation Not Reportable 02/19/22 10:00 Glucose 153 mg/dL (65-115) H 02/19/22 10:00 Calculated Osmolality 304 mOsm/kg (285-295) H 02/19/22 10:00 Lactic Acid 1.3 mmol/L (0.5-2.2) 02/19/22 10:27 Calcium 9.2 mg/dL (8.5-10.5) 02/19/22 10:00 Total Bilirubin 0.4 mg/dL (0.15-1.2) 02/19/22 10:00 AST 18 U/L (0-40) 02/19/22 10:00 ALT 22 U/L (0-41) 02/19/22 10:00 Alkaline Phosphatase 62 IU/L (40-130) 02/19/22 10:00 Troponin T Gen 5 ng/L 30 ng/L (0-15) H 02/19/22 10:00 Total Protein 6.5 g/dL (6.6-8.7) L 02/19/22 10:00 Albumin 4.0 g/dL (3.5-5.2) 02/19/22 10:00 Globulin 2.5 g/dL (1.3-4.6) 02/19/22 10:00 EKG Data EKG 1: I personally reviewed and interpreted this EKG as follows: EKG interpretation time: 11:40 Interpretation: EKG shows atrial fibrillation with a rate of 67 bpm. He has a right bundle branch block but no concerning ST-T wave changes at this time. EKG 2: I personally reviewed and interpreted this EKG as follows: EKG interpretation time: 12:52 Interpretation: Second EKG this visit reveals ventricular rate of 74 bpm. Atrial fibrillation with a right bundle branch block pattern. ST segments remain unchanged from prior tracing. 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
--- NOTE | 2022-02-19 10:22 | PC.NURSE ---
Pt reports difficulty breathing for last 4-5 days. Pt states Hx of COPD and states feels similar to normal exacerbations. Ronchi heard throughout that is cleared with coughing. Pt denies any other complaints.
[2022-02-19 10:27] LABS: Basophils % 0.3 %; Eosinophils # 0.1 10^3/uL (0.0-0.8); Eosinophils % 0.8 %; Hematocrit 35.3 % (42.0-52.0); Hemoglobin 10.4 g/dL (11.7-16.6); Lymphocytes # 1.3 10^3/uL (0.8-4.8); Lymphocytes % 10.8 %; Mean Corpuscular HGB Conc 29.5 g/dL (30.0-36.0); Mean Corpuscular Hemoglobin 29.1 pg (28.0-34.0); Mean Corpuscular Volume 98.9 fl (80-94); Mean Platelet Volume 11.5 fL (7.4-10.4); Monocytes # 1.3 10^3/uL (0.2-0.9); Monocytes % 10.1 %; Neutrophils # 9.58 10^3/uL (1.8-7.7); Neutrophils % 77.4 %; Nucleated Red Blood Cells % 0 %; Platelet Count 148 10^3/cmm (130-400); Red Blood Count 3.57 10^6/uL (4.1-5.3); Red Cell Distribution Width 16.2 % (12.1-15.1); White Blood Count 12.4 10^3/uL (4.0-10.0)
[2022-02-19] MEDS: levofloxacin-dextrose 5 % 750 MG/150 ML PREMIX 100 MG IV ×2 (10:33→14:33)
[2022-02-19 10:43] LABS: Troponin T (5th) Once 30 ng/L (0-15)
[2022-02-19 10:47] LABS: Alanine Aminotransferase 22 U/L (0-41); Alkaline Phosphatase 62 IU/L (40-130); Anion Gap 12.1 (5-19); Aspartate Amino Transferase 18 U/L (0-40); Blood Urea Nitrogen 27 mg/dL (8-23); Calcium 9.2 mg/dL (8.5-10.5); Carbon Dioxide 34 mmol/L (22-29); Chloride 101 mmol/L (98-107); Globulin 2.5 g/dL (1.3-4.6); Glucose 153 mg/dL (65-115); Osmolality Calculated 304 mOsm/kg (285-295); Potassium 4.1 mmol/L (3.5-5.1); Sodium 143 mmol/L (136-145); Total Bilirubin 0.4 mg/dL (0.15-1.2); Total Protein 6.5 g/dL (6.6-8.7)
[2022-02-19 10:57] LABS: Lactic Sepsis W/Reflex 1.3 mmol/L (0.5-2.2)
--- NOTE | 2022-02-19 12:17 | ECG_ITS ---
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 Measurements Intervals [place] Rate: 74 P: [place]: QRS: -82 QRSD: 150 T: 74 QT: 426 QTc: 473 Interpretive Statements ATRIAL FIBRILLATION RIGHT BUNDLE BRANCH BLOCK [120+ ms QRS DURATION, UPRIGHT V1, 40+ ms S IN I/aVL/V4/V5/V6] LEFT ANTERIOR FASCICULAR BLOCK [QRS AXIS <= -45, QR IN I, RS IN II] Compared to ECG 09/25/2021 05:32:00 Right bundle-branch block now present Left anterior fascicular block now present Electronically Signed On 02-19-2022 22:03:57 CDT by Collins Salas M.D. [email or web address] [email or web address] [facility].CORD:USE [employer]/store/[id number]
--- NOTE | 2022-02-19 12:20 | ECG_ITS ---
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 Measurements Intervals [place] Rate: 75 P: [place]: QRS: -84 QRSD: 156 T: 75 QT: 424 QTc: 476 Interpretive Statements ATRIAL FIBRILLATION LEFT AXIS DEVIATION [QRS AXIS < -30] RIGHT BUNDLE BRANCH BLOCK [120+ ms QRS DURATION, UPRIGHT V1, 40+ ms S IN I/aVL/V4/V5/V6] Compared to ECG 02/19/2022 12:49:33 Left-axis deviation now present Left anterior fascicular block no longer present Electronically Signed On 02-19-2022 22:27:35 CDT by Collins Salas M.D. [email or web address] state [email or web address] [facility].V [employer] O/store/[id number]
--- NOTE | 2022-02-19 13:34 | P.HP_ITS ---
Providers/Chief Complaint Primary Care Provider: Stevan Pal DO Chief Complaint: SOB History of Present Illness Ambrocio Tinoco is a 77 year old male with past medical history of atrial fibrillation, bronchiectasis, COPD, respiratory failure with hypoxia hypercapnia, type 2 diabetes mellitus complicated by hyperglycemia, sleep apnea, hypertension, atrial fibrillation To the hospital with complaint of increasing shortness of breath and productive cough. He states his symptoms have been present and increasing over the last 2 days. He recently saw Dr. White his associate professor of mathematics 2 weeks ago and everything was okay at that time. Patient is on inhaled tobramycin 28 days on 28 days off (next 28 day on cycle starts february 27), prednisone 5 daily, azithromycin Tuesday. He is chronically colonized with Pseudomonas. He also has a chronic right-sided pleural effusion for which she has had thoracentesis performed in the past. 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 Patient does have a history of COPD that is oxygen dependent for which he usually uses 6 L by nasal cannula. He has also had a prior lobectomy before. He has had multiple hospitalizations for recurren t pneumonias. Patient is also had several hospital admissions for CHF exacerbations. Patient does report having subjective fever and sputum production. In the past he has been positive for stenotrophomonas, Pseudomonas. He has had bleeding issues in the past and therefore was taken off of his DOAC that he was taking for his atrial fibrillation. He is unable to provide more details for that. He is on DuoNebs, Spiriva, Symbicort, fluticasone at home. ED course: 140/64, 17, 68, 98.3, pulse ox 97% saturation on 9 L nasal cannula. Patient was given 750 mg levofloxacin. Chest x-ray showed infiltrate in right middle and right lower lobe. EKG showed atrial fibrillation with rate of 67-74. He does have a right bundle branch block pattern which is unchanged from prior EKG. He will be admitted to the hospital at this time. Medications/Allergies Home Medications Medication Instructions Recorded Confirmed Last Taken Type furosemide 80 mg tablet (Lasix) 80 mg PO BID@0700,1700 09/24/19 02/19/22 02/19/22 History potassium chloride 20 mEq 10 meq PO BID@0700,1700 tab 09/24/19 02/19/22 02/19/22 History tablet,extended release spironolactone 25 mg tablet 25 mg PO DAILY@0700 tab 09/24/19 02/19/22 02/19/22 History pantoprazole 40 mg tablet,delayed 40 mg PO DAILY@0700 11/09/19 02/19/22 02/19/22 History release (Protonix) glucose 4 gram chewable tablet 4 g PO Q15M PRN 11/19/19 02/19/22 Unknown History tiotropium bromide 2.5 2 puff INHALATION BID 11/19/19 02/19/22 12/15/21 History mcg/actuation mist for inhalation (Spiriva Respimat) budesonide-formoterol HFA 160 1 puff INHALATION BID@0700,1700 01/29/20 02/19/22 02/19/22 History mcg-4.5 mcg/actuation aerosol inhaler (Symbicort) ferrous sulfate 325 mg (65 mg 325 mg PO DAILY@1700 tab 04/10/20 02/19/22 History iron) tablet albuterol sulfate 90 mcg/actuation 2 puff INHALATION QID PRN 06/16/20 02/19/22 12/15/21 History aerosol inhaler allopurinol 300 mg tablet 300 mg PO DAILY@0700 06/16/20 02/19/22 02/19/22 History ipratropium 0.5 mg-albuterol 3 mg 3 ml INHALATION QID PRN 06/16/20 02/19/22 12/15/21 History (2.5 mg base)/3 mL nebulization soln triamcinolone acetonide 0.025 % 1 applic TOPICAL PRN PRN 11/03/20 02/19/22 02/19/22 History topical cream ketoconazole 2 % shampoo See Rx Instructions .ROUTE .COMPLEX 01/08/21 02/19/22 12/15/21 History diltiazem HCl 30 mg tablet 30 mg PO BID@0700,1700 01/25/21 02/19/22 02/19/22 History metolazone 2.5 mg tablet 2.5 mg PO DAILY@0700 01/25/21 02/19/22 02/19/22 History metoprolol tartrate 50 mg tablet 75 mg PO BID@0700,1700 01/25/21 02/19/22 02/19/22 History acetaminophen 325 mg tablet 650 mg PO Q4H PRN 09/24/21 02/19/22 02/19/22 History (Tylenol) docusate sodium 100 mg capsule 100 mg PO TID PRN 09/24/21 02/19/22 12/15/21 History (Colace) hydralazine 50 mg tablet 50 mg PO DAILY 09/24/21 02/19/22 02/19/22 History fluticasone propionate 50 1 spray INTRANASAL BID 12/09/21 02/19/22 12/15/21 History mcg/actuation nasal spray,suspension prednisone 5 mg tablet 5 mg PO DAILY 60 Days #60 tab 12/09/21 02/19/22 Unknown Rx sodium chloride 7 % for 4 ml INHALATION BID PRN #240 ml 12/31/21 02/19/22 Unknown Rx nebulization tobramycin with nebulizer 300 mg/5 5 ml INHALATION BID #300 ml 12/31/21 02/19/22 Unknown Rx mL solution for nebulization insulin glargine 100 unit/mL (3 54 unit SUBCUT BEDTIME ml 02/11/22 02/19/22 02/18/22 History mL) subcutaneous pen (Lantus Solostar U-100 Insulin) levofloxacin 750 mg tablet 750 mg PO DAILY PRN 10 Days #10 tab 02/11/22 02/19/22 Unknown Rx empagliflozin 25 mg tablet 25 mg PO DAILY 02/19/22 02/19/22 02/19/22 History guaifenesin 400 mg tablet 400 mg PO Q4H PRN 02/19/22 02/19/22 Unknown History halobetasol propionate 0.05 % 1 applic TOPICAL BID 02/19/22 02/19/22 02/19/22 History topical ointment insulin aspart U-100 100 unit/mL See Rx Instructions .ROUTE .COMPLEX 02/19/22 02/19/22 02/19/22 History (3 mL) subcutaneous pen (Novolog Flexpen U-100 Insulin aspart) rosuvastatin 20 mg tablet 10 mg PO DAILY 02/19/22 02/19/22 02/19/22 History selenium sulfide 1 % shampoo 1 applic TOPICAL EVERY OTHER DAY 02/19/22 02/19/22 Unknown History semaglutide 1 mg/dose (4 mg/3 mL) See Rx Instructions .ROUTE .COMPLEX 02/19/22 02/19/22 02/18/22 History subcutaneous pen injector (Ozempic) Allergies Allergy/AdvReac Type Severity Reaction Status Date / Time naproxen Allergy Intermediate ALGY-Rash Verified 02/19/22 12:19 amoxicillin AdvReac Intermediate Itching Verified 02/19/22 12:19 morphine AdvReac Intermediate ADR-Vomitin Verified 02/19/22 12:19 g PFSH Acute PFSH: Medical History Accelerated essential hypertension AF (atrial fibrillation) Apnea, sleep Bronchiectasis, uncomplicated Chronic obstructive pulmonary disease, unspecified Colon cancer Cyst of pancreas Hernia Hx of adenomatous polyp of colon Hyperlipidemia, unspecified Incisional hernia Osteoarthritis of right knee Post-traumatic stress disorder, unspecified Postlaminectomy syndrome Respiratory failure with hypoxia and hypercapnia Right renal stone Small bowel obstruction Spinal stenosis, lumbar region without neurogenic claudication Type 2 diabetes mellitus without complications Surgical History H/O colonoscopy 2016 & 11/12/19: Multiple tubular adenoma, follow-up colonoscopy in 3 years 2021 - descending colon polypx 2 H/O esophagogastroduodenoscopy 11/12/2019: Hyperplastic polyp, gastritis H/O esophagogastroduodenoscopy (12/16/21) pyloric polyp H/O shoulder surgery Bilateral History of back surgery Dorsal column stimulator placement /multiple IPG exchanges History of colon resection for sigmoid colon cancer x2 --2011 in [place], 2014 in [place] ( they did not get it all the first time ) History of incisional hernia repair History of lumbar fusion X6 procedures altogether History of surgical procedure on eye proper using laser Bilateral /bilateral cataract extraction History of tonsillectomy and adenoidectomy S/P partial lobectomy of lung Left lower lobe for bronchiectasis Family History Brother Diabetes Hypertension Father Cancer Leukemia Sister Lung cancer Cancer Breast cancer in 2 sisters Other CAD (coronary artery disease) Stroke Denies family history of Anesthesia complication Bleeding disorder Social History Smoking and tobacco status: former smoker Quit status (tobacco): has quit using tobacco Year quit tobacco: 1970 - PPD x 13 Years Alcohol intake: current Alcohol intake frequency: holidays/special occasions only Lives independently: Yes Household members: spouse Marital status: service: Yes Current occupational status: retired History of recent travel: No Current gender identity: Male Vitals/I&O/Wt Last Vital Signs Temp 98.3 F 02/19/22 09:41 Pulse 68 02/19/22 10:36 Resp 17 02/19/22 10:30 BP 140/64 02/19/22 10:02 Pulse Ox 97 02/19/22 10:30 Weight last 48 hrs Weight 122.47 kg Physical Exam Narrative: General: Alert oriented x3, patient seen sitting up in bed appearing comfortable on 5 L nasal cannula. No use of accessory muscles. No retractions. No acute respiratory distress noted at bedside. Can talk in complete sentences. HEENT: Normocephalic, atraumatic, EOMI, moist mucous membranes Cardio: Irregularly irregular, normal S1-S2, no murmurs rubs gallops Respiratory: Actively coughing. Rhonchi throughout bilateral lung us, very mild crackles at bases. GI: Abdomen soft, nontender, nondistended, bowel sounds + Behavior: Appropriate and cooperative Extremities: Bilateral 2+ edema in lower extremities no cyanosis Data : 02/20/22 04:10 02/20/22 04:10 Micro: Microbiology 02/19/22 10:35 Blood Culture - Preliminary Blood SPECIMEN COLLECTED 02/19/22 10:27 Blood Culture - Preliminary Blood SPECIMEN COLLECTED A&P Assessment and plan (1) Right lower lobe pneumonia: Status: Acute (2) Atrial fibrillation, chronic: Status: Acute (3) CHF exacerbation: Status: Acute (4) COPD exacerbation: Status: Acute (5) Pleural effusion: Status: Acute (6) Hyperlipidemia, unspecified: Status: Acute Qualifiers: Hyperlipidemia type: mixed hyperlipidemia Qualified Code(s): E78.2 - Mixed hyperlipidemia (7) Acute exacerbation of bronchiectasis: Status: Acute (8) Anemia: Status: Acute (9) Bronchiectasis: Status: Acute Qualifiers: Bronchiectasis type: uncomplicated Qualified Code(s): J47.9 - Bronchiectasis, uncomplicated Plan #Right middle and lower lobe pneumonia #History of bronchiectasis #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 Patient is chronically colonized with Pseudomonas. He has also had stenotrophomonas in the past. Patient is on prednisone 5 mg daily at home. He is on DuoNeb, Spiriva, Symbicort, azithromycin Tuesday. ? He has been diagnosed with right middle lower lobe pneumonia at this admissio n. I will cover him with dual pseudomonal coverage at this time with imipenem and levofloxacin. He will need PICC line placed and will need to be treated for 2 weeks total ? We will continue patient on prednisone 5 daily for now and escalate once antibiotics are on board depending on clinical status. ? Case was discussed with Dr. White who with his associate professor of mathematics who has recommended all of the above. ? Continue to use chest vest twice a day, flutter valve ? We will order guaifenesin ? Patient is on tobramycin 28 days on 28 days off nebulized treatment at home. ? We will obtain sputum gram stain and culture to speciate organism and at that point we will decide antibiotics. However he will need total 2 weeks treatment. - Continue 7% saline nebulization bid as needed ? Continue BiPAP at night. #Atrial fibrillation #Biatrial enlargement #History of bradycardia #Chronic congestive heart failure with reduced ejection fraction 45% on most recent stress test. #Hypertension #Hyperlipidemia ? Continue Lasix 80 IV twice daily with metolazone which is his home dose. ? Continue diltiazem 30 mg daily ? Continue metoprolol tartrate 75 twice daily ? Continue potassium 10 twice daily ? Continue rosuvastatin, spironolactone, hydralazine ? Patient used to be on anticoagulation for atrial fibrillation but is no longer on it due to previous episode of bleed. Continue on aspirin. #Diabetes mellitus complicated by hyperglycemia ? Hold home Jardiance, sliding scale. ? Continue on Lantus 54 units at night with moderate intensity sliding scale in the hospital. Goal blood sugars 1 40-1 80 during hospital stay. We will titrate sliding scale as needed. DVT prophylaxis: Heparin 500 twice daily Full code Attestations Medical Necessity Statement*: Patient will require greater than 48-hour stay for management of above. He will not able to leave the hospital until sputum gram stain culture has returned to decide on antibiotic choice. He will need a PICC line placed for total of 2 weeks of IV antibiotics at discharge. Coding Level of Care Code Acute Corner Bead Operator for [facility] Fwd Diagnoses Right lower lobe pneumonia J18.9 Atrial fibrillation, chronic I48.20 CHF exacerbation I50.9 COPD exacerbation J44.1 Pleural effusion J90 Hyperlipidemia, unspecified E78.2 Hyperlipidemia type: mixed hyperlipidemia Acute exacerbation of bronchiectasis J47.1 Anemia D64.9 Bronchiectasis J47.9 Bronchiectasis type: uncomplicated
[2022-02-19] MEDS: ipratropium-albuterol 3 mL Neb INHALATION ×3 (14:03→20:41)
[2022-02-19] MEDS: pantoprazole 40 mg SDV IVP (14:25)
[2022-02-19] MEDS: heparin 5,000 unit/mL INJ 1 mL 5000 UNIT SUBCUT (14:39)
[2022-02-19 16:47] LABS: Troponin 5 6HR 25.09 ng/L (0-15)
[2022-02-19 16:56] LABS: Troponin 5 6HR Delta -4.91 ng/L (0-12)
[2022-02-19 17:10] LABS: Glucose Point of Care 189 mg/dL (70-110)
[2022-02-19 18:23] LABS: NT Pro B Type Natriuretic Pept 1076 pg/mL (0-450); Procalcitonin 0.05 ng/mL (0-0.5)
[2022-02-19] MEDS: insulin lispro 100 unit/1 mL 30 UNIT SUBCUT (18:41)
[2022-02-19] MEDS: ferrous sulfate EC 325 mg Tablet PO (18:43)
[2022-02-19] MEDS: dilTIAZem 30 mg Tablet PO (18:43)
[2022-02-19] MEDS: FUROsemide 10 mg/mL SDV 10mL 80 MG IVP (18:44)
[2022-02-19] MEDS: metoprolol tartrate 50 mg Tablet 75 MG PO (18:44)
[2022-02-19] MEDS: potassium chloride ER 10 mEq Tablet PO (18:44)
[2022-02-19 20:27] LABS: Add Urine Microscopic? NO; Charge for UA Resulting for Rev
[2022-02-19 20:28] LABS: Urine Color Yellow (Yellow)
[2022-02-19 20:29] LABS: Bilirubin Urine Neg (Negative); Blood Urine Neg (Negative); Glucose Urine UA Norm (Normal); Ketones Urine Negative (Negative); Leukocyte Esterase Urine Negative (Negative); Nitrate Urine Negative (Negative); Protein Urine Neg (Negative); Urine Appearance Clear (CLEAR); Urobilinogen Urine Norm (Negative); pH Urine 7 (5-7)
[2022-02-19] MEDS: budesonide 0.5 mg/2 mL Neb INHALATION (20:41)
[2022-02-19] MEDS: insulin glargine 100 units/1 mL 54 UNIT SUBCUT (23:39)
[2022-02-20] VITALS (18 sets, daily range): BP systolic 111–140; BP diastolic 53–69; PULSE 76–100; RESP 14–24; TEMP 36.6–37; O2SAT 94–100
[2022-02-20] MEDS: heparin 5,000 unit/mL INJ 1 mL 5000 UNIT SUBCUT ×2 (01:38→14:28)
[2022-02-20 04:20] LABS: Basophils % 0.3 %; Eosinophils # 0.1 10^3/uL (0.0-0.8); Eosinophils % 0.6 %; Hematocrit 30.7 % (42.0-52.0); Lymphocytes # 1.6 10^3/uL (0.8-4.8); Lymphocytes % 15.6 %; Mean Corpuscular HGB Conc 29.3 g/dL (30.0-36.0); Mean Corpuscular Hemoglobin 28.9 pg (28.0-34.0); Mean Corpuscular Volume 98.7 fl (80-94); Monocytes # 1.2 10^3/uL (0.2-0.9); Monocytes % 11.8 %; Neutrophils % 71.3 %; Nucleated Red Blood Cells % 0 %; Platelet Count 122 10^3/cmm (130-400); Red Blood Count 3.11 10^6/uL (4.1-5.3)
[2022-02-20 04:40] LABS: Alanine Aminotransferase 16 U/L (0-41); Albumin Level 3.4 g/dL (3.5-5.2); Alkaline Phosphatase 47 IU/L (40-130); Anion Gap 7.1 (5-19); Aspartate Amino Transferase 14 U/L (0-40); Blood Urea Nitrogen 25 mg/dL (8-23); Calcium 9.2 mg/dL (8.5-10.5); Carbon Dioxide 36 mmol/L (22-29); Chloride 100 mmol/L (98-107); Globulin 2.8 g/dL (1.3-4.6); Glucose 217 mg/dL (65-115); Osmolality Calculated 299 mOsm/kg (285-295); Potassium 4.1 mmol/L (3.5-5.1); Sodium 139 mmol/L (136-145); Total Bilirubin 0.4 mg/dL (0.15-1.2); Total Protein 6.2 g/dL (6.6-8.7)
[2022-02-20] MEDS: ipratropium-albuterol 3 mL Neb INHALATION ×4 (07:36→21:00)
[2022-02-20] MEDS: budesonide 0.5 mg/2 mL Neb INHALATION ×2 (07:37→21:01)
[2022-02-20] MEDS: dilTIAZem 30 mg Tablet PO ×2 (08:57→17:47)
[2022-02-20] MEDS: allopurinol 300 mg Tablet PO (08:57)
[2022-02-20] MEDS: metOLazone 5 MG Tablet 2.5 MG PO (08:58)
[2022-02-20] MEDS: metoprolol tartrate 50 mg Tablet 75 MG PO ×2 (08:58→17:53)
[2022-02-20] MEDS: potassium chloride ER 10 mEq Tablet PO ×2 (08:59→17:46)
[2022-02-20] MEDS: pantoprazole DR 40 mg Tablet PO (08:59)
[2022-02-20] MEDS: spironolactone 25 mg Tablet PO (09:00)
[2022-02-20] MEDS: atorvastatin 40 mg Tablet 80 MG PO (09:01)
[2022-02-20] MEDS: insulin lispro 100 unit/1 mL 30 UNIT SUBCUT (09:01)
[2022-02-20] MEDS: predniSONE 5 mg Tablet PO (09:02)
[2022-02-20] MEDS: FUROsemide 10 mg/mL SDV 10mL 80 MG IVP ×2 (09:02→18:02)
[2022-02-20] MEDS: hyDRALAzine 50 mg Tablet PO (09:02)
--- NOTE | 2022-02-20 09:05 | PM.PN ---
Subjective Subjective: Patient feels a lot better compared to admission. He is down to 6 L nasal cannula which is his baseline oxygen at rest. He did wear BiPAP overnight. He is still unable to expectorate any sputum as he says it is stuck in his chest. We will proceed with 7% saline nebulization today. 2200 urine output overnight. Vitals/I&O/Wt Last Vital Signs Temp 98.3 F 02/20/22 08:00 Pulse 100 02/20/22 08:00 Resp 16 02/20/22 08:00 BP 127/68 02/20/22 08:00 Pulse Ox 95 02/20/22 08:00 02/19/22 02/20/22 02/20/22 22:59 06:59 14:59 Intake Total 300 / 300 320 / 620 Output Total 1500 / 1500 700 / 2200 Balance -1200 / -1200 -380 / -1580 Weight last 48 hrs Weight 122.47 kg Weight 122.47 kg Physical Exam Narrative: General: Alert oriented x3, patient seen sitting up in bed appearing comfortable on 6 L nasal cannula.? No use of accessory muscles.? No retractions.? No acute respiratory distress noted at bedside.? Can talk in complete sentences. HEENT: Normocephalic, atraumatic, EOMI, moist mucous membranes Cardio: Irregularly irregular, normal S1-S2, no murmurs rubs gallops Respiratory: Rhonchi throughout bilateral lung us, no crackles at bases. Lung exam improved compared to yesterday. GI: Abdomen soft, nontender, nondistended, bowel sounds + Behavior: Appropriate and cooperative Extremities: Bilateral 2+ edema in lower extremities no cyanosis, edema quite improved compared to yesterday. He is wearing compression stockings. Data : 02/20/22 04:10 02/20/22 04:10 Micro: Microbiology 02/19/22 10:35 Blood Culture - Preliminary Blood SPECIMEN COLLECTED 02/19/22 10:27 Blood Culture - Preliminary Blood SPECIMEN COLLECTED A&P Assessment and plan (1) Right lower lobe pneumonia: Status: Acute (2) Atrial fibrillation, chronic: Status: Acute (3) Bradycardia: Status: Acute (4) COPD exacerbation: Status: Acute (5) CHF exacerbation: Status: Acute (6) Hyperlipidemia, unspecified: Status: Acute Qualifiers: Hyperlipidemia type: mixed hyperlipidemia Qualified Code(s): E78.2 - Mixed hyperlipidemia (7) Bronchiectasis: Status: Acute Qualifiers: Bronchiectasis type: uncomplicated Qualified Code(s): J47.9 - Bronchiectasis, uncomplicated (8) Type 2 diabetes mellitus without complications: Status: Acute (9) Apnea, sleep: Status: Acute Plan #Right middle and lower lobe pneumonia #History of bronchiectasis #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 Patient is chronically colonized with Pseudomonas.? He has also had stenotrophomonas in the past.? Patient is on prednisone 5 mg daily at home.? He is on DuoNeb, Spiriva, Symbicort, azithromycin Tuesday. ? He has been diagnosed with right middle lower lobe pneumonia at this admission.? I will cover him with dual pseudomonal coverage at this time with imipenem and levofloxacin.? He will need PICC line placed and will need to be treated for 2 weeks total ? We will continue patient on prednisone 5 daily for now and escalate once antibiotics are on board depending on clinical status. ? Case was discussed with Dr. White who with his basket machine operator who has recommended all of the above. ? Continue to use chest vest twice a day, flutter valve ? We will order guaifenesin ? Patient is on tobramycin 28 days on 28 days off nebulized treatment at home. ? We will obtain sputum gram stain and culture to speciate organism and at that point we will decide antibiotics.? However he will need total 2 weeks treatment. - Continue 7% saline nebulization bid as needed ? Continue BiPAP at night. #Atrial fibrillation #Biatrial enlargement #History of bradycardia #Chronic congestive heart failure with reduced ejection fraction 45% on most recent stress test. #Hypertension #Hyperlipidemia ? Continue Lasix 80 IV twice daily with metolazone which is his home dose. ? Continue diltiazem 30 mg daily ? Continue metoprolol tartrate 75 twice daily ? Continue potassium 10 twice daily ? Continue rosuvastatin, spironolactone, hydralazine ? Patient used to be on anticoagulation for atrial fibrillation but is no longer on it due to previous episode of bleed.? Continue on aspirin. #Diabetes mellitus complicated by hyperglycemia ? Hold home Jardiance, sliding scale. ? Continue on Lantus 54 units at night with moderate intensity sliding scale in the hospital.? Goal blood sugars 1 40-1 80 during hospital stay.? We will titrate sliding scale as needed. DVT prophylaxis: Heparin 500 twice daily Full code Attestations Medical Necessity Statement*: Patient will require greater than 48-hour stay for management of above.? He will not able to leave the hospital until sputum gram stain culture has returned to decide on antibiotic choice.? He will need a PICC line placed for total of 2 weeks of IV antibiotics at discharge. Coding Level of Care Code Acute Quality Engineer Medical Device for [facility] Fwd Diagnoses Right lower lobe pneumonia J18.9 Atrial fibrillation, chronic I48.20 Bradycardia R00.1 COPD exacerbation J44.1 CHF exacerbation I50.9 Hyperlipidemia, unspecified E78.2 Hyperlipidemia type: mixed hyperlipidemia Bronchiectasis J47.9 Bronchiectasis type: uncomplicated Type 2 diabetes mellitus without complications E11.9 Apnea, sleep G47.30
[2022-02-20 11:31] LABS: Glucose Point of Care 276 mg/dL (70-110)
[2022-02-20] MEDS: insulin lispro 100 unit/1 mL 15 UNIT SUBCUT (12:26)
[2022-02-20] MEDS: pantoprazole 40 mg SDV IVP (14:27)
[2022-02-20 15:29] LABS: Anion Gap 14.2 (5-19); Blood Urea Nitrogen 26 mg/dL (8-23); Calcium 8.9 mg/dL (8.5-10.5); Carbon Dioxide 31 mmol/L (22-29); Chloride 94 mmol/L (98-107); Glucose 243 mg/dL (65-115); Osmolality Calculated 293 mOsm/kg (285-295); Potassium 4.2 mmol/L (3.5-5.1); Sodium 135 mmol/L (136-145)
[2022-02-20 15:47] LABS: Glucose Point of Care 257 mg/dL (70-110)
[2022-02-20 17:14] LABS: Glucose Point of Care 218 mg/dL (70-110)
[2022-02-20] MEDS: insulin lispro 100 unit/1 mL 35 UNIT SUBCUT (17:45)
[2022-02-20] MEDS: ferrous sulfate EC 325 mg Tablet PO (17:47)
[2022-02-20 20:18] LABS: Glucose Point of Care 303 mg/dL (70-110)
[2022-02-20] MEDS: insulin glargine 100 units/1 mL 54 UNIT SUBCUT (21:14)
[2022-02-21] VITALS (21 sets, daily range): BP systolic 113–145; BP diastolic 64–78; PULSE 69–103; RESP 18–26; TEMP 36.4–37.3; O2SAT 93–100
[2022-02-21] MEDS: heparin 5,000 unit/mL INJ 1 mL 5000 UNIT SUBCUT ×2 (01:05→14:06)
[2022-02-21 03:48] LABS: Basophils % 0.2 %; Eosinophils # 0.1 10^3/uL (0.0-0.8); Eosinophils % 1.3 %; Hematocrit 28.2 % (42.0-52.0); Hemoglobin 8.9 g/dL (11.7-16.6); Lymphocytes # 1.7 10^3/uL (0.8-4.8); Lymphocytes % 17.4 %; Mean Corpuscular HGB Conc 31.6 g/dL (30.0-36.0); Mean Corpuscular Hemoglobin 29.9 pg (28.0-34.0); Mean Corpuscular Volume 94.6 fl (80-94); Monocytes % 10.9 %; Neutrophils # 6.59 10^3/uL (1.8-7.7); Neutrophils % 69.7 %; Nucleated Red Blood Cells % 0 %; Platelet Count 126 10^3/cmm (130-400); Red Blood Count 2.98 10^6/uL (4.1-5.3); Red Cell Distribution Width 15.9 % (12.1-15.1); White Blood Count 9.5 10^3/uL (4.0-10.0)
[2022-02-21 04:03] LABS: Anion Gap 8.6 (5-19); Blood Urea Nitrogen 30 mg/dL (8-23); Calcium 9.1 mg/dL (8.5-10.5); Carbon Dioxide 36 mmol/L (22-29); Chloride 96 mmol/L (98-107); Glucose 219 mg/dL (65-115); Magnesium 1.9 mg/dL (1.7-2.3); Osmolality Calculated 297 mOsm/kg (285-295); Potassium 3.6 mmol/L (3.5-5.1); Sodium 137 mmol/L (136-145)
[2022-02-21] MEDS: spironolactone 25 mg Tablet PO (06:08)
[2022-02-21] MEDS: allopurinol 300 mg Tablet PO (06:09)
[2022-02-21] MEDS: potassium chloride ER 10 mEq Tablet PO ×2 (06:09→17:17)
[2022-02-21] MEDS: pantoprazole DR 40 mg Tablet PO (06:09)
[2022-02-21] MEDS: dilTIAZem 30 mg Tablet PO ×2 (06:10→17:17)
[2022-02-21] MEDS: metoprolol tartrate 50 mg Tablet 75 MG PO ×2 (06:10→17:16)
[2022-02-21] MEDS: metOLazone 5 MG Tablet 2.5 MG PO (06:19)
[2022-02-21 07:36] LABS: Glucose Point of Care 271 mg/dL (70-110)
[2022-02-21] MEDS: insulin lispro 100 unit/1 mL 45 UNIT SUBCUT (07:57)
[2022-02-21] MEDS: predniSONE 5 mg Tablet PO (08:03)
[2022-02-21] MEDS: FUROsemide 10 mg/mL SDV 10mL 80 MG IVP ×2 (08:03→17:17)
[2022-02-21] MEDS: atorvastatin 40 mg Tablet 80 MG PO (08:03)
[2022-02-21] MEDS: hyDRALAzine 50 mg Tablet PO (08:06)
[2022-02-21] MEDS: budesonide 0.5 mg/2 mL Neb INHALATION ×2 (08:11→20:49)
[2022-02-21] MEDS: ipratropium-albuterol 3 mL Neb INHALATION ×4 (08:11→20:49)
[2022-02-21] MEDS: sodium chloride 3.5% neb 4 mL Neb INHALATION (10:51)
[2022-02-21 11:41] LABS: Glucose Point of Care 147 mg/dL (70-110)
--- NOTE | 2022-02-21 12:19 | PM.PN ---
Subjective Subjective: Seen this morning feeling a lot better compared to before. He is at baseline oxygen 6 L at rest and on exertion requiring 8-10 at this time. He tried to go to the bathroom today and he said he had to wean up his oxygen. At home sometimes he goes up to 12 L but his concentrator at home only goes up to 12 L in total. Sputum culture was obtained yesterday results are pending. Vitals/I&O/Wt Last Vital Signs Temp 98.0 F 02/21/22 11:45 Pulse 103 H 02/21/22 11:45 Resp 18 02/21/22 11:45 BP 129/66 02/21/22 11:45 Pulse Ox 97 02/21/22 11:45 02/20/22 02/21/22 02/21/22 22:59 06:59 14:59 Intake Total 920 / 1500 580 / 2080 240 / 240 Output Total 800 / 1900 Balance 120 / -400 580 / 180 240 / 240 Weight last 48 hrs Weight 122.47 kg Physical Exam Narrative: General: Alert oriented x3, patient seen sitting up in bed appearing comfortable on 6 L nasal cannula.? No use of accessory muscles.? No retractions.? No acute respiratory distress noted at bedside.? Can talk in complete sentences. HEENT: Normocephalic, atraumatic, EOMI, moist mucous membranes Cardio: Irregularly irregular, normal S1-S2, no murmurs rubs gallops Respiratory: Rhonchi throughout bilateral lung us, no crackles at bases.? Lung exam improved compared to yesterday. GI: Abdomen soft, nontender, nondistended, bowel sounds + Behavior: Appropriate and cooperative Extremities: Bilateral 2+ edema in lower extremities no cyanosis, edema quite improved compared to yesterday.? He is wearing compression stockings. Data : 02/21/22 03:20 02/21/22 03:20 Micro: Microbiology 02/19/22 12:16 Gram Stain - Final Sputum - Expectorated Sputum Sputum Culture - Preliminary 02/19/22 10:35 Blood Culture - Preliminary Blood NEGATIVE TO DATE 02/19/22 10:27 Blood Culture - Preliminary Blood NEGATIVE TO DATE A&P Assessment and plan (1) Type 2 diabetes mellitus without complications: Status: Acute (2) Apnea, sleep: Status: Acute (3) Right lower lobe pneumonia: Status: Acute (4) Atrial fibrillation, chronic: Status: Acute (5) CHF exacerbation: Status: Acute (6) COPD exacerbation: Status: Acute (7) Acute exacerbation of bronchiectasis: Status: Acute Plan #Right middle and lower lobe pneumonia #History of bronchiectasis #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 Patient is chronically colonized with Pseudomonas.? He has also had stenotrophomonas in the past.? Patient is on prednisone 5 mg daily at home.? Continue that for now. He is on DuoNeb, Spiriva, Symbicort, azithromycin Tuesday. ? Continue to cover with dual pseudomonal coverage imipenem and levofloxacin. Patient is improving. Initially after discussion with pulmonology it was decided to have a PICC line placed and treat him for 2 weeks total. At this time however sputum is not growing any organisms so far. Also the sputum culture was obtained 3 days after admission as he was not able to bring up anything at first. I will be discussed with pulmonology and make a further decision on antibiotic coverage and duration. ? Continue patient on prednisone 5 daily for now. I do not believe there is a need to escalate at this time. ? Case was discussed with Dr. White who with his lens edge grinder machine who has recommended all of the above at time of admission ? Continue to use chest vest twice a day, flutter valve ? We will order guaifenesin ? Patient is on tobramycin 28 days on 28 days off nebulized treatment at home. This is to start on February 27. - Continue 7% saline nebulization bid as needed. Do not have this available in the hospital. Patient will be on 3.5% hypertonic saline treatments. ? Continue BiPAP at night. -Patient states he feels well enough closer to baseline but not quite there yet. #Atrial fibrillation #Biatrial enlargement #History of bradycardia #Chronic congestive heart failure with reduced ejection fraction 45% on most recent stress test. #Hypertension #Hyperlipidemia ? Continue Lasix 80 IV twice daily with metolazone which is his home dose. Switch to oral Lasix 80 p.o. twice daily and metolazone home dose tomorrow. ? Continue diltiazem 30 mg daily ? Continue metoprolol tartrate 75 twice daily ? Continue potassium 10 twice daily ? Continue rosuvastatin, spironolactone, hydralazine ? Patient used to be on anticoagulation for atrial fibrillation but is no longer on it due to previous episode of bleed.? Continue on aspirin. #Diabetes mellitus complicated by hyperglycemia ? Hold home Jardiance, sliding scale. ? Continue on Lantus 54 units at night with moderate intensity sliding scale in the hospital.? Continue Premeal insulin home dose. Goal blood sugars 1 40-1 80 during hospital stay.? We will titrate sliding scale as needed. DVT prophylaxis: Heparin 5000 twice daily Full code Attestations Medical Necessity Statement*: Sputum culture pending. Needs to stay in hospital for continued management of above. 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
[2022-02-21] MEDS: insulin lispro 100 unit/1 mL 20 UNIT SUBCUT (12:36)
[2022-02-21] MEDS: pantoprazole 40 mg SDV IVP (14:06)
[2022-02-21 17:10] LABS: Glucose Point of Care 244 mg/dL (70-110)
[2022-02-21] MEDS: levofloxacin-dextrose 5 % 750 MG/150 ML PREMIX 100 MG IV (17:10)
[2022-02-21] MEDS: insulin lispro 100 unit/1 mL 35 UNIT SUBCUT (17:15)
[2022-02-21] MEDS: ferrous sulfate EC 325 mg Tablet PO (17:17)
[2022-02-21] MEDS: insulin glargine 100 units/1 mL 54 UNIT SUBCUT (22:33)
[2022-02-22] VITALS (19 sets, daily range): BP systolic 120–165; BP diastolic 68–74; PULSE 19–97; RESP 17–22; TEMP 36.6–37.2; O2SAT 84–100
[2022-02-22 04:03] LABS: Basophils % 0.2 %; Eosinophils # 0.1 10^3/uL (0.0-0.8); Eosinophils % 1.2 %; Hematocrit 29.9 % (42.0-52.0); Hemoglobin 9.3 g/dL (11.7-16.6); Lymphocytes # 1.6 10^3/uL (0.8-4.8); Lymphocytes % 17.3 %; Mean Corpuscular HGB Conc 31.1 g/dL (30.0-36.0); Mean Corpuscular Hemoglobin 29.5 pg (28.0-34.0); Mean Corpuscular Volume 94.9 fl (80-94); Mean Platelet Volume 11.5 fL (7.4-10.4); Monocytes # 1.1 10^3/uL (0.2-0.9); Monocytes % 11.3 %; Neutrophils # 6.55 10^3/uL (1.8-7.7); Neutrophils % 69.5 %; Nucleated Red Blood Cells % 0 %; Platelet Count 141 10^3/cmm (130-400); Red Blood Count 3.15 10^6/uL (4.1-5.3); Red Cell Distribution Width 15.9 % (12.1-15.1); White Blood Count 9.4 10^3/uL (4.0-10.0)
[2022-02-22 04:23] LABS: Anion Gap 11.7 (5-19); Blood Urea Nitrogen 34 mg/dL (8-23); Calcium 9.3 mg/dL (8.5-10.5); Carbon Dioxide 36 mmol/L (22-29); Chloride 90 mmol/L (98-107); Glucose 325 mg/dL (65-115); Osmolality Calculated 298 mOsm/kg (285-295); Potassium 3.7 mmol/L (3.5-5.1); Sodium 134 mmol/L (136-145)
--- NOTE | 2022-02-22 05:32 | PC.NURSE ---
pt called out stating his phone alerted thru glucose monitoring device that blood glucose is >400. checked with hospital approved glucometer, POC glucose is 385. Notified Dr Gerardo of pt report and POC result. new order received for x1 dose of lispro 16u SQ now.
[2022-02-22] MEDS: cefepime 2,000 MG in sodium chloride 0.9% (plus) 50 ML 100 MG IV ×2 (05:53→17:14)
[2022-02-22] MEDS: metoprolol tartrate 50 mg Tablet 75 MG PO ×2 (05:54→17:14)
[2022-02-22] MEDS: insulin lispro 100 unit/1 mL 16 UNIT SUBCUT (05:54)
[2022-02-22] MEDS: dilTIAZem 30 mg Tablet PO ×2 (05:56→17:15)
[2022-02-22] MEDS: spironolactone 25 mg Tablet PO (05:57)
[2022-02-22] MEDS: potassium chloride ER 10 mEq Tablet PO ×2 (05:57→17:16)
[2022-02-22] MEDS: pantoprazole DR 40 mg Tablet PO (05:58)
[2022-02-22] MEDS: allopurinol 300 mg Tablet PO (05:58)
[2022-02-22] MEDS: metOLazone 5 MG Tablet 2.5 MG PO (05:59)
[2022-02-22 08:04] LABS: Glucose Point of Care 338 mg/dL (70-110)
[2022-02-22 08:04] LABS: Glucose Point of Care 385 mg/dL (70-110)
[2022-02-22 08:04] LABS: Glucose Point of Care 313 mg/dL (70-110)
[2022-02-22] MEDS: FUROsemide 10 mg/mL SDV 4mL 40 MG IVP (08:20)
[2022-02-22] MEDS: atorvastatin 40 mg Tablet 80 MG PO (08:29)
[2022-02-22] MEDS: predniSONE 5 mg Tablet PO (08:29)
[2022-02-22] MEDS: insulin lispro 100 unit/1 mL 45 UNIT SUBCUT (08:29)
[2022-02-22] MEDS: hyDRALAzine 50 mg Tablet PO (08:29)
[2022-02-22] MEDS: ipratropium-albuterol 3 mL Neb INHALATION ×4 (09:20→19:31)
[2022-02-22] MEDS: budesonide 0.5 mg/2 mL Neb INHALATION ×2 (09:20→19:31)
[2022-02-22] MEDS: sodium chloride 3.5% neb 4 mL Neb INHALATION ×2 (09:20→19:31)
--- NOTE | 2022-02-22 11:03 | PM.PN ---
Subjective Subjective: Patient is stating that his breathing status is back to his baseline, creatinine today is 1.4 He is experiencing cough Did discuss with patient case manager that his medications are approved by [facility] He will get cefepime via midline catastrophe claims supervisor/Rita planning for placement of midline today Will get home O2 eval as well Patient is stating that his home oxygen concentrator, tubing is in good functional mode. Will make appointment with Dr. White tomorrow Vitals/I&O/Wt Last Vital Signs Temp 97.9 F 02/22/22 11:00 Pulse 95 02/22/22 11:00 Resp 18 02/22/22 11:00 BP 133/68 02/22/22 11:00 Pulse Ox 95 02/22/22 11:00 02/21/22 02/22/22 02/22/22 22:59 06:59 14:59 Intake Total 490 / 1190 150 / 1340 840 / 840 Balance 490 / 1190 150 / 1340 840 / 840 Physical Exam Narrative: Patient is sitting comfortably in his bed Currently on 6 L nasal cannula No active chest pain He does have crackles rhonchi adventitious sounds diffusely on lung auscultation And abdomen however nontender No signs of edema of legs Awake and alert Nonfocal neuro exam Data : 02/22/22 03:33 02/22/22 03:33 Micro: Microbiology 02/19/22 12:16 Gram Stain - Final Sputum - Expectorated Sputum Sputum Culture - Final A&P Assessment and plan (1) Type 2 diabetes mellitus without complications: Status: Acute (2) Apnea, sleep: Status: Acute (3) Right lower lobe pneumonia: Status: Acute (4) Atrial fibrillation, chronic: Status: Acute (5) Bronchiectasis: Status: Acute Qualifiers: Bronchiectasis type: uncomplicated Qualified Code(s): J47.9 - Bronchiectasis, uncomplicated Plan Recurrent infection with underlying bronchiectasis We do have a plan to discharge him on midline cefepime 2-week regimen along Levaquin 750 mg for 7 days and then Tuesday azithromycin along with tobramycin 28 days on/off, prednisone 5 mg, at baseline he uses 6 L, will do home O2 eval to see, she requires on exertion Patient stating that he does have good functional status for his oxygen concentrator and tubing at home Will make arrangement to see Dr. Saw her within 4 days of discharge Nebulizer twice daily plus prednisone 5 mg daily Patient has airway colonization with Pseudomonas A. fib without RVR not a candidate of anticoagulation Continue diltiazem and metoprolol NERY, he has fluctuating creatinine function I will decrease the dose of Lasix to 80 mg p.o. twice daily instead of IV Type 2 diabete DVT prophylaxis with heparin Full code Attestations Medical Necessity Statement*: Planning to discharge tomorrow Time Spent in Patient Care: 30mins Coding Level of Care Code Acute Burrer Machine for g Fwd Diagnoses Type 2 diabetes mellitus without complications E11.9 Apnea, sleep G47.30 Right lower lobe pneumonia J18.9 Atrial fibrillation, chronic I48.20 Bronchiectasis J47.9 Bronchiectasis type: uncomplicated
[2022-02-22 11:37] LABS: Glucose Point of Care 152 mg/dL (70-110)
[2022-02-22] MEDS: pantoprazole 40 mg SDV IVP (12:34)
[2022-02-22] MEDS: acetaminophen 325 mg Tablet 650 MG PO (12:40)
[2022-02-22] MEDS: insulin lispro 100 unit/1 mL 20 UNIT SUBCUT (12:40)
[2022-02-22] MEDS: heparin 5,000 unit/mL INJ 1 mL 5000 UNIT SUBCUT (12:40)
[2022-02-22] MEDS: FUROsemide 40 mg Tablet 80 MG PO (15:16)
[2022-02-22] MEDS: insulin lispro 100 unit/1 mL 40 UNIT SUBCUT (17:14)
[2022-02-22] MEDS: ferrous sulfate EC 325 mg Tablet PO (17:16)
[2022-02-22 18:06] LABS: Glucose Point of Care 225 mg/dL (70-110)
[2022-02-22 20:59] LABS: Glucose Point of Care 149 mg/dL (70-110)
[2022-02-22] MEDS: insulin glargine 100 units/1 mL 57 UNIT SUBCUT (21:40)
[2022-02-23] VITALS (10 sets, daily range): BP systolic 114–145; BP diastolic 70–79; PULSE 74–96; RESP 17–27; TEMP 36.3–37; O2SAT 91–100
[2022-02-23] MEDS: heparin 5,000 unit/mL INJ 1 mL 5000 UNIT SUBCUT (01:40)
[2022-02-23] MEDS: cefepime 2,000 MG in sodium chloride 0.9% (plus) 50 ML 100 MG IV (05:37)
[2022-02-23 06:29] LABS: Anion Gap 12.9 (5-19); Blood Urea Nitrogen 37 mg/dL (8-23); Calcium 9.4 mg/dL (8.5-10.5); Carbon Dioxide 34 mmol/L (22-29); Chloride 94 mmol/L (98-107); Glucose 210 mg/dL (65-115); Osmolality Calculated 299 mOsm/kg (285-295); Potassium 3.9 mmol/L (3.5-5.1); Sodium 137 mmol/L (136-145)
[2022-02-23] MEDS: allopurinol 300 mg Tablet PO (06:29)
[2022-02-23] MEDS: dilTIAZem 30 mg Tablet PO (06:29)
[2022-02-23] MEDS: metoprolol tartrate 50 mg Tablet 75 MG PO (06:29)
[2022-02-23] MEDS: potassium chloride ER 10 mEq Tablet PO (06:29)
[2022-02-23] MEDS: pantoprazole DR 40 mg Tablet PO (06:29)
[2022-02-23] MEDS: metOLazone 5 MG Tablet 2.5 MG PO (06:29)
[2022-02-23 07:30] LABS: Basophils % 0.2 %; Eosinophils # 0.2 10^3/uL (0.0-0.8); Eosinophils % 1.6 %; Hematocrit 29.9 % (42.0-52.0); Lymphocytes % 19.3 %; Mean Corpuscular HGB Conc 31.8 g/dL (30.0-36.0); Mean Corpuscular Hemoglobin 29.9 pg (28.0-34.0); Mean Platelet Volume 11.6 fL (7.4-10.4); Monocytes % 9.5 %; Neutrophils # 6.78 10^3/uL (1.8-7.7); Neutrophils % 68.7 %; Nucleated Red Blood Cells % 0 %; Platelet Count 140 10^3/cmm (130-400); Red Blood Count 3.18 10^6/uL (4.1-5.3); Red Cell Distribution Width 15.8 % (12.1-15.1); White Blood Count 9.9 10^3/uL (4.0-10.0)
[2022-02-23] MEDS: sodium chloride 3.5% neb 4 mL Neb INHALATION (07:36)
[2022-02-23] MEDS: ipratropium-albuterol 3 mL Neb INHALATION ×2 (07:36→11:15)
[2022-02-23] MEDS: budesonide 0.5 mg/2 mL Neb INHALATION (07:36)
[2022-02-23 07:37] LABS: Hemoglobin 9.5 g/dL (11.7-16.6); Lymphocytes # 1.9 10^3/uL (0.8-4.8); Monocytes # 0.9 10^3/uL (0.2-0.9)
[2022-02-23 08:47] LABS: Glucose Point of Care 219 mg/dL (70-110)
[2022-02-23] MEDS: predniSONE 5 mg Tablet PO (09:08)
[2022-02-23] MEDS: FUROsemide 40 mg Tablet 80 MG PO (09:08)
[2022-02-23] MEDS: atorvastatin 40 mg Tablet 80 MG PO (09:09)
[2022-02-23] MEDS: hyDRALAzine 50 mg Tablet PO (09:12)
--- NOTE | 2022-02-23 10:21 | PM.DCS ---
Discharge Providers Date of Admission: 02/19/22 13:09 Date of Discharge: February 23, 2022 Attending Provider at Admission: Laura Rodriguez MD Attending Provider at Discharge: Quan Johnson MD Primary Care Provider: Stevan Pal DO Diagnoses at Discharge Discharge Diagnosis (1) Type 2 diabetes mellitus without complications: Status: Acute (2) Apnea, sleep: Status: Acute (3) Right lower lobe pneumonia: Status: Acute (4) Atrial fibrillation, chronic: Status: Acute (5) Bronchiectasis: Status: Acute Qualifiers: Bronchiectasis type: uncomplicated Qualified Code(s): J47.9 - Bronchiectasis, uncomplicated Reason for Visit Reason for Visit: SOB Hospital Course Hospital Course HPI done by Dr. Rodriguez Outpatient guest services officer: Dr. White Hospital course Patient was admitted on 02/19 for chief complaint of worsening of shortness of breath, this was secondary to right middle and lower lobe pneumonia with underlying bronchiectasis, he has airway colonization with Pseudomonas, his oxygen requirement did not worsen during hospitalization. He also gets inhaled tobramycin every 28 days, azithromycin Tuesday via [place] [facility], BiPAP at night, Dr. White recommended cefepime 2 g twice daily for 14 days, midline was placed 02/22. Patient is stating that he does not need refill for his inhaled tobramycin or azithromycin. He does have enough supply of prednisone 5 mg at home as well. His home medications were resumed during hospitalization such as Lasix 80 mg twice daily, diltiazem, metoprolol, potassium he has history of A. fib but not a candidate of anticoagulation due to previous history of bleeding he does take aspirin. Because of steroids his blood sugar was consistently above 200, I increase his Lantus during hospitalization to 57 units which did improve his morning blood sugar level. His symptoms improved and patient was endorsing feeling much better. On exertion he did not require more than 6 L. Please see RT note. During this hospitalization he received dual pseudomonal coverage with imipenem and levofloxacin along steroids. He remained afebrile, no severe leukocytosis noted. In hospital we did not carry 7% saline for nebulization that is why 3.5% was used Patient to start inhaled tobramycin from February 27. We will teach his daughter how to administer antibiotics, home health services will be arranged as well Sputum culture and blood culture unremarkable sputum culture showed mixed oral katerin Patient has received 4 days of antibiotics in the hospital, 10 more days left, his last day will be March 05 Physical Exam Narrative: Patient is sitting comfortably in his bed Currently on 6 L nasal cannula No active chest pain He does have crackles rhonchi adventitious sounds diffusely on lung auscultation And abdomen however nontender No signs of edema of legs Awake and alert Nonfocal neuro exam Discharge Data Studies Completed and Pending Completed Studies During Hospitalization Category Date Time Status XR chest 1V portable [id number] Urgent Exams 02/19/22 10:11 Completed Pending at discharge Category Date Time Status Blood Culture Stat Lab 02/19/22 10:35 Results Radiology Impressions Chest X-Ray 02/19/22 10:11 IMPRESSION: 1. Infiltrates in the mid and lower right lung and left basal area. 2. Moderate-sized right basal pleural effusion. 3. Cardiac enlargement unchanged. Laboratory Results WBC 9.9 10^3/uL (4.0-10.0) 02/23/22 05:48 RBC 3.18 10^6/uL (4.1-5.3) L 02/23/22 05:48 Hgb 9.5 g/dL (11.7-16.6) L 02/23/22 05:48 Hct 29.9 % (42.0-52.0) L 02/23/22 05:48 MCV 94.0 fl (80-94) 02/23/22 05:48 MCH 29.9 pg (28.0-34.0) 02/23/22 05:48 MCHC 31.8 g/dL (30.0-36.0) 02/23/22 05:48 RDW 15.8 % (12.1-15.1) H 02/23/22 05:48 Plt Count 140 10^3/cmm (130-400) 02/23/22 05:48 MPV 11.6 fL (7.4-10.4) H 02/23/22 05:48 Neut % (Auto) 68.7 % 02/23/22 05:48 Lymph % (Auto) 19.3 % 02/23/22 05:48 Richardson % (Auto) 9.5 % 02/23/22 05:48 Eos % (Auto) 1.6 % 02/23/22 05:48 Baso % (Auto) 0.2 % 02/23/22 05:48 Neut # (Auto) 6.78 10^3/uL (1.8-7.7) 02/23/22 05:48 Lymph # (Auto) 1.9 10^3/uL (0.8-4.8) 02/23/22 05:48 Richardson # (Auto) 0.9 10^3/uL (0.2-0.9) 02/23/22 05:48 Eos # (Auto) 0.2 10^3/uL (0.0-0.8) 02/23/22 05:48 Baso # (Auto) 0.0 10^3/uL (0.0-0.1) 02/23/22 05:48 Nucleated RBC % (auto) 0 % 02/23/22 05:48 Nucleated RBCs # 0.0 /100WBC 02/23/22 05:48 Sodium 137 mmol/L (136-145) 02/23/22 05:48 Potassium 3.9 mmol/L (3.5-5.1) 02/23/22 05:48 Chloride 94 mmol/L (98-107) L 02/23/22 05:48 Carbon Dioxide 34 mmol/L (22-29) H 02/23/22 05:48 Anion Gap 12.9 (5-19) 02/23/22 05:48 BUN 37 mg/dL (8-23) H 02/23/22 05:48 Creatinine 1.2 mg/dL (0.7-1.2) 02/23/22 05:48 GFR Calculation Not Reportable 02/23/22 05:48 Glucose 210 mg/dL (65-115) H 02/23/22 05:48 POC Glucose 219 mg/dL (70-110) H 02/23/22 06:34 Calculated Osmolality 299 mOsm/kg (285-295) H 02/23/22 05:48 Lactic Acid 1.3 mmol/L (0.5-2.2) 02/19/22 10:27 Calcium 9.4 mg/dL (8.5-10.5) 02/23/22 05:48 Magnesium 1.9 mg/dL (1.7-2.3) 02/21/22 03:20 Total Bilirubin 0.4 mg/dL (0.15-1.2) 02/20/22 04:10 AST 14 U/L (0-40) 02/20/22 04:10 ALT 16 U/L (0-41) 02/20/22 04:10 Alkaline Phosphatase 47 IU/L (40-130) 02/20/22 04:10 Troponin T Gen 5 ng/L 30 ng/L (0-15) H 02/19/22 10:00 Troponin T Hi Sens 6Hr 25.09 ng/L (0-15) H 02/19/22 16:06 Troponin T Hi Sens 6Hr Delta -4.91 ng/L (0-12) L 02/19/22 16:06 NT-Pro-B Natriuret Pep 1076 pg/mL (0-450) H 02/19/22 16:06 Total Protein 6.2 g/dL (6.6-8.7) L 02/20/22 04:10 Albumin 3.4 g/dL (3.5-5.2) L 02/20/22 04:10 Globulin 2.8 g/dL (1.3-4.6) 02/20/22 04:10 Procalcitonin 0.05 ng/mL (0-0.5) 02/19/22 16:06 Urine Color Yellow (Yellow) 02/19/22 20:15 Urine Appearance Clear (CLEAR) 02/19/22 20:15 Urine pH 7 (5-7) 02/19/22 20:15 Ur Specific [place] 1.000 (1.005-1.030) L 02/19/22 20:15 Urine Protein Neg (Negative) 02/19/22 20:15 Urine Glucose (UA) Norm (Normal) 02/19/22 20:15 Urine Ketones Negative (Negative) 02/19/22 20:15 Urine Blood Neg (Negative) 02/19/22 20:15 Urine Nitrate Negative (Negative) 02/19/22 20:15 Urine Bilirubin Neg (Negative) 02/19/22 20:15 Urine Urobilinogen Norm mg/dL (Negative) 02/19/22 20:15 Ur Leukocyte Esterase Negative (Negative) 02/19/22 20:15 Vitals Last Vital Signs Temp 97.3 F L 02/23/22 07:41 Pulse 90 02/23/22 07:41 Resp 18 02/23/22 07:41 BP 114/78 02/23/22 07:41 Pulse Ox 95 02/23/22 07:41 Discharge Plan Discharge Patient Disposition: Home Condition: Stable Prescriptions: Continued spironolactone 25 mg tablet 25 mg PO DAILY@0700 0RF potassium chloride 20 mEq tablet extended release 10 meq PO BID@0700,1700 0RF furosemide [Lasix] 80 mg tablet 80 mg PO BID@0700,1700 0RF budesonide-formoterol [Symbicort] 160-4.5 mcg/actuation HFA aerosol inhaler 1 puff INHALATION BID@0700,1700 0RF ferrous sulfate 325 mg (65 mg iron) tablet 325 mg PO DAILY@1700 0RF triamcinolone acetonide 0.025 % cream 1 applic topical PRN PRN (Reason: rash on face) 0RF fluticasone propionate 50 mcg/actuation spray,suspension 1 spray intranasal BID 0RF Rx Instructions: administer into each nostril prednisone 5 mg tablet 5 mg PO DAILY 60 Days Qty: 60 0RF tobramycin with nebulizer 300 mg/5 mL solution for nebulization 5 ml INHALATION BID Qty: 300 11RF sodium chloride 7 % solution for nebulization 4 ml inhalation BID PRN (Reason: secretions) Qty: 240 11RF pantoprazole [Protonix] 40 mg tablet,delayed release (DR/EC) 40 mg PO DAILY@0700 0RF ipratropium-albuterol 0.5 mg-3 mg(2.5 mg base)/3 mL Solution For Nebulization 3 ml INHALATION QID PRN (Reason: Shortness Of Breath) 0RF allopurinol 300 mg Tablet 300 mg PO DAILY@0700 0RF albuterol sulfate 90 mcg/actuation Hfa Aerosol Inhaler 2 puff INHALATION QID PRN (Reason: SHORSTNESS OF BREATH) 0RF ketoconazole 2 % Shampoo See Rx Instructions .ROUTE .COMPLEX 0RF Rx Instructions: 1 applic topically DIRECTED metolazone 2.5 mg tablet 2.5 mg PO DAILY@0700 0RF metoprolol tartrate 50 mg tablet 75 mg PO BID@0700,1700 0RF diltiazem HCl 30 mg tablet 30 mg PO BID@0700,1700 0RF glucose 4 gram Tablet,Chewable 4 g PO Q15M PRN (Reason: BLOOD SUGAR) 0RF Spiriva Respimat 2.5 mcg/actuation Mist 2 puff INHALATION BID 0RF acetaminophen [Tylenol] 325 mg Tablet 650 mg PO Q4H PRN (Reason: Pain) 0RF docusate sodium [Colace] 100 mg Capsule 100 mg PO TID PRN (Reason: Constipation) 0RF hydralazine 50 mg Tablet 50 mg PO DAILY 0RF Lantus Solostar U-100 Insulin 100 unit/mL (3 mL) insulin pen 54 unit SUBCUT BEDTIME 0RF Label Comments: pt states took 23 untis at bedtime on 12/15 halobetasol propionate 0.05 % Ointment 1 applic TOPICAL BID 0RF guaifenesin 400 mg Tablet 400 mg PO Q4H PRN (Reason: Congestion) 0RF Novolog Flexpen U-100 Insulin 100 unit/mL (3 mL) Insulin Pen See Rx Instructions .ROUTE .COMPLEX 0RF Rx Instructions: 45 unit with breakfast, 20 units with lunch, 35 units with super + 3 units for every 50 over 150. max of 150 daily empagliflozin 25 mg Tablet 25 mg PO DAILY 0RF selenium sulfide 1 % Shampoo 1 applic TOPICAL EVERY OTHER DAY 0RF Rx Instructions: massage into affected area; leave on for 10 mins ; rinse off thoroughly rosuvastatin 20 mg Tablet 10 mg PO DAILY 0RF Ozempic 1 mg/dose (4 mg/3 mL) Pen Injector See Rx Instructions .ROUTE .COMPLEX 0RF Rx Instructions: 1 mg subcutaneously on Discontinued levofloxacin 750 mg tablet 750 mg PO DAILY PRN (Reason: Bronchiectasis exacerbation) 10 Days Qty: 10 3RF Discharge Orders: Discharge Order (Routine); Ordered 02/23/22 Ordered By: Quan Johnson Referrals: Stevan Pal DO [Primary Care Provider] - Mavis White MD [Physician] - 1-3 days Patient Instructions: Opioid Safety Discharge Attestations Time Spent in Discharge Care*: less than 30 min Quality Metrics Clinical Quality Measures [ No reported AMI, CVA or VTE this stay] Coding Level of Care Code Acute Chg FW DC note Diagnoses Type 2 diabetes mellitus without complications E11.9 Apnea, sleep G47.30 Right lower lobe pneumonia J18.9 Atrial fibrillation, chronic I48.20 Bronchiectasis J47.9 Bronchiectasis type: uncomplicated
[2022-02-23 12:15] LABS: Glucose Point of Care 380 mg/dL (70-110)
== END 2022-02-23 12:35 | disposition home health service (06) | DRG 177 ==
LOC: ER 12:29 → MEDSURG 14:15
PROVIDERS: Admitting Provider Internal Medicine; Emergency Provider Emergency Medicine; PCP Emergency Medicine Emergency Medical Services; Visit Provider Internal Medicine
DX: J15.1 Pneumonia due to Pseudomonas (principal); I50.23 Acute on chronic systolic (congestive) heart failure; J44.0 Chronic obstructive pulmonary disease with (acute) lower respiratory infection; J44.1 Chronic obstructive pulmonary disease with (acute) exacerbation; I48.20 Chronic atrial fibrillation, unspecified; Z99.81 Dependence on supplemental oxygen; Z90.2 Acquired absence of lung [part of]; Z87.01 Personal history of pneumonia (recurrent); Z85.038 Personal history of other malignant neoplasm of large intestine; E78.2 Mixed hyperlipidemia; F43.10 Post-traumatic stress disorder, unspecified; E11.65 Type 2 diabetes mellitus with hyperglycemia; Z90.49 Acquired absence of other specified parts of digestive tract; Z87.891 Personal history of nicotine dependence; I11.0 Hypertensive heart disease with heart failure; D64.9 Anemia, unspecified; Z79.4 Long term (current) use of insulin; Z79.51 Long term (current) use of inhaled steroids; Z79.52 Long term (current) use of systemic steroids; R00.1 Bradycardia, unspecified; I27.20 Pulmonary hypertension, unspecified; G47.33 Obstructive sleep apnea (adult) (pediatric)
CPT/HCPCS: 36415; 36416; 36569; 71045; 80048; 80053; 81003; 82962; 83605; 83735; 83880; 84145; 84484; 85025; 87040; 87070; 87205; 93005; 94640; 94660; 94664; 94669; 94762; 96365; 96366; 96367; 96372; 96375; 97161; 97165; 97530; 99285; C1751; C9113; J0692; J0743; J1644; J1815 ×2; J1940; J1956; J7512; J7626

== ENCOUNTER → 2022-02-25 10:33 | Outpatient (BNVA) | payer OTHER, SELFPAY | PROVIDERS: PCP Emergency Medicine Emergency Medical Services; Visit Provider Internal Medicine Critical Care Medicine | DX: J47.1 Bronchiectasis with (acute) exacerbation (principal); I48.19 Other persistent atrial fibrillation; I50.32 Chronic diastolic (congestive) heart failure; J47.9 Bronchiectasis, uncomplicated; J90 Pleural effusion, not elsewhere classified; J96.11 Chronic respiratory failure with hypoxia; J96.12 Chronic respiratory failure with hypercapnia; E78.5 Hyperlipidemia, unspecified | CPT/HCPCS: 99214 ==

== ENCOUNTER 2022-03-01 14:23 | Outpatient (CLI) | payer OTHER, SELFPAY ==
[2022-03-01 15:52] LABS: Basophils % 0.3 %; Eosinophils # 0.1 10^3/uL (0.0-0.8); Eosinophils % 0.9 %; Hematocrit 33.2 % (42.0-52.0); Hemoglobin 9.8 g/dL (11.7-16.6); Lymphocytes # 1.6 10^3/uL (0.8-4.8); Lymphocytes % 13.4 %; Mean Corpuscular HGB Conc 29.5 g/dL (30.0-36.0); Mean Corpuscular Hemoglobin 29.7 pg (28.0-34.0); Mean Corpuscular Volume 100.6 fl (80-94); Mean Platelet Volume 12.3 fL (7.4-10.4); Monocytes # 1.3 10^3/uL (0.2-0.9); Monocytes % 10.7 %; Neutrophils # 8.67 10^3/uL (1.8-7.7); Neutrophils % 74.3 %; Nucleated Red Blood Cells % 0 %; Platelet Count 172 10^3/cmm (130-400); White Blood Count 11.7 10^3/uL (4.0-10.0)
[2022-03-01 16:26] LABS: Albumin Level 3.9 g/dL (3.5-5.2); Alkaline Phosphatase 60 IU/L (40-130); Blood Urea Nitrogen 31 mg/dL (8-23); Calcium 9.3 mg/dL (8.5-10.5); Carbon Dioxide 35 mmol/L (22-29); Chloride 99 mmol/L (98-107); Globulin 2.9 g/dL (1.3-4.6); Glucose 53 mg/dL (65-115); Osmolality Calculated 296 mOsm/kg (285-295); Sodium 141 mmol/L (136-145); Total Bilirubin 0.3 mg/dL (0.15-1.2); Total Protein 6.8 g/dL (6.6-8.7)
[2022-03-01 17:17] LABS: Anion Gap 11.5 (5-19); Potassium 4.5 mmol/L (3.5-5.1)
[2022-03-01 17:18] LABS: Alanine Aminotransferase 26 U/L (0-41); Aspartate Amino Transferase 30 U/L (0-40)
== END 2022-03-01 14:24 | disposition home or self-care (01) ==
PROVIDERS: PCP Emergency Medicine Emergency Medical Services; Visit Provider Emergency Medicine Emergency Medical Services
DX: J44.0 Chronic obstructive pulmonary disease with (acute) lower respiratory infection (principal)
CPT/HCPCS: 80053; 85025

== ENCOUNTER 2022-03-08 16:25 | Outpatient (CLI) | payer OTHER, SELFPAY ==
[2022-03-08 17:35] LABS: Basophils % 0.3 %; Eosinophils # 0.1 10^3/uL (0.0-0.8); Hematocrit 30.8 % (42.0-52.0); Lymphocytes # 1.6 10^3/uL (0.8-4.8); Lymphocytes % 13.9 %; Mean Corpuscular HGB Conc 29.2 g/dL (30.0-36.0); Mean Corpuscular Hemoglobin 29.4 pg (28.0-34.0); Mean Corpuscular Volume 100.7 fl (80-94); Mean Platelet Volume 12.1 fL (7.4-10.4); Monocytes # 1.2 10^3/uL (0.2-0.9); Monocytes % 10.4 %; Neutrophils # 8.47 10^3/uL (1.8-7.7); Nucleated Red Blood Cells % 0 %; Platelet Count 162 10^3/cmm (130-400); Red Blood Count 3.06 10^6/uL (4.1-5.3); Red Cell Distribution Width 15.8 % (12.1-15.1); White Blood Count 11.5 10^3/uL (4.0-10.0)
[2022-03-08 18:18] LABS: Alanine Aminotransferase 21 U/L (0-41); Albumin Level 3.6 g/dL (3.5-5.2); Alkaline Phosphatase 62 IU/L (40-130); Blood Urea Nitrogen 46 mg/dL (8-23); Calcium 9.1 mg/dL (8.5-10.5); Carbon Dioxide 37 mmol/L (22-29); Chloride 96 mmol/L (98-107); Globulin 2.9 g/dL (1.3-4.6); Glucose 148 mg/dL (65-115); Osmolality Calculated 307 mOsm/kg (285-295); Sodium 141 mmol/L (136-145); Total Bilirubin 0.2 mg/dL (0.15-1.2); Total Protein 6.5 g/dL (6.6-8.7)
[2022-03-08 18:22] LABS: Anion Gap 12.4 (5-19); Aspartate Amino Transferase 23 U/L (0-40); Potassium 4.4 mmol/L (3.5-5.1)
== END 2022-03-08 16:26 | disposition home or self-care (01) ==
PROVIDERS: PCP Emergency Medicine Emergency Medical Services; Visit Provider Internal Medicine
DX: J18.9 Pneumonia, unspecified organism (principal)
CPT/HCPCS: 80053; 85025

== ENCOUNTER 2022-04-12 08:48 | Emergency (ER) | payer OTHER, MEDICARE, SELFPAY ==
[2022-04-12 09:06] VITALS: BP 132/77; PULSE 82; RESP 18; TEMP 37.1; O2SAT 99; BMI 38.4
--- NOTE | 2022-04-12 09:31 | XR_ITS ---
WS: [id number] PORTABLE CHEST HISTORY: COVID COMPARISON: 02/19/2022 Mild hyperexpansion from changes of emphysema. Obscuration of the RIGHT hemidiaphragm with RIGHT basi lar consolidation and atelectasis. There is a very minimal amount pleural thickening and atelectasis at the LEFT base. Aeration of both lung bases has slightly improved since the prior study. No pneumot horax. Cardiac size: Normal. Mediastinum/Aorta: Mild atherosclerosis aorta. No osseous abnormality seen. XR/XR chest 1V portable [id number] IMPRESSION: 1. Continued areas of atelectasis at the lung bases, slightly improved since t he study of 02/19/2022. Probably combination of atelectasis and pleural fluid. R IGHT basilar pneumonia not excluded. 2. Small bilateral pleural effusions, RIGHT greater than LEFT with mild improv ement.
--- NOTE | 2022-04-12 09:53 | ED_ITS ---
Documented by User: CHENTE Abrams 04/12/22 12:28 HPI - COVID General: Chief Complaint: COVID symptoms Stated Complaint: SOB Covid positive hx copd Time Seen by Provider: 04/12/22 09:49 Source: patient Mode of arrival: ambulatory Limitations: no limitations Triage information: No fever, cough or shortness of breath . Exposure to COVID + person last 14 days History of Present Illness: Patient is a 77-year-old male with an extensive medical history consisting of CHF, left lower lobe resection, chronic hypercapnic respiratory failure, COPD chronically on 6L 02 via NC, atrial fibrillation, DM, and HTN here for concerns of testing positive for COVID. Patient states over the weekend he began feeling down . States he had chills, body aches, cough, congestion. He thought this might be secondary to pneumonia which he has had previously. He states he began Levaquin which she had at home and has been instructed previously to take this when he feels he might be experiencing a COPD exacerbation/pneumonia. Patient states his tested positive yesterday so he decided to test himself and it was positive as well. These were completed via home antigen testing. complaint: known COVID positive Prior covid testing: yes, results known Prior testing date: 04/11/22 COVID 19 common symptoms: positive chills, non-productive cough, dyspnea (chronic-normally wears 6L O2), fatigue and body aches; negative fever(s), headache(s), nausea, vomiting or diarrhea COVID 19 other sytmptoms: negative chest pain COVID Results: SARS-CoV-2 Antigen (Rapid) Negative (Negative) 05/18/21 09:58 05/18/21 SARS-CoV-2 RNA (RT-PCR) Not detected (NOT DETECTED) 12/11/21 08:02 12/11/21 Nasal/Oral Coronavirus 2019 PCR Negative 06/16/20 18:34 06/16/20 SARS-CoV-2 (PCR) Not detected (NOT DETECT) 09/24/21 18:39 09/24/21 Coronavirus Type 229E (PCR) Not detected (NOT DETECT) 09/24/21 18:39 09/24/21 Review of Systems Const: Reports: chills, body aches and fatigue; Denies: fever(s) Eyes: Denies: change in vision, blurry vision or photophobia Card: Denies: chest pain, palpitations, irregular heart rhythm, lightheadedness, syncope or pre-syncope Resp: Reports: dyspnea (chronic-normally wears 6L O2) and non-productive cough; Denies: wheezing or hemoptysis GI: Denies: abdominal pain, nausea, vomiting or diarrhea Musc: Denies: neck pain, back pain, extremity pain or joint pain Skin/Breast: Denies: rash Neuro: Denies: headache(s), numbness in extremities, weakness in extremities or sensory changes PFSH ED PFSH: Medical History Accelerated essential hypertension Acute exacerbation of bronchiectasis AF (atrial fibrillation) Anemia Apnea, sleep Atrial fibrillation, chronic Bradycardia Bronchiectasis Bronchiectasis, uncomplicated CHF exacerbation Chronic obstructive pulmonary disease, unspecified Colon cancer COPD exacerbation Cyst of pancreas Hernia Hx of adenomatous polyp of colon Hyperlipidemia, unspecified Incisional hernia Osteoarthritis of right knee Pleural effusion Post-traumatic stress disorder, unspecified Postlaminectomy syndrome Respiratory failure with hypoxia and hypercapnia Right lower lobe pneumonia Right renal stone Small bowel obstruction Spinal stenosis, lumbar region without neurogenic claudication Type 2 diabetes mellitus without complications Surgical History H/O colonoscopy 2016 & 11/12/19: Multiple tubular adenoma, follow-up colonoscopy in 3 years 2021 - descending colon polypx 2 H/O esophagogastroduodenoscopy 11/12/2019: Hyperplastic polyp, gastritis H/O esophagogastroduodenoscopy (12/16/21) pyloric polyp H/O shoulder surgery Bilateral History of back surgery Dorsal column stimulator placement /multiple IPG exchanges History of colon resection for sigmoid colon cancer x2 --2012 in [place], 2014 in [place] ( they did not get it all the first time ) History of incisional hernia repair History of lumbar fusion X6 procedures altogether History of surgical procedure on eye proper using laser Bilateral /bilateral cataract extraction History of tonsillectomy and adenoidectomy S/P partial lobectomy of lung Left lower lobe for bronchiectasis Family History Brother Diabetes Hypertension Father Cancer Leukemia Sister Lung cancer Cancer Breast cancer in 2 sisters Other CAD (coronary artery disease) Stroke Denies family history of Anesthesia complication Bleeding disorder Social History Smoking and tobacco status: former smoker Quit status (tobacco): has quit using tobacco Year quit tobacco: 1970 - PPD x 13 Years Alcohol intake: current Alcohol intake frequency: holidays/special occasions only Lives independently: Yes Household members: spouse Marital status: service: Yes Current occupational status: retired History of recent travel: No Current gender identity: Male Physical Exam Const: COMMON NORMALS: no acute distress, patient oriented x3, no limitations and alert GENERAL APPEARANCE: cooperative NUTRITIONAL APPEARANCE: overweight ORIENTATION/CONSCIOUSNESS: Yes awake, Yes oriented to person, Yes oriented to place and Yes oriented to time HENMT: COMMON NORMALS: normocephalic and atraumatic HEAD & SCALP: normal to inspection, normocephalic and atraumatic Resp: COMMON NORMALS: normal respiratory effort AUSCULTATION: wheezes (mild-scattered ) OTHER: satting normally on his normal 6L O2 Cardio: COMMON NORMALS: regular rate and regular rhythm RATE: regular rate RHYTHM: regular rhythm Extremity: COMMON NORMALS: capillary refill normal, no joint enlargement, no clubbing, cyanosis or edema and no calf tenderness Neuro: MARCIAL COMA SCALE: document GCS findings Marcial coma scale eye opening: Spontaneous Marcial coma scale verbal response: Orientated Marcial coma scale motor response: [place]bey commands [place] coma scale total score: 15 COMMON NORMALS: patient oriented x3 SENSORIUM/ORIENTATION: Yes alert, Yes oriented to person, Yes oriented to place and Yes oriented to time Skin: COMMON NORMALS: no rashes or lesions noted GENERAL SKIN EXAM: no rashes or lesions noted Course Vital Signs: Vital signs: Vital Signs Temperature 98.7 F 04/12/22 09:06 Pulse Rate 82 04/12/22 09:06 Respiratory Rate 18 04/12/22 09:06 Blood Pressure 132/77 04/12/22 09:06 Pulse Oximetry 99 04/12/22 11:21 MDM - COVID Medical Decision Making Patient appears in no acute distress. His vital signs are stable. He is satting at 99% on his normal 6 L of O2. I did review him with his raw stock machine loader Dr. White who is very familiar with patient just to make sure there was nothing from a pulmonology standpoint that we need to be doing apart from oral Paxlovid for patient. Dr. White reviewed his chest x-ray and agrees this is improved from previous in January. He agrees with oral Paxlovid and recommends he continues Levaquin x [address] White will contact him later this week for re-evaluation. Strict return to ED precautions given. Blood work not obtained as this overall is unlikely to ticket dispenser changer. Lab Data Radiology Impressions Chest X-Ray 04/12/22 09:31 IMPRESSION: 1. Continued areas of atelectasis at the lung bases, slightly improved since the study of 02/19/2022. Probably combination of atelectasis and pleural fluid. RIGHT basilar pneumonia not excluded. 2. Small bilateral pleural effusions, RIGHT greater than LEFT with mild improvement. SARS-CoV-2 Antigen (Rapid) Negative (Negative) 05/18/21 09:58 05/18/21 SARS-CoV-2 RNA (RT-PCR) Not detected (NOT DETECTED) 12/11/21 08:02 12/11/21 Nasal/Oral Coronavirus 2019 PCR Negative 06/16/20 18:34 06/16/20 SARS-CoV-2 (PCR) Not detected (NOT DETECT) 09/24/21 18:39 09/24/21 Coronavirus Type 229E (PCR) Not detected (NOT DETECT) 09/24/21 18:39 09/24/21 Discharge Plan Discharge Patient Disposition: Home Clinical Impression: COVID-19 Condition: Stable Prescriptions: New Paxlovid (EUA) 150 mg x 2- 100 mg tablet See Rx Instructions .ROUTE .COMPLEX Qty: 6 0RF Rx Instructions: take TWO 150 mg tablets of nirmatrelvir with ONE 100 mg tablet of ritonavir twice daily for 5 days No Action spironolactone 25 mg tablet 25 mg PO DAILY@0700 0RF potassium chloride 20 mEq tablet extended release 10 meq PO BID@0700,1700 0RF furosemide [Lasix] 80 mg tablet 80 mg PO BID@0700,1700 0RF budesonide-formoterol [Symbicort] 160-4.5 mcg/actuation HFA aerosol inhaler 1 puff INHALATION BID@0700,1700 0RF ferrous sulfate 325 mg (65 mg iron) tablet 325 mg PO DAILY@1700 0RF triamcinolone acetonide 0.025 % cream 1 applic topical PRN PRN (Reason: rash on face) 0RF fluticasone propionate 50 mcg/actuation spray,suspension 1 spray intranasal BID 0RF Rx Instructions: administer into each nostril prednisone 5 mg tablet 5 mg PO DAILY 60 Days Qty: 60 0RF tobramycin with nebulizer 300 mg/5 mL solution for nebulization 5 ml INHALATION BID Qty: 300 11RF sodium chloride 7 % solution for nebulization 4 ml inhalation BID PRN (Reason: secretions) Qty: 240 11RF levofloxacin 750 mg tablet 750 mg PO DAILY 14 Days Qty: 14 2RF pantoprazole [Protonix] 40 mg tablet,delayed release (DR/EC) 40 mg PO DAILY@0700 0RF ipratropium-albuterol 0.5 mg-3 mg(2.5 mg base)/3 mL Solution For Nebulization 3 ml INHALATION QID PRN (Reason: Shortness Of Breath) 0RF allopurinol 300 mg Tablet 300 mg PO DAILY@0700 0RF albuterol sulfate 90 mcg/actuation Hfa Aerosol Inhaler 2 puff INHALATION QID PRN (Reason: SHORSTNESS OF BREATH) 0RF ketoconazole 2 % Shampoo See Rx Instructions .ROUTE .COMPLEX 0RF Rx Instructions: 1 applic topically DIRECTED metolazone 2.5 mg tablet 2.5 mg PO DAILY@0700 0RF metoprolol tartrate 50 mg tablet 75 mg PO BID@0700,1700 0RF diltiazem HCl 30 mg tablet 30 mg PO BID@0700,1700 0RF glucose 4 gram Tablet,Chewable 4 g PO Q15M PRN (Reason: BLOOD SUGAR) 0RF Spiriva Respimat 2.5 mcg/actuation Mist 2 puff INHALATION BID 0RF acetaminophen [Tylenol] 325 mg Tablet 650 mg PO Q4H PRN (Reason: Pain) 0RF docusate sodium [Colace] 100 mg Capsule 100 mg PO TID PRN (Reason: Constipation) 0RF hydralazine 50 mg Tablet 50 mg PO DAILY 0RF Lantus Solostar U-100 Insulin 100 unit/mL (3 mL) insulin pen 54 unit SUBCUT BEDTIME 0RF Label Comments: pt states took 23 untis at bedtime on 12/15 halobetasol propionate 0.05 % Ointment 1 applic TOPICAL BID 0RF guaifenesin 400 mg Tablet 400 mg PO Q4H PRN (Reason: Congestion) 0RF Novolog Flexpen U-100 Insulin 100 unit/mL (3 mL) Insulin Pen See Rx Instructions .ROUTE .COMPLEX 0RF Rx Instructions: 45 unit with breakfast, 20 units with lunch, 35 units with super + 3 units for every 50 over 150. max of 150 daily empagliflozin 25 mg Tablet 25 mg PO DAILY 0RF selenium sulfide 1 % Shampoo 1 applic TOPICAL EVERY OTHER DAY 0RF Rx Instructions: massage into affected area; leave on for 10 mins ; rinse off thoroughly rosuvastatin 20 mg Tablet 10 mg PO DAILY 0RF Ozempic 1 mg/dose (4 mg/3 mL) Pen Injector See Rx Instructions .ROUTE .COMPLEX 0RF Rx Instructions: 1 mg subcutaneously on Discharge Orders: Discharge ED (Routine); Ordered 04/12/22 Ordered By: Carol Camarena Referrals: Stevan Pal DO [Primary Care Provider] - Patient Instructions: Nirmatrelvir/Ritonavir (By mouth) (Paxlovid), COVID-19 (Coronavirus Disease 2019) (ED) Activity Restrictions/Additional Instructions: I spoke to your raw stock machine loader Dr. White who agreed with current plan to place you on Paxlovid. He did recommend continuing the Levaquin but only for 1 week. So if you started this medication a few days ago only continue it through 7 days. He will contact you later this week to check on how you are feeling. You need to return to the emergency department immediately for worsening shortness of breath or difficulty breathing, having to increase her baseline oxygen, or any other concerns you may have. I hope you and your begin to feel better soon. Coding Level of Care Code ED Production Assembler for Chg Fwd Exam Detailed Documented by User: Beto Candelario DO 04/13/22 09:02 HPI - COVID General: Chief Complaint: COVID symptoms Stated Complaint: SOB Covid positive hx copd Time Seen by Provider: 04/12/22 09:49 COVID Results: SARS-CoV-2 Antigen (Rapid) Negative (Negative) 05/18/21 09:58 05/18/21 SARS-CoV-2 RNA (RT-PCR) Not detected (NOT DETECTED) 12/11/21 08:02 12/11/21 Nasal/Oral Coronavirus 2019 PCR Negative 06/16/20 18:34 06/16/20 SARS-CoV-2 (PCR) Not detected (NOT DETECT) 09/24/21 18:39 09/24/21 Coronavirus Type 229E (PCR) Not detected (NOT DETECT) 09/24/21 18:39 09/24/21 PFSH ED PFS: Medical History Accelerated essential hypertension Acute exacerbation of bronchiectasis AF (atrial fibrillation) Anemia Apnea, sleep Atrial fibrillation, chronic Bradycardia Bronchiectasis Bronchiectasis, uncomplicated CHF exacerbation Chronic obstructive pulmonary disease, unspecified Colon cancer COPD exacerbation Cyst of pancreas Hernia Hx of adenomatous polyp of colon Hyperlipidemia, unspecified Incisional hernia Osteoarthritis of right knee Pleural effusion Post-traumatic stress disorder, unspecified Postlaminectomy syndrome Respiratory failure with hypoxia and hypercapnia Right lower lobe pneumonia Right renal stone Small bowel obstruction Spinal stenosis, lumbar region without neurogenic claudication Type 2 diabetes mellitus without complications Surgical History H/O colonoscopy 2016 & 11/12/19: Multiple tubular adenoma, follow-up colonoscopy in 3 years 2021 - descending colon polypx 2 H/O esophagogastroduodenoscopy 11/12/2019: Hyperplastic polyp, gastritis H/O esophagogastroduodenoscopy (12/16/21) pyloric polyp H/O shoulder surgery Bilateral History of back surgery Dorsal column stimulator placement /multiple IPG exchanges History of colon resection for sigmoid colon cancer x2 --2012 in [place], 2014 in [place] ( they did not get it all the first time ) History of incisional hernia repair History of lumbar fusion X6 procedures altogether History of surgical procedure on eye proper using laser Bilateral /bilateral cataract extraction History of tonsillectomy and adenoidectomy S/P partial lobectomy of lung Left lower lobe for bronchiectasis Family History Brother Diabetes Hypertension Father Cancer Leukemia Sister Lung cancer Cancer Breast cancer in 2 sisters Other CAD (coronary artery disease) Stroke Denies family history of Anesthesia complication Bleeding disorder Social History Smoking and tobacco status: former smoker Quit status (tobacco): has quit using tobacco Year quit tobacco: 1970 - PPD x 13 Years Alcohol intake: current Alcohol intake frequency: holidays/special occasions only Lives independently: Yes Household members: spouse Marital status: service: Yes Current occupational status: retired History of recent travel: No Current gender identity: Male Physical Exam Neuro: MARCIAL COMA SCALE: document GCS findings Marcial coma scale total score: 15 Course Vital Signs: Vital signs: Vital Signs Temperature 98.7 F 04/12/22 09:06 Pulse Rate 82 04/12/22 09:06 Respiratory Rate 18 04/12/22 09:06 Blood Pressure 132/77 04/12/22 09:06 Pulse Oximetry 99 04/12/22 11:21 MDM - COVID Medical Decision Making Patient appears in no acute distress. His vital signs are stable. He is satting at 99% on his normal 6 L of O2. I did review him with his raw stock machine loader Dr. White who is very familiar with patient just to make sure there was nothing from a pulmonology standpoint that we need to be doing apart from oral Paxlovid for patient. Dr. White reviewed his chest x-ray and agrees this is improved from previous in January. He agrees with oral Paxlovid and recommends he continues Levaquin x [address] White will contact him later this week for re-evaluation. Strict return to ED precautions given. Blood work not obtained as this overall is unlikely to ticket dispenser changer. Chart reviewed and patient discussed with midlevel. Agree with assessment and plan. Lab Data Radiology Impressions Chest X-Ray 04/12/22 09:31 IMPRESSION: 1. Continued areas of atelectasis at the lung bases, slightly improved since the study of 02/19/2022. Probably combination of atelectasis and pleural fluid. RIGHT basilar pneumonia not excluded. 2. Small bilateral pleural effusions, RIGHT greater than LEFT with mild improvement. SARS-CoV-2 Antigen (Rapid) Negative (Negative) 05/18/21 09:58 08/23/21 SARS-CoV-2 RNA (RT-PCR) Not detected (NOT DETECTED) 12/11/21 08:02 12/11/21 Nasal/Oral Coronavirus 2019 PCR Negative 06/16/20 18:34 06/16/20 SARS-CoV-2 (PCR) Not detected (NOT DETECT) 09/24/21 18:39 09/24/21 Coronavirus Type 229E (PCR) Not detected (NOT DETECT) 09/24/21 18:39 09/24/21 Discharge Plan Discharge Patient Disposition: Home Clinical Impression: COVID-19 Condition: Stable Prescriptions: New Paxlovid (EUA) 150 mg x 2- 100 mg tablet See Rx Instructions .ROUTE .COMPLEX Qty: 6 0RF Rx Instructions: take TWO 150 mg tablets of nirmatrelvir with ONE 100 mg tablet of ritonavir twice daily for 5 days No Action spironolactone 25 mg tablet 25 mg PO DAILY@0700 0RF potassium chloride 20 mEq tablet extended release 10 meq PO BID@0700,1700 0RF furosemide [Lasix] 80 mg tablet 80 mg PO BID@0700,1700 0RF budesonide-formoterol [Symbicort] 160-4.5 mcg/actuation HFA aerosol inhaler 1 puff INHALATION BID@0700,1700 0RF ferrous sulfate 325 mg (65 mg iron) tablet 325 mg PO DAILY@1700 0RF triamcinolone acetonide 0.025 % cream 1 applic topical PRN PRN (Reason: rash on face) 0RF fluticasone propionate 50 mcg/actuation spray,suspension 1 spray intranasal BID 0RF Rx Instructions: administer into each nostril prednisone 5 mg tablet 5 mg PO DAILY 60 Days Qty: 60 0RF tobramycin with nebulizer 300 mg/5 mL solution for nebulization 5 ml INHALATION BID Qty: 300 11RF sodium chloride 7 % solution for nebulization 4 ml inhalation BID PRN (Reason: secretions) Qty: 240 11RF levofloxacin 750 mg tablet 750 mg PO DAILY 14 Days Qty: 14 2RF pantoprazole [Protonix] 40 mg tablet,delayed release (DR/EC) 40 mg PO DAILY@0700 0RF ipratropium-albuterol 0.5 mg-3 mg(2.5 mg base)/3 mL Solution For Nebulization 3 ml INHALATION QID PRN (Reason: Shortness Of Breath) 0RF allopurinol 300 mg Tablet 300 mg PO DAILY@0700 0RF albuterol sulfate 90 mcg/actuation Hfa Aerosol Inhaler 2 puff INHALATION QID PRN (Reason: SHORSTNESS OF BREATH) 0RF ketoconazole 2 % Shampoo See Rx Instructions .ROUTE .COMPLEX 0RF Rx Instructions: 1 applic topically DIRECTED metolazone 2.5 mg tablet 2.5 mg PO DAILY@0700 0RF metoprolol tartrate 50 mg tablet 75 mg PO BID@0700,1700 0RF diltiazem HCl 30 mg tablet 30 mg PO BID@0700,1700 0RF glucose 4 gram Tablet,Chewable 4 g PO Q15M PRN (Reason: BLOOD SUGAR) 0RF Spiriva Respimat 2.5 mcg/actuation Mist 2 puff INHALATION BID 0RF acetaminophen [Tylenol] 325 mg Tablet 650 mg PO Q4H PRN (Reason: Pain) 0RF docusate sodium [Colace] 100 mg Capsule 100 mg PO TID PRN (Reason: Constipation) 0RF hydralazine 50 mg Tablet 50 mg PO DAILY 0RF Lantus Solostar U-100 Insulin 100 unit/mL (3 mL) insulin pen 54 unit SUBCUT BEDTIME 0RF Label Comments: pt states took 23 untis at bedtime on 12/15 halobetasol propionate 0.05 % Ointment 1 applic TOPICAL BID 0RF guaifenesin 400 mg Tablet 400 mg PO Q4H PRN (Reason: Congestion) 0RF Novolog Flexpen U-100 Insulin 100 unit/mL (3 mL) Insulin Pen See Rx Instructions .ROUTE .COMPLEX 0RF Rx Instructions: 45 unit with breakfast, 20 units with lunch, 35 units with super + 3 units for every 50 over 150. max of 150 daily empagliflozin 25 mg Tablet 25 mg PO DAILY 0RF selenium sulfide 1 % Shampoo 1 applic TOPICAL EVERY OTHER DAY 0RF Rx Instructions: massage into affected area; leave on for 10 mins ; rinse off thoroughly rosuvastatin 20 mg Tablet 10 mg PO DAILY 0RF Ozempic 1 mg/dose (4 mg/3 mL) Pen Injector See Rx Instructions .ROUTE .COMPLEX 0RF Rx Instructions: 1 mg subcutaneously on Discharge Orders: Discharge ED (Routine); Ordered 04/12/22 Ordered By: Carol Camarena Referrals: Demarco,Stevan D, DO [Primary Care Provider] - Patient Instructions: Nirmatrelvir/Ritonavir (By mouth) (Paxlovid), COVID-19 (Coronavirus Disease 2019) (ED) Activity Restrictions/Additional Instructions: I spoke to your raw stock machine loader Dr. White who agreed with current plan to place you on Paxlovid. He did recommend continuing the Levaquin but only for 1 week. So if you started this medication a few days ago only continue it through 7 days. He will contact you later this week to check on how you are feeling. You need to return to the emergency department immediately for worsening shortness of breath or difficulty breathing, having to increase her baseline oxygen, or any other concerns you may have. I hope you and your begin to feel better soon. Coding Level of Care Code ED Production Assembler for Juven[employer] Fwd Exam Detailed
[2022-04-12 11:21] VITALS: O2SAT 99
== END 2022-04-12 11:22 | disposition home or self-care (01) ==
PROVIDERS: Emergency Provider Physician Assistant; PCP Emergency Medicine Emergency Medical Services
DX: U07.1 COVID-19 (principal); Z79.4 Long term (current) use of insulin; I11.0 Hypertensive heart disease with heart failure; I50.9 Heart failure, unspecified; J44.9 Chronic obstructive pulmonary disease, unspecified; Z85.038 Personal history of other malignant neoplasm of large intestine; E78.5 Hyperlipidemia, unspecified; E11.9 Type 2 diabetes mellitus without complications; Z90.2 Acquired absence of lung [part of]; Z99.81 Dependence on supplemental oxygen; Z87.891 Personal history of nicotine dependence
CPT/HCPCS: 71045; 99283

== ENCOUNTER → 2022-04-29 09:38 | Outpatient (BNVA) | payer OTHER, SELFPAY | PROVIDERS: PCP Emergency Medicine Emergency Medical Services; Visit Provider Internal Medicine Critical Care Medicine | DX: J47.9 Bronchiectasis, uncomplicated (principal); J96.11 Chronic respiratory failure with hypoxia; J96.12 Chronic respiratory failure with hypercapnia; I50.32 Chronic diastolic (congestive) heart failure; I48.19 Other persistent atrial fibrillation; J90 Pleural effusion, not elsewhere classified; Z87.891 Personal history of nicotine dependence | CPT/HCPCS: 99214 ==

== ENCOUNTER → 2022-07-26 08:21 | Outpatient (BNVA) | payer OTHER, SELFPAY | PROVIDERS: PCP Emergency Medicine Emergency Medical Services; Visit Provider Internal Medicine Pulmonary Disease | DX: I48.19 Other persistent atrial fibrillation (principal); J47.9 Bronchiectasis, uncomplicated; J96.11 Chronic respiratory failure with hypoxia; J96.12 Chronic respiratory failure with hypercapnia; I50.32 Chronic diastolic (congestive) heart failure; J90 Pleural effusion, not elsewhere classified; Z87.891 Personal history of nicotine dependence; Z87.19 Personal history of other diseases of the digestive system; Z99.81 Dependence on supplemental oxygen | CPT/HCPCS: 99214 ==

== ENCOUNTER 2022-09-08 09:08 | Outpatient (CLI) | payer OTHER, SELFPAY | END 2022-09-08 09:09 | disposition home or self-care (01) | LOC: RT 09:09 | PROVIDERS: PCP Emergency Medicine Emergency Medical Services; Visit Provider Internal Medicine Pulmonary Disease | DX: J44.9 Chronic obstructive pulmonary disease, unspecified (principal); J96.11 Chronic respiratory failure with hypoxia; J96.12 Chronic respiratory failure with hypercapnia | CPT/HCPCS: 94060; 94726; 94729 ==

== ENCOUNTER 2022-10-18 13:04 | Outpatient (CLI) | payer OTHER, SELFPAY ==
--- NOTE | 2022-10-18 13:00 | CT_ITS ---
WS: [id number] CT CHEST WITHOUT INTRAVENOUS CONTRAST HISTORY: 3 month f/u TECHNIQUE: Contiguous 5 mm axial imaging performed on the thorax. Coronal and sagittal reformats are submitted. All CT scans at [facility] use at least one of these dose optimization techniques: automated exposure control; mA and/or kV adjustment per patient size (includes targeted exams where dose is matched to clinical indication); or iterative reconstruction. CONTRAST: None DLP: 630.11 mGy.cm COMPARISON: Chest CT 12/02/2021, 09/24/2021 Lungs and central airway: Progressive consolidation and air bronchograms in the RIGHT lower lobe. The re is volume loss with dense areas of consolidation RIGHT lower lobe. Bronchiectasis and air bronchog alfreda associated with the consolidation. Additional wedge-shaped area of consolidation extending to th e pleura in the RIGHT middle lobe. Bilateral lower lobe areas of atelectasis and bronchiectasis. Ther e is bilateral groundglass attenuation. As per history LEFT lower lobectomy. Pleura: Small RIGHT pleural effusion and pleural thickening at the RIGHT lung base. Heart and pericardium: Marked cardiomegaly. No pericardial effusion. Moderate coronary artery atheros clerosis. Mediastinum and jason: Numerous small mediastinal and hilar lymph nodes. Vessels: Mild atherosclerosis aorta. Pulmonary artery is enlarged. Chest wall and lower neck: Mild bilateral gynecomastia. Upper abdomen: Visualized adrenal glands, incomplete. No abnormality noted. Osseous structures: Marked increase in thoracic kyphosis. Ankylosis thoracic spine. CT/CT chest wo con [id number] IMPRESSION: 1. Significant progression of consolidation RIGHT lower lobe since 12/02/2021. 2. Extensive bronchiectasis bilaterally in the lower lung us and RIGHT mid dle lobe. 3. New wedge-shaped consolidation RIGHT middle lobe. 4. Additional groundglass attenuation bilaterally. 5. No adenopathy. 6. Cardiomegaly and pulmonary hypertension. 7. No adenopathy. 8. History of LEFT lower lobectomy.
== END 2022-10-18 13:05 | disposition home or self-care (01) ==
LOC: RAD 13:04
PROVIDERS: PCP Emergency Medicine Emergency Medical Services; Visit Provider Internal Medicine Pulmonary Disease
DX: J44.9 Chronic obstructive pulmonary disease, unspecified (principal); J47.9 Bronchiectasis, uncomplicated; J90 Pleural effusion, not elsewhere classified; I51.7 Cardiomegaly; I27.20 Pulmonary hypertension, unspecified
CPT/HCPCS: 71250

== ENCOUNTER → 2022-12-10 11:02 | Outpatient (BNVA) | payer OTHER, SELFPAY | PROVIDERS: PCP Emergency Medicine Emergency Medical Services; Visit Provider Internal Medicine Pulmonary Disease | DX: J47.9 Bronchiectasis, uncomplicated (principal); I50.32 Chronic diastolic (congestive) heart failure; Z87.891 Personal history of nicotine dependence; J96.91 Respiratory failure, unspecified with hypoxia; J96.92 Respiratory failure, unspecified with hypercapnia; J90 Pleural effusion, not elsewhere classified; Z99.81 Dependence on supplemental oxygen | CPT/HCPCS: 99214 ==

== ENCOUNTER 2022-12-14 15:41 | Outpatient (CLI) | payer OTHER, SELFPAY ==
--- NOTE | 2022-12-14 16:30 | CTR_ITS ---
PROCEDURE INFORMATION: Exam: CT Chest Without Contrast; Diagnostic Exam date and time: 12/14/2022 4:16 PM Age: 77 years old Clinical indication: Abnormal findings; Abnormal radiologic exam of lung or chest; Prior surgery; Surgery type: Stimulator; Patient HX: Follow up right middle and lower lobe consolidations, pneumonia, HX of colon cancer; Additional info: F/u right middle and lower lobe consolidations, 10/18/22 CT chest: TECHNIQUE: Imaging protocol: Diagnostic computed tomography of the chest without contrast. Radiation optimization: All CT scans at this facility use at least one of these dose optimization techniques: automated exposure control; mA and/or kV adjustment per patient size (includes targeted exams where dose is matched to clinical indication); or iterative reconstruction. REPORTING DATA: Count of CT and Cardiac NM exams in prior 12 months: This patient has received [address] and 0 known cardiac nuclear medicine studies in the 12 months prior to the current study. COMPARISON: CT chest wo con [id number] 10/18/2022 1:11 PM RADIATION DOSE METRICS: Total DLP (mGy-cm): 605.41 FINDINGS: Tubes, catheters and devices: Stimulator lead in the posterior spinal canal in the mid thoracic spine. Lungs: Severe emphysema. Stable 3 mm right upper lobe nodule. Stable complete consolidation of the right lower lobe with mild volume loss and bronchiectasis. Stable consolidation with bronchiectasis in the right middle lobe. Stable scarring with bronchiectasis in the left upper lobe. Left lower lobe resection. Stable mosaic attenuation throughout both lungs. Previous nodule consolidations in the posterior right upper lobe have decreased significantly and now have the appearance of scar. Pleural spaces: Increased medium size right pleural effusion with mild parietal pleural thickening. No pneumothorax. Heart: Mild cardiomegaly. Coronary arteries: Coronary artery calcifications. Lymph nodes: Prominent mediastinal and hilar lymph nodes are most likely reactive. Vasculature: Unremarkable. No aortic aneurysm. Kidneys and ureters: Left renal cyst, Hounsfield units less than 20. Bones/joints: Kyphosis and degenerative changes. No acute fracture. Soft tissues: Gynecomastia. CT/CT chest wo con [id number] IMPRESSION: 1. Stable consolidations in the right lower and middle lobes with bronchiectasis. This likely represents a combination of pneumonia with developing fibrosis. 2. Increased right pleural fluid with pleural thickening, suspicious for an empyema. 3. Emphysema with scarring. 4. Stable mosaic attenuation. This most likely represents air trapping due to small airways disease. 5. Significantly improved nodular consolidations in the right upper lobe, most likely previous pneumonia with residual scarring. COMMENTS: 1. Consistent with the [employer]'s Incidental Findings Committee white paper (J Am Kell Radiol 2018): Any incidental renal lesion less than 1 cm or classified as too small to characterize, or any incidental cystic renal lesion characterized as simple-appearing, is likely benign. No follow-up imaging is recommended for these lesions per consensus recommendations based on imaging criteria. 2. In the absence of a history or active diagnosis of lung cancer, it is recommended that this patient with emphysema be evaluated for enrollment in a low dose CT lung cancer screening program.
== END 2022-12-14 15:42 | disposition home or self-care (01) ==
PROVIDERS: PCP Emergency Medicine Emergency Medical Services; Visit Provider Internal Medicine Pulmonary Disease
DX: R91.8 Other nonspecific abnormal finding of lung field (principal); J43.9 Emphysema, unspecified
CPT/HCPCS: 71250